=== PATIENT | female | born 1965 | race Caucasian/White ===

== ENCOUNTER 2023-12-08 08:45 | Emergency (ER) | payer OTHER, SELFPAY ==
--- NOTE | ~2023-12-08 | CT_ITS ---
EXAMINATION: CT ABDOMEN AND PELVIS WITHOUT CONTRAST. CT THORACIC SPINE WITHOUT CONTRAST. CLINICAL INFORMATION: Fall with thoracic and pelvic pain COMPARISON: None. TECHNIQUE: A noncontrast CT of the abdomen and pelvis and a noncontrast CT of the thoracic spine is performed with sagittal and coronal reformats. This CT examination was performed using dose optimization techniques as appropriate, variously including the following: *Automated exposure control *Adjustment of mA and/or kV according to patient size (this includes techniques or standardized protocols for targeted exams where dose is matched to indication/reason for exam; i.e. extremities or head) *Use of iterative reconstruction technique Dose Length Product: 588 and 742 mGycm. FINDINGS: Visualized lung bases are clear. The unenhanced liver, spleen, pancreas, kidneys, and adrenal glands appear normal. Incidental 2.1 cm right adrenal adenoma. Several layering gallstones. No intrahepatic or extrahepatic biliary duct dilatation. Scattered colonic diverticulosis. Small and large bowel loops are otherwise unremarkable. Normal appendix. Urinary bladder appears normal. No adenopathy. Scattered atherosclerotic calcifications. Evidence of ventral hernia repair. No pelvic or hip fracture. Transitional lumbosacral junction with fusion of L5-S1. Advanced facet arthrosis at L4-L5 with minimal anterolisthesis. No thoracic spine fracture or malalignment. Moderate multilevel degenerative disc disease with disc space narrowing and anterior endplate osteophytes. Normal thoracic kyphosis. CT/CT thoracic spine wo IV con IMPRESSION: 1. No acute traumatic findings within the abdomen or pelvis. 2. No thoracic spine fracture or traumatic malalignment. 3. Incidental 2.1 cm right adrenal adenoma. 4. Cholelithiasis. Electronically signed by: Jonathan Galvez MD 12/08/2023 11:30 AM EDT
--- NOTE | ~2023-12-08 | CT_ITS ---
EXAMINATION: CT ABDOMEN AND PELVIS WITHOUT CONTRAST. CT THORACIC SPINE WITHOUT CONTRAST. CLINICAL INFORMATION: Fall with thoracic and pelvic pain COMPARISON: None. TECHNIQUE: A noncontrast CT of the abdomen and pelvis and a noncontrast CT of the thoracic spine is performed with sagittal and coronal reformats. This CT examination was performed using dose optimization techniques as appropriate, variously including the following: *Automated exposure control *Adjustment of mA and/or kV according to patient size (this includes techniques or standardized protocols for targeted exams where dose is matched to indication/reason for exam; i.e. extremities or head) *Use of iterative reconstruction technique Dose Length Product: 588 and 742 mGycm. FINDINGS: Visualized lung bases are clear. The unenhanced liver, spleen, pancreas, kidneys, and adrenal glands appear normal. Incidental 2.1 cm right adrenal adenoma. Several layering gallstones. No intrahepatic or extrahepatic biliary duct dilatation. Scattered colonic diverticulosis. Small and large bowel loops are otherwise unremarkable. Normal appendix. Urinary bladder appears normal. No adenopathy. Scattered atherosclerotic calcifications. Evidence of ventral hernia repair. No pelvic or hip fracture. Transitional lumbosacral junction with fusion of L5-S1. Advanced facet arthrosis at L4-L5 with minimal anterolisthesis. No thoracic spine fracture or malalignment. Moderate multilevel degenerative disc disease with disc space narrowing and anterior endplate osteophytes. Normal thoracic kyphosis. CT/CT abdomen pelvis wo IV con IMPRESSION: 1. No acute traumatic findings within the abdomen or pelvis. 2. No thoracic spine fracture or traumatic malalignment. 3. Incidental 2.1 cm right adrenal adenoma. 4. Cholelithiasis. Electronically signed by: Jonathan Galvez MD 12/08/2023 11:30 AM EDT
--- NOTE | ~2023-12-08 | US_ITS ---
EXAMINATION: BILATERAL LOWER EXTREMITY DEEP VENOUS ULTRASOUND CLINICAL INFORMATION: Edema COMPARISON: No similar prior examinations are available for comparison. TECHNIQUE: Duplex Doppler imaging with compression maneuvers were performed of the bilateral lower extremity deep venous systems. FINDINGS: The bilateral visualized common femoral, femoral and popliteal veins demonstrate normal compressibility and color flow without evidence of venous thrombosis. Visualized portions of the bilateral calf veins demonstrate normal color fill-in suggesting patency. There is no evidence of a Thompson's cyst. A few mildly prominent lymph nodes are noted within the right groin which are nonspecific but likely reactive. US/US venous duplex LE BI IMPRESSION: No evidence of deep venous thrombosis involving the bilateral lower extremities. Electronically signed by: Marco Garcia MD 12/08/2023 01:34 PM EDT
--- NOTE | ~2023-12-08 | MR_ITS ---
EXAMINATION: MR LUMBAR SPINE WITHOUT CONTRAST CLINICAL INFORMATION: Severe low back pain. COMPARISON: CT abdomen and pelvis 12/08/2023. TECHNIQUE: MRI of the lumbar spine was obtained using routine sequences without contrast. 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 There is grade 1 anterolisthesis of L4 on L5 that appears to be related to advanced facet degenerative changes at this level. Alignment is otherwise normal. Vertebral body heights are preserved. No acute bone marrow signal changes. Slight loss of intervertebral Director Cpg and T2 signal intensity at L4-L5 related to disc degeneration. There is abutment with associated edema and sclerotic changes of the adjoining spinous processes at L4-L5 indicate the possibility of underlying Baastrup disease. The tip of the conus medullaris is located at L1. No mass effect on the conus. Visualized distal cord signal intensity is normal. At L1-L2 the annular contour is normal. No canal or neuroforaminal compromise. At L2-L3 there is a slightly bulging disc. Bilateral facet degenerative change. No canal stenosis. No mass effect on the traversing or foraminal nerve roots. At L3-L4 there is a slightly bulging disc. Bilateral facet degenerative change. No canal stenosis. No mass effect on the traversing or foraminal nerve roots. At L4-L5 there is a pseudodisc bulge. Moderate to severe canal stenosis. Subarticular zone narrowing causes compression of both traversing L5 nerve roots. There is also moderate compression of both L4 foraminal nerve roots. At L5-S1 there is no canal or neuroforaminal compromise. Limited visualization of the retroperitoneal anatomy reveals a few layering calculi within the gallbladder neck. Psoas and paraspinal muscle groups are symmetric. 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 There is adjacent segment spondylosis above the fusion at the level of L4-L5 where there is grade 1 anterolisthesis and moderate to severe canal stenosis. Subarticular zone narrowing at this level causes compression of both traversing L5 nerve roots. There is also moderate compression of both L4 foraminal nerve roots related to degenerative changes at L4-L5. There is abutment with associated edema and sclerotic changes of the adjoining spinous processes at L4-L5 indicating the possibility of underlying Baastrup disease. There are a few layering calculi visualized within the gallbladder neck. Electronically signed by: Bridger Perez MD 12/08/2023 06:40 PM EDT RP
[2023-12-08 08:49] VITALS: BP 148/81; PULSE 77; RESP 20; TEMP 36.6; O2SAT 99; BMI 42.2
--- NOTE | 2023-12-08 09:21 | ED_ITS ---
HPI - Back Pain/Injury General Chief Complaint: Back Pain/Injury Stated Complaint: back inj, swollen legs Time Seen by Provider: 12/08/23 09:21 Source: patient and family (sister ) Mode of arrival: ambulatory Limitations: no limitations History of Present Illness ED Provider: [place] HOPE HPI Narrative: 58-year-old female history of hypertension, obesity, current daily smoker presents to the emergency department with debilitating lower back pain ongoing for the past 2 months. Patient reports pain is diffuse through her lower back she feels like it starts in the center and radiates out into bilateral lower extremities no associated numbness or tingling or changes in urinary or bowel habits however patient has not been able to ambulate over the past 2 months she has been sleeping in a recliner, pain is worse with movement better at rest. She reports this pain did start after a fall approximately 2 months ago. She has taken Toradol after a hospital visit for pain with little to no improvement. She has also seen [facility] who ordered an MRI of lower back and venous duplex due to new onset lower extremity swelling she reports her legs are normally not swollen however she has not been able to elevate her legs much secondary to severe pain with leg raise. She has shortness of breath at baseline however no new shortness of breath. She denies chest pain. Denies fevers, chills, nausea, vomiting, numbness, tingling, urinary or bladder incontinence/retention, saddle anesthesias. Related Data Previous Rx's ?Medication ?Instructions ?Recorded ketorolac 10 mg tablet 10 mg PO TID PRN pain 5 days #15 12/08/23 tabs lidocaine 5 % topical patch 1 patch topical DAILY PRN pain #15 12/08/23 ea morphine 15 mg immediate release 15 mg PO Q6H PRN pain 5 days #10 12/08/23 tablet tabs prednisone 20 mg tablet 40 mg (2 x 20 mg) PO DAILY 5 days 12/08/23 #10 tabs Allergies Allergy/AdvReac Type Severity Reaction Status Date / Time Penicillins [PENICILLINS] Allergy Unknown HIVES Verified 12/08/23 08:52 Review of Systems 2 Review of Systems: Yes all other systems are reviewed and are negative PMFSH Past Medical History Attestation statement: The following information was validated with the patient. Source: old records reviewed and nursing notes reviewed Social History Social History Smoked in Last 30 Days: Yes Advance Directives: No Advance Directives Information Provided: No Do you have a plan to hurt others: No Plan Physical Exam 2 Vital Signs: Vital Signs: Last Vital Signs Temp 97.9 F 12/08/23 08:49 Pulse 67 12/08/23 20:46 Resp 18 12/08/23 20:46 BP 102/42 L 12/08/23 16:28 Pulse Ox 98 12/08/23 16:28 O2 Del Method Room Air 12/08/23 16:28 BMI result Body Mass Index 42.2 vss Appearance: Alert.? Oriented X3.? No acute distress.? Head: Normocephalic, atraumatic, no step-offs or deformities Eyes: Pupils equal, round and reactive to light.? Neck: Normal inspection.? Neck supple.? CVS: Normal heart rate and rhythm.? Pulses normal.? Respiratory: No respiratory distress.? Breath sounds normal.? Abdomen: Soft and nontender.? Skin: Skin warm and dry.? Normal skin color.? Normal skin turgor.? Extremities: 2+ lower extremity edema from the knee down bilaterally? No calf ttp. 5/5 strength to bilateral upper extremities and 3/5 strength to bilateral lower extremities strength assessment is interrupted by severe pain. Back: No midline tenderness, no C-spine tenderness, full range of motion however extremely painful particularly with rotation, flexion and extension, no CVA tenderness bilaterally Neuro: Oriented X 3.? No motor deficit.? No sensory deficit. CN 2-12 intact Course Reevaluation(s) Reevaluation #1: CBC unremarkable. Chemistry unremarkable. Coags normal. UA normal. DVT study negative. Ct t spine, no acute findings no fx or traumatic malalignment. 2.1 cm adrenal adenoma Time: 14:29 Reevaluation #2: Still in a lot of pain and feels like she can not walk. Discussed w/ my attending Dr. Hilliard, will order MR of lumbar spine at this time. Time: 14:50 Reevaluation #3: I Nora Gilmore PA-C have accepted care Of the patient had signed out pending MRI lumbar spine I have independently reviewed the following tests: MRI lumbar spine:: MR LUMBAR SPINE WITHOUT CONTRAST CLINICAL INFORMATION: Severe low back pain. COMPARISON: CT abdomen and pelvis 12/08/2023. TECHNIQUE: MRI of the lumbar spine was obtained using routine sequences without contrast. 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 There is grade 1 anterolisthesis of L4 on L5 that appears to be related to advanced facet degenerative changes at this level. Alignment is otherwise normal. Vertebral body heights are preserved. No acute bone marrow signal changes. Slight loss of intervertebral Fitness Supervisor and T2 signal intensity at L4-L5 related to disc degeneration. There is abutment with associated edema and sclerotic changes of the adjoining spinous processes at L4-L5 indicate the possibility of underlying Baastrup disease. The tip of the conus medullaris is located at L1. No mass effect on the conus. Visualized distal cord signal intensity is normal. At L1-L2 the annular contour is normal. No canal or neuroforaminal compromise. At L2-L3 there is a slightly bulging disc. Bilateral facet degenerative change. No canal stenosis. No mass effect on the traversing or foraminal nerve roots. At L3-L4 there is a slightly bulging disc. Bilateral facet degenerative change. No canal stenosis. No mass effect on the traversing or foraminal nerve roots. At L4-L5 there is a pseudodisc bulge. Moderate to severe canal stenosis. Subarticular zone narrowing causes compression of both traversing L5 nerve roots. There is also moderate compression of both L4 foraminal nerve roots. At L5-S1 there is no canal or neuroforaminal compromise. Limited visualization of the retroperitoneal anatomy reveals a few layering calculi within the gallbladder neck. Psoas and paraspinal muscle groups are symmetric. 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 There is adjacent segment spondylosis above the fusion at the level of L4-L5 where there is grade 1 anterolisthesis and moderate to severe canal stenosis. Subarticular zone narrowing at this level causes compression of both traversing L5 nerve roots. There is also moderate compression of both L4 foraminal nerve roots related to degenerative changes at L4-L5. There is abutment with associated edema and sclerotic changes of the adjoining spinous processes at L4-L5 indicating the possibility of underlying Baastrup disease. There are a few layering calculi visualized within the gallbladder neck. Electronically signed by: Bridger Perez MD 12/08/2023 06:40 PM EDT RP After discussion with the patient, it is clear that she requires case management and physical therapy assessment. Ordering a Nicoderm patch, and additional pain medication. In addition, the patient has COPD, she is due for an updraft, we will order a DuoNeb. Medications Administered Discontinued Medications Generic Name Dose Route Start Last Admin Trade Name Lyndsay PRN Reason Stop Dose Admin Albuterol/Ipratropium 3 ml 12/08/23 20:21 12/08/23 20:44 Albuterol/Iprat 2.5/0.5mg 3 Ml Ampul.Neb INHALE 12/08/23 20:22 3 ml ONCE ONE Administration Diazepam 2 mg 12/08/23 09:40 12/08/23 10:16 Diazepam 2 Mg Tablet PO 12/08/23 09:41 2 mg ONCE ONE Administration Hydromorphone HCl 1 mg 12/08/23 13:08 12/08/23 13:35 Hydromorphone Hcl 1 Mg/Ml Syringe IVPUSH 12/08/23 13:09 1 mg ONCE ONE Administration Protocol Hydromorphone HCl 1 mg 12/08/23 14:51 12/08/23 15:16 Hydromorphone Hcl 1 Mg/Ml Syringe IVPUSH 12/08/23 14:52 1 mg ONCE ONE Administration Protocol Hydromorphone HCl 1 mg 12/08/23 15:52 12/08/23 16:43 Hydromorphone Hcl 1 Mg/Ml Syringe IVPUSH 12/08/23 15:53 1 mg ONCE ONE Administration Protocol Ketorolac Tromethamine 30 mg 12/08/23 09:40 12/08/23 10:16 Ketorolac Tromethamine 15 Mg/Ml Vial IVPUSH 12/08/23 09:41 30 mg ONCE ONE Administration Lidocaine 1 patch 12/08/23 09:40 12/08/23 10:16 Lidocaine 4 % Patch Adh..Patch TRANSDERMA 12/08/23 09:41 1 patch ONCE ONE Administration Protocol Morphine Sulfate 4 mg 12/08/23 09:40 12/08/23 10:16 Morphine Sulfate 4 Mg/Ml Cartridge IVPUSH 12/08/23 09:41 4 mg ONCE ONE Administration Protocol Medical Decision Making Medical Decision Making [facility] Narrative: 58-year-old female presents with 2 months of acute on chronic back pain. Worsening over the past few days the point where she can not ambulate. Does report trauma about 2 months ago. Physical exam 2+ lower extremity edema from the knee down bilaterally? No calf ttp. 5/5 strength to bilateral upper extremities and 3/5 strength to bilateral lower extremities strength assessment is interrupted by severe pain. Back: No midline tenderness, no C-spine tenderness, full range of motion however extremely painful particularly with rotation, flexion and extension, no CVA tenderness bilaterally History and physical exam concerning for possible compression fracture versus lumbar radiculopathy versus herniated disc. Unlikely cauda equina, epidural abscess, cord compression. Lower extremity edema likely secondary to gravity/positional I do not suspect acute arterial or venous occlusion. Will rule out metabolic derangements in urinary infection although unlikely. Plan labs, imaging, urine Differential Diagnosis Differential Diagnoses: The differential diagnosis associated with the presentation includes (History and physical exam concerning for possible compression fracture versus lumbar radiculopathy versus herniated disc. Unlikely cauda equina, epidural abscess, cord compression. Lower extremity edema likely secondary to gravity/positional I do not suspect acute arterial or venous occlusion. Wi) Admission/Observation Consideration of admission/observation: Escalation of care including admission/observation considered (possible ) Lab Data [facility] Lab Attestation statement: I reviewed the patient's lab results. 12/08/23 09:47 12/08/23 09:47 Labs: Lab Results 12/08/23 12/08/23 Range/Units 09:47 10:45 WBC 7.7 (4.8-10.8) X10*3/uL RBC 3.69 L (4.20-5.50) X10*6/uL Hgb 12.4 (12.0-16.0) g/dl Hct 37.9 (37.0-47.0) % MCV 102.7 H (80.0-98.0) fL MCH 33.6 H (27.0-33.0) pg MCHC 32.7 (31.0-35.0) g/dl RDW 13.4 (11.0-16.0) % Plt Count 213 (160-400) X10*3/uL MPV 9.3 L (9.4-12.3) fL Immature Gran % (Auto) 0.4 (0.0-0.4) % Neut % (Auto) 70.7 (45-73) % Lymph % (Auto) 18.4 L (20-40) % Gentry % (Auto) 7.3 (2-11) % Eos % (Auto) 2.5 (0-4) % Baso % (Auto) 0.7 (0-2) % Lymph # (Auto) 1.4 (1.2-4.9) X10*3/uL Gentry # (Auto) 0.6 (0.1-1.2) X10*3/uL Eos # (Auto) 0.2 (0.0-0.4) X10*3/uL Baso # (Auto) 0.1 (0.0-0.2) X10*3/uL Abs Immat Gran (auto) 0.03 (0.00-0.03) X10*3/uL Absolute Neuts (auto) 5.4 (2.0-8.3) x10*3/uL Absolute Nucleated RBC 0.000 (0.0-0.012) X10*3/uL Nucleated RBC % (auto) 0.0 (0.0-0.2) /100WBC ESR 17 (0-20) MM/HR PT 10.9 (10.9-12.4) SEC INR 0.9 (0.9-1.1) Sodium 143 (135-145) mmol/L Potassium 4.4 (3.3-5.1) mmol/L Chloride 108 (96-108) mmol/L Carbon Dioxide 27 (22-29) mmol/L Anion Gap 12 (12-20) BUN 12 (9-16) mg/dL Creatinine 0.84 (0.5-1.4) mg/dL Estim Creat Clear Calc 80.8 Estimated GFR > 60 Random Glucose 96 (60-115) mg/dL Calcium 9.6 (8.4-10.2) mg/dL Total Bilirubin 0.6 (0.0-1.0) mg/dL AST 17 (5-31) U/L ALT 12 (0-31) U/L Alkaline Phosphatase 88 (39-117) U/L Troponin I High Sens 4.4 (<3.5-17.0) ng/L C-Reactive Protein 0.96 H (< or = 0.50) mg/dL B-Natriuretic Peptide 96 (<100) pg/mL Total Protein 7.2 (6.5-8.0) g/dL Albumin 4.1 (3.5-5.0) g/dL Urine Color Yellow Urine Appearance Clear Urine pH 6.5 (5.0-9.0) Ur Specific Rake 1.010 (1.005-1.025) Urine Protein Negative (Neg-Trace) mg/dL Urine Glucose (UA) Negative (Negative) mg/dL Urine Ketones Trace (Negative) mg/dL Urine Blood Negative (Negative) Urine Nitrite Negative (Negative) Ur Leukocyte Esterase Negative (Negative) Independent Interpretation I performed an independent interpretation of an: Ultrasound (US/US venous duplex LE BI IMPRESSION: No evidence of deep venous thrombosis involving the bilateral lower extremities. ) and CT Scan (CT/CT abdomen pelvis wo IV con IMPRESSION: 1. No acute traumatic findings within the abdomen or pelvis. 2. No thoracic spine fracture or traumatic malalignment. 3. Incidental 2.1 cm right adrenal adenoma. 4. Cholelithiasis. ) Radiology Impression Discussion of test interpretation with radiology: I have reviewed the radiologist's reading. Independent Historian Clinical information obtained from an independent historian. History obtained from or confirmed by: Other (sister ) Critical Care Time Critical Care Time Critical Care Time: Yes Total Critical Care Time: 35 Attestation: I attest to this time spent taking care of the patient, obtaining history, physical, reviewing labs, imaging, treatment of patients condition +/- specialist/hospitalist consult Discharge Plan Discharge Clinical Impression: Acute lumbar back pain, Lumbar radiculopathy, Leg edema Patient Disposition: Still a Patient Instructions: Acute Low Back Pain (ED), Back Pain (ED) Additional Instructions: Take your medications as prescribed. If you were prescribed antibiotics today, it is important that you take your medication to their entirety, do not skip any doses, do not finish them early. Follow-up with your primary care provider this week. Return to the emergency department with new or worsening symptoms. Such as fevers, chills, chest pain, shortness of breath, nausea, vomiting, dizziness, headache, vision changes, lethargy In case of emergency call 911 Elevate your legs, minimize salt intake Follow-up with PCP and [facility] A narcotic has been sent to your pharmacy please take this as prescribed. Do not take more than the prescribed dose. Narcotic medications can cause addiction. Please do not mix them with alcohol. Do not take them while driving or operating machinery. Do not take them with any other narcotics. Do not share them with friends or family. They can cause constipation. Take them only for severe pain. Toradol has been sent to your pharmacy, you tolerated this well in the department. Please take this as prescribed do not take this with ibuprofen, or other NSAIDs, do not mix this with alcohol. Side effects of this medication including increased risk for bleeding and possible kidney injury. US/US venous duplex LE BI IMPRESSION: No evidence of deep venous thrombosis involving the bilateral lower extremities. CT/CT abdomen pelvis wo IV con IMPRESSION: 1. No acute traumatic findings within the abdomen or pelvis. 2. No thoracic spine fracture or traumatic malalignment. 3. Incidental 2.1 cm right adrenal adenoma. 4. Cholelithiasis. Prescriptions: New ketorolac 10 mg tablet 10 mg PO TID PRN (Reason: pain) 5 Days Qty: 15 0RF Rx Instructions: Tolerated IM or IV in department lidocaine 5 % adhesive patch,medicated 1 patch topical DAILY PRN (Reason: pain) Qty: 15 0RF Rx Instructions: leave on most painful area for up to 12 hrs morphine 15 mg tablet 15 mg PO Q6H PRN (Reason: pain) 5 Days Qty: 10 0RF Rx Instructions: Partial Fill upon patient request. prednisone 20 mg tablet 40 mg PO DAILY 5 Days Qty: 10 0RF Referrals: [facility] [Provider Group] - 2 days Juanis Garza FNP-JARVIS [Primary Care Provider] - 2 days Stand Alone Forms: Work/School Release Print Language: Belarusian
[2023-12-08 09:58] LABS: MANUAL DIFF FLAG NO
[2023-12-08 10:00] LABS: Basophils Absolute Auto 0.1 X10*3/uL (0.0-0.2); Basophils Percent Auto 0.7 % (0-2); Eosinophils Absolute Auto 0.2 X10*3/uL (0.0-0.4); Eosinophils Percent Auto 2.5 % (0-4); Hematocrit 37.9 % (37.0-47.0); Hemoglobin 12.4 g/dl (12.0-16.0); Imm Gran Abs Auto 0.03 X10*3/uL (0.00-0.03); Imm Gran Pct Auto 0.4 % (0.0-0.4); Lymphocytes Absolute Auto 1.4 X10*3/uL (1.2-4.9); Lymphocytes Percent Auto 18.4 % (20-40); Mean Corpuscular HGB Conc 32.7 g/dl (31.0-35.0); Mean Corpuscular Hemoglobin 33.6 pg (27.0-33.0); Mean Corpuscular Volume 102.7 fL (80.0-98.0); Mean Platelet Volume 9.3 fL (9.4-12.3); Monocytes Absolute Auto 0.6 X10*3/uL (0.1-1.2); Monocytes Percent Auto 7.3 % (2-11); Neutrophils Absolute Auto 5.4 x10*3/uL (2.0-8.3); Neutrophils Percent Auto 70.7 % (45-73); Platelet Count 213 X10*3/uL (160-400); Red Blood Count 3.69 X10*6/uL (4.20-5.50); Red Cell Distribution Width 13.4 % (11.0-16.0); White Blood Count 7.7 X10*3/uL (4.8-10.8)
[2023-12-08 10:16] VITALS: RESP 16
[2023-12-08] MEDS: Ketorolac Tromethamine 15 MG/ML VIAL 30 MG IVPUSH (10:16)
[2023-12-08] MEDS: Morphine Sulfate 4 MG/ML CARTRIDGE IVPUSH (10:16)
[2023-12-08] MEDS: Lidocaine 4 % Patch ADH..PATCH 1 PATCH TRANSDERMA (10:16)
[2023-12-08] MEDS: diazePAM 2 MG TABLET PO (10:16)
[2023-12-08 10:22] LABS: INTERNATIONAL NORM RATIO 0.9 (0.9-1.1); Prothrombin Time 10.9 SEC (10.9-12.4)
[2023-12-08 10:23] LABS: B Type Natriuretic Peptide 96 pg/mL (<100)
[2023-12-08 10:24] LABS: Alanine Aminotransferase 12 U/L (0-31); Albumin Level 4.1 g/dL (3.5-5.0); Alkaline Phosphatase 88 U/L (39-117); Anion Gap 12 (12-20); Aspartate Amino Transferase 17 U/L (5-31); Bilirubin Total 0.6 mg/dL (0.0-1.0); Blood Urea Nitrogen 12 mg/dL (9-16); C Reactive Protein 0.96 mg/dL (< or = 0.50); Calcium 9.6 mg/dL (8.4-10.2); Carbon Dioxide 27 mmol/L (22-29); Chloride 108 mmol/L (96-108); Creatinine Clr Calc Pharmacy 80.8; Estimated Glomerular Filt Rate > 60; Glucose Random 96 mg/dL (60-115); Potassium 4.4 mmol/L (3.3-5.1); Sodium 143 mmol/L (135-145); Total Protein 7.2 g/dL (6.5-8.0)
[2023-12-08 10:25] LABS: Troponin-I High Sensitivity 4.4 ng/L (<3.5-17.0)
[2023-12-08 10:47] LABS: Erythrocyte Sedimentation Rate 17 MM/HR (0-20)
[2023-12-08 10:57] LABS: Appearance Urine Clear; Color Urine Yellow; Glucose Urine UA Negative (Negative); Leukocyte Esterase Urine Negative (Negative); Nitrite Urine Negative (Negative); PH 6.5 (5.0-9.0); Urine Blood Negative (Negative); Urine Ketones Trace mg/dL (Negative); Urine Protein Negative (Neg-Trace)
--- NOTE | 2023-12-08 11:44 | PC.NURSE ---
assumed care of pt at 1100, pt a&ox4, resting quietly in bed w lights dimmed pending CT scan results. pt reports improvement in pain to 5/10 from 10/12, but will call for assistance to restroom as pain tends to increase w ambulation.
[2023-12-08 12:36] VITALS: BP 123/63; PULSE 73; RESP 17; O2SAT 97
[2023-12-08] MEDS: HYDROmorphone HCl 1 MG/ML SYRINGE IVPUSH ×3 (13:35→16:43)
[2023-12-08 16:28] VITALS: BP 102/42; PULSE 69; RESP 17; O2SAT 98
--- NOTE | 2023-12-08 17:50 | PC.NURSE ---
patient transport to MRI.
[2023-12-08] MEDS: Albuterol/Iprat 2.5/0.5MG 3 ML AMPUL.NEB INHALE (20:44)
[2023-12-08 20:46] VITALS: PULSE 67; RESP 18; O2SAT 94
[2023-12-08 22:08] VITALS: BP 110/53; PULSE 73; RESP 17; TEMP 36.7; O2SAT 94
[2023-12-08] MEDS: methocarbamoL 750 MG TABLET 1500 MG PO (22:08)
[2023-12-08] MEDS: Nicotine 21 MG PATCH.TD24 TRANSDERMA (22:08)
--- NOTE | 2023-12-08 22:13 | PC.NURSE ---
pt medicated per MAY, nicotine patch applied to L upper outer arm. warm blankets and ice provided.
[2023-12-09 07:02] VITALS: BP 130/63; PULSE 82; RESP 20; TEMP 37.1; O2SAT 97
--- NOTE | 2023-12-09 07:03 | PC.NURSE ---
pt reports she slept well, back pain 10/10 requesting motrin for pain only.
--- NOTE | 2023-12-09 10:52 | MHC.CM.PN ---
CM RECEIVED ED CONSULT. CM MET WITH PT AT BEDSIDE. 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 PT WILLING TO COMPLETE A HCP WITH THIS CM NAMING HER SISTER. NO ACTIVE PCP, PENDING NEW PT APPT BUT NOT UNTIL MAY 2024. PT IS WILLING TO WAIT TO BE SEEN BY P.T. FOR RECOMMENDATIONS. CM WILL CONTINUE TO FOLLOW. IF PT CHOOSES TO RETURN HOME, SHE HAS A RIDE.
[2023-12-09] MEDS: traMADoL HCL 50 MG TABLET PO (11:39)
--- NOTE | 2023-12-09 11:43 | PC.NURSE ---
Pt medicated with PRN tramadol for c/o back pain. RT called for PRN updraft per Pt request.
[2023-12-09] MEDS: Albuterol/Iprat 2.5/0.5MG 3 ML AMPUL.NEB INHALE (11:49)
[2023-12-09 11:50] VITALS: PULSE 80; RESP 14; O2SAT 92
[2023-12-09 14:46] VITALS: BP 142/68; PULSE 80; RESP 14; TEMP 36.6; O2SAT 97
== END 2023-12-09 14:47 | disposition home or self-care (01) ==
PROVIDERS: Physician Assistant; Emergency Provider Internal Medicine; PCP Nurse Practitioner Family
DX: M54.50 Low back pain, unspecified (principal); M54.16 Radiculopathy, lumbar region; R60.0 Localized edema; I10 Essential (primary) hypertension; F17.210 Nicotine dependence, cigarettes, uncomplicated; R06.02 Shortness of breath
CPT/HCPCS: 36415; 72128; 72148; 74176; 80053; 81003; 83880; 84484; 85025; 85610; 85652; 86140; 93970; 94640; 96374; 96375; 99285; J1171; J1885; J2270

== ENCOUNTER 2024-01-23 08:01 | Outpatient (AMB) | payer OTHER, SELFPAY ==
--- NOTE | 2024-01-23 08:20 | AM.OFFWIN_ITS ---
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 Required: No Accompanied by: Sister Is last menstrual period known: No Post menopausal: No Patient : No Allergies Penicillins [PENICILLINS] Allergy (Unknown, Verified 01/23/24 08:23) HIVES Medication List - Last Reconciled 01/23/24 by Juanis Garza [facility]- albuterol sulfate mg inhalation albuterol sulfate 90 mcg/actuation inhalation gabapentin 300 mg PO BEDTIME lidocaine 5% 1 patch topical DAILY PRN Do you need a note to return to daycare/school/sports/work: No HPI HPI Comments History of Present Illness Details History of Present Illness The patient is a 58-year-old female presenting with a need for medication refills, specifically for nebulizer treatment, due to her Chronic Obstructive Pulmonary Disease (COPD) and asthma. She last refilled her nebulizer medication in July and has been stretching her supply by using it every other day. The history reveals that she has been utilizing albuterol in her nebulizer and a rescue inhaler. She reports increased wheezing and difficulty breathing, particularly upon waking, exacerbated by pain and restricted activity due to back pain. The patient was previously connected to [facility] but lost access due to insurance changes. She has a significant history of back pain, highlighted by recent ER visits following her sister's incident in August at her skilled nursing [facility]. Currently, she attends [facility], receiving gabapentin and cortisone injections. She expresses reluctance towards surgical intervention, preferring conservative treatment. She is also dealing with persistent wheezing and reports a recent increase in smoking due to inactivity. Social History - Employment: Previously worked in a [employer] setting and currently employed at [employer] - Lifestyle: Used to walk two miles [place] but reports increased smoking and reduced activity due to current health conditions. Physical Exam Awake alert NAD, accompanied by sister, Skylar RRR LS w/ ins/exp wheeze throughout Plan - Chronic Obstructive Pulmonary Disease COPD) and Asthma: Refilled prescriptions for nebulizer solution and inhaler. Recommended to continue nebulizer up to four times daily as needed. Explore cost-effective inhaled steroids. Tristian sent to pharmacy w/ note to send me cheaper alternatives if hi copay as i am not able to access real time benefits. - Back Pain: Continue receiving gabapent in and scheduled cortisone injections. Recommended conservative management over surgical intervention. Patient was informed and verbally consented to the use of an ambient scribe for clinic note documentation during this visit. Discussion Notes During the visit, we discussed the current management of the patient?s COPD and asthma, emphasizing the importance of inhaled steroids to improve respiratory function. Considering the financial constraints, we will look into more affordable options for these medications. We reviewed the challenges she faces with back pain and the decision to pursue conservative treatments rather than surgery. I advised on the potential benefit of an inhaled steroid despite concerns over cost and provided education on proper post-inhalation mouth rinsing to prevent thrush. Plan to follow up in four weeks, with flexibility for sooner appointment if needed. Patient Instructions - Use the nebulizer solution and inhaler as prescribed. - Rinse the mouth after using inhaled st eroids to prevent thrush. - Monitor symptoms and use albuterol inh aler or nebulizer as needed. - Follow up with [facility] for back pain management and scheduled injections. - Reduce smoking to aid respiratory heal th. - Return in approximately four weeks or sooner if symptoms worsen [facility] Social History Patient Tobacco Use Status: Current everyday Tobacco user Physical Exam Vital Signs: Last Vital Signs Temp 99.3 F 01/23/24 08:25 Pulse 80 01/23/24 08:25 Resp 16 01/23/24 08:25 BP 116/70 01/23/24 08:25 Pulse Ox 99 01/23/24 08:25 Oxygen Delivery Method Room Air 01/23/24 08:25 BMI result Body Mass Index 42.4 Assessment & Plan Assessment & Plan (1) COPD (chronic obstructive pulmonary disease): Code(s): J44.9 - Chronic obstructive pulmonary disease, unspecified Qualifiers: COPD type: chronic bronchitis Chronic bronchitis type: mixed simple and mucopurulent Qualified Code(s): J41.8 - Mixed simple and mucopurulent chronic bronchitis (2) Tobacco dependence: Code(s): F17.200 - Nicotine dependence, unspecified, uncomplicated Plan . Medications: New albuterol sulfate 90 mcg/actuation 2 puffs inhalation Q6H 8.5 grams 12RF albuterol sulfate 2.5 mg (3 mL) inhalation Q6H 180 mL 11RF fluticasone propion-salmeterol 250-50 mcg/dose ([facility]ix[facility] Inhub) 1 inh inhalation BID 60 ea 2RF 30 days Discontinued morphine Partial Fill upon patient request. Discontinued Reason: Patient Completed Course 15 mg PO Q6H 5 days PRN 10 tabs 0RF pain prednisone Discontinued Reason: Patient no longer taking 40 mg (2 x 20 mg) PO DAILY 5 days 10 tabs 0RF ketorolac Tolerated IM or IV in department Discontinued Reason: Patient no longer taking 10 mg PO TID 5 days PRN 15 tabs 0RF pain Coding Level of Care Code Est Pt Level 3 (23701) Diagnoses Mixed simple and mucopurulent chronic bronchitis J41.8 COPD type: chronic bronchitis Chronic bronchitis type: mixed simple and mucopurulent Tobacco dependence F17.200
[2024-01-23 08:25] VITALS: BP 116/70; PULSE 80; RESP 16; TEMP 37.4; O2SAT 99; BMI 42.4
== END 2024-01-23 08:58 | disposition home or self-care (01) ==
LOC: HO.HMCWIW 08:01
PROVIDERS: PCP Nurse Practitioner Family; Visit Provider Nurse Practitioner Family
DX: J41.8 Mixed simple and mucopurulent chronic bronchitis (principal); F17.200 Nicotine dependence, unspecified, uncomplicated

== ENCOUNTER → 2024-01-23 08:01 | Outpatient (BNVA) | payer OTHER, SELFPAY | PROVIDERS: PCP Nurse Practitioner Family; Visit Provider Nurse Practitioner Family ==

== ENCOUNTER 2024-02-05 09:58 | Outpatient (AMB) | payer OTHER, SELFPAY ==
--- NOTE | 2024-02-05 10:00 | MHC.PC.OV ---
Vital Signs 02/05/24 10:12 Height 5 ft 2 in Weight 232 lb BMI 42.4 BP 124/72 Blood Pressure Location Rt brachial Position Sitting Respiration 13 Pulse 78 Pulse Source Pulse Oximeter Pulse Oximetry (%) 98 Oxygen Delivery Method Room Air Intake Visit Reasons: 4 weeks est care 30 min Intake Note: new patient to establish care [place] Required: No Allergies Penicillins [PENICILLINS] Allergy (Unknown, Verified 02/05/24 10:33) HIVES Medication List - Last Reconciled 02/05/24 by Juanis Garza, [facility]- albuterol sulfate 90 mcg/actuation 2 puffs inhalation Q6H albuterol sulfate 2.5 mg (3 mL) inhalation Q6H baclofen 5 mg PO DAILY fluticasone propion-salmeterol 250-50 mcg/dose (Wixela Inhub) 1 inh inhalation BID 30 days gabapentin 300 mg PO BEDTIME lidocaine 5% 1 patch topical DAILY PRN Tobacco use date assessed: 02/05/24 Dental Screening Dental Screen Date: 02/05/24 Did you have a dental visit in the last 12 months?: No Did you have a dental problem in the last 6 months where you did not have access to dental care?: No Was dental information given to patient?: Patient has dentist HPI HPI Comments History of Present Illness Details 58-year-old female with COPD, current smoker, morbid obesity, chronic back pain, chronic leg pain, bilateral lower extremity edema, PVD, allergic rhinitis, MDD Status post total abdominal hysterectomy Social: sister is Skylar Winn; Has 2 children Son and dtr; works at [employer] Family history: Mom with COPD, CHF age 64, father with malignant tumor of kidney disease stage 59, paternal grandmother malignant tumor of the kidney, maternal aunt type 2 diabetes, no breast cancer or colon cancer 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 Records reviewed, for a CPE Reviewed with her health maintenance. She declines lung cancer screening, colonoscopy as she reports that she does not want to now and that she feels fine. She continues to smoke. She denies any hemoptysis or unintentional weight loss. She is not ready to quit. In regards to mammography she has had 1 in her life, abnormal, see results as above. She never did follow up as once again she feels fine and does not want to now. She is mostly affected by her chronic back pain which is worse after taking a mechanical fall and injuring her back. Was recommended that she undergo surgery however she does not want this. She reports that she had a very negative experience once during surgery and she will never have surgery again. She is currently active with [employer] and sports. She did receive 1 injection which provided some relief of her pain and she is going for a 2nd 1 on February 10. Her pain is daily. It affects her mood and her ability to sleep. Her COPD is well managed with Wixela and p.r.n. albuterol. She declined a referral to pulmonology at this time. Exam Awake alert oriented, no acute distress Regular rate and rhythm Lung sounds with faint expiratory wheezes BLL, much improved from last office visit Bilateral lower extremities with varicosities, skin dry, hairless, nonpitting edema, decreased pedal pulses, skin intact Tearful when talking about her health, kind and appropriate Plan Reviewed with her medication for her mood as she is quite tearful. Discuss Cymbalta versus Wellbutrin. [place] decision to start her on Wellbutrin to help with weight loss, her mood as well as smoking cessation. Educated about the side effects and reasons to discontinue use or notify me. In regards to her abnormal mammogram, I have placed an order for a mammogram. Advised for her to get this done when she feels ready to do this. Overall she does not want to know if she has anything cancerous. She also reports not wanting to have surgery due to a history of a bad experience with abdominal surgery. Discuss this in detail with her today. Supported her going through with any surgical procedures and or screening that she needs to ensure that her health is 1st. At this time, continue all medications as directed. Return to the office in 8 weeks to follow up on the Wellbutrin start, sooner as needed This note is constructed using voice recognition software. While every effort has been made to ensure accuracy in hydroelectric powerplant supervisor, still errors may have been included Sometimes, these errors may affect the content or meaning of the given sentence . 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 to a significant other at home: Yes Do you presently have visiting nurse or other home services: No 75 years or older and lives alone: No Alcohol intake: current Alcohol intake frequency: a few times a month Patient Tobacco Use Status: Current everyday Tobacco user Tobacco use type: Cigarette Cigarette Packs Per Day: 1 Cigarettes Per Day: 20 Years Smoked: 42 e-Cigarette/Vaping Use: Never Used Second Hand Smoke Exposure: No service: No Current occupational status: employed 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 1. Little interest or pleasure in doing things: not at all 2. Feeling down, depressed, or hopeless: not at all 3. Trouble falling or staying asleep, or sleeping too much: not at all 4. Feeling tired or having little energy: several days 5. Poor appetite or overeating: not at all 6. Feeling bad about yourself - or that you are a failure or have let yourself or your family down: not at all 7. Trouble concentrating on things, such as reading the newspaper or watching television: not at all 8. Moving or speaking so slowly that other people could have noticed. Or the opposite - being so fidgety or restless that you have been moving around a lot more than usual: not at all 9. Thoughts that you would be better off or of hurting yourself in some way: not at all Total score: 1 Depression Screening Interpretation: Negative Depression Screening Done: Yes 58017 - PHQ-9 Billing: Yes Source: Developed by Drs. Bridger Wen, Maria Elena Castorena, Horacio Ordonez and colleagues, with an educational brisa from [employer]. Thrive Questionnaire Date Thrive assessed: 02/05/24 I am a: Patient What is your living situation today?: I have a steady place to live Within the past 12 months, did the food you bought not last and you didn't have the money to get more?: I choose not to answer this question Within the past 12 months, did you worry whether your food would run out before you got money to buy more?: I choose not to answer this question Do you have trouble paying for medicines?: No Do you have trouble getting transportation to medical appointments?: No Do you have trouble paying your heating and electricity bill?: No Do you have trouble taking care of your child, family member or friend?: No Do you have trouble with day-to-day activities such as bathing, preparing meals, shopping, managing finances, etc.?: No Are you currently unemployed and looking for a job?: No Are you interested in more education?: No Please select the resources that you would like help with: None Currently or been in a relationship where the following occur: No concerns reported and I choose not to answer THRIVE Score: 0 AUDIT C Alcohol Use Questionnaire (AUDIT-C) 1. How often do you have a drink containing alcohol?: Monthly or less 2. How many drinks containing alcohol do you have on a typical day when you are drinking?: 1 or 2 3. How often do you have six or more drinks on one occasion?: Never Total Score: 1 Score Reviewed/Action Taken: Yes ROCÍO-7 AMB Questionnaire ROCÍO-7 Date ROCÍO - 7 assessed: 02/05/24 Feeling nervous, anxious, or on edge: 0 = Not at all Not being able to stop or control worryin = Not at all Worrying too much about different things: 0 = Not at all Trouble relaxin = Not at all Being so restless that it is hard to sit still: 0 = Not at all Becoming easily annoyed or irritable: 0 = Not at all Feeling afraid as if something awful might happen: 0 = Not at all Total ROCÍO-7 score (0-4 normal; 5-9 mild; 10-14 moderate; 15-21 severe): 0 Source: Developed by Drs. Bridger Wen, Maria Elena Castorena, Horacio Ordonez and colleagues, with an educational brisa from [employer]. ROCÍO-7 Assessment Billing ROCÍO-7 Assessment Tool: ROCÍO-7 Assessment 66852 Physical exam (Primary Care) Vital Signs: Last Vital Signs Pulse 78 02/05/24 10:12 Resp 13 02/05/24 10:12 BP 124/72 02/05/24 10:12 Pulse Ox 98 02/05/24 10:12 Oxygen Delivery Method Room Air 02/05/24 10:12 BMI result Body Mass Index 42.4 BMI Assessment/Plan discussion: High BMI High, discussed plan: lifestyle Tobacco/Smoking Status: Tobacco use Status Tobacco use date assessed 02/05/24 02/05/24 10:13 Patient Tobacco Use Status Current everyday Tobacco 02/05/24 10:07 Tobacco use type Cigarette 02/05/24 10:13 e-Cigarette/Vaping Use Never Used 02/05/24 10:13 Are you ready to quit: No Tobacco cessation counseling provided: Yes Items discussed: Nicotine replacement, QuitWorks and Other Relapse Prevention: discussed the importance of a supportive environment, discussed extending NRT, discussed negative mood or depression after quitting, weight gain after smoking is common and discussed dietary, exercise and/or lifestyle changes Number of minutes spent counselin CPT code: 52652 - 4-10 Minutes PHQ-9: PHQ-9 Score PHQ-9: Total score 1 02/05/24 10:41 Depression Screening Interpretation: Negative Thrive Assessment: Date of Thrive Assessment Date Thrive assessed 02/05/24 02/05/24 10:03 Currently or been in a relationship where the following occur: No concerns reported and I choose not to answer Coding Level of Care Code Est Pt Prev Care 40-64y(37371) Diagnoses Encounter for general adult medical examination without abnormal findings Z00.00 Morbid obesity with BMI of 40.0-44.9, adult E66.01; Z68.41 Mixed simple and mucopurulent chronic bronchitis J41.8 COPD type: chronic bronchitis Chronic bronchitis type: mixed simple and mucopurulent Tobacco dependence F17.200 PVD (peripheral vascular disease) I73.9 Moderate episode of recurrent major depressive disorder F33.1 Major depression episode severity: moderate Colon cancer screening declined Z53.20 Lung cancer screening declined by patient Z53.20 Abnormal mammogram of right breast R92.8 Additional Codes ROCÍO-7 Assessment Billing - ROCÍO-7 Assessment Tool: ROCÍO-7 Assessment 26052 ([id number]) PHQ-9 - 11445 - PHQ-9 Billing: Yes ([id number]) Vital Signs *Quality* - CPT code: 49087 - 4-10 Minutes ([id number]) Assessment & Plan Assessment & Plan (1) Encounter for general adult medical examination without abnormal findings: Code(s): Z00.00 - Encounter for general adult medical examination without abnormal findings (2) Morbid obesity with BMI of 40.0-44.9, adult: Code(s): E66.01 - Morbid (severe) obesity due to excess calories; Z68.41 - Body mass index [BMI] 40.0-44.9, adult Category: Medical (3) COPD (chronic obstructive pulmonary disease): Code(s): J44.9 - Chronic obstructive pulmonary disease, unspecified Category: Medical Qualifiers: COPD type: chronic bronchitis Chronic bronchitis type: mixed simple and mucopurulent Qualified Code(s): J41.8 - Mixed simple and mucopurulent chronic bronchitis (4) Tobacco dependence: Code(s): F17.200 - Nicotine dependence, unspecified, uncomplicated Category: Medical Plan: SMOKING CESSATION HOW TO QUIT THERE ARE A LOT OF WAYS TO QUIT SMOKING AND MANY RESOURCES TO HELP YOU. FAMILY MEMBERS, FRIENDS, AND CO-WORKERS MAY BE SUPPORTIVE OR ENCOURAGING, BUT TO BE SUCCESSFUL THE DESIRE AND COMMITMENT TO QUIT MUST BE YOUR OWN. MOST PEOPLE WHO HAVE BEEN ABLE TO SUCCESSFULLY QUIT SMOKING MADE AT LEAST ONE UNSUCCESSFUL ATTEMPT IN THE PAST. TRY NOT TO VIEW PAST ATTEMPTS TO QUIT FAILURES, BUT RATHER LEARNING EXPERIENCES. STOPPING SMOKING OR USING SMOKELESS TOBACCO IS DIFFICULT, BUT ANYONE CAN DO IT. KNOW THE SYMPTOMS TO EXPECT WHEN YOU STOP. COMMON SYMPTOMS INCLUDE: ? AN INTENSE CRAVING FOR NICOTINE ? ANXIETY, TENSION, RESTLESSNESS, FRUSTRATION, OR IMPATIENCE ? DIFFICULTY CONCENTRATING ? DROWSINESS OR TROUBLE SLEEPING, WELL BAD DREAMS AND NIGHTMARES ? DROWSINESS AND TROUBLE SLEEPING ? HEADACHES ? INCREASED APPETITE AND WEIGHT GAIN ? IRRITABILITY OR DEPRESSION HOW SEVERE YOUR SYMPTOMS ARE DEPENDS ON HOW LONG YOU SMOKED AND HOW MANY CIGARETTES YOU SMOKED EACH DAY. FEEL READY TO QUIT? ? FIRST AND FOREMOST, SET A QUIT DATE AND QUIT COMPLETELY ON THAT DAY. BEFORE YOUR QUIT DATE, YOU MAY BEGIN REDUCING YOUR CIGARETTE USE. BUT REMEMBER, THERE IS NO SAFE LEVEL OF CIGARETTE SMOKING. ? LIST THE REASONS WHY YOU WANT TO QUIT. INCLUDE BOTH SHORT- AND LONG-TERM BENEFITS. ? IDENTIFY THE TIMES YOU ARE MOST LIKELY TO SMOKE. FOR EXAMPLE, DO YOU TEND TO SMOKE WHEN FEELING STRESSED OR DOWN? WHEN OUT AT NIGHT WITH FRIENDS? WHILE DRINKING COFFEE OR ALCOHOL? WHEN BORED? WHILE DRIVING? RIGHT AFTER A MEAL OR SEX? DURING A WORK BREAK? WHILE WATCHING TV OR PLAYING CARDS? WHEN YOU ARE WITH OTHER SMOKERS? ? LET ALL OF YOUR FRIENDS, FAMILY, AND CO-WORKERS KNOW OF YOUR PLAN TO STOP SMOKING AND YOUR QUIT DATE. JUST BEING AWARE THAT THEY KNOW WHAT YOU'RE GOING THROUGH CAN BE HELPFUL, ESPECIALLY WHEN YOU ARE GRUMPY. ? GET RID OF ALL YOUR CIGARETTES JUST BEFORE THE QUIT DATE, AND CLEAN OUT ANYTHING THAT SMELLS LIKE SMOKE, SUCH CLOTHES AND FURNITURE. MAKE A PLAN ABOUT WHAT YOU WILL DO INSTEAD OF SMOKING AT THOSE TIMES WHEN YOU ARE MOST LIKELY TO SMOKE. ? BE SPECIFIC POSSIBLE. FOR EXAMPLE, DRINK TEA INSTEAD OF COFFEE -- TEA MAY NOT TRIGGER THE DESIRE FOR A CIGARETTE. OR, TAKE A WALK WHEN YOU FEEL STRESSED. ? REMOVE ASHTRAYS AND CIGARETTES FROM THE CAR. PLACE PRETZELS OR HARD CANDIES THERE INSTEAD. PRETEND-SMOKE WITH A STRAW. ? FIND ACTIVITIES THAT FOCUS YOUR HANDS AND MIND BUT ARE NOT TAXING OR FATTENING. COMPUTER GAMES, SOLITAIRE, KNITTING, SEWING, AND CROSSWORD PUZZLES MAY HELP. ? IF YOU NORMALLY SMOKE AFTER EATING, FIND OTHER WAYS TO END A MEAL. PLAY A TAPE OR CD, EAT A PIECE OF FRUIT, GET UP AND MAKE A PHONE CALL, OR TAKE A WALK (A GOOD DISTRACTION THAT ALSO PINTO CALORIES). MAKE OTHER CHANGES IN YOUR LIFESTYLE. ? CHANGE YOUR DAILY SCHEDULE AND HABITS. EAT AT DIFFERENT TIMES OR EAT SEVERAL SMALL MEALS INSTEAD OF THREE LARGE ONES. SIT IN A DIFFERENT CHAIR OR EVEN A DIFFERENT ROOM. ? SATISFY YOUR ORAL HABITS BY EATING CELERY OR OTHER LOW-CALORIE SNACK, CHEWING SUGARLESS GUM, OR SUCKING ON A CINNAMON STICK. ? GO TO PUBLIC PLACES AND RESTAURANTS WHERE SMOKING IS PROHIBITED OR RESTRICTED. ? EAT REGULAR MEALS AND DON'T EAT TOO MUCH CANDY OR SWEET THINGS. ? GET MORE EXERCISE. TAKE WALKS OR RIDE A BIKE. EXERCISE HELPS RELIEVE THE URGE TO SMOKE. SET SHORT-TERM QUITTING GOALS AND REWARD YOURSELF WHEN YOU MEET THEM. ? EVERY DAY, PUT THE MONEY YOU NORMALLY SPEND ON CIGARETTES IN A JAR. THEN BUY SOMETHING PLEASURABLE AFTER A PERIOD OF TIME. ? TRY NOT TO THINK ABOUT ALL THE DAYS AHEAD YOU WILL NEED TO AVOID SMOKING. TAKE IT ONE DAY AT A TIME. ? EVEN ONE PUFF OR ONE CIGARETTE WILL MAKE YOUR DESIRE FOR MORE CIGARETTES EVEN STRONGER. HOWEVER, IT IS NORMAL TO MAKE MISTAKES. SO EVEN IF YOU HAVE ONE CIGARETTE, YOU DON'T NEED TO TAKE THE NEXT ONE. OTHER TIPS TO HELP YOU QUIT SMOKING AND STICK TO IT: ? ENROLL IN A SMOKING CESSATION PROGRAM (HOSPITALS, HEALTH DEPARTMENTS, COMMUNITY CENTERS, AND WORK SITES OFTEN OFFER PROGRAMS). LEARN ABOUT SELF-HYPNOSIS OR OTHER TECHNIQUES. ? ASK YOUR HEALTH CARE PROVIDER ABOUT PRESCRIPTION MEDICATIONS THAT ARE SAFE AND APPROPRIATE FOR YOU. ? FIND OUT ABOUT NICOTINE PATCHES, GUM, AND SPRAYS. THE [employer]'S WEB SITE -- [email or web address] -- IS AN EXCELLENT RESOURCE FOR SMOKERS WHO ARE TRYING TO QUIT, AND THE [employer] CAN HELP SOME SMOKERS KICK THE HABIT. ABOVE ALL, DON'T GET DISCOURAGED IF YOU AREN'T ABLE TO QUIT SMOKING THE FIRST TIME. NICOTINE ADDICTION IS A HARD HABIT TO BREAK. TRY SOMETHING DIFFERENT NEXT TIME. DEVELOP NEW STRATEGIES, AND TRY AGAIN. MANY PEOPLE TAKE SEVERAL ATTEMPTS TO FINALLY KICK THE HABIT. (5) PVD (peripheral vascular disease): Comment: Based on clinical exam, monitor skin integrity Code(s): I73.9 - Peripheral vascular disease, unspecified Category: Medical (6) MDD (major depressive disorder), recurrent episode: Code(s): F33.9 - Major depressive disorder, recurrent, unspecified Category: Medical Qualifiers: Major depression episode severity: moderate Qualified Code(s): F33.1 - Major depressive disorder, recurrent, moderate (7) Colon cancer screening declined: Code(s): Z53.20 - Procedure and treatment not carried out because of patient's decision for unspecified reasons Category: Medical (8) Lung cancer screening declined by patient: Code(s): Z53.20 - Procedure and treatment not carried out because of patient's decision for unspecified reasons Category: Medical (9) Abnormal mammogram of right breast: Comment: Right breast ultrasound atypical lobular hyperplasia, adenosis and stromal fibrosis high-risk consultation indicated 10/10/2022 Code(s): R92.8 - Other abnormal and inconclusive findings on diagnostic imaging of breast Category: Medical Plan . Orders: Orders MM tomosynthesis screening BI Today Z12.31 - Encounter for screening mammogram for malignant neoplasm of breast Medications: New bupropion HCl SR (Wellbutrin SR) 100 mg PO BID 60 tabs 2RF Patient Instructions: Health screenings for women You should visit your health care provider from time to time, even if you are healthy. The purpose of these visits is to: Screen for medical issues Assess your risk for future medical problems Encourage a healthy lifestyle Update vaccinations and other preventive care services Help you get to know your provider in case of an illness Information Even if you feel fine, you should still see your provider for regular checkups. These visits can help you avoid problems in the future. For example, the only way to find out if you have high blood pressure is to have it checked regularly. High blood sugar and high cholesterol levels also may not have any symptoms in the early stages. A simple blood test can check for these conditions. There are specific times when you should see your provider or receive specific health screenings. The [place] Preventive Services Task Force publishes a list of recommended screenings. Below are screening guidelines for women ages 18 to 39. BLOOD PRESSURE SCREENING Your blood pressure should be checked at least once every 3 to 5 years if: Your blood pressure is in the normal range (top number less than 120 mm Hg and bottom number less than 80 mm Hg) You don't have risk factors for high blood pressure Ask your provider if you need your blood pressure checked more often if: The top number is 120 to 129 mm Hg or the bottom number is 70 to 79 mm Hg You have diabetes, heart disease, kidney problems, are overweight, or have certain other health conditions You have a first-degree relative with high blood pressure You are Black You had high blood pressure during a If the top number is 130 mm Hg or greater or the bottom number is 80 mm Hg or greater, this is considered stage 1 hypertension. Schedule an appointment with your provider to learn how you can reduce your blood pressure. Watch for blood pressure screenings in your area. Ask your provider if you can stop in to have your blood pressure checked. BREAST CANCER SCREENING Experts do not agree about the benefits of breast self-exams in finding breast cancer or saving lives. Talk to your provider about what is best for you. A screening mammogram is not recommended for most women under age 40. Your provider may discuss and recommend mammograms, MRI scans, or ultrasounds if you have an increased risk for breast cancer, such as: A mother or sister who had breast cancer at a young age (most often starting screening earlier than the age the close relative was diagnosed) You carry a high-risk genetic marker CERVICAL CANCER SCREENING Cervical cancer screening should start at age 21 years unless your provider advises otherwise. After the first test: Women ages 21 through 29 should have a Pap test every 3 years. Exoprts do not agree on whether HPV testing is recommended for this age group. Women ages 30 through 65 should be screened with either a Pap test every 3 years or the HPV test every 5 years or both tests every 5 years (called cotesting ). Women who have been treated for precancer (cervical dysplasia) should continue to have Pap tests for 20 years after treatment or until age 65, whichever is longer. If you have had your uterus and cervix removed (total hysterectomy), and you have not been diagnosed with cervical cancer or precancer (high grade cervical neoplasia), you do not need cervical cancer screening. CHOLESTEROL SCREENING Cholesterol screening should begin at: Age 45 for women with no known risk factors for coronary heart disease Age 20 for women with known risk factors for coronary heart disease Repeat cholesterol screening should take place: Every 5 years for women with normal cholesterol levels More often if changes occur in lifestyle (including weight gain and diet) More often if you have diabetes, heart disease, kidney problems, or certain other conditions DIABETES SCREENING You should be screened for diabetes starting at age 35 and then repeated every 3 years if you have no risk factors for diabetes. Screening may need to start earlier and be repeated more often if you have other risk factors for diabetes, such as: You have a first degree relative with diabetes. You are overweight or have obesity. You have high blood pressure, prediabetes, or a history of heart disease. Screening for diabetes should be done if you are planning to become and you are overweight and have other risk factors such as high blood pressure. DENTAL EXAM Go to the dentist once or twice every year for an exam and cleaning. Your dentist will evaluate if you need more frequent visits. EYE EXAM Have an eye exam every 5 to 10 years before age 40. If you have vision problems, have an eye exam every 2 years or more often if recommended by your provider. You should have an eye exam that includes an examination of your retina (back of your eye) at least every year if you have diabetes. IMMUNIZATIONS Commonly needed vaccines include: Flu shot: get one every year. COVID-19 vaccine: ask your provider what is best for you. Tetanus-diphtheria and acellular pertussis (Tdap) vaccine: have one at or after age 19 as one of your tetanus-diphtheria vaccines if you did not receive it as an adolescent. Tetanus-diphtheria: have a booster (or Tdap) every 10 years. Varicella vaccine: receive 2 doses if you never had chickenpox or the varicella vaccine. Hepatitis B vaccine: receive 2, 3, or 4 doses, depending on your exact circumstances. Measles, mumps, and rubella (MMR) vaccine: receive 1 to 2 doses if you are not already immune to MMR. Your provider can tell you if you are immune. Ask your provider about the human papillomavirus (HPV) vaccine if: You have not received the HPV vaccine in the past You have not completed the full vaccine series (you should catch up on this shot) Ask your provider if you should receive other immunizations if you have certain health problems that increase your risk for some diseases such as pneumonia. INFECTIOUS DISEASE SCREENING Women who are sexually active should be screened for chlamydia and gonorrhea up until age 25. Women 25 years and older should be screened for chlamydia and gonorrhea if at high risk. Screening for hepatitis C: All adults ages 18 to 79 should get a one-time test for hepatitis C. people should be screened at every . Screening for human immunodeficiency virus (HIV): All people ages 15 to 65 should get a one-time test for HIV. Depending on your lifestyle and medical history, you may also need to be screened for infections such as syphilis and HIV, as well as other infections. PHYSICAL EXAM All adults should visit their provider from time to time, even if they are healthy. The purpose of these visits is to: Screen for disease Assess your risk of future medical problems Encourage a healthy lifestyle Update your vaccinations and other preventive care services Maintain a relationship with a provider in case of an illness Your height, weight, and BMI should be checked at every exam. During your exam, your provider may ask you about: Depression and anxiety Diet and exercise Alcohol and tobacco use Safety issues, such as using seat belts, smoke detectors, and intimate partner violence Your medicines and risk for interactions SKIN SELF-EXAM Your provider may check your skin for signs of skin cancer, especially if you're at high risk, such as if you: Have had skin cancer before Have close relatives with skin cancer Have a weakened immune system OTHER SCREENING Talk with your provider about colon cancer screening if you have a strong family history of colon cancer or polyps, or if you have had inflammatory bowel disease or polyps yourself. Routine bone density screening of women under 40 is not recommended. Walk-In Care (Urgent Care): We Make it Easy Walk-in for urgent medical issues such as: ? Seasonal Allergies ? Insect Bites ? Cough ? Diarrhea ? Acute Asthma Attacks ? Back, Knee or Joint Pain ? Ear Infection ? Fever without a Rash ? Headaches ? Nausea ? [place], Rash or Skin Irritation ? Sore Throat ? Sports Physicals ? Vomiting Most insurances are accepted. Patients do not need to be part of the [facility] to seek care at the walk-in clinic. Locations [address] [place] [address] , [place] [address] ? [phone] [facility] Walk-In Care in [place] provides services to ages 18 and over. Open Sunday-Sunday: 8 a.m. to 5 p.m. and Sunday: 9 a.m. to 3 p.m.* *Hours may vary due to staffing availability. To confirm Walk-In Care hours in [place], please call [phone]. [address] [place] [id number] ? [phone] [facility] Walk-In Care in [place] provides services to ages 12 and over. Open Sunday-Sunday: 8 a.m. to 5 p.m. Hours may vary due to staffing availability. To confirm Walk-In Care hours in [place], please call [phone]. LABORATORY SERVICES: [facility] Lab ? Primary Location [address] [place] [address] Sunday through Sunday 6:00 AM ? 5:00 PM Sunday 7:00 AM ? 11:00 AM* [phone] The [facility] Lab is centrally located near the front entrance of the Medical Center for easy outpatient access. Convenient parking is provided for outpatients. *Hours may vary due to staffing availability. To confirm Laboratory hours for any location, please call [phone]. Offsite Location For your convenience, we offer offsite laboratory draw stations at the following locations: [address] [place] [address], [place] ? [address] [facility], [address], [place] Sunday through Sunday 7:30 AM ? 1:00 PM* [phone] *Hours may vary due to staffing availability. To confirm Laboratory hours for any location, please call [phone]. [place] ? [address], [place] Sunday through Sunday 6:00 AM ? 3:30 PM* Sunday 6:30 AM ? 3 PM* [phone] *Hours may vary due to staffing availability. To confirm Laboratory hours for any location, please call [phone] [place] [address] Sunday through Sunday 7:30 AM ? 4:00 PM* [phone] *Hours may vary due to staffing availability. To confirm Laboratory hours for any location, please call [phone] [place] [address] Sunday through 9:00 AM ? 4:00 PM* *Hours may vary due to staffing availability. To confirm Laboratory hours for any location, please call [phone]. Appointments are not necessary. Walk-ins are welcome. Like all the departments throughout the [facility], our Lab undergoes frequent reviews to ensure the quality and accuracy of test results, and our staff takes special pride in its status as a nationally accredited facility. Patient Portal: ONE PATIENT. ONE RECORD. BETTER CARE. [facility] has a fully integrated, cutting-edge mobile electronic health information system that has revolutionized the way we care for our patients and manage our organization. This system improves communication and coordination enabling us to provide safe, higher-quality care, and an overall positive experience for staff and patients. Our first priority, as always, is to deliver the highest quality care possible. The system is running in the background supporting that priority. This portal is for all [facility] services and practices. If you are experiencing any technical difficulties with enrolling or logging into the Patient Portal please complete the [facility] Patient Portal Technical Support Form. [facility] now offers a new secure on-line interactive tool for patients to review their health information ? ?Patient Portal. This interactive web portal will enable patients and their families to take an active role in their care by providing easy, secure access to their health information via the internet. The Patient Portal provides patients with instant access to their health information, including laboratory results, medications, allergies, demographic information, visit history, and more. In addition to managing their own care, parents and health care proxies with authorized consent will appreciate the ability to access the records of those individuals for whom they provide care. Please note: if you wish to gain access (Proxy) to another patient?s portal, you will be required to come to the Medical Records Department in person at [facility]. Both the patient giving proxy access and the proxy will need to provide photo identification and complete the appropriate authorization. The Patient Portal also allows track their appointments online. The [facility] Patient Portal also saves patients time by allowing them to submit updates to their demographic and contact information prior to their visits. Portal email notifications will also alert patients to any new activity on their portal, such as test results and new appointments. In order to initially enroll in the [facility] Patient Portal, you will need to enter some required information including the following: your [facility] Medical Record number your personal home email address name date of Please note: In order to enroll in the [facility] Patient Portal, we need to have your email address on file in your electronic medical record. ?The email address needs to be specific for one person (yourself) in order for your Portal enrollment to be successful. ?You can update your email address in person with our Registration staff when you are registering for a hospital visit. ?Otherwise, you will need to come to the Health Information Management (Medical Records) Department at [facility]. ?We are open from Sunday ? Sunday from 7:30 a.m. ? 4:30 p.m. ?You will be required to present a photo id. Once you have successfully enrolled in the Patient Portal, you will receive a one-time user id and password for the Portal, sent to your email address. ?This will allow you to log into the Patient Portal within 99 hrs and reset your own logon id and password, and define personal security questions. ?Once your permanent login and password have been set, you can log into the [facility] Patient Portal at any time via the blue button above or from the Portal Logon button on any page of the [facility] website. [facility] encourage all of our patients to enroll in Patient Portal as it presents a valuable opportunity for patients and their families to actively participate in their care and stay healthy Welcome to [facility]. ?We look forward to working with you.
[2024-02-05 10:12] VITALS: BP 124/72; PULSE 78; RESP 13; O2SAT 98; BMI 42.4
== END 2024-02-05 10:47 | disposition home or self-care (01) ==
PROVIDERS: PCP Nurse Practitioner Family; Visit Provider Nurse Practitioner Family
DX: Z00.00 Encounter for general adult medical examination without abnormal findings (principal); E66.01 Morbid (severe) obesity due to excess calories; Z68.41 Body mass index [BMI] 40.0-44.9, adult; J41.8 Mixed simple and mucopurulent chronic bronchitis; I73.9 Peripheral vascular disease, unspecified; F33.1 Major depressive disorder, recurrent, moderate; F17.200 Nicotine dependence, unspecified, uncomplicated; Z53.20 Procedure and treatment not carried out because of patient's decision for unspecified reasons; R92.8 Other abnormal and inconclusive findings on diagnostic imaging of breast

== ENCOUNTER → 2024-02-05 09:58 | Outpatient (BNVA) | payer OTHER, SELFPAY | PROVIDERS: PCP Nurse Practitioner Family; Visit Provider Nurse Practitioner Family | DX: Z00.00 Encounter for general adult medical examination without abnormal findings (principal); E66.01 Morbid (severe) obesity due to excess calories; Z68.41 Body mass index [BMI] 40.0-44.9, adult; J41.8 Mixed simple and mucopurulent chronic bronchitis; I73.9 Peripheral vascular disease, unspecified; F33.1 Major depressive disorder, recurrent, moderate; R92.8 Other abnormal and inconclusive findings on diagnostic imaging of breast; F17.210 Nicotine dependence, cigarettes, uncomplicated | CPT/HCPCS: 96127 ==

== ENCOUNTER 2024-02-28 08:11 | Outpatient (AMB) | payer OTHER, SELFPAY ==
--- NOTE | 2024-02-28 08:18 | MHC.OFFWIV ---
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 Required: No Is last menstrual period known: No Post menopausal: No Patient : No Allergies Penicillins [PENICILLINS] Allergy (Unknown, Verified 02/28/24 08:37) HIVES Medication List - Last Reconciled 02/28/24 by Rosa Tanner CNP albuterol sulfate 90 mcg/actuation 2 puffs inhalation Q6H albuterol sulfate 2.5 mg (3 mL) inhalation Q6H baclofen 5 mg PO DAILY bupropion HCl SR (Wellbutrin SR) 100 mg PO BID fluticasone propion-salmeterol 250-50 mcg/dose (Wixela Inhub) 1 inh inhalation BID 30 days gabapentin 300 mg PO BEDTIME lidocaine 5% 1 patch topical DAILY PRN Do you need a note to return to daycare/school/sports/work: No HPI HPI Comments History of Present Illness Details 58-year-old female, accompanied by her sister, presents with complaints of chronic low back pain. She was followed by [facility]. She was last seen by ortho early this month but walked out due to unsatisfactory care and does not intend to return. She notes that the pain is constant, pressure, 10/10. She has been taking ibuprofen 800 mg 3-4 times daily with some relief. The pain started in 08/2023 after she fell out of bed. She requests refill of albuterol solution and gabapentin. She request prescription for ibuprofen. [facility] Medical History (Updated 02/28/24 @ 08:53 by Rosa Tanner CNP) Spine pain Surgical History (Updated 02/05/24 @ 10:11 by Elisa Ruiz MA) H/O: hysterectomy Previous section Family History (Updated 02/05/24 @ 10:09 by Elisa Ruiz MA) Father Cancer Brother Cancer Paternal Grandfather Cardiovascular disease Mother COPD (chronic obstructive pulmonary disease) Social History (Updated 02/05/24 @ 10:07 by Elisa Ruiz MA) Household Members: Family Both parents involved: No Caregiver staying overnight: No Housing: House Are you a primary career development coordinator to a significant other at home: Yes Do you presently have visiting nurse or other home services: No 75 years or older and lives alone: No Alcohol intake: current Alcohol intake frequency: a few times a month Patient Tobacco Use Status: Current everyday Tobacco user Tobacco use type: Cigarette Cigarette Packs Per Day: 1 Cigarettes Per Day: 20 Years Smoked: 42 e-Cigarette/Vaping Use: Never Used Second Hand Smoke Exposure: No Patient : No service: No Current occupational status: employed 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 Cognitive needs: No Hearing needs: No Vision needs: No Review of Systems Const Details: Denies chills, Denies fatigue, Denies fever(s), Denies headache(s) and Denies weakness Cardiac Denies chest pain, Denies claudication, Denies leg edema, Denies lightheadedness, Denies palpitations, Denies dyspnea, Denies dyspnea on exertion, Denies orthopnea and Denies other (Loss of consciousness) Resp Denies cough, Denies excessive phlegm production, Denies dyspnea, Denies dyspnea on exertion, Denies snoring and Denies wheezing Musc Reports as per HPI Physical Exam Vital Signs: Last Vital Signs Temp 98.1 F 02/28/24 08:24 Pulse 77 02/28/24 08:24 Resp 16 02/28/24 08:24 BP 152/72 H 02/28/24 08:24 Pulse Ox 98 02/28/24 08:24 Oxygen Delivery Method Room Air 02/28/24 08:24 BMI result Body Mass Index 41.9 Const Other: General: comfortable and no acute distress Orientation/consciousness: patient oriented x3 Chest Chest palpation & inspection: normal inspection of the chest Resp Auscultation: Wheezing to auscultation bilaterally Cardiac Palpation: normal PMI Heart sounds: S1 normal heart sound present, S2 normal heart sound present, no gallops, no murmur, no rubs Musc Tenderness to palpation of the lumbar spine. No overt injury or trauma Assessment & Plan Assessment & Plan (1) Chronic low back pain: Code(s): M54.50 - Low back pain, unspecified; G89.29 - Other chronic pain Plan: Chronic low back pain. Tenderness to palpation of the lumbar spine. No overt injury or trauma. Ibuprofen as prescribed; take with food. Continue to take gabapentin and baclofen as prescribed. Warm/cool compresses encouraged. Referred to physical therapy and pain management. Blood pressure is likely elevated due to severe pain. Follow-up with PCP for blood pressure monitoring Follow-up with worsening or new symptoms. Verbalized understanding and agreed with treatment plan. (2) Asthma: Code(s): J45.909 - Unspecified asthma, uncomplicated Plan: Lung sounds wheezing to auscultation bilaterally. She has multiple refill for albuterol solution; advised to contact the pharmacy for refill. Use albuterol inhaler, nebulizer, and wixela as prescribed. Follow-up with worsening or new symptoms. Verbalized understanding and agreed with treatment plan. Orders: Orders PT Evaluation and Treatment Today G89.29 - Other chronic pain, M54.50 - Low back pain, unspecified Referrals Pain Management Referral G89.29 - Other chronic pain, M54.50 - Low back pain, unspecified Medications: New ibuprofen 600 mg PO Q6H PRN 90 tabs 0RF pain Changed From gabapentin 300 mg PO BEDTIME To gabapentin 300 mg PO BEDTIME 30 days 30 caps 0RF Coding Level of Care Code Est Pt Level 4 (11433) Diagnoses Chronic low back pain M54.50; G89.29 Asthma J45.909
[2024-02-28 08:24] VITALS: BP 152/72; PULSE 77; RESP 16; TEMP 36.7; O2SAT 98; BMI 41.9
== END 2024-02-28 09:11 | disposition home or self-care (01) ==
PROVIDERS: PCP Nurse Practitioner Family; Visit Provider Nurse Practitioner Family
DX: M54.50 Low back pain, unspecified (principal); G89.29 Other chronic pain; J45.909 Unspecified asthma, uncomplicated

== ENCOUNTER → 2024-02-28 08:11 | Outpatient (BNVA) | payer OTHER, SELFPAY | PROVIDERS: PCP Nurse Practitioner Family ==

== ENCOUNTER 2024-03-13 14:54 | Outpatient (AMB) | payer OTHER, SELFPAY ==
--- NOTE | 2024-03-13 14:56 | MHC.OFFVIS ---
Vital Signs 03/13/24 14:57 Height 5 ft 2 in Weight 233 lb BMI 42.6 BP 150/75 H Blood Pressure Location Rt brachial Position Sitting Pulse 85 Pulse Source Pulse Oximeter Pulse Oximetry (%) 97 Oxygen Delivery Method Room Air Intake Visit Reasons: Low Back Pain Accompanied by: Sister Allergies Penicillins [PENICILLINS] Allergy (Unknown, Verified 03/13/24 15:00) HIVES HPI Comments Details: Lauryn is very pleasant 58 years old female who presents in my office with complains on severe pain in lower back with radiation of the pain in bilateral lower extremities. She reports most severe pain when she gets out of bed for 2 hours she reports that this pain started in 08/31/2023 and it is results of the fall. She went to [facility] she received physical therapy there which did not help her pain. She tried 10s unit with minimal relief. They performed L3-L4 epidural steroid injection which resulted in pain improvement lasting for 6 weeks. The patient now reports that her pain is severe and relentless. She tried gabapentin 300 mg t.i.d. and it gave her minimal relief. 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 She reports that she can not sleep normally because of her pain but sitting does not aggravate her pain. She is able to take care of herself. She can not function normally. Movements aggravate her pain and oral medications gabapentin makes her pain better. In terms of tissue damage he describes her pain as stabbing, lancinating, sharp, cutting, lacerating, tugging, pulling, wrenching, tingling, stinging, tiring, exhausting, fearful, fried 4, terrifying, punishing, killing, spreading, radiating, piercing sensation. She reports that when she is working for a long period of time where she feels pain radiating all the way down to her feet. Can not make a conclusion whether it is radiating to her toes. She had an MRI of the lumbar spine results of which dictated as below. She has L4-5 spinal canal stenosis and she has L5-S1 i bridging bodies fusion. She also has posterior fusion at L4-5 indicative or possible Baastrup disease. Her past medical history significant for asthma and shortness of breath. She is also obese. Her past surgical history significant for ovarian cyst removal and hysterectomy in 2016 and bowel obstruction in 2018. Social history she is working full-time, she smokes 1 pack per day of the cigarettes, she admits drinking alcohol once a month she drinks 4 cups of coffee a day she denies recreational drugs. She reports that while visiting emergency room she was given morphine and Dilaudid and she had side effects including itching she does not like opioid medications [facility] Medical History Spine pain Surgical History H/O: hysterectomy Previous section Family History Father Cancer Brother Cancer Paternal Grandfather Cardiovascular disease Mother COPD (chronic obstructive pulmonary disease) Social History Household Members: Family Both parents involved: No Caregiver staying overnight: No Housing: House Are you a primary family member caretaker to a significant other at home: Yes Do you presently have visiting nurse or other home services: No 75 years or older and lives alone: No Alcohol intake: current Alcohol intake frequency: a few times a month Patient Tobacco Use Status: Current everyday Tobacco user Tobacco use type: Cigarette Cigarette Packs Per Day: 1 Cigarettes Per Day: 20 Years Smoked: 42 e-Cigarette/Vaping Use: Never Used Second Hand Smoke Exposure: No service: No Current occupational status: employed 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 Cognitive needs: No Hearing needs: No Vision needs: No Review of Systems Const Reports no additional complaints Card Reports no additional complaints Resp Reports no additional complaints GI Reports no additional complaints Reports no additional complaints Musc Reports as per HPI Neuro Reports no additional complaints Psych Reports no additional complaints Physical Exam Vital Signs: Last Vital Signs Pulse 85 03/13/24 14:57 BP 150/75 H 03/13/24 14:57 Pulse Ox 97 03/13/24 14:57 Oxygen Delivery Method Room Air 03/13/24 14:57 BMI result Body Mass Index 42.6 Back/Spine/Pelvis Other: She is able to stand from the sitting position without significant difficulty. There is tenderness on palpation in paraspinal spinal region of the entire lumbar spine. SLR is positive bilaterally. Valsalva maneuver aggravates the pain. Marco test is positive more on the right and less on the left. There is tenderness on palpation in the projection of bilateral sacroiliac joints. Results Reviewed Results Reviewed: MR LUMBAR SPINE WITHOUT CONTRAST CLINICAL INFORMATION: Severe low back pain. COMPARISON: CT abdomen and pelvis 12/08/2023. TECHNIQUE: MRI of the lumbar spine was obtained using routine sequences without contrast. 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 There is grade 1 anterolisthesis of L4 on L5 that appears to be related to advanced facet degenerative changes at this level. Alignment is otherwise normal. Vertebral body heights are preserved. No acute bone marrow signal changes. Slight loss of intervertebral [employer] and T2 signal intensity at L4-L5 related to disc degeneration. There is abutment with associated edema and sclerotic changes of the adjoining spinous processes at L4-L5 indicate the possibility of underlying Baastrup disease. The tip of the conus medullaris is located at L1. No mass effect on the conus. Visualized distal cord signal intensity is normal. At L1-L2 the annular contour is normal. No canal or neuroforaminal compromise. At L2-L3 there is a slightly bulging disc. Bilateral facet degenerative change. No canal stenosis. No mass effect on the traversing or foraminal nerve roots. At L3-L4 there is a slightly bulging disc. Bilateral facet degenerative change. No canal stenosis. No mass effect on the traversing or foraminal nerve roots. At L4-L5 there is a pseudodisc bulge. Moderate to severe canal stenosis. Subarticular zone narrowing causes compression of both traversing L5 nerve roots. There is also moderate compression of both L4 foraminal nerve roots. At L5-S1 there is no canal or neuroforaminal compromise. Limited visualization of the retroperitoneal anatomy reveals a few layering calculi within the gallbladder neck. Psoas and paraspinal muscle groups are symmetric. 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 There is adjacent segment spondylosis above the fusion at the level of L4-L5 where there is grade 1 anterolisthesis and moderate to severe canal stenosis. Subarticular zone narrowing at this level causes compression of both traversing L5 nerve roots. There is also moderate compression of both L4 foraminal nerve roots related to degenerative changes at L4-L5. There is abutment with associated edema and sclerotic changes of the adjoining spinous processes at L4-L5 indicating the possibility of underlying Baastrup disease. There are a few layering calculi visualized within the gallbladder neck. Assessment & Plan Assessment & Plan (1) Spinal stenosis at L4-L5 level: Code(s): M48.061 - Spinal stenosis, lumbar region without neurogenic claudication Category: Medical (2) Baastrup disease of lumbar spine: Code(s): M48.26 - Kissing spine, lumbar region Category: Medical (3) Spondylolisthesis, lumbar region: Code(s): M43.16 - Spondylolisthesis, lumbar region Category: Medical (4) Chronic pain syndrome: Code(s): G89.4 - Chronic pain syndrome Category: Medical Plan Moderate to severe spinal stenosis is demonstrated on recently obtained MRI. The patient reported good results at L3-L4 epidural steroid injection. It was done at L3-L4 by [facility] most likely because patient had Baastrup fusion on the posterior elements at L4-5. Instead I offered the patient caudal epidural steroid injection with catheter to reach the epidural space at L4-5. We agreed that I will perform this procedure under moderate sedation. I will schedule her for the follow-up visit after the procedure. If this will not help her pain I would consider treating her condition with spinal cord stimulator , she stated today that she would not go for any spinal surgery under no circumstances. I told her that possibility of neurosurgical consult could be considered in the future if the injection I will perform will not result in good help for her pain. I also will increase her gabapentin to 400 mg t.i.d.. Medications: New gabapentin 400 mg PO TID 90 caps 8RF 30 days Coding Level of Care Code New Pt Level 3 (08517) Diagnoses Spinal stenosis at L4-L5 level M48.061 Baastrup disease of lumbar spine M48.26 Spondylolisthesis, lumbar region M43.16 Chronic pain syndrome G89.4
[2024-03-13 14:57] VITALS: BP 150/75; PULSE 85; O2SAT 97; BMI 42.6
== END 2024-03-13 15:27 | disposition home or self-care (01) ==
PROVIDERS: PCP Nurse Practitioner Family; Referring Provider Nurse Practitioner Family; Visit Provider Anesthesiology
DX: M48.061 Spinal stenosis, lumbar region without neurogenic claudication (principal); M48.26 Kissing spine, lumbar region; M43.16 Spondylolisthesis, lumbar region; G89.4 Chronic pain syndrome
CPT/HCPCS: 99203

== ENCOUNTER → 2024-03-13 14:54 | Outpatient (BNVA) | payer OTHER, SELFPAY | PROVIDERS: PCP Nurse Practitioner Family; Referring Provider Nurse Practitioner Family; Visit Provider Anesthesiology ==

== ENCOUNTER 2024-04-01 10:22 | Outpatient (AMB) | payer OTHER, SELFPAY ==
--- NOTE | 2024-04-01 10:24 | A.OFFPC_ITS ---
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 Allergies Penicillins [PENICILLINS] Allergy (Unknown, Verified 04/01/24 10:25) HIVES Medication List - Last Reconciled 04/01/24 by Juanis Garza, [facility]- albuterol sulfate 90 mcg/actuation 2 puffs inhalation Q6H albuterol sulfate 2.5 mg (3 mL) inhalation Q6H bupropion HCl SR (Wellbutrin SR) 100 mg PO BID fluticasone propion-salmeterol 250-50 mcg/dose (Wixela Inhub) 1 inh inhalation BID gabapentin 400 mg PO TID 30 days ibuprofen 600 mg PO Q6H PRN lidocaine 5% 1 patch topical DAILY PRN Tobacco use date assessed: 04/01/24 Dental Screening Dental Screen Date: 02/05/24 HPI HPI Comments History of Present Illness Details 58-year-old female with COPD, current sm oker, morbid obesity, chronic back pain, chronic leg pain, bilateral lower extremity edema, PVD, allergic rhin itis, MDD Status post total abdominal hysterectomy Social: sister is Skylar Winn; Has 2 children Son and dtr; works at [employer] Family history: Mom with COPD, CHF age 64, father with malignant tumor of kidney disease stage 59, paternal grandmother malignant tumor of the kidney, maternal aunt type 2 diabetes, no breast cancer or colon cancer 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 plan for injection No longer ff'd Health Maintenance: Tdap 2019 @ [facility] Flu 01/2024 DEXA declined, has never had one PAP n/a RENUKA Colon declined Right breast ultrasound atypical lobular hyperplasia, adenosis and stromal fibrosis high-risk consultation indicated 10/10/2022 CEHNTE testing 02/13/2022 normal, right CHENTE 1.29, left CHENTE 1.30 Here today for an 8 week follow up. At the last office visit she was prescribed Wellbutrin SR 100 mg p.o. b.i.d. to help with her mood as well as to keeper helper in weight loss. She stopped taking since last office visit as she reports that she did not think it was doing anything for her. In regards to her breathing she continues to use the Wixela 1 puff p.o. b.i.d. and use the albuterol. She continues to smoke. Continues to have some wheezing and shortness of breath. The biggest issue remains her chronic back pain for which she is going to undergo injections at [facility] pain management clinic. Exam Awake alert oriented, no acute distress Regular rate and rhythm Lung sounds with faint expiratory wheezes throughout Bilateral lower extremities with varicosities, skin dry, hairless, nonpitting edema, decreased pedal pulses, skin intact Tearful when talking about her health, kind and appropriate Plan Educated her that Wellbutrin take some time. That it will help with her mood as well as weight loss. She has agreed to take it as directed. I will increase her Wixela to 2 inhalations twice per day to see if we can better control her breathing. If this is effective I can send the prescription in for the Wixela 500 inhaler and have her take 1 puff twice per day but she has 3 of these inhalers at home therefore she has a enough to trial to see if this increased dose even helps. Follow up with pain management as scheduled. I would like to see you back in about 8 weeks to follow up on the Wellbutrin start as well as her breathing. Total time spent caring for the patient today was 30 minutes. This includes time spent before the visit reviewing the chart, time spent during the visit, and time spent after the visit on documentation, reviewing laboratory results, diagnostic imaging, medications, performing a medically necessary evaluation, counseling on diagnoses, care coordination, ordering appropriate tests, ordering appropriate medications, review of tests performed by other providers, reporting test results with the patient, communication with other healthcare providers. 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 Do you presently have visiting nurse or other home services: No 75 years or older and lives alone: No Alcohol intake: current Alcohol intake frequency: a few times a month Patient Tobacco Use Status: Current everyday Tobacco user Tobacco use type: Cigarette Cigarette Packs Per Day: 1 Cigarettes Per Day: 20 Years Smoked: 42 e-Cigarette/Vaping Use: Never Used Second Hand Smoke Exposure: No service: No Current occupational status: employed 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 1. Little interest or pleasure in doing things: several days 2. Feeling down, depressed, or hopeless: several days 3. Trouble falling or staying asleep, or sleeping too much: several days 4. Feeling tired or having little energy: several days 5. Poor appetite or overeating: several days 6. Feeling bad about yourself - or that you are a failure or have let yourself or your family down: several days 7. Trouble concentrating on things, such as reading the newspaper or watching television: several days 8. Moving or speaking so slowly that other people could have noticed. Or the opposite - being so fidgety or restless that you have been moving around a lot more than usual: not at all 9. Thoughts that you would be better off or of hurting yourself in some way: not at all Total score: 7 Depression Screening Interpretation: Positive Depression Screening Follow-up: Existing condition and New Medication prescribed Depression Screening Done: Yes 04366 - PHQ-9 Billing: Yes Source: Developed by Drs. Bridger Wen, Maria Elena Castorena, Horacio Ordonez and colleagues, with an educational brisa from [employer]. Thrive Questionnaire Date Thrive assessed: 04/01/24 I am a: Patient What is your living situation today?: I have a steady place to live Within the past 12 months, did the food you bought not last and you didn't have the money to get more?: Never true Within the past 12 months, did you worry whether your food would run out before you got money to buy more?: Never true Do you have trouble paying for medicines?: No Do you have trouble getting transportation to medical appointments?: No Do you have trouble paying your heating and electricity bill?: No Do you have trouble taking care of your child, family member or friend?: No Do you have trouble with day-to-day activities such as bathing, preparing meals, shopping, managing finances, etc.?: I choose not to answer this question Are you currently unemployed and looking for a job?: No Are you interested in more education?: No Please select the resources that you would like help with: None Currently or been in a relationship where the following occur: I choose not to answer THRIVE Score: 0 AUDIT C Alcohol Use Questionnaire (AUDIT-C) 1. How often do you have a drink containing alcohol?: Monthly or less 2. How many drinks containing alcohol do you have on a typical day when you are drinking?: 3 or 4 3. How often do you have six or more drinks on one occasion?: Never Total Score: 2 Score Reviewed/Action Taken: Yes ROCÍO-7 AMB Questionnaire ROCÍO-7 Date ROCÍO - 7 assessed: 04/01/24 Feeling nervous, anxious, or on edge: 1 = Several days Not being able to stop or control worryin = Several days Worrying too much about different things: 1 = Several days Trouble relaxin = Several days Being so restless that it is hard to sit still: 1 = Several days Becoming easily annoyed or irritable: 1 = Several days Feeling afraid as if something awful might happen: 1 = Several days Total ROCÍO-7 score (0-4 normal; 5-9 mild; 10-14 moderate; 15-21 severe): 7 Source: Developed by Drs. Bridger Wen, Maria Elena Castorena, Horacio Ordonez and colleagues, with an educational brisa from [employer] ROCÍO-7 Assessment Billing ROCÍO-7 Assessment Tool: ROCÍO-7 Assessment 49509 Physical exam (Primary Care) Vital Signs: Last Vital Signs Temp 96.7 F L 04/01/24 10:28 Pulse 65 04/01/24 10:28 Resp 12 04/01/24 10:28 BP 118/70 04/01/24 10:28 Pulse Ox 95 04/01/24 10:28 Oxygen Delivery Method Room Air 04/01/24 10:28 BMI result Body Mass Index 43.7 BMI Assessment/Plan discussion: High BMI High, discussed plan: lifestyle Tobacco/Smoking Status: Tobacco use Status Tobacco use date assessed 04/01/24 04/01/24 10:30 Patient Tobacco Use Status Current everyday Tobacco 04/01/24 10:25 Tobacco use type Cigarette 04/01/24 10:25 e-Cigarette/Vaping Use Never Used 04/01/24 10:25 Are you ready to quit: No Tobacco cessation counseling provided: Yes Relapse Prevention: discussed the importance of a supportive environment, discussed extending NRT, discussed negative mood or depression after quitting, weight gain after smoking is common and discussed dietary, exercise and/or lifestyle changes Number of minutes spent counselin CPT code: 79194 - 4-10 Minutes PHQ-9: PHQ-9 Score PHQ-9: Total score 7 04/01/24 11:18 Depression Screening Interpretation: Positive Depression Screening Follow-up: Existing condition and New Medication prescribed Thrive Assessment: Date of Thrive Assessment Date Thrive assessed 04/01/24 04/01/24 10:25 Currently or been in a relationship where the following occur: I choose not to answer Coding Level of Care Code Est Pt Level 4 (36556) Complex EM visit Add On G2211 Diagnoses Moderate episode of recurrent major depressive disorder F33.1 Major depression episode severity: moderate Morbid obesity with BMI of 40.0-44.9, adult E66.01; Z68.41 Chronic pain syndrome G89.4 Mixed simple and mucopurulent chronic bronchitis J41.8 COPD type: chronic bronchitis Chronic bronchitis type: mixed simple and mucopurulent Tobacco dependence F17.200 Additional Codes ROCÍO-7 Assessment Billing - ROCÍO-7 Assessment Tool: ROCÍO-7 Assessment 48181 ([id number]) PHQ-9 - 08551 - PHQ-9 Billing: Yes ([id number]) Vital Signs *Quality* - CPT code: 47258 - 4-10 Minutes ([id number]) Assessment & Plan Assessment & Plan (1) MDD (major depressive disorder), recurrent episode: Code(s): F33.9 - Major depressive disorder, recurrent, unspecified Category: Medical Qualifiers: Major depression episode severity: moderate Qualified Code(s): F33.1 - Major depressive disorder, recurrent, moderate (2) Morbid obesity with BMI of 40.0-44.9, adult: Code(s): E66.01 - Morbid (severe) obesity due to excess calories; Z68.41 - Body mass index [BMI] 40.0-44.9, adult Category: Medical (3) Chronic pain syndrome: Code(s): G89.4 - Chronic pain syndrome Category: Medical (4) COPD (chronic obstructive pulmonary disease): Code(s): J44.9 - Chronic obstructive pulmonary disease, unspecified Category: Medical Qualifiers: COPD type: chronic bronchitis Chronic bronchitis type: mixed simple and mucopurulent Qualified Code(s): J41.8 - Mixed simple and mucopurulent chronic bronchitis (5) Tobacco dependence: Code(s): F17.200 - Nicotine dependence, unspecified, uncomplicated Category: Medical Plan: Smoking Cessation How to Quit There are a lot of ways to quit smoking and many resources to help you. Family members, friends, and co-workers may be supportive or encouraging, but to be successful the desire and commitment to quit must be your own. Most people who have been able to successfully quit smoking made at least one unsuccessful attempt in the past. Try not to view past attempts to quit as failures, but rather as learning experiences. Stopping smoking or using smokeless tobacco is difficult, but anyone can do it. Know the symptoms to expect when you stop. Common symptoms include: ? An intense craving for nicotine ? Anxiety, tension, restlessness, frustration, or impatience ? Difficulty concentrating ? Drowsiness or trouble sleeping, as well as bad dreams and nightmares ? Drowsiness and trouble sleeping ? Headaches ? Increased appetite and weight gain ? Irritability or depression How severe your symptoms are depends on how long you smoked and how many cigarettes you smoked each day. Feel ready to quit? ? First and foremost, set a quit date and quit completely on that day. Before your quit date, you may begin reducing your cigarette use. But remember, there is no safe level of cigarette smoking. ? List the reasons why you want to quit. Include both short- and long-term benefits. ? Identify the times you are most likely to smoke. For example, do you tend to smoke when feeling stressed or down? When out at night with friends? While drinking coffee or alcohol? When bored? While driving? Right after a meal or sex? During a work break? While watching TV or playing cards? When you are with other smokers? ? Let all of your friends, family, and co-workers know of your plan to stop smoking and your quit date. Just being aware that they know what you're going through can be helpful, especially when you are grumpy. ? Get rid of all your cigarettes just before the quit date, and clean out anything that smells like smoke, such as clothes and furniture. Make a plan about what you will do instead of smoking at those times when you are most likely to smoke. ? Be as specific as possible. For example, drink tea instead of coffee -- tea may not trigger the desire for a cigarette. Or, take a walk when you feel stressed. ? Remove ashtrays and cigarettes from the car. Place pretzels or hard candies there instead. Pretend-smoke with a straw. ? Find activities that focus your hands and mind but are not taxing or fattening. Computer games, solitaire, knitting, sewing, and crossword puzzles may help. ? If you normally smoke after eating, find other ways to end a meal. Play a tape or CD, eat a piece of fruit, get up and make a phone call, or take a walk (a good distraction that also ivy calories). Make other changes in your lifestyle. ? Change your daily schedule and habits. Eat at different times or eat several small meals instead of three large ones. Sit in a different chair or even a different room. ? Satisfy your oral habits by eating celery or other low-calorie snack, chewing sugarless gum, or sucking on a cinnamon stick. ? Go to public places and restaurants where smoking is prohibited or restricted. ? Eat regular meals and don't eat too much candy or sweet things. ? Get more exercise. Take walks or ride a bike. Exercise helps relieve the urge to smoke. Set short-term quitting goals and reward yourself when you meet them. ? Every day, put the money you normally spend on cigarettes in a jar. Then buy something pleasurable after a period of time. ? Try not to think about all the days ahead you will need to avoid smoking. Take it one day at a time. ? Even one puff or one cigarette will make your desire for more cigarettes even stronger. However, it is normal to make mistakes. So even if you have one cigarette, you don't need to take the next one. Other tips to help you quit smoking and stick to it: ? Enroll in a smoking cessation program (hospitals, health departments, community centers, and work sites often offer programs). Learn about self-hypnosis or other techniques. ? Ask your health care provider about prescription medications that are safe and appropriate for you. ? Find out about nicotine patches, gum, and sprays. The [employer]'s web site -- www.cancer.org -- is an excellent resource for smokers who are trying to quit, and the [employer] [place] [employer] can help some smokers kick the habit. Above all, don't get discouraged if you aren't able to quit smoking the first time. Nicotine addiction is a hard habit to break. Try something different next time. Develop new strategies, and try again. Many people take several attempts to finally kick the habit. Plan . Medications: Changed From fluticasone propion-salmeterol 250-50 mcg/dose (Wixela Inhub) 1 inh i nhalation BID 180 ea 4RF To fluticasone propion-salmeterol 250-50 mcg/dose (Wixela Inhub) 2 inhalations inhalation BID 180 ea 4RF Refilled bupropion HCl SR (Wellbutrin SR) 100 mg PO BID 60 tabs 2RF Discontinued gabapentin Discontinued Reason: Doctor's Order 300 mg PO BEDTIME 30 days 30 caps 0RF
[2024-04-01 10:28] VITALS: BP 118/70; PULSE 65; RESP 12; TEMP 35.9; O2SAT 95; BMI 43.7
--- OUTSIDE RECORDS SUMMARY | 2024-04-01 11:15 | XMS_ITS | Data Portability ---
Author Organization [facility], [address] Address [address] [place] [address] Assessment No assessment recorded. Plan of Treatment Reminders Order Date Submit Date Provider Last Modified By Organization Details Last Modified Time Details Appointments None recorded. Lab None recorded. Referral None recorded. Procedures None recorded. Surgeries None recorded. Imaging XR, chest, 2 view 2022 023 JOSE R [facility], [address] [place] [address], [id number], 4 05:01:33 Medication Orders albuterol sulfate HFA 90 mcg/actuati on aerosol inhaler 2022 023 [email or web address] [facility]/Pharmacy #[id number], [address] [place], [address], 3 14:51:50 Zithromax Z-Tristin 250 mg tablet 2022 023 [facility]/Pharmacy #[id number], [address] [place], [address], 3 14:43:30 prednisone 50 mg tablet 2022 023 [facility]/Pharmacy #[id number], [address] [place], [address], 3 14:47:26 albuterol sulfate 2.5 mg/3 mL (0.083 %) solution for nebulizatio n 2022 023 Not available 3 15:06:42 ipratropium bromide 0.02 % solution for inhalation 2022 023 Not available 15:06:42 benzonatate 200 mg capsule 2022 023 [facility]/Pharmacy #[id number], [address] [place], [address], 15:08:57 Patient TargetsNo targets recorded. Patient Instructions Encounter Date Encounter Id Patient Instructions Last Modified By Organization Details Last Modified Time 02/22/2023 [id number] cough: care instructions [email or web address] Not available 02/22/2023 14:43:28 chronic obstruct rolan pulmonary disease (COPD) flare-ups: care instructions Not available 02/22/2023 14:43:28 Acute bronchitis is a common clinical condition characterized by an acute onset but persistent cough, with or without sputum production. It is typically self-limited, resolving within one to three weeks. Symptoms result from inflammation of the lower respiratory tract and are most frequently due to viral infection. Treatment is focused on patient education and supportive care. Antibiotics are not needed for the great majority of patients with acute bronchitis but are greatly overused for this condition. Reducing antibiotic use for acute bronchitis is a national and international health care priority. In most patients, the cough persists for 1 to 3 weeks, with a average duration of 18 days. The cough may be associated with either purulent or nonpurulent sputum production The presence of purulent sputum is a nonspecific finding and does not appear to be predictive of bacterial infection or that antibiotics are needed. For the great majority of patients, use of antibiotics does not hasten recovery or prevent complications but puts patients at increased risk of adverse effects including potentially severe complications such as Clostridioides difficile infection and anaphylaxis. Non-Pharmacological treatment for coughin. Throat lozenges 2. Hot tea 3. Honey 4. Smoking cessation 5. Avoidance of secondhand smoke. Pharmacological Treatment: 1. Robatussin or Guafenasin 2. Antihistamines 3. Dextromethoraphen I would plan on being seen again if any of the following symptoms develop: 1. Fever (100.5) 2. Shortness of breath 3. Wheezing 4. Worsening Cough. I would go to the ER if you develop: 1. Severe Shortness of breath 2. Chest Pain 3. Wheezing 4. Coughing up Blood [email or web address] Not available 02/22/2023 14:43:26 Reason for Referral None Reported. Problems Name Problem SNOMED Code Status Onset Date Resolution Date Notes Provider Name and Address Organization Details Recorded Time Acute bronchitis 37185796 Active 023 NATHAN CRAIN [facility] [place], [address] , [place] - [facility] 14:42:48 Problem Notes None recorded. Medical Equipment None Reported. Allergies No known drug allergies Medications Name Sig Start Date Stop Date Status Note LastModified by Organization Details LastModified Time albuterol sulfate 2.5 mg/3 mL (0.083 %) solution for nebulizat ion Inhale 3 mL by nebuliza tion route. 2022 active Billable unit is always one. Units are not the dose. Not Available Not Available Not Available benzonata te 200 mg capsule Take 1 capsule 3 times a day by oral route as needed for 10 days. 2022 active Not Available Not Available Not Avai lable prednison e 20 mg tablet TAKE 3 TABLETS BY MOUTH EVERY DAY FOR 5 DAYS 02/22 completed Not Available Not Available Not Available Zithromax Z-Tristin 250 mg tablet TAKE 2 TABLETS (500 MG) BY ORAL ROUTE ONCE DAILY FOR 1 DAY THEN 1 TABLET (250 MG) BY ORAL ROUTE ONCE DAILY FOR 4 DAYS 2022 active Not Available Not Available Not Avai lable prednison e 50 mg tablet Take 1 tablet every day by oral route for 5 days. 2022 active Not Available Not Available Not Avai lable albuterol sulfate HFA 90 mcg/actua tion aerosol inhaler Inhale 2 puffs every 4 hours by inhalati on route for 30 days. 2022 active Not Available Not Available Not Avai lable ipratropi um bromide 0.02 % solution for inhalatio n Inhale 3 mL by inhalati on route. 2022 active Billable unit is always one. Units are not the dose. Not Available Not Available Not Available Symbicort 160 mcg-4.5 mcg/actua tion HFA aerosol inhaler TAKE 2 PUFFS BY MOUTH TWICE A DAY 02/22 completed Not Available Not Available Not Available Paxlovid 300 mg (150 mg x 2)-100 mg tablets in a dose pack TAKE 3 TABS BY MOUTH TWICE DAILY FOR 5 DAYS 02/22 completed Not Available Not Available Not Available Vitals Date Recorded Body height Provider Name an d Address Organization Details Last Updated DateTime 02/22/2023 167.64 cm Kamini Goffe [place] - [facility] 14:31:48 Date Recorded Body mass index (BMI) Body weight Provider Name and Address Organization Details Last Updated DateTime 02/22/2023 35.5 kg/m2 27824.32 g Kamini Xavier PA - [facility] 02/22/2023 14:31:53 Date Recorded Oxygen saturation Oxygen saturation in Arterial blood by Pulse oximetry Provider Name and Address Organization Details Last Updated DateTime 02/22/2023 98 % 98 % Kamini Xavier PA - [facility] 02/22/2023 14:32:03 Date Recorded Pain severity - 0-10 verbal numeric rating [Score] - Reported Provider Name and Address Organization Details Last Updated DateTime 02/22/2023 3 Kamini Xavier PA - [facility] 14:32:05 Date Recorded Heart rate Provider Name an d Address Organization Details Last Updated DateTime 02/22/2023 87 /min Kamini Xavier PA - [facility] 14:32:08 Date Recorded Respiratory rate Provider Name a nd Address Organization Details Last Updated DateTime 02/22/2023 18 /min Kamnii Xavier PA - [facility] 14:32:09 Date Recorded Body temperature Provider Name a nd Address Organization Details Last Updated DateTime 02/22/2023 98.6 [degF] Kamini Xavier PA - [facility] 1 04/25/2022 14:32:14 Date Recorded Systolic blood pressure Diastolic blood pressure Provider Name and Address Organization Details Last Updated DateTime 02/22/2023 144 mm[Hg] 82 mm[Hg] Kamini Goffe PA - [facility] 02/22/2023 14:32:01 Social History Question Answer Notes LastModified by Organizat ion Details LastModified Time Tobacco Smoking Status Current Every Day Smoker NATHAN Haynes - [facility] 02/22/2023 14:33:31 What Is Your Level Of Alcohol Consumption? None Information not available 02/22/2023 Are You Currently Employed? No Information not available 02/22/2023 Have You Had A Flu Shot This Season? Yes Information not available 02/22/2023 What Is Your Relationship Status? Single Information not available 02/22/2023 Do You Use Any Illicit Or Recreational Drugs? No Information not available 02/22/2023 Have You Recently Traveled Abroad? No Information not available 02/22/2023 Are You Currently In School? No Information not available 02/22/2023 Do You Or Have You Ever Used Any Other Forms Of Tobacco Or Nicotine? No Information not available 02/22/2023 Sex: Unknown Functional Status None recorded. Mental Status None recorded. Family History Relationship Description Onset Age of this Age Resolved Age Notes LastModified by Organization Details LastModified Time Father No current problems or disability Not available 02/22 14:33:17 Mother No current problems or disability Not available 02/22 14:33:17 Medical History No medical history recorded. Gynecological HistoryNo gynecological history recorded. Obstetrics History GPAL:G 0 P 0 0 0 0 Past Encounters Encounter ID Performer Location Encounter Start Date Encounter Closed Date Diagnosis/Indication Diagnosis SNOMED-CT Code Diagnosis ICD10 Code Diagnosis Note [id number] [facility] [address] [place] [address] 02/22/2023 14:14:13 02/22/2023 15:12:24 Acute bronchitis 66944119 J20.9 Wheezing 08273306 R06.2 Health Concerns Section Related Observation LastModified by Organization Detai ls LastModified Time None Recorded Concern Status LastModified by Organization Details LastModified Time None Recorded Advance Directives Directive None Recorded Payers Encounter Date Sequence Insurance Name Policy Number Policy Ramos Covered Member ID Ramos Member ID Guarantor Name 02/22/2023 1 [employer] (E[employer]) [id number] Lauryn Vierstra [id number] Lauryn Saini Notes Date Note Type Note Provider Name and Address Organization Details Recorded Time 02/22/2023 text/html CoughReported bypatient.Notes:57 y.o female pt with h/o COPD 2/2 smoking present with cough and wheezing for the past 2-3 days. NATHAN CRAIN [address] [place], [address], [place] - [facility] 02/22/2023 17:24:22 OBGyn Episode No OBEpisode recorded.
--- OUTSIDE RECORDS SUMMARY | 2024-04-01 11:16 | XMS_ITS | Data Portability ---
Author Organization [facility], [facility] Address [address] [place] [address] Care Team Providers Care Final Inspector And Tester Name Role Phone GENEVA VENEGAS Primary Care Provider [facility] YENY BARILLAS Phys. Med. 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 Patient understands this is a scheduled visit and the usual procedures with regard to billing and confidentiality apply. Patient was notified that the [place] [facility] During the visit the patient? s medical history and medical record were reviewed. The patient was notified to call our office for worsening or urgent symptoms. Not available 05/22/2022 15:58:32 Plan of Treatment Reminders Order Date Submit Date Provider Last Modified By Organization Details Last Modified Time Details Appointments None recorded. Lab HbA1c (hemoglobin A1c), blood 2021 022 [facility], [address] [place] [address], [id number], 11:35:38 lipid panel, serum 2021 022 [facility], [address] [place] [address], [id number], 11:31:05 CBC 2021 [facility], [address] [place] [address], [address], 10:34:29 ferritin, serum or plasma 2021 [facility], [address] [place] [address], [address], 14:13:31 TSH, serum or plasma 2021 [facility], [address] [place] [address], [address], 14:13:30 iron + total iron-bindin g capacity (TIBC), serum 2021 [facility], [address] [place] [address], 096[address], 11:31:07 CK (creatine kinase), total, serum 2021 [facility], [address] [place] [address], 706[address], 11:31:09 erythrocyte sedimentati on rate by westergren method 2021 [facility], [address] [place] [address], [address], 13:05:10 C-reactive protein, quantitativ e, serum or plasma 2021 [facility], [address] [place] [address], 818[address], 15:44:41 CMP, serum or plasma 2021 [facility], [address] [place] [address], 28[address], 11:31:04 tick-borne disease panel 2021 022 [facility], [address] [place] [address], 890[address], 22:43:25 magnesium, blood 2021 022 [facility], [address] [place] [address], [address], 2 11:31:08 rapid flu (A+B) [email or web address] [facility], [address] [place] [address], [address], 3 17:34:17 SARS CoV 2 RNA (COVID-19), QL, 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 Procedures None recorded. Surgeries None recorded. Imaging MAMMO, screening, tomosynthes is, bilateral 2021 022 [facility] (Imaging), [address], [place], [address], 3 15:35:53 LDCT, chest, for lung cancer screening 2021 022 [email or web address] [facility], [address] [place], [address], 2 11:44:15 Medication Orders Symbicort 160 mcg-4.5 mcg/actuati on HFA aerosol inhaler 2021 022 [email or web address] [id number], [address] [place], [address], 2 12:30:50 prednisone 20 mg tablet 2021 022 [email or web address] [id number], [address] [place], [address], 3 15:59:18 albuterol sulfate 2.5 mg/3 mL (0.083 %) solution for nebulizatio n 2021 022 [id number], [address] [place] [address], [address], 2 11:17:57 Ventolin HFA 90 mcg/actuati on aerosol inhaler 2021 022 [id number], [address] [place] [address], [address], 2 11:17:58 nystatin 100,000 unit/gram topical cream 2021 [id number], [address] [place] [address], [address], 2 11:17:57 albuterol sulfate 2.5 mg/3 mL (0.083 %) solution for nebulizatio n 2021 022 [id number], [address] [place] [address], [address], 2 08:32:27 Symbicort 160 mcg-4.5 mcg/actuati on HFA aerosol inhaler 2021 022 [id number], [address] [place] [address], [address], 2 09:09:16 Wellbutrin SR 150 mg tablet, 12 hr sustained-r elease 2021 023 DBA_PATCH [id number] [facility], [address] [place] [address], [address], 3 09:07:30 prednisone 20 mg tablet 2021 022 [email or web address] [id number], [address] [place] [address], [address], 3 15:59:18 prednisone 20 mg tablet 2022 023 [id number] [address] [place] [address], [address], 3 15:59:21 azithromyci n 250 mg tablet 2022 023 [facility] [address] [place] [address], [address], 3 16:21:01 Symbicort 160 mcg-4.5 mcg/actuati on HFA aerosol inhaler 2022 023 [facility] [address] [place] [address], [address], 3 16:01:09 Ventolin HFA 90 mcg/actuati on aerosol inhaler 2022 023 [facility] [address] [place] [address], [address], 3 16:01:10 albuterol sulfate 2.5 mg/3 mL (0.083 %) solution for nebulizatio n 2022 023 [facility] [address] [place] [address], [address], 3 16:01:09 Paxlovid 300 mg (150 mg x 2)-100 mg tablets in a dose pack 2022 023 [id number] [address] [place] [address], [address], 3 16:01:08 Patient TargetsNo targets recorded. Patient Instructions Encounter Date Encounter Id Patient Instructions Last Modified By Organization Details Last Modified Time 01/04/2022 [id number] pulmonary function test* - 56yo F with hx of asthma and potential COPD. smoker/No ABGs talterman Not available 01/04/2022 14:08:36 deciding about using medicines to quit smoking hwzorek Not available 01/04/2022 11:17:53 Quitting Tobacco : Care Instructions [email or web address] Not available 01/04/2022 11:17:53 You have receive d a new prescription today. We have discussed indications for new prescription, risks and benefits of medication, common side effects and how to manage, and reasons to notify prescriber of adverse effects or discontinuation. hwzorek Not available 01/04/2022 13:34:43 Counseling done {{Patient not ready to quit Contemplatin g quitting* Taperin g Cigarettes signed up for support prescript ion for stop smoking medication given}} {{Patient not ready to quit* Contemplati ng quitting Tapering Cigarettes signed up for support prescript ion for stop smoking medication given}} connected with VOYAA hwzorek Not available 01/04/2022 13:34:01 02/02/2022 [id number] deciding about using medicines to quit smoking hwzorek Not available 02/02/2022 08:32:24 Quitting Tobacco : Care Instructions [email or web address] Not available 02/02/2022 08:32:24 (CHENTE) ankle brachial index* - bilateral lower leg pain JOSE R Not available 02/13/2022 09:53:57 well visit, cassi n 50 to 65: care instructions [email or web address] Not available 02/02/2022 08:32:25 After a discussion of treatment options, which included consideration of best practices, patient preferences, and the patient? s individual lifestyle and treatment goals, as well as consideration and attempted mitigation of any barriers to meeting the patient? s goals, the following treatment plan and objectives were adopted: - exercise 30 minutes, 5 days a week - balanced diet with lean protein, whole grains, veggies, fruit - 7-8 hours of sleep a night - 7-8 glasses of water a day - sunscreen in the sun, regular skin/tick checks - brush teeth at least twice a day - regular dental and eye exams - fasting labs - 3 week follow up - MM in 6 months - wellness visit in 1 year hwzorek Not available 02/02/2022 09:12:30 Counseling done {{Patient not ready to quit Contemplatin g quitting* Taperin g Cigarettes signed up for support prescript ion for stop smoking medication given}} {{Patient not ready to quit* Contemplati ng quitting Tapering Cigarettes signed up for support prescript ion for stop smoking medication given}} Goal for follow up visit {{adding exercise* regular meals stress management improv ing sleep therapist [facility]}} {{adding exercise regular meals stress management* impro ving sleep therapist [facility] sponsor}} hwzorek Not available 02/02/2022 09:12:45 02/09/2022 [id number] deciding about using medicines to quit smoking hwzorek Not available 02/09/2022 09:05:57 Quitting Tobacco : Care Instructions hwzorek Not available 02/09/2022 09:05:57 asthma attack: care instructions hwzorek Not available 02/09/2022 09:05:57 You have receive d a new prescription today. We have discussed indications for new prescription, risks and benefits of medication, common side effects and how to manage, and reasons to notify prescriber of adverse effects or discontinuation. hwzorek Not available 02/09/2022 09:48:58 Counseling done {{Patient not ready to quit Contemplatin g quitting* Taperin g Cigarettes signed up for support prescript ion for stop smoking medication given}} {{Patient not ready to quit Contemplatin g quitting Tapering Cigarettes signed up for support prescript ion for stop smoking medication given*}} Goal for follow up visit {{adding exercise regular meals stress management* impro ving sleep therapist [facility]}} {{adding exercise regular meals* stress management improv ing sleep therapist [facility]}} {{adding exercise regular meals stress management improv ing sleep* therapist identifying sponsor}} My Health To Do List {{go to [employer] [email or web address] or call si gn up for domenica text 2 quit or other stop smoking domenica contact [email or web address]}} [email or web address] Not available 02/09/2022 09:49:40 03/30/2022 [id number] -We discussed that your breathing sounds a little fast right now but you told me you don't want to go to the hospital -I'm going to send a dose of antibiotic (azithromycin) and prednisone right now -I want you to take them right away -I also want you to use your nebulizer as soon as you get home -I want you to use the nebulizer 3-4 times a day while you are sick -Keep using the symbicort twice daily -If your breathing gets any faster/worse, we talked about you going to the hospital so you can get IV medicines [email or web address] Not available 03/30/2022 16:30:39 05/22/2022 [id number] A discussion regarding the use of Paxlovid treatment in the setting of COVID-19 infection was had with the patient. The patient qualifies for Paxlovid treatment. They are 12 years old or older and weight at least 40kg (88lbs). They have a positive COVID test (either PCR or antigen). Symptom onset was within 5 days. They do not have severe renal impairment (GFR >30). If the GFR is 30-60, the dose of the medication is reduced. eGFR >60: 300mg nirmatrelvir (two 150mg tablets) with 100mg ritonavir (one tablet). All 3 tablets taken together twice daily for 5 days, with or without food. ? eGFR 30-60: 150mg nirmatrelvir with 100mg ritonavir. Both tablets taken together twice daily for 5 days, with or without food. This medication is authorized by the FDA for emergency use only. Data from clinical trials have shown that these treatments reduce the risk of ER visits, hospitalization, and in patients with mild to moderate symptoms, and those at high risk of complications. Side effects were discussed: 1. Allergic reactions are possible, notify the nurse with any concerning symptoms 2. Liver problems ? notify your provider if you experience loss of appetite, yellowing of the skin or eyes, dark colored urine, or pale colored stools. 3. Altered sense of taste 4. Nausea 5. High blood pressure 6. Muscle aches 7. This is medication is still being investigated so not all side effects are known at this time. 8. Risks for or women are currently unknown. 9. This medication may interact with oral control options. Please use condoms or a barrier method while on this medication. How do I take PAXLOVID? PAXLOVID consists of 2 medicines: nirmatrelvir and ritonavir. ? Take 2 pink tablets of nirmatrelvir with 1 white tablet of ritonavir by mouth 2 times each day (in the morning and in the evening) for 5 days. For each dose, take all 3 tablets at the same time. ? If you have kidney disease, talk to your healthcare provider. You may need a different dose. ? Swallow the tablets whole. Do not chew, break, or crush the tablets. ? Take PAXLOVID with or without food. ? Do not stop taking PAXLOVID without talking to your healthcare provider, even if you feel better. ? If you miss a dose of PAXLOVID within 8 hours of the time it is usually taken, take it as soon as you remember. If you miss a dose by more than 8 hours, skip the missed dose and take the next dose at your regular time. Do not take 2 doses of PAXLOVID at the same time. Not available 05/22/2022 16:04:35 Reason for Referral None Reported. Results Created Date Observation Date Name Description Value Unit Range Abnormal Flag Note LastModifiedBy Organization Detail LastModifiedTime 02/14/20 22 02/13/2022 CBC WBC 8.87 K/? ? ?L 3.98-1 0.04 Not Available [address], [address], 02/13/2022 10:34:29 02/14/20 22 02/13/2022 CBC RBC 3.95 M/? ? ?L 3.93-5 .22 Not Available [address], [address], 02/13/2022 10:34:29 02/14/20 22 02/13/2022 CBC HGB 12.8 g/dL 11.2-1 5.7 Not Available [address], [address], 02/13/2022 10:34:29 02/14/20 22 02/13/2022 CBC HCT 40.0 % 34.1-4 4.9 Not Available [address], [address], 02/13/2022 10:34:29 02/14/20 22 02/13/2022 CBC MCV 101.3 fL 79.4-9 4.8 high Not Available [address], [address], 02/13/2022 10:34:29 02/14/20 22 02/13/2022 CBC MCH 32.4 pg 25.6-3 2.2 high Not Available [address], [address], 02/13/2022 10:34:29 02/14/20 22 02/13/2022 CBC MCHC 32.0 g/dL 32.2-3 5.5 low Not Available [address], [address], 02/13/2022 10:34:29 02/14/20 22 02/13/2022 CBC plt 233 K/? ? ?L 182-36 9 Not Available [address], [address], 02/13/2022 10:34:29 02/14/20 22 02/13/2022 CBC MPV 9.8 fL 9.4-12 .3 Not Available [address], [address]269, 02/13/2022 10:34:29 02/14/20 22 02/13/2022 CBC neut% 86.0 % 34.0-7 1.1 high Not Available [address], [address], 02/13/2022 10:34:29 02/14/20 22 02/13/2022 CBC neut# 7.63 1.56-6 .13 high Not Available [address], [address], 02/13/2022 10:34:29 02/14/20 22 02/13/2022 CBC lymph % 11.3 % 19.3-5 1.7 low Not Available [address], [address], 02/13/2022 10:34:29 02/14/20 22 02/13/2022 CBC lymph # 1.00 K/? ? ?L 1.18-3 .74 low Not Available [address], [address], 02/13/2022 10:34:29 02/14/20 22 02/13/2022 CBC mono% 1.9 % 4.7-12 .5 low Not Available [address], [address]681, 02/13/2022 10:34:29 02/14/20 22 02/13/2022 CBC mono# 0.17 0.24-0 .56 low Not Available [address], [address], 02/13/2022 10:34:29 02/14/20 22 02/13/2022 CBC eo% 0.0 % 0.7-5. 8 low Not Available [address], [address]31, 02/13/2022 10:34:29 02/14/20 22 02/13/2022 CBC eo# 0.00 0.04-0 .36 low Not Available [address], 8[address], 02/13/2022 10:34:29 02/14/20 22 02/13/2022 CBC baso% 0.3 % 0.1-1. 2 Not Available [address], [address], 02/13/2022 10:34:29 02/14/20 22 02/13/2022 CBC baso# 0.03 0.00-0 .08 Not Available [address], [address], 02/13/2022 10:34:29 02/14/20 22 02/13/2022 CBC RDW-CV 13.1 % 11.7-1 4.4 Not Available [address], [address], 02/13/2022 10:34:29 02/14/20 22 02/13/2022 CBC Ig% 0.500 % 0.000- 1.500 Ig % >0.5 Indic ates possi ble Left Shift Not Available [address], [address], 02/13/2022 10:34:29 02/14/20 22 02/13/2022 CBC Ig# 0.040 0.000- 0.093 Not Available [address], [address], 02/13/2022 10:34:29 02/14/20 22 02/13/2022 CBC NRBC% 0.0 % 0.0-0. 2 Not Available [address], 8[address]64, 02/13/2022 10:34:29 02/14/20 22 02/13/2022 CBC NRBC# 0.000 0.000- 0.012 Not Available [address], [address], 02/13/2022 10:34:29 02/14/20 22 02/13/2022 HGB A1C hemoglobin A1C 5.8 % 4.8-6. 0 Goal: <7% in Patie nts with Diabe yola An A1c betwe en 5.7-6 .4% is ident ified as pre-d iabet es and sugge sts risk for progr essio n to diabe yola Two a1c value s of 6.5% or highe r is consi stent with a diagn osis of diabe yola but may need furth er confi rmati on Not Available [address], [address], 02/13/2022 11:35:38 02/14/20 22 02/13/2022 HGB A1C estimated average glucose 119.8 mg/dL Not Available [address], [address], 02/13/2022 11:35:38 02/14/20 22 02/13/2022 ESR sed rate 9.0 0.0-15 .0 Not Available [address], [address], 02/13/2022 13:05:09 02/14/20 22 02/13/2022 TSH TSH 0.89 uIU/m L 0.50-6 .00 The Ameri can Colle ge of Endoc rinol ogy and Ameri can Thyro id Assoc iatio n recom mend goal TSH value s betwe en 0.4-4 .0 mIU/m L. Not Available [address], [address], 02/13/2022 14:13:30 02/14/20 22 02/13/2022 GUIDO TIN ferritin 37 NG/mL 15-200 Not Available [address], [address], 02/13/2022 14:13:30 02/14/20 22 02/14/2022 COMP. METAB OLIC PANEL glucose 106 mg/dL 70-100 high Not Available [address], [address], 02/14/2022 11:31:04 02/14/20 22 02/14/2022 COMP. METAB OLIC PANEL BUN 12 mg/dL 7-18 Not Available [address], [address], 02/14/2022 11:31:04 02/14/20 22 02/14/2022 COMP. METAB OLIC PANEL creatinine 0.8 mg/dL 0.8-1. 3 Not Available [address], [address], 02/14/2022 11:31:04 02/14/20 22 02/14/2022 COMP. METAB OLIC PANEL B/C 15.0 ratio Not Available [address], [address], 02/14/2022 11:31:04 02/14/20 22 02/14/2022 COMP. METAB OLIC PANEL GFR >=60ML /MIN mL/mi n normal >=60m L/min - Ruthy l or midly reduc ed <60mL /min- Decre ased kidne y funct ion <15mL /min - Kidne y failu re [facility] calcu lates estim ated Glome rular Filtr ation Rate (eGFR ) using the Chron ic Kidne y Disea se Epide miolo gy Colla borat ion (CKD- EPI) Equat ion (Esperanza r et. al 2020) as recom elan d by the Natio nal Kidne y Found ation . eGFR is based on age, serum creat inine , and sex. CKD-E PI does not calcu late eGFR by race, does not apply to child evaristo (age <18 years ), and shoul d not be used in pregn bernie. Not Available [address], [address], 02/14/2022 11:31:04 02/14/20 22 02/14/2022 COMP. METAB OLIC PANEL sodium 144 mmol/ L 136-14 5 Not Available [address], [address], 02/14/2022 11:31:04 02/14/20 22 02/14/2022 COMP. METAB OLIC PANEL potassium 4.0 mmol/ L 3.5-5. 1 Not Available [address], [address], 02/14/2022 11:31:04 02/14/20 22 02/14/2022 COMP. METAB OLIC PANEL chloride 105 mmol/ L 96-107 Not Available [address], [address], 02/14/2022 11:31:04 02/14/20 22 02/14/2022 COMP. METAB OLIC PANEL anion gap 8.5 5.0-15 .0 Not Available [address], [address], 02/14/2022 11:31:04 02/14/20 22 02/14/2022 COMP. METAB OLIC PANEL CO2 31 mmol/ L 21-32 Not Available [address], [address], 02/14/2022 11:31:04 02/14/20 22 02/14/2022 COMP. METAB OLIC PANEL calcium 9.4 mg/dL 8.5-10 .3 Not Available [address], [address], 02/14/2022 11:31:04 02/14/20 22 02/14/2022 COMP. METAB OLIC PANEL total protein 6.5 g/dL 6.4-8. 2 Not Available [address], [address], 02/14/2022 11:31:04 02/14/20 22 02/14/2022 COMP. METAB OLIC PANEL albumin 3.7 g/dL 3.4-5. 0 Not Available [address], [address], 02/14/2022 11:31:04 02/14/20 22 02/14/2022 COMP. METAB OLIC PANEL globulin 2.8 g/dL Not Available [address], [address], 02/14/2022 11:31:04 02/14/20 22 02/14/2022 COMP. METAB OLIC PANEL A/G 1.3 ratio 0.8-2. 0 Not Available [address], [address], 02/14/2022 11:31:04 02/14/20 22 02/14/2022 COMP. METAB OLIC PANEL total bilirubin 0.40 mg/dL 0.00-1 .00 Not Available [address], [address], 02/14/2022 11:31:04 02/14/20 22 02/14/2022 COMP. METAB OLIC PANEL AST 10 U/L 0-37 Not Available [address], [address], 02/14/2022 11:31:04 02/14/20 22 02/14/2022 COMP. METAB OLIC PANEL ALT 14 U/L 6-63 Not Available [address], [address], 02/14/2022 11:31:04 02/14/20 22 02/14/2022 COMP. METAB OLIC PANEL alk. phos. 95 U/L 50-136 Not Available [address], [address], 02/14/2022 11:31:04 02/14/20 22 02/14/2022 LIPID PANEL cholesterol 209 mg/dL <200 mg/dl Gretel able 200-2 39 mg/dl Borde rline High >240 mg/dl High Not Available [address], [address], 02/14/2022 11:31:05 02/14/20 22 02/14/2022 LIPID PANEL triglyceride s 111 mg/dL <150 mg/dL Ruthy l 150-1 99 mg/dL Borde rline High 200-4 99 mg/dL High >500 mg/dL Very High Not Available [address], [address], 02/14/2022 11:31:05 02/14/20 22 02/14/2022 LIPID PANEL direct HDL 49 mg/dL <40 mg/dl - Major Risk for CHD >60 mg/dl - Negat rolan Risk for CHD Not Available [address], [address], 02/14/2022 11:31:05 02/14/20 22 02/14/2022 DIREC T LDL direct LDL 133 mg/dL RISK CATEG ORY LDL GOAL _ CHD or CHD Risk Equiv alent s <100 mg/dl (10-y ear risk >20%) 2+ Risk Facto rs <130 mg/dl (10-y ear risk <= 20%) 0-1 Risk Facto r? <160 mg/dl ? Almos t all peopl e with 0-1 risk facto r have a 10 year risk <10%, thus 10 year risk asses ment in peopl e with 0-1 risk facto r is not sanjana sanders. Not Available [address], [address], 02/14/2022 11:31:06 02/14/20 22 02/14/2022 IRON PANEL iron 104 ug/dL 35-150 Not Available [address], [address], 02/14/2022 11:31:07 02/14/20 22 02/14/2022 IRON PANEL T.I.B.C. 255 ug/dL 250-45 0 Not Available [address], [address], 02/14/2022 11:31:07 02/14/20 22 02/14/2022 IRON PANEL % saturation 40.8 % Not Available [address], [address], 02/14/2022 11:31:07 02/14/20 22 02/14/2022 MAGNE SIUM magnesium 1.7 mg/dL 1.8-2. 4 low Not Available [address], [address], 02/14/2022 11:31:08 02/14/20 22 02/14/2022 CPK CPK 41.0 U/L 21.0-2 15.0 Not Available [address], [address], 02/14/2022 11:31:09 02/14/20 22 02/14/2022 LDL - CALCU LATED LDL - calculated 137.8 RISK CATEG ORY LDL GOAL _ CHD or CHD Risk Equiv alent s <100 mg/dl (10-y ear risk >20%) 2+ Risk Facto rs <130 mg/dl (10-y ear risk <= 20%) 0-1 Risk Facto r? <160 mg/dl ? Almos t all peopl e with 0-1 risk facto r have a 10 year risk <10%, thus 10 year risk asses ment in peopl e with 0-1 risk facto r is not neces tommy. Not Available [address], [address], 02/14/2022 11:31:10 02/14/20 22 02/14/2022 C-MIK CTIVE PROTE IN-QU ANTIT ATIVE C-reactive protein -quant <2.0 mg/L 0.0-9. 0 < Not Available [address], [address], 02/14/2022 15:44:40 02/14/20 22 02/14/2022 TICK BORNE DISEA SE, ACUTE MOLEC ULAR PANEL anaplasma phagocytophi lum DNA, ql real time PCR NOT DETECT ED not detect ed normal This test was devel oped and its ivania tical perfo rmanc e misti cteri stics have been deter mined by [facility]. It has not been clear ed or appro alexandre by the FDA. This assay has been valid ated pursu ant to the CLIA regul ation s and is used for clini susana purpo ses. Not Available [facility] [address], [address], 02/14/2022 22:43:25 02/14/20 22 02/14/2022 TICK BORNE DISEA SE, ACUTE MOLEC ULAR PANEL babesia microti DNA, real time PCR NOT DETECT ED not detect ed normal This test was devel oped and its ivania tical perfo rmanc e misti cteri stics have been deter mined by [facility]. It has not been clear ed or appro alexandre by the FDA. This assay has been valid ated pursu ant to the CLIA regul ation s and is used for clini susana purpo ses. Not Available [facility] [address], [address], 02/14/2022 22:43:25 02/14/20 22 02/14/2022 TICK BORNE DISEA SE, ACUTE MOLEC ULAR PANEL borrelia miyamotoi DNA, ql real time PCR NOT DETECT ED not detect ed normal This test detec ts but does not disti nguis h betwe en B. miyam otoi and B. herms ii. This test was devel oped and its ivania tical perfo rmanc e misti cteri stics have been deter mined by [facility] [employer] [facility]. It has not been clear ed or appro alexandre by the FDA. This assay has been valid ated pursu ant to the CLIA regul ation s and is used for clini susana purpo ses. Not Available [facility] [place] [facility] [address], [address], 02/14/2022 22:43:25 02/14/20 22 02/14/2022 TICK BORNE DISEA SE, ACUTE MOLEC ULAR PANEL ehrlichia chaffeensis DNA real time PCR NOT DETECT ED not detect ed normal This test was devel oped and its ivania tical perfo rmanc e misti cteri stics have been deter mined by [employer] [facility]. It has not been clear ed or appro alexandre by the FDA. This assay has been valid ated pursu ant to the CLIA regul ation s and is used for clini susana purpo ses. Not Available [facility] [place] [facility] [address] [place], [place], [address], 02/14/2022 22:43:25 02/14/20 22 02/14/2022 TICK BORNE DISEA SE, ACUTE MOLEC ULAR PANEL borrelia species DNA, ql real time PCR NOT DETECT ED not detect ed normal This test was devel oped and its ivania tical perfo rmanc e misti cteri stics have been deter mined by [facility]. It has not been clear ed or appro alexandre by the FDA. This assay has been valid ated pursu ant to the CLIA regul ation s and is used for clini susana purpo ses. For addit ional infor miah chung e refer to https ://ed ucati on.qu [employer]/f aq/fa q224 (This link is being provi ded for infor fidel nal/ educa brianna l purpo ses only. ) Not Available [facility] [place] [facility] [address], [place], [address], 02/14/2022 22:43:25 02/14/20 22 02/14/2022 TICK BORNE DISEA SE, ACUTE MOLEC ULAR PANEL comment A negat rolan resul t does not exclu de Borre ronnie infec tion as the jose m ntrat ion of the organ ism in blood may be low or non-e xiste nt in patie nts with Lyme disea se, and may depen d on timin g of speci men colle ction from onset of sympt oms. Clini susana corre latio n is recom elan d and addit ional studi es such as serol ogic testi ng may be indic ated. Not Available [facility] [place] [facility] [address], [place], [address], 02/14/2022 22:43:25 02/14/20 22 02/16/2022 FOLAT E folate 6 NG/mL 3-16 Not Available [address], [address], 02/16/2022 12:08:40 02/14/20 22 02/16/2022 VITAM IN B12 vitamin B12 286 pg/mL 230-10 50 Not Available [address], [address], 02/16/2022 12:10:40 03/30/19 23 03/30/2022 POC FLU flu A POC NEGATI VE Not Available [facility] [address] [place] [address], [address], 03/30/2022 16:21:31 03/30/19 23 03/30/2022 POC FLU flu B POC NEGATI VE Not Available [facility] [address] [place] [address], [address], 03/30/2022 16:21:31 03/30/19 23 03/31/2022 SARS- COV-2 RNA (COVI D-19) , QUALI TATIV E NAAT sarscov2 NEGATI VE negati ve normal This test has been autho rized by the FDA under an Emerg ency Use Autho rizat ion(E UA) for you by autho rized labs. Not Available [address], [address], 03/31/2022 14:50:22 02/14/20 22 (CHENTE) ankle brach ial index * No observ ation record ed. [facility] [address], [place], [address], 02/28/2022 07:49:10 06/27/19 23 06/26/2022 MAMMO , scree fletcher, tomos ynthe sis, bilat eral CLINIC AL HISTOR Y: Screen ing. TECHNI QUE: 3D mammog es (tomos ynthes is) and 2D mammog es (C-vie w) images are genera mallory. Images review ed with a CAD system . COMPAR STEPHEN: None. Baseli ne. FINDIN GS: The breast parenc hyma is compos ed of scatte red areas of fibrog landul ar densit y. Right breast : There is a 2 cm asymme try in the upper outer right breast , 9 cm from the nipple . There is additi onal adjace nt dense tissue . This should be evalua mallory with right mediol ateral , compre ssion MLO, and compre ssion CC views. Target ed ultras ound should be consid ered based on those images . There are no suspic ious microc alcifi cation s. The breast tera ecture is unrema rkable . Left breast : There are no domina nt masses . There are no suspic ious microc alcifi cation s. The breast tera ecture is unrema rkable . IMPRES LEOLA: Incomp lete imagin g workup . The radiol ogy depart ment will contac t the patien t to arrang e for additi onal imagin g. Breast densit y: B. There are scatte red areas of fibrog landul ar densit y. BIRADS : 0, INCOMP LETE: NEED ADDITI ONAL IMAGIN G EVALUA TION. Readin g Physic jamar: Maribeth Albrecht ms [facility] (Imaging) [address], [place], [address], 06/26/2022 22:10:47 09/21/19 23 09/20/2022 MAMMO , diagn ostic , tomos ynthe sis, unila teral MAMMO, DIAG, NAOMI, UNI, RIGHT, US, BREAST , RIGHT: 023 BI-RAD S: 4 CLINIC AL: 57-yea r old Female for Right Diagno stic Mammog frank and Right Diagno stic Breast U/S. The patien t presen ts for additi onal evalua tion of an inconc lusive screen ing mammog frank - asymme try. PRIOR EXAMS: Review ed previo us images from 2022. MAMMOG ES TECHNI QUE: 3 images of the right breast were obtain ed includ ing 90 degree latera l, spot compre ssion CC and MLO views includ ing tomosy nthesi s with synthe sized views. ULTRAS OUND TECHNI QUE: Real-t olivia ultras ound exam was perfor med focuse d to area of clinic al and/or imagin g concer n. DENSIT Y Right: b. There are scatte red areas of fibrog landul ar densit y. MAMMOG ES FINDIN GS Right (findi ng-1): Upper Outer Quadra nt, 9 cm from nipple , Middle depth: There is a mass presen t. ULTRAS OUND FINDIN GS Right (findi ng-1): Upper Outer at 10:00, 7 cm from nipple , measur ing 1.1 x 0.7 x 1.2 cm: Correl ating with findin gs on mammog frank there is a mass presen t. The mass is hetero geneou s, hypoec hoic and lobula r with a few areas of digital media intern al echoge nicity . CONCLU LEOLA Right * Suspic ious findin gs with likeli phelps of malign bernie. RECOMM ENDATI ONS Right: Upper Outer at 10:00, 7 cm from nipple * Ultras ound-g uided biopsy for furthe r evalua tion. COMMEN TS: Result s and recomm endati ons discus sed with the patien t at the time of the exam. OVERAL L ASSESS MENT CATEGO RY BI-RAD S-4: Suspic ious Findin gs. ELECTR ONICAL LY SIGNED : Maribeth Albrecht ms, M.D. on 2022 at 03:30: 13 PM Readin g Physic jamar: Maribeth Albrecht ms [facility] (Imaging) [address], [place], [address], 09/20/2022 15:40:26 09/21/19 23 09/20/2022 US, breas t MAMMO, DIAG, NAOMI, UNI, RIGHT, US, BREAST , RIGHT: 023 BI-RAD S: 4 CLINIC AL: 57-yea r old Female for Right Diagno stic Mammog frank and Right Diagno stic Breast U/S. The patien t presen ts for additi onal evalua tion of an inconc lusive screen ing mammog frank - asymme try. PRIOR EXAMS: Review ed previo us images from 2022. MAMMOG ES TECHNI QUE: 3 images of the right breast were obtain ed includ ing 90 degree latera l, spot compre ssion CC and MLO views includ ing tomosy nthesi s with synthe sized views. ULTRAS OUND TECHNI QUE: Real-t olivia ultras ound exam was perfor med focuse d to area of clinic al and/or imagin g concer n. DENSIT Y Right: b. There are scatte red areas of fibrog landul ar densit y. MAMMOG ES FINDIN GS Right (findi ng-1): Upper Outer Quadra nt, 9 cm from nipple , Middle depth: There is a mass presen t. ULTRAS OUND FINDIN GS Right (findi ng-1): Upper Outer at 10:00, 7 cm from nipple , measur ing 1.1 x 0.7 x 1.2 cm: Correl ating with findin gs on mammog frank there is a mass presen t. The mass is hetero geneou s, hypoec hoic and lobula r with a few areas of digital media intern al echoge nicity . CONCLU LEOLA Right * Suspic ious findin gs with likeli phelps of malign bernie. RECOMM ENDATI ONS Right: Upper Outer at 10:00, 7 cm from nipple * Ultras ound-g uided biopsy for furthe r evalua tion. COMMEN TS: Result s and recomm endati ons discus sed with the patien t at the time of the exam. OVERAL L ASSESS MENT CATEGO RY BI-RAD S-4: Suspic ious Findin gs. ELECTR ONICAL LY SIGNED : Maribeth Albrecht ms, M.D. on 2022 at 03:30: 13 PM Tanya haynes Physic jamar: Maribeth Albrecht ms [facility] (Imaging) [address], [place], [address], 09/20/2022 15:40:26 10/06/19 23 10/05/2022 MAMMO , diagn ostic , tomos ynthe sis, unila teral No observ ation record ed. [facility] [address] [place], [address], 10/05/2022 12:52:24 10/06/19 23 10/05/2022 US, connie nce No observ ation record ed. [email or web address] [facility] [address] [facility], [place], [address], 10/05/2022 12:45:59 10/12/19 23 10/10/2022 biops y, breas t, w/ ultra sound connie nce (PROC ) No observ ation record ed. [facility] Orders [address], [place], [address], 10/27/2022 13:39:21 Result Notes None recorded. Problems Name Problem SNOMED Code Status Onset Date Resolution Date Notes Provider Name and Address Organization Details Recorded Time Tobacco user 662231361 Active 2018 Geneva Venegas NP [address] [place], [address] , [facility] 9 11:01:40 Asthma 129378559 Active 2021 likely COPD, needs PFT Geneva Venegas NP [address] [place] [address], [address] , [facility] 2 13:41:26 Morbid obesity 435450547 Active 2021 BMI > 40 Kelsea Angeles LPN null, [facility] 2 13:07:01 Contact dermatiti s due to plants, except food Completed 200601/22/2013 Not Available [facility] 3 02:02:49 Finding by method 784944114 Completed 200401/22/2013 Not Available [facility] 3 02:01:55 Abdominal pain 13419276 Completed 200401/22/2013 Not Available [facility] 3 02:01:21 Cough 64655134 Completed 200401/22/2013 Not Available [facility] 3 02:01:08 Common cold 69741365 Completed 200201/22/2013 Not Available [facility] 3 02:00:27 Joint pain 26624315 Active 2004 Not Available [facility] 3 03:04:37 Fever 071952391 Completed 200401/22/2013 Not Available [facility] 3 02:02:41 Low back pain 712479758 Active 2005 Not Available [facility] 3 03:04:37 Allergic rhinitis 41557627 Active 2006 Not Available [facility] 3 03:04:37 Acute bronchiti s 54943336 Completed 200601/22/2013 Not Available [facility] 3 02:01:36 Malaise and fatigue 538050593 Completed 200401/22/2013 Not Available [facility] 3 02:00:17 Acute suppurati ve otitis media without spontaneo us rupture of ear drum 73050257 Completed 200501/22/2013 Not Available [facility] 3 02:02:40 Problem Notes None recorded. Procedures Surgical History Date Name Laterality Status Provider Name and Address Organization Details Recorded Time 2 Smoking cessation counseling completed Geneva Venegas NP [address] [place] [address], [address], [facility] 09/13/2021 15:08:33 2 Smoking cessation counseling cancelled Velma Suazo [facility] 05/11/2021 10:18:22 1 Smoking cessation counseling cancelled Velma Suazo [facility] 11/17/2020 10:26:41 1 Smoking cessation counseling completed Geneva Venegas NP [address] [place], [address], [facility] 10/21/2020 10:42:35 1 Smoking cessation counseling cancelled Velma Suazo [facility] 10/08/2020 07:37:51 1 Smoking cessation counseling completed Geneva Venegas NP [address] [place] [address], [address], [facility] 10/05/2020 15:19:24 0 Smoking cessation counseling completed Suzy Tobar MD [address] [place] [address], [address], [facility] 08/06/2019 10:13:40 0 Carbon Monoxide Testing completed Cindy AVILA Corado [facility] 08/06/2019 09:47:42 9 [address]: Therapeutic Exercise completed Yeny Barillas, PT [address] [place], [address], [facility] 12/30/2018 15:52:59 9 [address]: Mechanical Traction completed Yeny Barillas, PT [address] [place], [address], [facility] 12/30/2018 15:53:19 9 [address]871: Therapeutic Exercise completed Yeny Barillas, PT [address] [place], [address], [facility] 12/20/2018 13:51:43 9 [address]: Mechanical Traction completed Yeny Barillas, PT [address] [place], [address], [facility] 12/20/2018 13:52:39 9 [address]: Therapeutic Exercise completed Yeny Barillas, PT [address] [place], [address], [facility] 12/19/2018 16:26:34 9 [address]140: Mechanical Traction completed Yeny Barillas, PT [address] [place], [address], [facility] 12/19/2018 16:26:51 9 46568: Therapeutic Exercise completed Yeny Barillas, PT [address] [place], [address], [facility] 12/03/2018 17:34:16 9 [address]: Mechanical Traction completed Yeny Barillas, PT [address] [place], [address], [facility] 12/03/2018 17:34:08 9 14335: Therapeutic Exercise completed Yeny Barillas, PT [address] [place], [address], [facility] 11/21/2018 15:47:09 9 51848: Therapeutic Exercise completed Yeny Barillas, PT [address] [place], [address], [facility] 11/18/2018 15:47:54 9 645[address]: Manual Therapy completed Yeny Barillas, PT [address] [place], [address], [facility] 11/18/2018 15:47:58 9 09351: Therapeutic Exercise completed Yeny Barillas, PT [address] [place], [address], [facility] 11/14/2018 15:34:18 9 [address]18[address]: Manual Therapy completed Yeny Barillas, PT [address] [place], [address], [facility] 11/14/2018 15:34:21 9 20335: Therapeutic Exercise completed Yeny Barillas, PT [address] [place], [address], [facility] 11/12/2018 08:31:37 9 56706: Manual Therapy completed Yeny Barillas, PT [address] [place], [address], [facility] 11/12/2018 08:31:26 9 Physical Activity Counselling completed Yeny Barillas, PT [address] [place], [address], [facility] 11/06/2018 17:38:22 9 [address]: PT Eval Low Complexity completed Yeny Barillas, PT [address] [place], [address], [facility] 11/06/2018 17:38:25 9 18360: Manual Therapy completed Yeny Barillas, PT [address] [place], [address], [facility] 10/22/2018 08:03:09 9 Smoking cessation counseling completed Velma Suazo [facility] 10/18/2018 10:42:42 9 Carbon Monoxide Testing completed Velma Suazo [facility] 10/18/2018 10:42:42 9 Smoking Cessation Counselling completed Yeny Barillas, PT [address] [place], [address], [facility] 10/18/2018 08:11:50 9 Physical Activity Counselling completed Yeny Barillas, PT [address] [place], [address], [facility] 10/18/2018 08:11:41 9 [address]: PT Eval Low Complexity completed Yeny Barillas, PT [address] [place], [address], [facility] 10/18/2018 08:11:43 9 Smoking cessation counseling completed Luis Enrique Barrios [facility] 10/11/2018 14:21:42 9 Nebulizer Tx completed Michelle Gordon PA-C [address] [place], [address], [facility] 10/12/2018 09:23:24 8 Smoking cessation counseling completed Esha carlin [facility] 12/06/2017 16:40:46 8 Nebulizer Tx completed Esha carlin [facility] 12/06/2017 18:03:39 8 Smoking cessation counseling completed Esha carlin [facility] 05/24/2017 07:40:38 8 Carbon Monoxide Testing completed Esha carlin [facility] 05/24/2017 07:40:38 7 Smoking cessation counseling completed Irena Hawkins [facility] 10/31/2016 08:48:37 7 Nebulizer Tx completed Irena Ross [facility] 10/31/2016 08:52:37 Imaging Results Imaging Date Name Status LastModified by Organiz ation Details LastModified Time 02/13/2022 (CHENTE) ankle brachial index* completed [facility] [address], [place], [address], 02/28/2022 07:49:10 06/26/2022 MAMMO, screening, tomosynthesis, bilateral completed [facility] (Imaging) [address], [place], [address], 06/26/2022 22:10:47 09/20/2022 MAMMO, diagnostic, tomosynthesis, unilateral completed [facility] ([facility]) [address], [place], [address], 09/20/2022 15:40:26 09/20/2022 US, breast completed [facility] [address], [place], [address], 09/20/2022 15:40:26 10/05/2022 MAMMO, diagnostic, tomosynthesis, unilateral completed [facility] [address] [place], [address], 10/05/2022 12:52:24 10/05/2022 US, guidance completed [facility] [address] [place], [address], 10/05/2022 12:45:59 10/10/2022 biopsy, breast, w/ ultrasound guidance (PROC) completed [facility] Orders [address], [place], [address], 10/27/2022 13:39:21 Procedure Notes None recorded. Medical Equipment None Reported. Allergies Allergen ID Allergen Name Allergen Category Reaction Reaction Severity Criticality Documentation Date Start Date Code Code System Note Provider Name and Address Organization Details Recorded Time 32412 Product containin g penicilli n and antibioti c (product) medicatio n rash Not available Not available 01/25/2011 08682 05 SNOMED Carlene Suarez MA [facility] 1 11:37:32 Medications Name Sig Start Date Stop Date Status Note LastModified by Organization Details LastModified Time cyclobenz aprine 10 mg tablet Take 1 tablet every day by oral route at bedtime for 14 days. 08/05 completed Not Available Not Available Not Available bupropion HCl SR 150 mg tablet,12 hr sustained -release TAKE 1 TABLET BY MOUTH EVERY DAY IN THE MORNING FOR 3 DAYS THEN TAKE 1 TABLET TWICE A DAY active Not Available Not Available No t Available prednison e 10 mg tablet take 4 tabs by mouth daily for 4 days, then 3 tabs daily for 3 days, then 2 tabs daily for 2 days, then 1 tab for 1 day 05/10 completed Not Available Not Available Not Available albuterol sulfate 2.5 mg/3 mL (0.083 %) solution for nebulizat ion INHALE 3 ML VIA NEBULIZA TION ROUTE THREE TIMES A DAY NEEDED active Not Available Not Available No t Available azithromy jonathan 250 mg tablet TAKE 2 TABLETS (500 MG) BY ORAL ROUTE ONCE DAILY FOR 1 DAY THEN 1 TABLET (250 MG) BY ORAL ROUTE ONCE DAILY FOR 4 DAYS 2022 active Not Available Not Available Not Avai lable ranitidin e 300 mg tablet Take 1 tablet every day by oral route at bedtime for 30 days. 10/07 completed Not Available Not Available Not Available prednison e 20 mg tablet Take 3 tablets every day by oral route for 5 days. 05/22 completed Not Available Not Available Not Available meclizine 25 mg tablet 1-2tabs po twice a day prn 2010 active Not Available Not Available Not Avai lable Bleph-10 10 % eye drops Instill 1 drop every 4 hours by ophthalm ic route while awake for 7 days. 04/24 completed Not Available Not Available Not Available nystatin 100,000 unit/gram topical cream APPLY TO THE AFFECTED AREA(S) BY TOPICAL ROUTE 2 TIMES PER DAY for 2 weeks 2021 active Not Available Not Available Not Avai lable lansopraz ole 30 mg capsule,d elayed release Take 1 capsule every day by oral route. 2010 active Not Available Not Available Not Avai lable albuterol sulfate HFA 90 mcg/actua tion aerosol inhaler INHALE 2 PUFFS INTO THE LUNGS EVERY 4 HOURS NEEDED active Not Available Not Available No t Available ondansetr on 4 mg disintegr ating tablet 1-2tabs po q8h prn nausea 2010 active Not Available Not Available Not Avai lable naproxen 500 mg tablet Take 1 tablet twice a day by oral route with meals for 14 days. 08/05 completed Not Available Not Available Not Available magnesium 250 mg (as magnesium oxide) tablet TAKE 1 TABLET BY MOUTH EVERY DAY 2021 active Not taking 03/30/22- ad Not Available Not Available Not Available nicotine (polacril ex) 2 mg buccal lozenge Take 1 tablet every 2 hours by oral route as needed. 05/10 completed Pt no longer using 10/05/20 NMT, Using the cartridg e 10/21/20 NMT Not Available Not Available Not Available Flovent HFA 110 mcg/actua tion aerosol inhaler Inhale 1 puff twice a day by inhalati on route 01/04 completed Not Available Not Available Not Available Pulmicort Flexhaler 180 mcg/actua tion breath activated Inhale 1 puff twice a day by inhalati on route for 30 days. 10/07 completed unable to fill-too expensiv e 12/06/17 KRB Not Available Not Available Not Available Symbicort 160 mcg-4.5 mcg/actua tion HFA aerosol inhaler Inhale 2 puff(s) twice a day by inhalati on route. 2022 active Not Available Not Available Not Avai lable Chantix Starting Month Box 0.5 mg (11)-1 mg (42) tablets in dose pack Take 1 tablet twice a day by oral route. 10/07 completed Not Available Not Available Not Available Paxlovid 300 mg (150 mg x 2)-100 mg tablets in a dose pack Nirmatre lvir 300 mg with ritonavi r 100 mg, administ ered together , twice daily for 5 days 2022 active Not Available Not Available Not Avai lable Vitals Date Recorded Body height Provider Name an d Address Organization Details Last Updated DateTime 01/04/2022 158.75 cm Natasha Vargas MA [facility] 01/04/2022 10:43:06 Date Recorded Body mass index (BMI) Body weight Provider Name and Address Organization Details Last Updated DateTime 01/04/2022 48.1 kg/m2 537623.16 g Natasha Vargas MA [facility] 01/04/2022 10:49:11 Date Recorded Heart rate Provider Name an d Address Organization Details Last Updated DateTime 01/04/2022 88 /min Natasha Vargas MA [facility] 01/04/2022 10:54:58 Date Recorded Oxygen saturation Oxygen saturation in Arterial blood by Pulse oximetry Provider Name and Address Organization Details Last Updated DateTime 01/04/2022 98 % 98 % Natasha Vargas MA [facility] 01/04/2022 10:55:08 Date Recorded Body height Provider Name an d Address Organization Details Last Updated DateTime 02/02/2022 158.75 cm Sravanthi Beckett MA [facility] 02/02/2022 07:52:25 Date Recorded Body mass index (BMI) Body weight Provider Name and Address Organization Details Last Updated DateTime 02/02/2022 47.7 kg/m2 996218.[address] [facility] 02/02/2022 07:52:30 Date Recorded Heart rate Provider Name an d Address Organization Details Last Updated DateTime 02/02/2022 78 /min Sravanthi Beckett [facility] 02/02/2022 07:54:04 Date Recorded Body height Provider Name an d Address Organization Details Last Updated DateTime 02/09/2022 158.75 cm Sravanthi Beckett MA [facility] 02/09/2022 08:35:55 Date Recorded Heart rate Provider Name an d Address Organization Details Last Updated DateTime 02/09/2022 74 /min Sravanthi Beckett [place] [facility] 02/09/2022 08:39:40 Date Recorded Body mass index (BMI) Body weight Provider Name and Address Organization Details Last Updated DateTime 02/09/2022 47.3 kg/m2 448708.79 g Sravanthi Beckett MA [facility] 02/09/2022 08:39:53 Date Recorded Body height Provider Name an d Address Organization Details Last Updated DateTime 03/30/2022 158.75 cm Teetee Lezama MA [facility] 03/30/2022 15:57:32 Date Recorded Heart rate Provider Name an d Address Organization Details Last Updated DateTime 03/30/2022 80 /min Teetee Lezama MA [facility] 03/30/2022 16:01:12 Date Recorded Body temperature Provider Name a nd Address Organization Details Last Updated DateTime 03/30/2022 98 [degF] Teetee Lezama MA [facility] 03/30/2022 16:01:16 Date Recorded Oxygen saturation Oxygen saturation in Arterial blood by Pulse oximetry Provider Name and Address Organization Details Last Updated DateTime 03/30/2022 92 % 92 % Teetee Lezama MA [facility] 03/30/2022 16:01:20 Date Recorded Respiratory rate Provider Name a nd Address Organization Details Last Updated DateTime 03/30/2022 29 /min Lesly Lui [address], [address], [facility] 03/30/2022 16:18:51 Date Recorded Body height Provider Name an d Address Organization Details Last Updated DateTime 05/22/2022 158.75 cm Cyndie Mariscal MA [facility] 05/22/2022 15:49:27 Date Recorded Systolic blood pressure Diastolic blood pressure Provider Name and Address Organization Details Last Updated DateTime 01/04/2022 154 mm[Hg] 89 mm[Hg] Natasha Vargas MA [facility] 01/04/2022 10:54:51 Date Recorded Systolic blood pressure Diastolic blood pressure Provider Name and Address Organization Details Last Updated DateTime 02/02/2022 130 mm[Hg] 71 mm[Hg] Sravanthi Beckett MA [facility] 02/02/2022 07:53:57 Date Recorded Systolic blood pressure Diastolic blood pressure Provider Name and Address Organization Details Last Updated DateTime 02/09/2022 118 mm[Hg] 65 mm[Hg] Sravanthi Beckett MA [facility] 02/09/2022 08:39:03 Date Recorded Systolic blood pressure Diastolic blood pressure Provider Name and Address Organization Details Last Updated DateTime 03/30/2022 136 mm[Hg] 78 mm[Hg] Teetee Lezama MA [facility] 03/30/2022 16:01:08 Social History Question Answer Notes LastModified by Organizat ion Details LastModified Time Tobacco Smoking Status Current Every Day Smoker Smoking 10cigs daily 10/21/[address] [facility] 10/21/2020 10:15:50 What Is Your Level Of Alcohol Consumption? Occasional 1 [place] Once A Month Information not available 02/02/2022 Are You Currently Employed? Yes Information not available 02/02/2022 Which Illicit Or Recreational Drugs Have You Used? No Information not available 08/06/2019 Do You Or Have You Ever Used E-cigarettes Or Vape? 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 No Information not available 02/02/2022 Do You Use Insect Repellent Routinely? No Information not available 02/02/2022 Does The Patient Have Difficulty Speaking Australian? No [email or web address] Information not available 09/23/2014 Patient Has Health Care Proxy Signed And In Chart Yes [email or web address] Information not available 02/03/2022 What Was The Date Of Your Most Recent Tobacco Screening? 02/02/2022 Information not available 02/02/2022 How Many Children Do You Have? 2 Sabi - Grad In [employer] - Works In [employer] [email or web address] Information not available 12/06/2017 What Is Your Current Pack Years? 30ormorepacky ears Stopped When [email or web address] Information not available 10/05/2020 Do You Use Your Seat Belt Or Car Seat Routinely? Yes Information not available 02/02/2022 Do You Have Smoke And Carbon Monoxide Detectors In Your Home? Yes Information not available 02/02/2022 At What Age Did You Start Smoking Tobacco? 16 [email or web address] Information not available 10/05/2020 Are You Passively Exposed To Smoke? Yes Information not available 02/02/2022 Do You Or Have You Ever Used Smokeless Tobacco? Never Used Smokeless Tobacco Information not available 08/06/2019 How Much Tobacco Do You Smoke? 1 PPD [email or web address] Information not available 10/05/2020 Do You Use Any Illicit Or Recreational Drugs? Yes Information not available 02/02/2022 Do You Use Sunscreen Routinely? Yes Information not available 02/02/2022 How Many Years Have You Smoked Tobacco? 39 [email or web address] Information not available 10/05/2020 Do You Or Have You Ever Used Any Other Forms Of Tobacco Or Nicotine? No Information not available 10/05/2020 How Many Days In The Past Year Have You Consumed 4 Or More Drinks? 0 Information not available 02/02/2022 Sex: Unknown Functional Status None recorded. Mental Status None recorded. Family History Relationship Description Onset Age of this Age Resolved Age Notes LastModified by Organization Details LastModified Time Mother Chronic obstructive pulmonary disease [email or web address] Not available 2021 08:13:52 Mother Congestive heart failure 64 [email or web address] Not available 2021 08:14:03 Father Malignant tumor of kidney 59 [email or web address] Not available 2021 08:14:19 Paternal Grandmother Malignant tumor of kidney [email or web address] Not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 counseling:Discussed the importance of daily physical activity; Discussed the importance of weight bearing exercise Safety:Counseled about protecting skin from the sun and lowering the risk of skin cancer; Counseled about avoiding excessive and unsafe alcohol intake; Counseled about safer sexual practice; Counseled about use of helmets for high velocity activiities; Counseled about home safety including use of smoke detectors, CO detectors, keeping home water temperature less than 120; Counseled about use of seat belts 56yo F presents for [place] - HCP: completed today- [place]: discussed, declines. will do ifobt- Mamm: discussed, will schedule- Pap: total hysterectomy, no cervix per pt- Hepatitis C screening negative 2018 SMOKING- 1ppd, sometimes a little less- feels unable to quit- she has connected with [employer]- both parents were heavy smokers Asthma- Symbicort BID, a little improvement- 1 tube of albuterol in her nebulizer a day. Uses it TID- wears N95 masks at work all the time which does make her breathing harder- covid booster 1.5 months ago and flu shot- waiting on scheduling PFTs Pain- legs, arms- trouble with neck for years- pain can cause headache- intermittent swelling on the right side of her neck- leg pain over the summer. mid calf down. bilateral- deep pain/ach- no recent lower leg swelling- Sleeping a lot to avoid pain- no worse when walking- no joint swelling- motrin: 800mg twice a day. before work and before bed lump in her mouth. last saw dental 2 years ago. goes up and down. will check in with dental again BS at work 176. 2 hours after eating Loves plants and ceramics Geneva Venegas, KAT [address] [facility], [place], [phone], [facility] 02/02/2022 09:13:56 02/09/2022 text/html 56yo F presents for follow up on a number of concerns ASTHMA- Symbicort increased at last visit to 2 puffs twice a day- 1/2 tube of albuterol a day. waking up in the morning and if she has to do something strenuous- she notes improvement but still not great sleep/fatigue- 3pm-8:30pm: 5 1/2 hours of sleep- anxiety/mood impacts sleep- Never feels rested- upcoming labs- not interested in therapy upcoming labs- she would like me to call her sister if ifobt is positive. or other serious lab results Rash: under breasts, resolved with antifungal SMoking 1ppd- did not like nicotrol- lozenges did not help- interested in Wellbutrin- Has not talked to Sherif King LAST OV56yo F presents to discuss asthma ASHTMA- poorly controlled- out of nebulized albuterol for a few weeks- was using this when she wakes up at night to go to work for 5 min and again for 5min after work. 1 tube a day. helps for a couple hours- albuterol inhaler twice a day. nebulizer helps more- Flovent once or twice a week. did not seem to help when using it regularly in the past- liekly COPD component SMOKING- I am doomed . feels unable to change- interested in talking to Sherif King. call after 4:00 Rash under breasts for 1.5 weeks- itchy and irritated vaginal itching x1.5 weeks- monistat 1 did not help- itchy with slimy discharge. no odor Geneva Venegas NP [address] [place] [address], [phone], [facility] 02/09/2022 09:50:25 03/30/2022 text/html VMG URI Flu like SymptomsReported bypatient.Duration:sta rted 10 days ago Associated Symptoms:No fever/chills; Good oral intake; No sweats; No purulent nasal discharge; No sinus pressure; No wheezing; No shortness of breath; No ear pressure or fullness; No earache; No difficulty swallowing; No swollen glands; No chest pain with deep breath; No vomiting; No rash;Fatigue and malaise;Headache;Signi ficant muscle aches;congestion;Cough productive of yellow-green, thick sputum;Sore throat;Abdominal pain;Diarrhea Context:Smokera/vmg-sm oking [id number] bypatient.Physiologica l Dependence/Health RiskCurrently smoking (2-3 cig/day trying to cut down) Pt wakes up and works 11PM-7AM. Pt has been coughing at work and coughing 'everywhere.' Pt's residents had flu and were treated, then a week alter she got sick. Lesly Leija [address] [place], [address], [facility] 03/30/2022 17:12:32 05/22/2022 text/html VMG URI Flu like SymptomsReported bypatient.Duration:dur ation: less than 1 week Severity:moderate Associated Symptoms:Fatigue and malaise;Headache;Signi ficant muscle aches;purulent nasal discharge;Cough productive of yellow-green, thick sputum;Shortness of breathNotes:positive for covid this morning, 3 times last week negativesymptoms started last night with NAVA, worse this morning, nose running constantlyhx asthma and likely COPD/pending PFTsout of all inhalers - needs refills, feels like her breathing is okay right now overall, does not feel SOBhas neb at home - unsure if she has the meds for itsmoking - 1 cig this morning, usually 1ppd 05/22/22covid treatment discussion Time for intake: {{1 2 3 4* 5 6 7 8 9 1 0 11 12 13 14 15 16 17 18 19 20 21 22 23 24 25}} minutes. NATHAN Martinez [address] [place], [address], [facility] 05/22/2022 16:05:16 OBGyn Episode No OBEpisode recorded.
== END 2024-04-01 11:34 | disposition home or self-care (01) ==
PROVIDERS: PCP Nurse Practitioner Family; Visit Provider Nurse Practitioner Family
DX: F33.1 Major depressive disorder, recurrent, moderate (principal); E66.01 Morbid (severe) obesity due to excess calories; Z68.41 Body mass index [BMI] 40.0-44.9, adult; G89.4 Chronic pain syndrome; J41.8 Mixed simple and mucopurulent chronic bronchitis; F17.200 Nicotine dependence, unspecified, uncomplicated

== ENCOUNTER → 2024-04-01 10:22 | Outpatient (BNVA) | payer OTHER, SELFPAY | PROVIDERS: PCP Nurse Practitioner Family; Visit Provider Nurse Practitioner Family | DX: F33.1 Major depressive disorder, recurrent, moderate (principal); E66.01 Morbid (severe) obesity due to excess calories; Z68.41 Body mass index [BMI] 40.0-44.9, adult; G89.4 Chronic pain syndrome; J41.8 Mixed simple and mucopurulent chronic bronchitis; F17.200 Nicotine dependence, unspecified, uncomplicated | CPT/HCPCS: 96127 ==

== ENCOUNTER → 2024-04-04 10:43 | Outpatient (BNV) | payer OTHER, SELFPAY | PROVIDERS: PCP Nurse Practitioner Family; Visit Provider Anesthesiology | DX: M48.062 Spinal stenosis, lumbar region with neurogenic claudication (principal) | CPT/HCPCS: 62323 ==

== ENCOUNTER 2024-05-08 13:55 | Outpatient (AMB) | payer OTHER, SELFPAY ==
--- NOTE | 2024-05-08 13:57 | MHC.OFFVIS ---
Intake Visit Reasons: S/p Caudal SHAWANDA w/ Catheter 04/04/24 Intake Note: Pain today 10/12 Occupational Health Physiotherapist Required: No Accompanied by: Sister Allergies Penicillins [PENICILLINS] Allergy (Unknown, Verified 05/08/24 14:01) HIVES HPI Comments Details: Lauryn is Back in my office after caudal epidural steroid injection with catheter. She reports significant pain relief after the procedure. She reports 50% pain improvement. She reports better mobility, better activities of daily living, ability to walk, ability to perform daily chores. She was explained today that we can repeat this procedure once her pain will come back. She is recommended to schedule appointment with me once she has her pain to pre-injection level. Prior: complains on severe pain in lower back with radiation of the pain in bilateral lower extremities. She reports most severe pain when she gets out of bed for 2 hours she reports that this pain started in 08/31/2023 and it is results of the fall. She went to [facility] she received physical therapy there which did not help her pain. She tried 10s unit with minimal relief. she can not sleep normally because of her pain but sitting does not aggravate her pain. She is able to take care of herself. She reports that when she is working for a long period of time where she feels pain radiating all the way down to her feet. Can not make a conclusion whether it is radiating to her toes. She had an MRI of the lumbar spine results of which dictated as below. She has L4-5 spinal canal stenosis and she has L5-S1 bridging bodies fusion. She also has posterior fusion at L4-5 indicative or possible Baastrup disease. Her past medical history significant for asthma and shortness of breath. She is also obese. while visiting emergency room she was given morphine and Dilaudid and she had side effects including itching she does not like opioid medications [facility] Medical History Asthma PVD (peripheral vascular disease) COPD (chronic obstructive pulmonary disease) Spine pain Surgical History H/O: hysterectomy Previous section Family History Father Cancer Brother Cancer Paternal Grandfather Cardiovascular disease Mother COPD (chronic obstructive pulmonary disease) Social History Household Members: Family Household Members Other:: cousin Both parents involved: No Caregiver staying overnight: No Housing: House Are you a primary lawn caretaker to a significant other at home: No Do you presently have visiting nurse or other home services: No 75 years or older and lives alone: No Alcohol intake: current Alcohol intake frequency: a few times a month Patient Tobacco Use Status: Current everyday Tobacco user Tobacco use type: Cigarette Cigarette Packs Per Day: 1 Cigarettes Per Day: 20 Years Smoked: 42 e-Cigarette/Vaping Use: Never Used Second Hand Smoke Exposure: No service: No Current occupational status: employed 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 There is tenderness on palpation in paraspinal spinal region of the entire lumbar spine. SLR is positive bilaterally. Valsalva maneuver aggravates the pain. Marco test is positive more on the right and less on the left. There is tenderness on palpation in the projection of bilateral sacroiliac joints. Results Reviewed Results Reviewed: MR LUMBAR SPINE WITHOUT CONTRAST CLINICAL INFORMATION: Severe low back pain. COMPARISON: CT abdomen and pelvis 12/08/2023. TECHNIQUE: MRI of the lumbar spine was obtained using routine sequences without contrast. 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 There is grade 1 anterolisthesis of L4 on L5 that appears to be related to advanced facet degenerative changes at this level. Alignment is otherwise normal. Vertebral body heights are preserved. No acute bone marrow signal changes. Slight loss of intervertebral Scientific Programmer Analyst and T2 signal intensity at L4-L5 related to disc degeneration. There is abutment with associated edema and sclerotic changes of the adjoining spinous processes at L4-L5 indicate the possibility of underlying Baastrup disease. The tip of the conus medullaris is located at L1. No mass effect on the conus. Visualized distal cord signal intensity is normal. At L1-L2 the annular contour is normal. No canal or neuroforaminal compromise. At L2-L3 there is a slightly bulging disc. Bilateral facet degenerative change. No canal stenosis. No mass effect on the traversing or foraminal nerve roots. At L3-L4 there is a slightly bulging disc. Bilateral facet degenerative change. No canal stenosis. No mass effect on the traversing or foraminal nerve roots. At L4-L5 there is a pseudodisc bulge. Moderate to severe canal stenosis. Subarticular zone narrowing causes compression of both traversing L5 nerve roots. There is also moderate compression of both L4 foraminal nerve roots. At L5-S1 there is no canal or neuroforaminal compromise. Limited visualization of the retroperitoneal anatomy reveals a few layering calculi within the gallbladder neck. Psoas and paraspinal muscle groups are symmetric. 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 There is adjacent segment spondylosis above the fusion at the level of L4-L5 where there is grade 1 anterolisthesis and moderate to severe canal stenosis. Subarticular zone narrowing at this level causes compression of both traversing L5 nerve roots. There is also moderate compression of both L4 foraminal nerve roots related to degenerative changes at L4-L5. There is abutment with associated edema and sclerotic changes of the adjoining spinous processes at L4-L5 indicating the possibility of underlying Baastrup disease. There are a few layering calculi visualized within the gallbladder neck. Assessment & Plan Assessment & Plan (1) Spinal stenosis at L4-L5 level: Code(s): M48.061 - Spinal stenosis, lumbar region without neurogenic claudication Category: Medical (2) Baastrup disease of lumbar spine: Code(s): M48.26 - Kissing spine, lumbar region Category: Medical (3) Spondylolisthesis, lumbar region: Code(s): M43.16 - Spondylolisthesis, lumbar region Category: Medical (4) Chronic pain syndrome: Code(s): G89.4 - Chronic pain syndrome Category: Medical Plan Moderate to severe spinal stenosis is demonstrated on recently obtained MRI. The patient reported good results at L3-L4 epidural steroid injection. It was done at L3-L4 by [facility] most likely because patient had Baastrup fusion on the posterior elements at L4-5. Instead I offered the patient And I performed caudal epidural steroid injection with catheter to reach the epidural space at L4-5. We agreed that I will perform this procedure under moderate sedation. I explained to her if the pain relief lasts more than 3 months we can repeat the procedure. The patient expressed understanding. If her pain will returned to pre-injection level she will schedule appointment with me and I will schedule her for the injection again. I will continue gabapentin to 400 mg t.i.d.. Medications: Refilled gabapentin 400 mg PO TID 30 days 90 caps 8RF Coding Level of Care Code Est Pt Level 3 (84839) Diagnoses Spinal stenosis at L4-L5 level M48.061 Baastrup disease of lumbar spine M48.26 Spondylolisthesis, lumbar region M43.16 Chronic pain syndrome G89.4
--- OUTSIDE RECORDS SUMMARY | 2024-05-08 17:00 | XMS_ITS | Data Portability ---
Author Organization NATHAN [facility], [address] Address [address] [place] [address] Assessment No assessment recorded. Plan of Treatment Reminders Order Date Submit Date Provider Last Modified By Organization Details Last Modified Time Details Appointments None recorded. Lab None recorded. Referral None recorded. Procedures None recorded. Surgeries None recorded. Imaging XR, chest, 2 view 2022 023 JOSE [facility], [address] [place] [address], [address], 4 05:01:33 Medication Orders albuterol sulfate HFA 90 mcg/actuati on aerosol inhaler 2022 023 [email or web address] [facility]/Pharmacy #[id number], [address] [place], [address], 3 14:51:50 Zithromax Z-Tristin 250 mg tablet 2022 023 [facility]/Pharmacy #[id number], [address] [place], [address], 3 14:43:30 prednisone 50 mg tablet 2022 023 [facility]/Pharmacy #[id number], [address] [place], [address], 3 14:47:26 albuterol sulfate 2.5 mg/3 mL (0.083 %) solution for nebulizatio n 2022 023 Not available 3 15:06:42 ipratropium bromide 0.02 % solution for inhalation 2022 023 Not available 15:06:42 benzonatate 200 mg capsule 2022 023 [facility]/Pharmacy #[id number], [address] [place], [address], 15:08:57 Patient TargetsNo targets recorded. Patient Instructions Encounter Date Encounter Id Patient Instructions Last Modified By Organization Details Last Modified Time 02/22/2023 [id number] cough: care instructions [email or web address] Not available 02/22/2023 14:43:28 chronic obstruct rolan [...] Pain 3. Wheezing 4. Coughing up Blood [email or web address] Not available 02/22/2023 14:43:26 Reason for Referral None Reported. Problems Name Problem SNOMED Code Status Onset Date Resolution Date Notes Provider Name and Address Organization Details Recorded Time Acute bronchitis 72804333 Active 023 NATHAN CRAIN [facility] [place], [address] , [place] - [facility] 14:42:48 Problem [...] Not Available Vitals Date Recorded Body height Body mass index (BMI) Body weight Oxygen saturation Oxygen saturation in Arterial blood by Pulse oximetry Pain severity - 0-10 verbal numeric rating [Score] - Reported Heart rate Respiratory rate Body temperature Systolic blood pressure Diastolic blood pressure Provider Name and Address Organization Details Last Updated DateTime 167.64 cm 35.5 kg/m2 45780.3 2 g 98 % 98 % 3 87 /min 18 /min 98.6 [degF] 144 mm[Hg] 82 mm[Hg] Kamini EVANS - [employer] 14:32:01 Social History Question Answer Notes LastModified by [employer] Details LastModified Time Tobacco Smoking Status Current Every Day Smoker Kamini mcknight PA [facility] 02/22/2023 14:33:31 What Is Your [...] SNOMED-CT Code Diagnosis ICD10 Code Diagnosis Note [id number] NATHAN CRAIN [address] [place] [address] 02/22/2023 14:14:13 02/22/2023 15:12:24 Acute bronchitis 09557093 J20.9 Wheezing 76105092 R06.2 Health Concerns Section Related Observation LastModified by Organization Detai ls LastModified Time None Recorded Concern Status LastModified by Organization Details LastModified Time None Recorded Advance Directives Directive None Recorded Payers Encounter Date Sequence Insurance Name Policy Number Policy Ramos Covered Member ID Ramos Member ID Guarantor Name 02/22/2023 1 [employer] (EPO) [id number] Lauryn Yeny [id number] Lauryn Saini Notes Date Note Type Note Provider Name and Address Organization Details Recorded Time 02/22/2023 text/html CoughReported bypatient.Notes:57 y.o female pt with h/o COPD 2/2 smoking present with cough and wheezing for the past 2-3 days. NATHAN CRAIN [address] [place], [address], [place] - [facility] 02/22/2023 17:24:22 OBGyn Episode No OBEpisode recorded.
--- OUTSIDE RECORDS SUMMARY | 2024-05-08 17:01 | XMS_ITS | Data Portability ---
Author Organization [facility], [facility]LY [facility] Address [address] [place] [address] Care Team Providers Care Occupational Therapy Department Chair Name Role Phone GENEVA VENEGAS Primary Care Provider [facility] YENY BARILLAS Phys. Med. & Rehab MIGNON KUO OTHER [facility] [employer] Unavailable Assessment Encounter Date Assessment Date Assessment LastModified by Organization Details LastModified Time 05/22/2022 05/22/2022 Patient agreed t o this visit via a secure telehealth platform due to the COVID -19 pandemic. Patient understands this is a scheduled visit and the usual procedures with regard to billing and confidentiality apply. Patient was notified that the provider location is [facility] Patient location: home During the visit the patient? s medical history and medical record were reviewed. The patient was notified to call our office for worsening or urgent symptoms. Not available 05/22/2022 15:58:32 Plan of Treatment Reminders Order Date Submit Date Provider Last Modified By Organization Details Last Modified Time Details Appointments None recorded. Lab rapid flu (A+B) [address] [place] [address] Poc, [address] [facility], [place], [address], 17:34:17 SARS CoV 2 RNA (COVID-19), , workplace rehabilitation officer-PCR, respiratory specimen [address] [facility] [place], [address] [place] [address], [address], 14:50:22 HbA1c (hemoglobin A1c), blood [address] [facility] [place], [address] [place] [address], [address], 11:35:38 lipid panel, serum [address] [facility] [place], [address] [place] [address], [address], 11:31:[address] [facility] [place], [address] [place] [address], [address], 10:34:29 ferritin, serum or plasma [address] [facility] [place], [address] [place] [address], [address], 14:13:31 TSH, serum or plasma [address] [facility] [place], [address] [place] [address], [address], 14:13:30 iron + total iron-bindin g capacity (TIBC), serum [address] [facility] [place], [address] [place] [address], [address], 11:31:07 CK (creatine kinase), total, serum [address] [facility] [place], [address] [place] [address], [address], 11:31:09 erythrocyte sedimentati on rate by westergren method [address] [facility] [place], [address] [place] [address], [address], 13:05:10 C-reactive protein, quantitativ e, serum or plasma [address] [facility] [place], [address] [place] [address], [address], 15:44:41 CMP, serum or plasma 2021 [facility] [place], [address] [place] [address], [address], 11:31:04 tick-borne disease panel 2021 [facility] [place], [address] [place] [address], [address], 22:43:25 magnesium, blood 2021 [facility] [place], [address] [place] [address], [address], 11:31:08 Referral None recorded. Procedures None recorded. Surgeries None recorded. Imaging LDCT, chest, for lung cancer screening 2021 022 [email or web address] [facility], [address] [place], [address], 11:44:15 MAMMO, screening, tomosynthes is, bilateral [address] [facility] [place] (Imaging), [address], [place], [address], 3 15:35:53 Medication Orders Symbicort 160 mcg-4.5 mcg/actuati on HFA aerosol inhaler [address] [facility], [address] [place] [address], [address], 3 16:01:09 Ventolin HFA 90 mcg/actuati on aerosol inhaler [address] [facility], [address] [place] [address], [address], 3 16:01:10 albuterol sulfate 2.5 mg/3 mL (0.083 %) solution for nebulizatio n 2022 023 [facility] [address] [place] [address], [address], 3 16:01:09 Paxlovid 300 mg (150 mg x 2)-100 mg tablets in a dose pack 2022 023 [facility] [address] [place] [address], [address], 3 16:01:08 prednisone 20 mg tablet 2022 023 [facility] [address] [place] [address], [address], 3 15:59:21 azithromyci n 250 mg tablet 2022 023 [facility] [address] [place] [address], [address], 3 16:21:01 Wellbutrin SR 150 mg tablet, 12 hr sustained-r elease 2021 023 [facility], [address] [place] [address], [address], 3 09:07:30 prednisone 20 mg tablet 2021 022 [email or web address] [facility] [address] [place] [address], [address], 3 15:59:18 albuterol sulfate 2.5 mg/3 mL (0.083 %) solution for nebulizatio n 2021 022 [facility] [address] [place] [address], [address], 2 08:32:27 Symbicort 160 mcg-4.5 mcg/actuati on HFA aerosol inhaler 2021 [facility], [address] [place] [address], [address], 09:09:16 Symbicort 160 mcg-4.5 mcg/actuati on HFA aerosol inhaler 2021 [email or web address] [facility], [address] [place] [address], [address], 12:30:50 prednisone 20 mg tablet 2021 [email or web address] [facility], [address] [place] [address], [address], 3 15:59:18 albuterol sulfate 2.5 mg/3 mL (0.083 %) solution for nebulizatio n 2021 [facility], [address] [place] [address], [address], 2 11:17:57 Ventolin HFA 90 mcg/actuati on aerosol inhaler 2021 [facility], [address] [place] [address], [address], 2 11:17:58 nystatin 100,000 unit/gram topical cream 2021 [facility], [address] [place] [address], [address], 11:17:57 Patient TargetsNo targets recorded. Patient Instructions Encounter Date Encounter Id Patient Instructions Last Modified By Organization Details Last Modified Time 01/04/2022 [id number] pulmonary function test* - 56yo F with [...] for stop smoking medication given}} connected with Performance Indicator [email or web address] Not available 01/04/2022 13:34:01 02/02/2022 [id number] deciding about using medicines to quit smoking [...] stress management improv [facility] sleep [facility]}} {{adding exercise regular meals stress management* impro ving sleep therapist [facility]}} [email or web address] Not available 02/02/2022 09:12:45 02/09/2022 [id number] deciding about using medicines to quit smoking [...] stress management* impro ving sleep therapist [facility]}} {{adding exercise regular meals* stress management improv ing sleep therapist [facility]}} {{adding exercise regular meals stress management improv ing sleep* therapist identifying sponsor}} My Health To Do List {{go to [employer] [email or web address] or call si gn up for domenica text 2 quit or other stop smoking domenica contact [email or web address]}} [email or web address] Not available 02/09/2022 09:49:40 03/30/2022 [id number] -We discussed that your breathing sounds a [...] medicines [email or web address] Not available 03/30/2022 16:30:39 05/22/2022 [id number] A discussion regarding the use of Paxlovid [...] K/? ? ?L 3.98-1 0.04 Not Available [address], [address], 02/13/2022 10:34:29 02/14/20 22 02/13/2022 CBC RBC 3.95 M/? ? ?L 3.93-5 .22 Not Available [address], [address], 02/13/2022 10:34:29 02/14/20 22 02/13/2022 CBC HGB 12.8 g/dL 11.2-1 5.7 Not Available [address], [address], 02/13/2022 10:34:29 02/14/20 22 02/13/2022 CBC HCT 40.0 % 34.1-4 4.9 Not Available [address], [address], 02/13/2022 10:34:29 02/14/20 22 02/13/2022 CBC MCV 101.3 fL 79.4-9 4.8 high Not Available [address], [address], 02/13/2022 10:34:29 02/14/20 22 02/13/2022 CBC MCH 32.4 pg 25.6-3 2.2 high Not Available [address], [address], 02/13/2022 10:34:29 02/14/20 22 02/13/2022 CBC MCHC 32.0 g/dL 32.2-3 5.5 low Not Available [address], [address], 02/13/2022 10:34:29 02/14/20 22 02/13/2022 CBC plt 233 K/? ? ?L 182-36 9 Not Available [address], [address], 02/13/2022 10:34:29 02/14/20 22 02/13/2022 CBC MPV 9.8 fL 9.4-12 .3 Not Available [address], [address], 02/13/2022 10:34:29 02/14/20 22 02/13/2022 CBC neut% 86.0 % 34.0-7 1.1 high Not Available [address], [address], 02/13/2022 10:34:29 02/14/20 22 02/13/2022 CBC neut# 7.63 1.56-6 .13 high Not Available [address], [address], 02/13/2022 10:34:29 02/14/20 22 02/13/2022 CBC lymph % 11.3 % 19.3-5 1.7 low Not Available [address], [address], 02/13/2022 10:34:29 02/14/20 22 02/13/2022 CBC lymph # 1.00 K/? ? ?L 1.18-3 .74 low Not Available [address], [address], 02/13/2022 10:34:29 02/14/20 22 02/13/2022 CBC mono% 1.9 % 4.7-12 .5 low Not Available [address], [address], 02/13/2022 10:34:29 02/14/20 22 02/13/2022 CBC mono# 0.17 0.24-0 .56 low Not Available [address], [address], 02/13/2022 10:34:29 02/14/20 22 02/13/2022 CBC eo% 0.0 % 0.7-5. 8 low Not Available [address], [address], 02/13/2022 10:34:29 02/14/20 22 02/13/2022 CBC eo# 0.00 0.04-0 .36 low Not Available [address], [address], 02/13/2022 10:34:29 02/14/20 22 02/13/2022 CBC baso% 0.3 % 0.1-1. 2 Not Available [address], [address], 02/13/2022 10:34:29 02/14/20 22 02/13/2022 CBC baso# 0.03 0.00-0 .08 Not Available [address], [address], 02/13/2022 10:34:29 02/14/20 22 02/13/2022 CBC RDW-CV 13.1 % 11.7-1 4.4 Not Available [address], [address], 02/13/2022 10:34:29 02/14/20 22 02/13/2022 CBC Ig% 0.500 % 0.000- 1.500 Ig % >0.5 Indic ates possi ble Left Shift Not Available [address], [address], 02/13/2022 10:34:29 02/14/20 22 02/13/2022 CBC Ig# 0.040 0.000- 0.093 Not Available [address], [address], 02/13/2022 10:34:29 02/14/20 22 02/13/2022 CBC NRBC% 0.0 % 0.0-0. 2 Not Available [address], [address], 02/13/2022 10:34:29 02/14/20 22 02/13/2022 CBC NRBC# 0.000 0.000- 0.012 Not Available [address], [address], 02/13/2022 10:34:29 02/14/20 22 02/13/2022 HGB A1C [...] furth er confi rmati on Not Available [address], [address], 02/13/2022 11:35:38 02/14/20 22 02/13/2022 HGB A1C estimated average glucose 119.8 mg/dL Not Available [address], [address], 02/13/2022 11:35:38 02/14/20 22 02/13/2022 ESR sed rate 9.0 0.0-15 .0 Not Available [address], [address], 02/13/2022 13:05:09 02/14/20 22 02/13/2022 TSH TSH 0.89 uIU/m L 0.50-6 .00 The Ameri can Colle ge of Endoc rinol ogy and Ameri can Thyro id Assoc iatio n recom mend goal TSH value s betwe en 0.4-4 .0 mIU/m L. Not Available [address], [address], 02/13/2022 14:13:30 02/14/20 22 02/13/2022 GUIDO TIN ferritin 37 NG/mL 15-200 Not Available [address], [address], 02/13/2022 14:13:30 02/14/20 22 02/14/2022 COMP. METAB OLIC PANEL glucose 106 mg/dL 70-100 high Not Available [address], [address], 02/14/2022 11:31:04 02/14/20 22 02/14/2022 COMP. METAB OLIC PANEL BUN 12 mg/dL 7-18 Not Available [address], [address], 02/14/2022 11:31:04 02/14/20 22 02/14/2022 COMP. METAB OLIC PANEL creatinine 0.8 mg/dL 0.8-1. 3 Not Available [address], [address], 02/14/2022 11:31:04 02/14/20 22 02/14/2022 COMP. METAB OLIC PANEL B/C 15.0 ratio Not Available [address], [address], 02/14/2022 11:31:04 02/14/20 22 02/14/2022 COMP. METAB [...] be used in pregn bernie. Not Available [address], [address], 02/14/2022 11:31:04 02/14/20 22 02/14/2022 COMP. METAB OLIC PANEL sodium 144 mmol/ L 136-14 5 Not Available [address], [address], 02/14/2022 11:31:04 02/14/20 22 02/14/2022 COMP. METAB OLIC PANEL potassium 4.0 mmol/ L 3.5-5. 1 Not Available [address], [address], 02/14/2022 11:31:04 02/14/20 22 02/14/2022 COMP. METAB OLIC PANEL chloride 105 mmol/ L 96-107 Not Available [address], [address], 02/14/2022 11:31:04 02/14/20 22 02/14/2022 COMP. METAB OLIC PANEL anion gap 8.5 5.0-15 .0 Not Available [address], [address], 02/14/2022 11:31:04 02/14/20 22 02/14/2022 COMP. METAB OLIC PANEL CO2 31 mmol/ L 21-32 Not Available [address], [address], 02/14/2022 11:31:04 02/14/20 22 02/14/2022 COMP. METAB OLIC PANEL calcium 9.4 mg/dL 8.5-10 .3 Not Available [address], [address], 02/14/2022 11:31:04 02/14/20 22 02/14/2022 COMP. METAB OLIC PANEL total protein 6.5 g/dL 6.4-8. 2 Not Available [address], [address], 02/14/2022 11:31:04 02/14/20 22 02/14/2022 COMP. METAB OLIC PANEL albumin 3.7 g/dL 3.4-5. 0 Not Available [address], [address], 02/14/2022 11:31:04 02/14/20 22 02/14/2022 COMP. METAB OLIC PANEL globulin 2.8 g/dL Not Available [address], [address], 02/14/2022 11:31:04 02/14/20 22 02/14/2022 COMP. METAB OLIC PANEL A/G 1.3 ratio 0.8-2. 0 Not Available [address], [address], 02/14/2022 11:31:04 02/14/20 22 02/14/2022 COMP. METAB OLIC PANEL total bilirubin 0.40 mg/dL 0.00-1 .00 Not Available [address], [address], 02/14/2022 11:31:04 02/14/20 22 02/14/2022 COMP. METAB OLIC PANEL AST 10 U/L 0-37 Not Available [address], [address], 02/14/2022 11:31:04 02/14/20 22 02/14/2022 COMP. METAB OLIC PANEL ALT 14 U/L 6-63 Not Available [address], [address], 02/14/2022 11:31:04 02/14/20 22 02/14/2022 COMP. METAB OLIC PANEL alk. phos. 95 U/L 50-136 Not Available [address], [address], 02/14/2022 11:31:04 02/14/20 22 02/14/2022 LIPID PANEL cholesterol 209 mg/dL <200 mg/dl Gretel able 200-2 39 mg/dl Borde rline High >240 mg/dl High Not Available [address], [address], 02/14/2022 11:31:05 02/14/20 22 02/14/2022 LIPID PANEL triglyceride s 111 mg/dL <150 mg/dL Ruthy l 150-1 99 mg/dL Bor[place] rline High 200-4 99 mg/dL High >500 mg/dL Very High Not Available [address], [address], 02/14/2022 11:31:05 02/14/20 22 02/14/2022 LIPID PANEL direct HDL 49 mg/dL <40 mg/dl - Major Risk for CHD >60 mg/dl - Negat rolan Risk for CHD Not Available [address], [address], 02/14/2022 11:31:05 02/14/20 22 02/14/2022 DIREC T [...] r is not sanjana sanders. Not Available [address], [address], 02/14/2022 11:31:06 02/14/20 22 02/14/2022 IRON PANEL iron 104 ug/dL 35-150 Not Available [address], [address], 02/14/2022 11:31:07 02/14/20 22 02/14/2022 IRON PANEL T.I.B.C. 255 ug/dL 250-45 0 Not Available [address], [address], 02/14/2022 11:31:07 02/14/20 22 02/14/2022 IRON PANEL % saturation 40.8 % Not Available [address], [address], 02/14/2022 11:31:07 02/14/20 22 02/14/2022 MAGNE SIUM magnesium 1.7 mg/dL 1.8-2. 4 low Not Available [address], [address], 02/14/2022 11:31:08 02/14/20 22 02/14/2022 CPK CPK 41.0 U/L 21.0-2 15.0 Not Available [address], [address], 02/14/2022 11:31:09 02/14/20 22 02/14/2022 LDL - [...] r is not neces tommy. Not Available [address], [address], 02/14/2022 11:31:10 02/14/20 22 02/14/2022 C-MIK CTIVE PROTE IN-QU ANTIT ATIVE C-reactive protein -quant <2.0 mg/L 0.0-9. 0 < Not Available [address], [address], 02/14/2022 15:44:40 02/14/20 22 02/14/2022 TICK BORNE [...] susana purpo ses. Not Available [facility] [place] [facility] [address], [address], 02/14/2022 22:43:25 02/14/20 22 02/14/2022 TICK BORNE DISEA SE, ACUTE MOLEC ULAR PANEL babesia microti DNA, real time PCR NOT DETECT ED not detect ed normal This test was devel oped and its ivania tical perfo rmanc e misti cteri stics have been deter mined by [employer]. It has not been clear ed or appro alexandre by the FDA. This assay has been valid ated pursu ant to the CLIA regul ation s and is used for clini susana purpo ses. Not Available [facility] [place] [facility] [address], [address], 02/14/2022 22:43:25 02/14/20 22 02/14/2022 TICK BORNE [...] cteri stics have been deter mined by [employer]. It has not been clear ed or appro alexandre by the FDA. This assay has been valid ated pursu ant to the CLIA regul ation s and is used for clini susana purpo ses. Not Available [facility] [place] [facility] [address], [address], 02/14/2022 22:43:25 02/14/20 22 02/14/2022 TICK BORNE DISEA SE, ACUTE MOLEC ULAR PANEL ehrlichia chaffeensis DNA real time PCR NOT DETECT ED not detect ed normal This test was devel oped and its ivania tical perfo rmanc e misti cteri stics have been deter mined by [employer]. It has not been clear ed or appro alexandre by the FDA. This assay has been valid ated pursu ant to the CLIA regul ation s and is used for clini susana purpo ses. Not Available [facility] [place] [facility] [address] [place], [place], [address], 02/14/2022 22:43:25 02/14/20 22 02/14/2022 TICK BORNE DISEA SE, ACUTE MOLEC ULAR PANEL borrelia species DNA, ql real time PCR NOT DETECT ED not detect ed normal This test was devel oped and its ivania tical perfo rmanc e misti cteri stics have been deter mined by [employer] [facility]. It has not been clear ed or appro alexandre by the FDA. This assay has been valid ated pursu ant to the CLIA regul ation s and is used for clini susana purpo ses. For addit ional infor miah chung e refer to https ://ed ucati on.qu Boticca/f aq/fa q224 (This link is being provi ded for infor fidel nal/ educa brianna l purpo ses only. ) Not Available [facility] [place] [facility] [address], [place], [address], 02/14/2022 22:43:25 02/14/20 22 02/14/2022 TICK BORNE [...] be indic ated. Not Available [facility] [place] [facility] [address], [place], [address], 02/14/2022 22:43:25 02/14/20 22 02/16/2022 FOLAT E folate 6 NG/mL 3-16 Not Available [address], [address], 02/16/2022 12:08:40 02/14/20 22 02/16/2022 VITAM IN B12 vitamin B12 286 pg/mL 230-10 50 Not Available [address], [address], 02/16/2022 12:10:40 03/30/19 23 03/30/2022 POC FLU flu A POC NEGATI VE Not Available [facility] [address] [place] [address], [address], 03/30/2022 16:21:31 03/30/19 23 03/30/2022 POC FLU flu B POC NEGATI VE Not Available [facility] [address] [place] [address], [address], 03/30/2022 16:21:31 03/30/19 23 03/31/2022 SARS- COV-2 RNA (COVI D-19) , QUALI TATIV E NAAT sarscov2 NEGATI VE negati ve normal This test has been autho rized by the FDA under an Emerg ency Use Autho rizat ion(E UA) for you by autho rized labs. Not Available [address], [address], 03/31/2022 14:50:22 02/14/20 22 (CHENTE) ankle brach ial index * No observ ation record ed. [email or web address] [address], [place], [address], 02/28/2022 07:49:10 06/27/19 23 06/26/2022 MAMMO , [...] Readin g Physic jamar: Maribeth Albrecht ms [facility] (Imaging) [address], [place], [address], 06/26/2022 22:10:47 09/21/19 23 09/20/2022 MAMMO , [...] lobula r with a few areas of sports marketing internship al echoge nicity . CONCLU LEOLA Right [...] Readin g Physic jamar: Maribeth Albrecht ms [facility] (Imaging) [address], [place], [address], 09/20/2022 15:40:26 09/21/19 23 09/20/2022 US, breas [...] lobula r with a few areas of sports marketing internship al echoge nicity . CONCLU LEOLA Right [...] Tanya haynes Physic jamar: Maribeth Albrecht ms [facility] (Imaging) [address], [place], [address], 09/20/2022 15:40:26 10/06/19 23 10/05/2022 MAMMO , diagn ostic , tomos ynthe sis, unila teral No observ ation record ed. [facility] [address] [place], [address], 10/05/2022 12:52:24 10/06/19 23 10/05/2022 US, connie nce No observ ation record ed. [email or web address] [facility] [address] [facility], [place], [address], 10/05/2022 12:45:59 10/12/19 23 10/10/2022 biops y, breas t, w/ ultra sound connie nce (PROC ) No observ ation record ed. [facility] Orders [address], [place], [address], 10/27/2022 13:39:21 Result Notes None recorded. Problems Name Problem SNOMED Code Status Onset Date Resolution Date Notes Provider Name and Address Organization Details Recorded Time Tobacco user 745652943 Active 2018 Geneva Venegas NP [address] [place], [address] , [facility] 9 11:01:40 Asthma 009522237 Active 2021 likely COPD, needs PFT Geneva Venegas NP [address] [place] [address], [address] , [facility] 2 13:41:26 Morbid obesity 683254613 Active 2021 BMI > 40 Kelsea Angeles LPN null, [facility] 2 13:07:01 Contact dermatiti s due to plants, except food Completed 200601/22/2013 Not Available [facility] 3 02:02:49 Finding by method 573269948 Completed 200401/22/2013 Not Available [facility] 3 02:01:55 Abdominal pain 25165624 Completed 200401/22/2013 Not Available [facility] 3 02:01:21 Cough 69550684 Completed 200401/22/2013 Not Available [facility] 3 02:01:08 Common cold 77352474 Completed 200201/22/2013 Not Available [facility] 3 02:00:27 Joint pain 05949100 Active 2004 Not Available [facility] 3 03:04:37 Fever 617396410 Completed 200401/22/2013 Not Available [facility] 3 02:02:41 Low back pain 576021162 Active 2005 Not Available [facility] 3 03:04:37 Allergic rhinitis 73525444 Active 2006 Not Available [facility] 3 03:04:37 Acute bronchiti s 73207996 Completed 200601/22/2013 Not Available [facility] 3 02:01:36 Malaise and fatigue 593885146 Completed 200401/22/2013 Not Available [facility] 3 02:00:17 Acute suppurati ve otitis media without spontaneo us rupture of ear drum 78959656 Completed 200501/22/2013 Not Available [facility] 3 02:02:40 Problem Notes None recorded. Procedures Surgical History Date Name Laterality Status Provider Name and Address Organization Details Recorded Time 2 Smoking cessation counseling completed Geneva Venegas NP [address] [place] [address], [address], [facility] 09/13/2021 15:08:33 2 Smoking cessation counseling cancelled Velma Suazo [facility] 05/11/2021 10:18:22 1 Smoking cessation counseling cancelled Velma Suazo [facility] 11/17/2020 10:26:41 1 Smoking cessation counseling completed Geneva Venegas NP [address] [place], [address], [facility] 10/21/2020 10:42:35 1 Smoking cessation counseling cancelled Velma Suazo [facility] 10/08/2020 07:37:51 1 Smoking cessation counseling completed Geneva Venegas NP [address] [place] [address], [address], [facility] 10/05/2020 15:19:24 0 Smoking cessation counseling completed Suzy Tobar MD [address] [place] [address], [address], [facility] 08/06/2019 10:13:40 0 Carbon Monoxide Testing completed Cindy AVILA Corado [facility] 08/06/2019 09:47:42 9 11425: Therapeutic Exercise completed Yeny Barillas, PT [address] [place], [address], [facility] 12/30/2018 15:52:59 9 13817: Mechanical Traction completed Yeny Barillas, PT [address] [place], [address], [facility] 12/30/2018 15:53:19 9 63598: Therapeutic Exercise completed Yeny Barillas, PT [address] [place], [address], [facility] 12/20/2018 13:51:43 9 61067: Mechanical Traction completed Yeny Barillas, PT [address] [place], [address], [facility] 12/20/2018 13:52:39 9 29749: Therapeutic Exercise completed Yeny Barillas, PT [address] [place], [address], [facility] 12/19/2018 16:26:34 9 90462: Mechanical Traction completed Yeny Barillas, PT [address] [place], [address], [facility] 12/19/2018 16:26:51 9 10725: Therapeutic Exercise completed Yeny Barillas, PT [address] [place], [address], [facility] 12/03/2018 17:34:16 9 47861: Mechanical Traction completed Yeny Barillas, PT [address] [place], [address], [facility] 12/03/2018 17:34:08 9 76973: Therapeutic Exercise completed Yeny Barillas, PT [address] [place], [address], [facility] 11/21/2018 15:47:09 9 79933: Therapeutic Exercise completed Yeny Barillas, PT [address] [place], [address], [facility] 11/18/2018 15:47:54 9 76901: Manual Therapy completed Yeny Barillas, PT [address] [place], [address], [facility] 11/18/2018 15:47:58 9 53509: Therapeutic Exercise completed Yeny Barillas, PT [address] [place], [address], [facility] 11/14/2018 15:34:18 9 42417: Manual Therapy completed Yeny Barillas, PT [address] [place], [address], [facility] 11/14/2018 15:34:21 9 16027: Therapeutic Exercise completed Yeny Barillas, PT [address] [place], [address], [facility] 11/12/2018 08:31:37 9 50175: Manual Therapy completed Yeny Barillas, PT [address] [place], [address], [facility] 11/12/2018 08:31:26 9 Physical Activity Counselling completed Yeny Barillas, PT [address] [place], [address], [facility] 11/06/2018 17:38:22 9 72359: PT Eval Low Complexity completed Yeny Barillas, PT [address] [place], [address], [facility] 11/06/2018 17:38:25 9 41174: Manual Therapy completed Yeny Barillas, PT [address] [place], [address], [facility] 10/22/2018 08:03:09 9 Smoking cessation counseling completed Velma Suazo [facility] 10/18/2018 10:42:42 9 Carbon Monoxide Testing completed Velma Suazo [facility] 10/18/2018 10:42:42 9 Smoking Cessation Counselling completed Yeny Barillas, PT [address] [place], [address], [facility] 10/18/2018 08:11:50 9 Physical Activity Counselling completed Yeny Barillas, PT [address] [place], [address], [facility] 10/18/2018 08:11:41 9 61220: PT Eval Low Complexity completed Yeny Barillas, PT [address] [place], [address], [facility] 10/18/2018 08:11:43 9 Smoking cessation counseling completed Luis Enrique Barrios [facility] 10/11/2018 14:21:42 9 Nebulizer Tx completed Michelle Gordon PA-C [address] [place], [address], [facility] 10/12/2018 09:23:24 8 Smoking cessation counseling completed Esha carlin [facility] 12/06/2017 16:40:46 8 Nebulizer Tx completed Esha carlin [facility] 12/06/2017 18:03:39 8 Smoking cessation counseling completed Esha carlin [facility] 05/24/2017 07:40:38 8 Carbon Monoxide Testing completed Esha carlin [facility] 05/24/2017 07:40:38 7 Smoking cessation counseling completed Irena Hawkins [facility] 10/31/2016 08:48:37 7 Nebulizer Tx completed Irena Hawkins [facility] 10/31/2016 08:52:37 Imaging Results Imaging Date Name Status LastModified by Organiz ation Details LastModified Time 02/13/2022 (CHENTE) ankle brachial index* completed [facility] [address], [place], [address], 02/28/2022 07:49:10 06/26/2022 MAMMO, screening, tomosynthesis, bilateral completed [facility] (Imaging) [address],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 [address], [facility] 02/02/2022 09:13:56 02/09/2022 text/html 56yo F presents [...] slimy discharge. no odor Geneva Venegas NP [address] [place], [address], [facility] 02/09/2022 09:50:25 03/30/2022 text/html VMG URI Flu [...] yellow-green, thick sputum;Sore throat;Abdominal pain;Diarrhea Context:Smokera/vmg-sm oking [id number] bypatient.Physiologica l Dependence/Health RiskCurrently smoking (2-3 cig/day trying to cut down) Pt wakes up and works 11PM-7AM. Pt has been coughing at work and coughing 'everywhere.' Pt's residents had flu and were treated, then a week alter she got sick. Lesly Leija [address] [place], [address], [facility] 03/30/2022 17:12:32 05/22/2022 text/html VMG URI Flu [...] 22 23 24 25}} minutes. NATHAN Martinez [address] [place] [address], [place], [address], [facility] 05/22/2022 16:05:16 OBGyn Episode No OBEpisode recorded.
== END 2024-05-08 14:14 | disposition home or self-care (01) ==
PROVIDERS: PCP Nurse Practitioner Family; Visit Provider Anesthesiology
DX: M48.061 Spinal stenosis, lumbar region without neurogenic claudication (principal); M48.26 Kissing spine, lumbar region; M43.16 Spondylolisthesis, lumbar region; G89.4 Chronic pain syndrome
CPT/HCPCS: 99213

== ENCOUNTER → 2024-05-08 13:55 | Outpatient (BNVA) | payer OTHER, SELFPAY | PROVIDERS: PCP Nurse Practitioner Family; Visit Provider Anesthesiology ==

== ENCOUNTER 2024-05-26 12:49 | Outpatient (AMB) | payer OTHER, SELFPAY ==
--- NOTE | 2024-05-26 12:50 | A.OFFPC_ITS ---
Vital Signs 05/26/24 12:57 Height 5 ft 2 in Weight 234 lb 4 oz BMI 42.8 BP 98/66 Blood Pressure Location Lt brachial Position Sitting Respiration 12 Pulse 91 Pulse Source Pulse Oximeter Temp 98.2 F Temp Source Oral Pulse Oximetry (%) 93 Oxygen Delivery Method Room Air Intake Visit Reasons: fu wellbutrin start for mood wt loss incr wixela Intake Note: Follow up on med review Nurse Practitioner Per Diem Required: No Allergies Penicillins [PENICILLINS] Allergy (Unknown, Verified 05/26/24 13:19) HIVES Medication List - Last Reconciled 05/26/24 by Juanis Garza, [facility]- albuterol sulfate 90 mcg/actuation 2 puffs inhalation Q6H albuterol sulfate 2.5 mg (3 mL) inhalation Q6H bupropion HCl SR (Wellbutrin SR) 100 mg PO BID fluticasone propion-salmeterol 250-50 mcg/dose (Wixela Inhub) 2 inhalations inhalation BID gabapentin 400 mg PO TID 30 days ibuprofen 600 mg PO Q6H PRN lidocaine 5% 1 patch topical DAILY PRN Tobacco use date assessed: 05/26/24 Dental Screening Dental Screen Date: 05/26/24 Did you have a dental visit in the last 12 months?: Yes Did you have a dental problem in the last 6 months where you did not have access to dental care?: No Was dental information given to patient?: Patient has dentist HPI HPI Comments History of Present Illness Details 58-year-old female with COPD, current sm oker, morbid obesity, chronic back pain, chronic leg pain, bilateral lower extremity edema, PVD, allergic rhinitis, MDD Status post total abdominal hysterectomy Social: sister is Skylar Winn; Has 2 children Son and dtr; works at [employer] Family history: Mom with COPD, CHF age 64, father with malignant tumor of kidney disease stage 59, paternal grandmother malignant tumor of the kidney, maternal aunt type 2 diabetes, no breast cancer or colon cancer 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 plan for injection No longer ff'd Health Maintenance: Tdap 2019 @ [facility] Flu 01/2024 DEXA declined, has never had one PAP n/a RENUKA Colon declined Right breast ultrasound atypical lobular hyperplasia, adenosis and stromal fibrosis high-risk consultation indicated 10/10/2022 CHENTE testing 02/13/2022 normal, right CHENTE 1.29, left CHENTE 1.30 Here today for an 8 week follow up. At the last office visit she was prescribed Wellbutrin SR 100 mg p.o. b.i.d. 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 She did not start taking yet. Has on hand and will start. COPD exac - came down with severe URI sx after being exposed to sick contact. Tx self w mucinex. Using inhalers. had blood from L ear. Has congested cough. Increased use of NOE. Cont to smoke chronic back pain s/p injections at [facility]'s pain management clinic with + improvement in pain Exam Awake alert oriented, no acute distress Regular rate and rhythm Lung sounds coarse and congested throughout Bilateral lower extremities with varicosities, skin dry, hairless, nonpitting edema, decreased pedal pulses, skin intact Tearful when talking about her health, kind and appropriate Plan Start wellbutrin to help with her mood as well as weight loss. Start Trelegy 1 puff QD.If insurance issues, will have to have her cont Wixela and add a Muscarinic agent. Advised to notify me if this is the case. Cont noe Start Prednisone x 5 days + ZPak Smoking cessation Cont to fu with pain mgmt FU in 6-8 weeks Mood/Breathing sooner PRN Total time spent caring for the patient today was 30 minutes. This includes time spent before the visit reviewing the chart, time spent during the visit, and time spent after the visit on documentation, reviewing laboratory results, diagnostic imaging, medications, performing a medically necessary evaluation, counseling on diagnoses, care coordination, ordering appropriate tests, ordering appropriate medications, review of tests performed by other providers, reporting test results with the patient, communication with other healthcare providers. [facility] Medical History (Updated 05/26/24 @ 14:49 by Juanis Garza, JOHANA-JARVIS) Asthma COPD (chronic obstructive pulmonary disease) PVD (peripheral vascular disease) Spine pain Surgical History (Updated 05/26/24 @ 07:50 by JOHANA Delcid-JARVIS) Colon cancer screening declined (~2024) H/O: hysterectomy Previous section Family History Father Cancer Brother Cancer Paternal Grandfather Cardiovascular disease Mother COPD (chronic obstructive pulmonary disease) Social History Household Members: Family Household Members Other:: cousin Both parents involved: No Caregiver staying overnight: No Housing: House Are you a primary group care worker to a significant other at home: No Do you presently have visiting nurse or other home services: No 75 years or older and lives alone: No Alcohol intake: current Alcohol intake frequency: a few times a month Patient Tobacco Use Status: Current everyday Tobacco user Tobacco use type: Cigarette Cigarette Packs Per Day: 1 Cigarettes Per Day: 20 Years Smoked: 42 e-Cigarette/Vaping Use: Never Used Second Hand Smoke Exposure: No service: No Current occupational status: employed 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 1. Little interest or pleasure in doing things: not at all 2. Feeling down, depressed, or hopeless: not at all 3. Trouble falling or staying asleep, or sleeping too much: not at all 4. Feeling tired or having little energy: not at all 5. Poor appetite or overeating: not at all 6. Feeling bad about yourself - or that you are a failure or have let yourself or your family down: not at all 7. Trouble concentrating on things, such as reading the newspaper or watching television: not at all 8. Moving or speaking so slowly that other people could have noticed. Or the opposite - being so fidgety or restless that you have been moving around a lot more than usual: not at all 9. Thoughts that you would be better off or of hurting yourself in some way: not at all Total score: 0 Depression Screening Interpretation: Negative Depression Screening Done: Yes 09412 - PHQ-9 Billing: Yes Source: Developed by Drs. Bridger Wen, Maria Elena Castorena, Horacio Ordonez and colleagues, with an educational brisa from [employer]. Thrive Questionnaire Date Thrive assessed: 05/26/24 I am a: Patient What is your living situation today?: I have a steady place to live Within the past 12 months, did the food you bought not last and you didn't have the money to get more?: Never true Within the past 12 months, did you worry whether your food would run out before you got money to buy more?: Never true Do you have trouble paying for medicines?: No Do you have trouble getting transportation to medical appointments?: No Do you have trouble paying your heating and electricity bill?: No Do you have trouble taking care of your child, family member or friend?: No Do you have trouble with day-to-day activities such as bathing, preparing meals, shopping, managing finances, etc.?: I choose not to answer this question Are you currently unemployed and looking for a job?: No Are you interested in more education?: No Please select the resources that you would like help with: None Currently or been in a relationship where the following occur: I choose not to answer THRIVE Score: 0 AUDIT C Alcohol Use Questionnaire (AUDIT-C) 1. How often do you have a drink containing alcohol?: Never Total Score: 0 Score Reviewed/Action Taken: Yes ROCÍO-7 AMB Questionnaire ROCÍO-7 Date ROCÍO - 7 assessed: 05/26/24 Feeling nervous, anxious, or on edge: 0 = Not at all Not being able to stop or control worryin = Not at all Worrying too much about different things: 0 = Not at all Trouble relaxin = Not at all Being so restless that it is hard to sit still: 0 = Not at all Becoming easily annoyed or irritable: 0 = Not at all Feeling afraid as if something awful might happen: 0 = Not at all Total ROCÍO-7 score (0-4 normal; 5-9 mild; 10-14 moderate; 15-21 severe): 0 Source: Developed by Drs. Bridger Wen, Maria Elena Castorena, Horacio Ordonez and colleagues, with an educational brisa from [employer]. ROCÍO-7 Assessment Billing ROCÍO-7 Assessment Tool: ROCÍO-7 Assessment 13758 Physical exam (Primary Care) Vital Signs: Last Vital Signs Temp 98.2 F 05/26/24 12:57 Pulse 91 05/26/24 12:57 Resp 12 05/26/24 12:57 BP 98/66 05/26/24 12:57 Pulse Ox 93 05/26/24 12:57 Oxygen Delivery Method Room Air 05/26/24 12:57 BMI result Body Mass Index 42.8 Tobacco/Smoking Status: Tobacco use Status Tobacco use date assessed 05/26/24 05/26/24 12:52 Patient Tobacco Use Status Current everyday Tobacco 05/26/24 12:50 Tobacco use type Cigarette 05/26/24 12:50 e-Cigarette/Vaping Use Never Used 05/26/24 12:50 PHQ-9: PHQ-9 Score PHQ-9: Total score 0 05/26/24 13:29 Depression Screening Interpretation: Negative Thrive Assessment: Date of Thrive Assessment Date Thrive assessed 05/26/24 05/26/24 12:52 Currently or been in a relationship where the following occur: I choose not to answer Coding Level of Care Code Est Pt Level 4 (43329) Complex EM visit Add On G2211 Diagnoses Mixed simple and mucopurulent chronic bronchitis J41.8 COPD type: chronic bronchitis Chronic bronchitis type: mixed simple and mucopurulent Moderate episode of recurrent major depressive disorder F33.1 Major depression episode severity: moderate Tobacco dependence F17.200 Chronic low back pain M54.50; G89.29 Back pain laterality: unspecified Additional Codes ROCÍO-7 Assessment Billing - ROCÍO-7 Assessment Tool: ROCÍO-7 Assessment 22486 ([id number]) PHQ-9 - 34898 - PHQ-9 Billing: Yes ([id number]) Assessment & Plan Assessment & Plan (1) COPD (chronic obstructive pulmonary disease): Code(s): J44.9 - Chronic obstructive pulmonary disease, unspecified Category: Medical Qualifiers: COPD type: chronic bronchitis Chronic bronchitis type: mixed simple and mucopurulent Qualified Code(s): J41.8 - Mixed simple and mucopurulent chronic bronchitis (2) MDD (major depressive disorder), recurrent episode: Code(s): F33.9 - Major depressive disorder, recurrent, unspecified Category: Medical Qualifiers: Major depression episode severity: moderate Qualified Code(s): F33.1 - Major depressive disorder, recurrent, moderate (3) Tobacco dependence: Code(s): F17.200 - Nicotine dependence, unspecified, uncomplicated Category: Medical (4) Chronic low back pain: Code(s): M54.50 - Low back pain, unspecified; G89.29 - Other chronic pain Category: Medical Qualifiers: Back pain laterality: unspecified Plan . Medications: New azithromycin For 250 mg dose pack: take 500 mg today (day 1), then 250 mg for 4 days (days 2-5) PO 6 tabs 0RF 5 days prednisone 50 mg PO DAILY 5 tabs 0RF 5 days stlwthxvvhz-lxxychakz-tdvccocs 100-62.5-25 mcg (Trelegy Ellipta) 1 inh inhalation DAILY 60 ea 2RF
[2024-05-26 12:57] VITALS: BP 98/66; PULSE 91; RESP 12; TEMP 36.8; O2SAT 93; BMI 42.8
== END 2024-05-26 13:32 | disposition home or self-care (01) ==
PROVIDERS: PCP Nurse Practitioner Family; Visit Provider Nurse Practitioner Family
DX: J41.8 Mixed simple and mucopurulent chronic bronchitis (principal); F33.1 Major depressive disorder, recurrent, moderate; F17.200 Nicotine dependence, unspecified, uncomplicated; M54.50 Low back pain, unspecified; G89.29 Other chronic pain

== ENCOUNTER → 2024-05-26 12:49 | Outpatient (BNVA) | payer OTHER, SELFPAY | PROVIDERS: PCP Nurse Practitioner Family; Visit Provider Nurse Practitioner Family | DX: J41.8 Mixed simple and mucopurulent chronic bronchitis (principal); F33.1 Major depressive disorder, recurrent, moderate; M54.50 Low back pain, unspecified; G89.29 Other chronic pain; F17.210 Nicotine dependence, cigarettes, uncomplicated | CPT/HCPCS: 96127 ==

== ENCOUNTER → 2024-07-25 07:54 | Day surgery (SDC) | payer OTHER, SELFPAY ==
--- OUTSIDE RECORDS SUMMARY | 2024-07-21 14:40 | XMS_ITS | Data Portability ---
Author Organization [facility], [address] Address [address] [place] [address] Assessment No assessment recorded. Plan of Treatment Reminders Order Date Submit Date Provider Last Modified By Organization Details Last Modified Time Details Appointments None recorded. Lab None recorded. Referral None recorded. Procedures None recorded. Surgeries None recorded. Imaging XR, chest, 2 view 2022 023 [facility], [address] [place] [address], [address], 4 05:01:33 Medication Orders albuterol sulfate HFA 90 mcg/actuati on aerosol inhaler 2022 023 [email or web address] [facility]/Pharmacy #[id number], [address] [place], [address], 3 14:51:50 Zithromax Z-Tristin 250 mg tablet 2022 023 [facility]/Pharmacy #[id number], [address] [place], [address], 3 14:43:30 prednisone 50 mg tablet 2022 023 [facility]/Pharmacy #[id number], [address] [place], [address], 3 14:47:26 albuterol sulfate 2.5 mg/3 mL (0.083 %) solution for nebulizatio n 2022 023 Not available 3 15:06:42 ipratropium bromide 0.02 % solution for inhalation 2022 023 Not available 15:06:42 benzonatate 200 mg capsule 2022 023 [facility]/Pharmacy #[id number], [address] [place], [address], 15:08:57 Patient TargetsNo targets recorded. Patient Instructions Encounter Date Encounter Id Patient Instructions Last Modified By Organization Details Last Modified Time 02/22/2023 [id number] cough: care instructions [email or web address] Not available 02/22/2023 14:43:28 chronic obstruct rolan pulmonary disease (COPD) flare-ups: care instructions [email or web address] Not available 02/22/2023 14:43:28 Acute bronchitis is [...] Pain 3. Wheezing 4. Coughing up Blood [email or web address] Not available 02/22/2023 14:43:26 Reason for Referral None Reported. Problems Name Problem SNOMED Code Status Onset Date Resolution Date Notes Provider Name and Address Organization Details Recorded Time Acute bronchitis 97831862 Active 023 NATHAN CRAIN [facility] [place], [address] [place] - [facility] 14:42:48 Problem [...] saturation in Arterial blood by Pulse oximetry Heart rate Respiratory rate Body temperature Systolic blood pressure Diastolic blood pressure Provider Name and Address Organization Details Last Updated DateTime 167.64 cm 35.5 kg/m2 06567.3 2 g 98 % 98 % 87 /min 18 /min 98.6 [degF] 144 mm[Hg] 82 mm[Hg] Kamini EVANS [facility] 14:32:01 Social History Question Answer Notes LastModified by [employer] Details LastModified Time Tobacco Smoking Status Current Every Day Smoker Kamini mcknight [place] - [facility] 02/22/2023 14:33:31 Have You Had A Flu Shot This Season? Yes Information not available 02/22/2023 What Is Your Relationship Status? Single Information not available 02/22/2023 Have You Recently Traveled Abroad? No Information not available 02/22/2023 Are You Currently In School? No Information not available 02/22/2023 Sex: Unknown Functional Status Question Answer Note LastModified by [employer] Details LastModified Time Do you use any illicit or recreational drugs? No Information not available 02/22/2023 Do you or have you ever used any other forms of tobacco or nicotine? No Information not available 02/22/2023 What is your level of alcohol consumption? None Information not available 02/22/2023 Are you currently employed? No Information not available 02/22/2023 Mental Status None recorded. Family History Relationship [...] SNOMED-CT Code Diagnosis ICD10 Code Diagnosis Note [id number] NATHAN CRAIN [address] [place] [address] 02/22/2023 14:14:13 02/22/2023 15:12:24 Acute bronchitis 75511268 J20.9 Wheezing 89638257 R06.2 Health Concerns Section Related Observation LastModified by Organization Detai ls LastModified Time None Recorded Concern Status LastModified by Organization Details LastModified Time None Recorded Advance Directives Directive None Recorded Payers Insurance Date Sequence Insurance Name Policy Number Policy Ramos Covered Member ID Ramos Member ID Guarantor Name 02/22/2023 1 [employer] (EPO) [id number] Lauryn Yeny [id number] Lauryn Saini Notes Date Note Type Note Provider Name and Address Organization Details Recorded Time 02/22/2023 text/html CoughReported bypatient.Notes:57 y.o female pt with h/o COPD 2/2 smoking present with cough and wheezing for the past 2-3 days. NATHAN CRAIN [address] [place], [address], [place] - [facility] 02/22/2023 17:24:22 OBGyn Episode No OBEpisode recorded.
--- OUTSIDE RECORDS SUMMARY | 2024-07-21 14:41 | XMS_ITS | Data Portability ---
Author Organization [facility], [facility] Address [address] [facility] [place] [address] Care Team Providers Care Chin Strap Sewer Name Role Phone GENEVA VENEGAS Primary Care Provider [phone] [facility] gist MIGNON KUO OTHER PAXTON THOMAS Complaint Operator Unavailable Assessment Encounter Date Assessment Date Assessment LastModified by Organization Details LastModified Time 05/22/2022 05/22/2022 Patient agreed t o this visit via a secure telehealth platform due to the COVID -19 pandemic. Patient understands this is a scheduled visit and the usual procedures with regard to billing and confidentiality apply. Patient was notified that the provider location is [facility]: [place] During the visit the patient? s medical history and medical record were reviewed. The patient was notified to call our office for worsening or urgent symptoms. Not available 05/22/2022 15:58:32 Plan of Treatment Reminders Order Date Submit Date Provider Last Modified By Organization Details Last Modified Time Details Appointments None recorded. 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-PCR, respiratory specimen 2022 023 [facility], [address] [place] [address], [address], 3 14:50:22 HbA1c (hemoglobin A1c), blood 2021 022 [facility], [address] [place] [address], [address], 11:35:38 lipid panel, serum 2021 022 [facility], [address] [place] [address], [address], 11:31:05 CBC 2021 022 [facility], [address] [place] [address], [address], 10:34:29 ferritin, serum or plasma 2021 022 [facility], [address] [place] [address], [address], 14:13:31 TSH, serum or plasma 2021 022 [facility], [address] [place] [address], [address], 14:13:30 iron + total iron-bindin g capacity (TIBC), serum 2021 022 [facility], [address] [place] [address], [address], 11:31:07 CK (creatine kinase), total, serum 2021 022 [facility], [address] [place] [address], [address], 11:31:09 erythrocyte sedimentati on rate by westergren method 2021 022 [facility], [address] [place] [address], [address], 13:05:10 C-reactive protein, quantitativ e, serum or plasma 2021 [facility], [address] [place] [address], [address], 15:44:41 CMP, serum or plasma 2021 [facility], [address] [place] [address], [address], 11:31:04 tick-borne disease panel 2021 [facility], [address] [place] [address], [address], 22:43:25 magnesium, blood 2021 [facility], [address] [place] [address], [address], 11:31:08 Referral None recorded. Procedures None recorded. Surgeries None recorded. Imaging LDCT, chest, for lung cancer screening 2021 022 [email or web address] [facility], [address] [place], [address], 11:44:15 MAMMO, screening, tomosynthes is, bilateral 2021 [facility] ([facility]), [address], [place], [address], 3 15:35:53 Medication Orders Symbicort 160 mcg-4.5 mcg/actuati on HFA aerosol inhaler 2022 023 [facility]0447, [address] [place], [address], 3 16:01:09 Ventolin HFA 90 mcg/actuati on aerosol inhaler 2022 023 [facility]044[facility], [address] [place], [address], 3 16:01:10 albuterol sulfate 2.5 mg/3 mL (0.083 %) solution for nebulizatio n 2022 023 [facility] [address] [place] [address], [address], 3 16:01:09 Paxlovid 300 mg (150 mg x 2)-100 mg tablets in a dose pack 2022 023 [facility], [address] [place] [address], [address], 3 16:01:08 prednisone 20 mg tablet 2022 023 [facility] [address] [place] [address], [address], 3 15:59:21 azithromyci n 250 mg tablet 2022 023 [facility] [address] [place] [address], [address], 3 16:21:01 Wellbutrin SR 150 mg tablet, 12 hr sustained-r elease 2021 023 [facility] [address] [place] [address], [address], 3 09:07:30 prednisone 20 mg tablet 2021 022 [email or web address] [facility]0447, [address] [place] [address], [address], 3 15:59:18 albuterol sulfate 2.5 mg/3 mL (0.083 %) solution for nebulizatio n 2021 022 [facility] [address] [place] [address], [address], 2 08:32:27 Symbicort 160 mcg-4.5 mcg/actuati on HFA aerosol inhaler 2021 [facility]044[facility], [address] [place] [address], [address], 09:09:16 Symbicort 160 mcg-4.5 mcg/actuati on HFA aerosol inhaler 2021 [email or web address] [facility]0447, [address] [place] [address], [address], 12:30:50 prednisone 20 mg tablet 2021 [email or web address] [facility] #0447, [address] [place] [address], [address], 15:59:18 albuterol sulfate 2.5 mg/3 mL (0.083 %) solution for nebulizatio n 2021 [facility]044[facility], [address] [place] [address], [address], 11:17:57 Ventolin HFA 90 mcg/actuati on aerosol inhaler 2021 [facility]044[facility], [address] [place] [address], [address], 11:17:58 nystatin 100,000 unit/gram topical cream 2021 [facility]044[facility], [address] [place] [address], [address], 11:17:57 Patient TargetsNo targets recorded. Patient Instructions Encounter Date Encounter Id Patient Instructions Last Modified By Organization Details Last Modified Time 01/04/2022 [id number] pulmonary function test* - 56yo F with [...] for stop smoking medication given}} connected with [email or web address] Not available 01/04/2022 13:34:01 02/02/2022 [id number] deciding about using medicines to quit smoking [email or web address] Not available 02/02/2022 08:32:24 Quitting Tobacco : Care Instructions [email or web address] Not available 02/02/2022 08:32:24 (CHENTE) ankle brachial index* - bilateral lower leg pain JOSE R Not available 02/13/2022 09:53:57 well visit, wome n 50 to 65: care instructions [email or web address] Not available 02/02/2022 08:32:25 After a discussion [...] stress management improv ing sleep therapist [facility]}} {{adding exercise regular meals stress management* impro ving sleep therapist [facility]}} [email or web address] Not available 02/02/2022 09:12:45 02/09/2022 [id number] deciding about using medicines to quit smoking [...] stress management* impro ving sleep therapist [facility]}} {{adding exercise regular meals* stress management improv ing sleep therapist [facility]}} {{adding exercise regular meals stress management improv ing sleep* therapist identifying sponsor}} My Health To Do List {{go to [employer] or call si gn up for domenica text 2 quit or other stop smoking domenica contact [employer]gov}} [email or web address] Not available 02/09/2022 09:49:40 03/30/2022 [id number] -We discussed that your breathing sounds a [...] medicines [email or web address] Not available 03/30/2022 16:30:39 05/22/2022 [id number] A discussion regarding the use of Paxlovid [...] K/? ? ?L 3.98-1 0.04 Not Available [address], [address], 02/13/2022 10:34:29 02/14/20 22 02/13/2022 CBC RBC 3.95 M/? ? ?L 3.93-5 .22 Not Available [address], [address], 02/13/2022 10:34:29 02/14/20 22 02/13/2022 CBC HGB 12.8 g/dL 11.2-1 5.7 Not Available [address], [address], 02/13/2022 10:34:29 02/14/20 22 02/13/2022 CBC HCT 40.0 % 34.1-4 4.9 Not Available [address], [address], 02/13/2022 10:34:29 02/14/20 22 02/13/2022 CBC MCV 101.3 fL 79.4-9 4.8 high Not Available [address], [address], 02/13/2022 10:34:29 02/14/20 22 02/13/2022 CBC MCH 32.4 pg 25.6-3 2.2 high Not Available [address], [address], 02/13/2022 10:34:29 02/14/20 22 02/13/2022 CBC MCHC 32.0 g/dL 32.2-3 5.5 low Not Available [address], [address], 02/13/2022 10:34:29 02/14/20 22 02/13/2022 CBC plt 233 K/? ? ?L 182-36 9 Not Available [address], [address], 02/13/2022 10:34:29 02/14/20 22 02/13/2022 CBC MPV 9.8 fL 9.4-12 .3 Not Available [address], [address], 02/13/2022 10:34:29 02/14/20 22 02/13/2022 CBC neut% 86.0 % 34.0-7 1.1 high Not Available [address], [address], 02/13/2022 10:34:29 02/14/20 22 02/13/2022 CBC neut# 7.63 1.56-6 .13 high Not Available [address], [address], 02/13/2022 10:34:29 02/14/20 22 02/13/2022 CBC lymph % 11.3 % 19.3-5 1.7 low Not Available [address], [address], 02/13/2022 10:34:29 02/14/20 22 02/13/2022 CBC lymph # 1.00 K/? ? ?L 1.18-3 .74 low Not Available [address], [address], 02/13/2022 10:34:29 02/14/20 22 02/13/2022 CBC mono% 1.9 % 4.7-12 .5 low Not Available [address], [address], 02/13/2022 10:34:29 02/14/20 22 02/13/2022 CBC mono# 0.17 0.24-0 .56 low Not Available [address], [address], 02/13/2022 10:34:29 02/14/20 22 02/13/2022 CBC eo% 0.0 % 0.7-5. 8 low Not Available [address], [address], 02/13/2022 10:34:29 02/14/20 22 02/13/2022 CBC eo# 0.00 0.04-0 .36 low Not Available [address], [address], 02/13/2022 10:34:29 02/14/20 22 02/13/2022 CBC baso% 0.3 % 0.1-1. 2 Not Available [address], [address], 02/13/2022 10:34:29 02/14/20 22 02/13/2022 CBC baso# 0.03 0.00-0 .08 Not Available [address], [address], 02/13/2022 10:34:29 02/14/20 22 02/13/2022 CBC RDW-CV 13.1 % 11.7-1 4.4 Not Available [address], [address], 02/13/2022 10:34:29 02/14/20 22 02/13/2022 CBC Ig% 0.500 % 0.000- 1.500 Ig % >0.5 Indic ates possi ble Left Shift Not Available [address], [address], 02/13/2022 10:34:29 02/14/20 22 02/13/2022 CBC Ig# 0.040 0.000- 0.093 Not Available [address], [address], 02/13/2022 10:34:29 02/14/20 22 02/13/2022 CBC NRBC% 0.0 % 0.0-0. 2 Not Available [address], [address], 02/13/2022 10:34:29 02/14/20 22 02/13/2022 CBC NRBC# 0.000 0.000- 0.012 Not Available [address], [address], 02/13/2022 10:34:29 02/14/20 22 02/13/2022 HGB A1C [...] furth er confi rmati on Not Available [address], [address], 02/13/2022 11:35:38 02/14/20 22 02/13/2022 HGB A1C estimated average glucose 119.8 mg/dL Not Available [address], [address], 02/13/2022 11:35:38 02/14/20 22 02/13/2022 ESR sed rate 9.0 0.0-15 .0 Not Available [address], [address], 02/13/2022 13:05:09 02/14/20 22 02/13/2022 TSH TSH 0.89 uIU/m L 0.50-6 .00 The Ameri can Colle ge of Endoc rinol ogy and Ameri can Thyro id Assoc iatio n recom mend goal TSH value s betwe en 0.4-4 .0 mIU/m L. Not Available [address], [address], 02/13/2022 14:13:30 02/14/20 22 02/13/2022 GUIDO TIN ferritin 37 NG/mL 15-200 Not Available [address], [address], 02/13/2022 14:13:30 02/14/20 22 02/14/2022 COMP. METAB OLIC PANEL glucose 106 mg/dL 70-100 high Not Available [address], [address], 02/14/2022 11:31:04 02/14/20 22 02/14/2022 COMP. METAB OLIC PANEL BUN 12 mg/dL 7-18 Not Available [address], [address], 02/14/2022 11:31:04 02/14/20 22 02/14/2022 COMP. METAB OLIC PANEL creatinine 0.8 mg/dL 0.8-1. 3 Not Available [address], [address], 02/14/2022 11:31:04 12/12/02/14/2022 COMP. METAB OLIC PANEL B/C 15.0 ratio Not Available [address], [address], 02/14/2022 11:31:04 02/14/20 22 02/14/2022 COMP. METAB [...] be used in pregn bernie. Not Available [address], [address], 02/14/2022 11:31:04 02/14/20 22 02/14/2022 COMP. METAB OLIC PANEL sodium 144 mmol/ L 136-14 5 Not Available [address], [address], 02/14/2022 11:31:04 02/14/20 22 02/14/2022 COMP. METAB OLIC PANEL potassium 4.0 mmol/ L 3.5-5. 1 Not Available [address], [address], 02/14/2022 11:31:04 02/14/20 22 02/14/2022 COMP. METAB OLIC PANEL chloride 105 mmol/ L 96-107 Not Available [address], [address], 02/14/2022 11:31:04 02/14/20 22 02/14/2022 COMP. METAB OLIC PANEL anion gap 8.5 5.0-15 .0 Not Available [address], [address], 02/14/2022 11:31:04 02/14/20 22 02/14/2022 COMP. METAB OLIC PANEL CO2 31 mmol/ L 21-32 Not Available [address], [address], 02/14/2022 11:31:04 02/14/20 22 02/14/2022 COMP. METAB OLIC PANEL calcium 9.4 mg/dL 8.5-10 .3 Not Available [address], [address], 02/14/2022 11:31:04 02/14/20 22 02/14/2022 COMP. METAB OLIC PANEL total protein 6.5 g/dL 6.4-8. 2 Not Available [address], [address], 02/14/2022 11:31:04 02/14/20 22 02/14/2022 COMP. METAB OLIC PANEL albumin 3.7 g/dL 3.4-5. 0 Not Available [address], [address], 02/14/2022 11:31:04 02/14/20 22 02/14/2022 COMP. METAB OLIC PANEL globulin 2.8 g/dL Not Available [address], [address], 02/14/2022 11:31:04 02/14/20 22 02/14/2022 COMP. METAB OLIC PANEL A/G 1.3 ratio 0.8-2. 0 Not Available [address], [address], 02/14/2022 11:31:04 02/14/20 22 02/14/2022 COMP. METAB OLIC PANEL total bilirubin 0.40 mg/dL 0.00-1 .00 Not Available [address], [address], 02/14/2022 11:31:04 02/14/20 22 02/14/2022 COMP. METAB OLIC PANEL AST 10 U/L 0-37 Not Available [address], [address], 02/14/2022 11:31:04 02/14/20 22 02/14/2022 COMP. METAB OLIC PANEL ALT 14 U/L 6-63 Not Available [address], [address], 02/14/2022 11:31:04 02/14/20 22 02/14/2022 COMP. METAB OLIC PANEL alk. phos. 95 U/L 50-136 Not Available [address], [address], 02/14/2022 11:31:04 02/14/20 22 02/14/2022 LIPID PANEL cholesterol 209 mg/dL <200 mg/dl Gretel able 200-2 39 mg/dl Borde rline High >240 mg/dl High Not Available [address], [address], 02/14/2022 11:31:05 02/14/20 22 02/14/2022 LIPID PANEL triglyceride s 111 mg/dL <150 mg/dL Ruthy l 150-1 99 mg/dL Borde rline High 200-4 99 mg/dL High >500 mg/dL Very High Not Available [address], [address], 02/14/2022 11:31:05 02/14/20 22 02/14/2022 LIPID PANEL direct HDL 49 mg/dL <40 mg/dl - Major Risk for CHD >60 mg/dl - Negat rolan Risk for CHD Not Available [address], [address], 02/14/2022 11:31:05 02/14/20 22 02/14/2022 DIREC T [...] r is not sanjana sanders. Not Available [address], [address], 02/14/2022 11:31:06 02/14/20 22 02/14/2022 IRON PANEL iron 104 ug/dL 35-150 Not Available [address], [address], 02/14/2022 11:31:07 02/14/20 22 02/14/2022 IRON PANEL T.I.B.C. 255 ug/dL 250-45 0 Not Available [address], [address], 02/14/2022 11:31:07 02/14/20 22 02/14/2022 IRON PANEL % saturation 40.8 % Not Available [address], [address], 02/14/2022 11:31:07 02/14/20 22 02/14/2022 MAGNE SIUM magnesium 1.7 mg/dL 1.8-2. 4 low Not Available [address], [address], 02/14/2022 11:31:08 02/14/20 22 02/14/2022 CPK CPK 41.0 U/L 21.0-2 15.0 Not Available [address], [address], 02/14/2022 11:31:09 02/14/20 22 02/14/2022 LDL - [...] r is not neces tommy. Not Available [address], [address], 02/14/2022 11:31:10 02/14/20 22 02/14/2022 C-MIK CTIVE PROTE IN-QU ANTIT ATIVE C-reactive protein -quant <2.0 mg/L 0.0-9. 0 < Not Available [address], [address], 02/14/2022 15:44:40 02/14/20 22 02/14/2022 TICK BORNE [...] for clini susana purpo ses. Not Available [facility] [address] [place] [address], [place], [address], 02/14/2022 22:43:25 02/14/20 22 02/14/2022 TICK BORNE DISEA SE, ACUTE MOLEC ULAR PANEL babesia microti DNA, real time PCR NOT DETECT ED not detect ed normal This test was devel oped and its ivania tical perfo rmanc e misti cteri stics have been deter mined by [employer]. It has not been clear ed or appro alexandre by the FDA. This assay has been valid ated pursu ant to the CLIA regul ation s and is used for clini susana purpo ses. Not Available [facility] [place] [facility] [address], [address], 02/14/2022 22:43:25 02/14/20 22 02/14/2022 TICK BORNE [...] cteri stics have been deter mined by [employer]. It has not been clear ed or appro alexandre by the FDA. This assay has been valid ated pursu ant to the CLIA regul ation s and is used for clini susana purpo ses. Not Available [facility] [place] [facility] [address], [address], 02/14/2022 22:43:25 02/14/20 22 02/14/2022 TICK BORNE DISEA SE, ACUTE MOLEC ULAR PANEL ehrlichia chaffeensis DNA real time PCR NOT DETECT ED not detect ed normal This test was devel oped and its ivania tical perfo rmanc e misti cteri stics have been deter mined by [employer]. It has not been clear ed or appro alexandre by the FDA. This assay has been valid ated pursu ant to the CLIA regul ation s and is used for clini susana purpo ses. Not Available [facility] [place] [facility] [address], [place], [address], 02/14/2022 22:43:25 02/14/20 22 02/14/2022 TICK BORNE [...] e refer to https ://ed ucati on.qu estStudent Loan Advisors Group. [employer]/f aq/fa q224 (This link is being provi ded for infor fidel brooks/ educa brianna l purpo ses only. ) Not Available [facility] [place] [facility] [address], [place], [address], 02/14/2022 22:43:25 02/14/20 22 02/14/2022 TICK BORNE [...] ng may be indic ated. Not Available [facility] [place] [facility] [address], [place], [address], 02/14/2022 22:43:25 02/14/20 22 02/16/2022 FOLAT E folate 6 NG/mL 3-16 Not Available [address], [address], 02/16/2022 12:08:40 02/14/20 22 02/16/2022 VITAM IN B12 vitamin B12 286 pg/mL 230-10 50 Not Available [address], [address], 02/16/2022 12:10:40 03/30/19 23 03/30/2022 POC FLU flu A POC NEGATI VE Not Available [facility] [address] [place] [address], [address], 03/30/2022 16:21:31 03/30/19 23 03/30/2022 POC FLU flu B POC NEGATI VE Not Available [facility] [address] [place] [address], [address], 03/30/2022 16:21:31 03/30/19 23 03/31/2022 SARS- COV-2 RNA (COVI D-19) , QUALI TATIV E NAAT sarscov2 NEGATI VE negati ve normal This test has been autho rized by the FDA under an Emerg ency Use Autho rizat ion(E UA) for you by autho rized labs. Not Available [address], [address], 03/31/2022 14:50:22 02/14/20 22 (CHENTE) ankle brach ial index * No observ ation record ed. [place] [address], [place], [address], 02/28/2022 07:49:10 06/27/19 23 06/26/2022 MAMMO , [...] Readin g Physic jamar: Maribeth Albrecht ms [facility] ([facility]) [address], [place], [place], [address], 06/26/2022 22:10:47 09/21/19 23 09/20/2022 MAMMO , [...] lobula r with a few areas of internal medicine physician al echoge nicity . CONCLU LEOLA Right [...] Readin g Physic jamar: Maribeth Albrecht ms [facility] ([facility]) [address], [place], [address], 09/20/2022 15:40:26 09/21/19 23 09/20/2022 US, breas [...] lobula r with a few areas of internal medicine physician al echoge nicity . CONCLU LEOLA Right [...] Tanya haynes Physic jamar: Maribeth Albrecht ms [facility]) [address], [place], [address], 09/20/2022 15:40:26 10/06/1910/05/2022 MAMMO , diagn ostic , tomos ynthe sis, unila teral No observ ation record ed. [facility] [address] [place], [address], 10/05/2022 12:52:24 10/06/1910/05/2022 US, connie nce No observ ation record ed. hwjuan r [facility] [address] [facility], [place], [address], 10/05/2022 12:45:59 10/12/19 23 10/10/2022 biops y, breas t, w/ ultra sound connie nce (PROC ) No observ ation record ed. [facility] Orders [address], [place], [address], 10/27/2022 13:39:21 Result Notes None recorded. Problems Name Problem SNOMED Code Status Onset Date Resolution Date Notes Provider Name and Address Organization Details Recorded Time Tobacco user 476122597 Active 2018 Geneva Venegas NP [address] [place] [address], [address] , [facility] 9 11:01:40 Asthma 082262965 Active 2021 likely COPD, needs PFT Geneva Venegas NP [address] [place] [address], [address] , [facility] 2 13:41:26 Morbid obesity 685276588 Active 2021 BMI > 40 Kelsea Anglees LPN null, [facility] 2 13:07:01 Contact dermatiti s due to plants, except food Completed 200601/22/2013 Not Available [facility] 3 02:02:49 Finding by method [id number] Completed 200401/22/2013 Not Available [facility] 3 02:01:55 Abdominal pain 99269549 Completed 200401/22/2013 Not Available [facility] 3 02:01:21 Cough 89814073 Completed 200401/22/2013 Not Available [facility] 3 02:01:08 Common cold 91786529 Completed 200201/22/2013 Not Available [facility] 3 02:00:27 Pain of joint 69229961 Active 2004 Not Available [facility] 3 03:04:37 Fever 205706908 Completed 200401/22/2013 Not Available [facility] 3 02:02:41 Low back pain 929604979 Active 2005 Not Available [facility] 3 03:04:37 Allergic rhinitis 92580501 Active 2006 Not Available [facility] 3 03:04:37 Acute bronchiti s 90590896 Completed 200601/22/2013 Not Available [facility] 3 02:01:36 Malaise and fatigue 112514612 Completed 200401/22/2013 Not Available [facility] 3 02:00:17 Acute suppurati ve otitis media without spontaneo us rupture of ear drum 78368923 Completed 200501/22/2013 Not Available [facility] 3 02:02:40 Problem Notes None recorded. Procedures Surgical History Date Name Laterality Status Provider Name and Address Organization Details Recorded Time 2 Smoking cessation counseling completed Geneva Venegas NP [address] [place] [address], [address], [facility] 09/13/2021 15:08:33 2 Smoking cessation counseling cancelled Velma Suazo [facility] 05/11/2021 10:18:22 1 Smoking cessation counseling cancelled Velma Suazo [facility] 11/17/2020 10:26:41 1 Smoking cessation counseling completed Geneva Venegas NP [address] [place] [address], [address], [facility] 10/21/2020 10:42:35 1 Smoking cessation counseling cancelled Velma Suazo [facility] 10/08/2020 07:37:51 1 Smoking cessation counseling completed Geneva Vneegas NP [address] [place] [address], [address], [facility] 10/05/2020 15:19:24 0 Smoking cessation counseling completed Suzy Tobar MD [address] [place], [address], [facility] 08/06/2019 10:13:40 0 Carbon Monoxide Testing completed Cindy AVILA Corado [facility] 08/06/2019 09:47:42 9 [address]339: Therapeutic Exercise completed Yeny Stone, PT [address] [place], [address], [facility] 12/30/2018 15:52:59 9 [address]4836: Mechanical Traction completed Yeny Stone, PT [address] [place], [address], [facility] 12/30/2018 15:53:19 9 60005: Therapeutic Exercise completed Yeny Stone, PT [address] [place], [address], [facility] 12/20/2018 13:51:43 9 90493: Mechanical Traction completed Yeny Stone, PT [address] [place], [address], [facility] 12/20/2018 13:52:39 9 16064: Therapeutic Exercise completed Yeny Stone, PT [address] [place], [address], [facility] 12/19/2018 16:26:34 9 41021: Mechanical Traction completed Yeny Stone, PT [address] [place], [address], [facility] 12/19/2018 16:26:51 9 78353: Therapeutic Exercise completed Yeny Stone, PT [address] [place], [address], [facility] 12/03/2018 17:34:16 9 15471: Mechanical Traction completed Yeny Stone, PT [address] [place], [address], [facility] 12/03/2018 17:34:08 9 70236: Therapeutic Exercise completed Yeny Stone, PT [address] [place], [address], [facility] 11/21/2018 15:47:09 9 25599: Therapeutic Exercise completed Yeny Stone, PT [address] [place], [address], [facility] 11/18/2018 15:47:54 9 61642: Manual Therapy completed Yeny Stone, PT [address] [place], [address], [facility] 11/18/2018 15:47:58 9 64104: Therapeutic Exercise completed Yeny Stone, PT [address] [place], [address], [facility] 11/14/2018 15:34:18 9 47733: Manual Therapy completed Yeny Stone, PT [address] [place] [address], [address], [facility] 11/14/2018 15:34:21 9 50204: Therapeutic Exercise completed Yeny Stone, PT [address] [place], [address], [facility] 11/12/2018 08:31:37 9 [id number]: Manual Therapy completed Yeny Stone, PT [address] [place] [address], [address], [facility] 11/12/2018 08:31:26 9 Physical Activity Counselling completed Yeny Stone, PT [address] [place] [address], [address], [facility] 11/06/2018 17:38:22 9 18112: PT Eval Low Complexity completed Yeny Stone, PT [address] [place], [address], [facility] 11/06/2018 17:38:25 9 03644: Manual Therapy completed Yeny Stone, PT [address] [place] [address], [address], [facility] 10/22/2018 08:03:09 9 Smoking cessation counseling completed Velma Suazo [facility] 10/18/2018 10:42:42 9 Carbon Monoxide Testing completed Velma Suazo [facility] 10/18/2018 10:42:42 9 Smoking Cessation Counselling completed Yeny Stone, PT [address] [place], [address], [facility] 10/18/2018 08:11:50 9 Physical Activity Counselling completed Yeny Stone, PT [address] [place], [address], [facility] 10/18/2018 08:11:41 9 15988: PT Eval Low Complexity completed Yeny Stone, PT [address] [place], [address], [facility] 10/18/2018 08:11:43 9 Smoking cessation counseling completed Luis Enrique Barrios [facility] 10/11/2018 14:21:42 9 Nebulizer Tx completed Michelle Gordon PA-C [address] [place], [address], [facility] 10/12/2018 09:23:24 8 Smoking cessation counseling completed Esha carlin [facility] 12/06/2017 16:40:46 8 Nebulizer Tx completed Esha carlin [facility] 12/06/2017 18:03:39 8 Smoking cessation counseling completed Esha carlin [facility] 05/24/2017 07:40:38 8 Carbon Monoxide Testing completed Esha carlin [facility] 05/24/2017 07:40:38 7 Smoking cessation counseling completed Irena Hawkins [facility] 10/31/2016 08:48:37 7 Nebulizer Tx completed Irena Hawkins [facility] 10/31/2016 08:52:37 Imaging Results Imaging Date Name Status LastModified by Organiz ation Details LastModified Time 02/13/2022 (CHENTE) ankle brachial index* completed [facility] [address], [place], [address], 02/28/2022 07:49:10 06/26/2022 MAMMO, screening, tomosynthesis, bilateral completed [facility] (Imaging) [address], [place], [address], 06/26/2022 22:10:47 09/20/2022 MAMMO, diagnostic, tomosynthesis, unilateral completed [facility] (Imaging) [address], [place], [address], 09/20/2022 15:40:26 09/20/2022 US,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 text/html VMG URI Flu [...] 23 24 25}} minutes. NATHAN Martinez [address] [place], [phone], [facility] 05/22/2022 16:05:16 OBGyn Episode No OBEpisode recorded.
[2024-07-23 14:10] VITALS: BMI 42.8
--- NOTE | 2024-07-24 10:39 | P.CONAN_ITS ---
Documented by User: Parul Harvey NP 07/24/24 10:40 HPI - Anesthesia Eval Consult details Narrative: 59yo F for Caudal Epidural Steroid Injection with catheter s/p same 04/2024 with TIVA PMFSH Active Problems Active Problems: All Active Problems PVD (peripheral vascular disease) (Acute) COPD (chronic obstructive pulmonary disease) (Acute) Chronic pain syndrome (Acute) Spondylolisthesis, lumbar region (Acute) Baastrup disease of lumbar spine (Acute) Spinal stenosis at L4-L5 level (Acute) Chronic low back pain (Acute) Abnormal mammogram of right breast (Acute) Lung cancer screening declined by patient (Acute) MDD (major depressive disorder), recurrent episode (Acute) Morbid obesity with BMI of 40.0-44.9, adult (Acute) Tobacco dependence (Acute) Past Medical History Medical History Asthma PVD (peripheral vascular disease) COPD (chronic obstructive pulmonary disease) Spine pain Family History Family History Father Cancer Brother Cancer Paternal Grandfather Cardiovascular disease Mother COPD (chronic obstructive pulmonary disease) Surgical History Surgical History Colon cancer screening declined (~2024) H/O: hysterectomy Previous section History of Problems with Anesthesia: No Social History Social History Household Members: Family Household Members Other:: cousin Housing: House Are you a primary insurance healthcare consultant to a significant other at home: No Do you presently have visiting nurse or other home services: No Alcohol intake: current Alcohol intake frequency: does not drink Patient Tobacco Use Status: Current everyday Tobacco user Tobacco use type: Cigarette Cigarette Packs Per Day: 1 Cigarettes Per Day: 20 Years Smoked: 42 e-Cigarette/Vaping Use: Never Used Second Hand Smoke Exposure: No Have you been hit, kicked, punched, or otherwise hurt by someone within the past year? 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 Cognitive needs: No Hearing needs: No Vision needs: No Meds Allergies Allergy/AdvReac Type Severity Reaction Status Date / Time Penicillins [PENICILLINS] Allergy Unknown HIVES Verified 05/26/24 13:19 Exam Height,Weight and Vital Signs: Height 5 ft 2 in Weight 106.141 kg Assessment and Plan Assessment Anesthesia Assessment: Chart Reviewed Final Anesthetic Review History of Problems with Anesthesia: No Documented by User: Yesenia Sawyer MD 07/25/24 08:47 PMFSH Past Medical History Medical History Asthma PVD (peripheral vascular disease) COPD (chronic obstructive pulmonary disease) Spine pain Family History Family History Father Cancer Brother Cancer Paternal Grandfather Cardiovascular disease Mother COPD (chronic obstructive pulmonary disease) Family history of problems with anesthesia: No Surgical History Surgical History Colon cancer screening declined (~2024) H/O: hysterectomy Previous section Social History Social History Household Members: Family Household Members Other:: cousin Housing: House Are you a primary insurance healthcare consultant to a significant other at home: No Do you presently have visiting nurse or other home services: No Alcohol intake: current Alcohol intake frequency: does not drink Patient Tobacco Use Status: Current everyday Tobacco user Tobacco use type: Cigarette Cigarette Packs Per Day: 1 Cigarettes Per Day: 20 Years Smoked: 42 e-Cigarette/Vaping Use: Never Used Second Hand Smoke Exposure: No Have you been hit, kicked, punched, or otherwise hurt by someone within the past year? 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 Cognitive needs: No Hearing needs: No Vision needs: No Meds Allergies Allergy/AdvReac Type Severity Reaction Status Date / Time Penicillins [PENICILLINS] Allergy Unknown HIVES Verified 05/26/24 13:19 Exam Airway Mallampati Class: II TM Dist: >3cm Neck ROM: Full Heart: rrr Lungs: wheezing, congested, smoked this AM, min releifwith updraft in pre op Assessment and Plan Assessment Anesthesia Assessment: Anesthesia Plan Discussed Final Anesthetic Review Family History of Problems with Anesthesia: No NPO: Yes ASA Class: III (consented for anxiolysis only) Final Preanesthetic Review: No Changes in Pt Med Stat, Meds/Allgs Chart Reviewed, Consent Obtained/Reviewed and Anes Risks/Benef Reviewed Patient Risk: High Procedure Risk: Low Anesthetic Plan Anesthetic Plan: MAC: (anxiolisis only) Disposition: Standard PACU
--- NOTE | ~2024-07-25 | FL_ITS ---
EXAMINATION: FL GUIDANCE ONLY HISTORY: caudal epidural steroid injection COMPARISON: None available. TECHNIQUE: Fluoroscopy time: 27.9 seconds. Cumulative Dose: 23.727 mGy. DAP: 6.4133 mGym2 Images: 2. FINDINGS: Images demonstrate a needle overlying the sacrum. FL/FL guidance in OR IMPRESSION: Fluoroscopy during procedure. Please see procedure report for additional information. Electronically signed by: Bridger Joy MD 07/25/2024 09:28 AM EDT
[2024-07-25 08:05] VITALS: BP 142/70; PULSE 89; RESP 20; TEMP 36.6; O2SAT 95; BMI 43.2
--- NOTE | 2024-07-25 08:28 | MHC.SHP ---
Pre-Procedural Eval Section A - 24 Hr Update-Section A only Date of Service: 07/25/24 The patient is an INPATIENT: No Changes since office visit: Yes Patient answered all questions The patient has been examined within 24 hours of the surgical procedure. The History & Physical has been completed within 30 days and I have reviewed it.: No Section B - Complete if H&P > 30 days Chief Complaint: Spinal stenosis, lumbar region without neurogenic Details of Present Illness: As above, radiculopathy lumbosacral Relevant Family History (Specify if Yes): No Relevant Social History: Tobacco Use Present Medications: see Short Stay Collaborative assessment Medical History: No relevant PMH History of Previous Operations: Relevant previous surgery/procedure and date(s) Allergies: Allergies Allergy/AdvReac Type Severity Reaction Status Date / Time Penicillins [PENICILLINS] Allergy Unknown HIVES Verified 05/26/24 13:19 Review of Systems Sugical H&P ROS: Negative: Neurological, Psychiatric, Hem-Onc, Allergic/Immunologic, Gastrointestinal, Genitourinary, Integumentary, Endocrine and Eyes/Ears/Nose/Throat and Yes, Specify: Constitution (Morbid obesity), Cardiovascular (PVD), Respiratory (COPD, smoker) and Musculoskeletal ( Baastrup disease) Exam Surgical H&P Exam: Normal: HEENT, Normal: Heart, Normal: Lungs, Normal: Extremities, Normal: Skin and Normal: Neurological and Significant Findings: Abdomen (Enlarged due to fat) Plan Diagnosis/Plan: Unchanged I have reviewed the history and physical and performed a pertinent physical examination on my patient. No changes have occurred unless specified. I am going to perform caudal epidural steroid injection with catheter. Time Spent With Patient Time: Total time managing care of this patient today __ 5 __ minutes.
[2024-07-25] MEDS: Albuterol Sulfate (0.083%) 2.5 MG/3 ML VIAL.NEB INHALE (08:29)
[2024-07-25] MEDS: Lactated Ringers 1,000 ML 100 ML IVCONT (08:30)
[2024-07-25 08:32] VITALS: PULSE 79; RESP 19; O2SAT 98
--- NOTE | 2024-07-25 08:35 | PC.NURSE ---
pt receiving resp tx wheezing throughtout with congested cough dr casey at bedside procedure changed to local pt agreeable resp easy and reg no sob noted
[2024-07-25 09:19] VITALS: BP 144/78; PULSE 80; RESP 12; TEMP 36.6; O2SAT 98
[2024-07-25 09:25] VITALS: BP 110/61; PULSE 80; RESP 16; O2SAT 98
--- NOTE | 2024-07-25 09:32 | P.BOP_ITS ---
Brief Operative Note Date of Service: 07/25/24 Pre-op diagnosis: Baastrup disease, spinal stenosis. Lumbosacral radiculopathy Post-op diagnosis: same Procedure: Caudal epidural steroid injection with catheter. Surgeon: Dave Fagan MD Anesthesia: spinal Was an Business Solutions Director used for this Procedure?: No Estimated blood loss (mL): 0 Condition: stable Disposition: PACU
[2024-07-25 09:40] VITALS: BP 113/68; PULSE 74; RESP 16; TEMP 36.9; O2SAT 98
--- NOTE | 2024-07-25 09:53 | P.OP_ITS ---
Operative Note Operative Note Date of Service: 07/25/24 Narrative: Caudal epidural steroid injection with catheter Informed consent was thoroughly explained to the patient risks and benefits were explained including risk of bleeding infection peripheral nerve damage spinal cord damage and headache. The patient was taken to the operating room and positioned prone on operating table with pillow under her abdomen. ASA monitors were applied and patient was deeply sedated. Time-out was performed delineating name and date of of the patient nature of the procedure, side andsite of the procedure, allergies of the patient need for antibiotics (none). The lower back of the patient and intergluteal crease were prepped with ChloraPrep twice. Self adhesive sterile utility towels were used to delineate the operating field. C-arm was brought over the operating field and picture of the sacral bone was demonstrated on the screen. 2.5 cm below the level of the sacral hiatus injection of the local anesthetic was performed lidocaine 1% forming skin wheal. After that 18 gauge epidural needle was inserted through the skin wheal and advanced to the sacral hiatus on intermittent anterior posterior and lateral views. When tip of the needle entered the hiatus i njection of the contrast was performed Isovue M delineating epidurogram. 22 gauge epidural catheter was inserted through the needle and advanced into the epidural needle until resistance was met better the epidural catheter was injected with the Isovue-M contrast which demonstrated spread of the contrast in the projection of the L5 epidural space. After that 30 cc of normal saline were injected gradually into the catheter, following this injection of the preservative-free lidocaine 1% mixed with Kenalog 40 mg was performed into the catheter. After that needle and catheter were removed EN mass. Patient tolerated the procedure well. The puncture site was treated with bacitracin ointment and covered with 4x4s and Medipore tape. The patient was taken outside of the operating room to recovery room where she recovered uneventfully.
== END | disposition home or self-care (01) ==
PROVIDERS: PCP Nurse Practitioner Family; Visit Provider Anesthesiology
PROC: 3E0R3GC Introduction of Other Therapeutic Substance into Spinal Canal, Percutaneous Approach (ICD-10-PCS; CPT 62322; principal; 2024-07-25 09:50)
DX: M48.062 Spinal stenosis, lumbar region with neurogenic claudication (principal); G89.4 Chronic pain syndrome; M48.26 Kissing spine, lumbar region; M43.16 Spondylolisthesis, lumbar region; M54.50 Low back pain, unspecified; Z91.81 History of falling; I49.3 Ventricular premature depolarization; J44.9 Chronic obstructive pulmonary disease, unspecified; Z79.899 Other long term (current) drug therapy; Z88.0 Allergy status to penicillin; F17.210 Nicotine dependence, cigarettes, uncomplicated
CPT/HCPCS: 62323; J2003; J2250; J2795; J3010; J3301; Q9967

== ENCOUNTER → 2024-07-25 07:54 | Outpatient (BNV) | payer OTHER, SELFPAY | PROVIDERS: PCP Nurse Practitioner Family; Visit Provider Anesthesiology | DX: M54.17 Radiculopathy, lumbosacral region (principal) | CPT/HCPCS: 62323 ==

== ENCOUNTER 2024-08-28 10:53 | Outpatient (AMB) | payer OTHER, SELFPAY ==
[2024-08-28 10:59] VITALS: BP 149/66; PULSE 74; RESP 18; O2SAT 99; BMI 40.2
--- NOTE | 2024-08-28 10:59 | A.OFFVIS_ITS ---
Vital Signs 08/28/24 10:59 Height 5 ft 2 in Weight 220 lb BMI 40.2 BP 149/66 H Blood Pressure Location Lt brachial Position Sitting Respiration 18 Pulse 74 Pulse Source Pulse Oximeter Pulse Oximetry (%) 99 Oxygen Delivery Method Room Air Intake Visit Reasons: S/p Caudal SHAWANDA W/ Catheter 07/25/24 Hospice Aide Required: No Allergies Penicillins (PENICILLINS) Allergy (Unknown, Verified 08/28/24 10:59) HIVES HPI Comments Details: Lauryn is Back in my office after 2nd caudal epidural steroid injection with catheter. This time she reports no pain and actually pain aggravation after the injection. Attention was attracted today to signs of left and potentially right sacroiliitis with this patient. See the physical exam as below. I offered her to perform bilateral therapeutic sacroiliac joint injections. Patient is not diabetic. Schedule her with triamcinolone injections. Prior: complains on severe pain in lower back with radiation of the pain in bilateral lower extremities. She reports most severe pain when she gets out of bed for 2 hours she reports that this pain started in 08/31/2023 and it is results of the fall. She went to [facility] she received physical therapy there which did not help her pain. She tried 10s unit with minimal relief. when she is working for a long period of time where she feels pain radiating all the way down to her feet. Can not make a conclusion whether it is radiating to her toes. She had an MRI of the lumbar spine results of which dictated as below. She has L4-5 spinal canal stenosis and she has L5-S1 bridging bodies fusion. She also has posterior fusion at L4-5 indicative or possible Baastrup disease. Her past medical history significant for asthma and shortness of breath. She is also obese. while visiting emergency room she was given morphine and Dilaudid and she had side effects including itching she does not like opioid medications COUNT INCLUDES THE [facility] Medical History Asthma PVD (peripheral vascular disease) COPD (chronic obstructive pulmonary disease) Spine pain Surgical History Colon cancer screening declined (~2024) H/O: hysterectomy Previous section Family History Father Cancer Brother Cancer Paternal Grandfather Cardiovascular disease Mother COPD (chronic obstructive pulmonary disease) Social History Household Members: Family Household Members Other:: cousin Both parents involved: No Caregiver staying overnight: No Housing: House Are you a primary medicare insurance specialist to a significant other at home: No Do you presently have visiting nurse or other home services: No 75 years or older and lives alone: No Alcohol intake: current Alcohol intake frequency: does not drink Comment: pain level at baseline for pt per pt report Patient Tobacco Use Status: Current everyday Tobacco user Tobacco use type: Cigarette Cigarette Packs Per Day: 1 Cigarettes Per Day: 20 Years Smoked: 42 e-Cigarette/Vaping Use: Never Used Second Hand Smoke Exposure: No service: No Current occupational status: employed 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 Cognitive needs: No Hearing needs: No Vision needs: No Review of Systems Const All systems reviewed & are unremarkable except as noted in HPI and below Physical Exam Vital Signs: Last Vital Signs Pulse 74 08/28/24 10:59 Resp 18 08/28/24 10:59 BP 149/66 H 08/28/24 10:59 Pulse Ox 99 08/28/24 10:59 Oxygen Delivery Method Room Air 08/28/24 10:59 BMI result Body Mass Index 40.2 Const General: cooperative and acute distress mild Nutritional Appearance: obese morbidly obese Orientation/consciousness: patient oriented x3 Limitations: no limitations Neck Neck: Yes normal visual inspection and Yes full ROM Chest Chest palpation & inspection: normal inspection of the chest Resp Effort & Inspection: normal respiratory pattern, no audible wheezes, decreased respiratory effort, grunting and labored Cardio Jugular venous distension: JVD Back/Spine/Pelvis Other: She is able to stand from the sitting position without significant difficulty. There is tenderness on palpation in paraspinal spinal region of the entire lumbar spine. SLR is positive bilaterally. Valsalva maneuver aggravates the pain. Marco test is positive bilaterally pelvic compression test and Gaenslen test is also positive bilaterally. Neuro General: patient oriented x3 Results Reviewed Results Reviewed: MR LUMBAR SPINE WITHOUT CONTRAST CLINICAL INFORMATION: Severe low back pain. COMPARISON: CT abdomen and pelvis 12/08/2023. TECHNIQUE: MRI of the lumbar spine was obtained using routine sequences without contrast. 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 There is grade 1 anterolisthesis of L4 on L5 that appears to be related to advanced facet degenerative changes at this level. Alignment is otherwise normal. Vertebral body heights are preserved. No acute bone marrow signal changes. Slight loss of intervertebral Cosmetologist and T2 signal intensity at L4-L5 related to disc degeneration. There is abutment with associated edema and sclerotic changes of the adjoining spinous processes at L4-L5 indicate the possibility of underlying Baastrup disease. The tip of the conus medullaris is located at L1. No mass effect on the conus. Visualized distal cord signal intensity is normal. At L1-L2 the annular contour is normal. No canal or neuroforaminal compromise. At L2-L3 there is a slightly bulging disc. Bilateral facet degenerative change. No canal stenosis. No mass effect on the traversing or foraminal nerve roots. At L3-L4 there is a slightly bulging disc. Bilateral facet degenerative change. No canal stenosis. No mass effect on the traversing or foraminal nerve roots. At L4-L5 there is a pseudodisc bulge. Moderate to severe canal stenosis. Subarticular zone narrowing causes compression of both traversing L5 nerve roots. There is also moderate compression of both L4 foraminal nerve roots. At L5-S1 there is no canal or neuroforaminal compromise. Limited visualization of the retroperitoneal anatomy reveals a few layering calculi within the gallbladder neck. Psoas and paraspinal muscle groups are symmetric. 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 There is adjacent segment spondylosis above the fusion at the level of L4-L5 where there is grade 1 anterolisthesis and moderate to severe canal stenosis. Subarticular zone narrowing at this level causes compression of both traversing L5 nerve roots. There is also moderate compression of both L4 foraminal nerve roots related to degenerative changes at L4-L5. There is abutment with associated edema and sclerotic changes of the adjoining spinous processes at L4-L5 indicating the possibility of underlying Baastrup disease. There are a few layering calculi visualized within the gallbladder neck. Assessment & Plan Assessment & Plan (1) Spinal stenosis at L4-L5 level: Code(s): M48.061 - Spinal stenosis, lumbar region without neurogenic claudication Category: Medical (2) Baastrup disease of lumbar spine: Code(s): M48.26 - Kissing spine, lumbar region Category: Medical (3) Spondylolisthesis, lumbar region: Code(s): M43.16 - Spondylolisthesis, lumbar region Category: Medical (4) Chronic pain syndrome: Code(s): G89.4 - Chronic pain syndrome Category: Medical Plan: Moderate to severe spinal stenosis is demonstrated on recently obtained MRI. The patient reported good results at L3-L4 epidural steroid injection. It was done at L3-L4 by [facility] most likely because patient had Baastrup fusion on the posterior elements at L4-5. Initial caudal epidural steroid injection also was working well for this patient. However 2nd injection did not help her at all completely. (5) Sacroiliitis: Code(s): M46.1 - Sacroiliitis, not elsewhere classified Category: Medical (6) Pain of both sacroiliac joints: Code(s): M53.3 - Sacrococcygeal disorders, not elsewhere classified Category: Medical Plan The pain of this patient is in the projection of the sacral bone. On physical exam there is signs of sacroiliitis. I will schedule her for bilateral therapeutic sacroiliac joint injection. If this was not help her I will send her for fresh MRI to evaluate her lumbar spine (her last MRI was in December of 2023.) and refer her to Neurosurgery because she has spinal stenosis as well. Coding Level of Care Code Est Pt Level 3 (52229) Diagnoses Spinal stenosis at L4-L5 level M48.061 Baastrup disease of lumbar spine M48.26 Spondylolisthesis, lumbar region M43.16 Chronic pain syndrome G89.4 Sacroiliitis M46.1 Pain of both sacroiliac joints M53.3
--- OUTSIDE RECORDS SUMMARY | 2024-08-28 12:55 | XMS_ITS | Data Portability ---
Author Organization NATHAN Lui s, [address] Address [address] [place] [address] Assessment No assessment recorded. Plan of Treatment Reminders Order Date Submit Date Provider Last Modified By Organization Details Last Modified Time Details Appointments None recorded. Lab None recorded. Referral None recorded. Procedures None recorded. Surgeries None recorded. Imaging XR, chest, 2 view 2022 023 [facility], [address] [place] [address], [address], 4 05:01:33 Medication Orders albuterol sulfate HFA 90 mcg/actuati on aerosol inhaler 2022 023 [email or web address] [facility]/Pharmacy #[id number], [address] [place], [address], 3 14:51:50 Zithromax Z-Tristin 250 mg tablet 2022 023 [facility]/Pharmacy #[id number], [address] [place], [address], 3 14:43:30 prednisone 50 mg tablet 2022 023 [facility]/Pharmacy #[id number], [address] [place], [address], 3 14:47:26 albuterol sulfate 2.5 mg/3 mL (0.083 %) solution for nebulizatio n 2022 023 Not available 3 15:06:42 ipratropium bromide 0.02 % solution for inhalation 2022 023 Not available 3 15:06:42 benzonatate 200 mg capsule 2022 023 [facility]/Pharmacy #[id number], [address] [place], [address], 15:08:57 Patient TargetsNo targets recorded. Patient Instructions Encounter Date Encounter Id Patient Instructions Last Modified By Organization Details Last Modified Time 02/22/2023 [id number] cough: care instructions [email or web address] Not available 02/22/2023 14:43:28 chronic obstruct rolan pulmonary disease (COPD) flare-ups: care instructions [email or web address] Not available 02/22/2023 14:43:28 Acute bronchitis is [...] Pain 3. Wheezing 4. Coughing up Blood [email or web address] Not available 02/22/2023 14:43:26 Reason for Referral None Reported. Problems Name Problem SNOMED Code Status Onset Date Resolution Date Notes Provider Name and Address Organization Details Recorded Time Acute bronchitis 42770399 Active 023 NATHAN CRAIN [facility] [place], [address] [facility] [place] - [facility] 14:42:48 Problem Notes [...] Address Organization Details Last Updated DateTime 3 167.64 cm 35.5 kg/m2 55596.3 2 g 98 % 98 % 87 /min 18 /min 98.6 [degF] 144 mm[Hg] 82 mm[Hg] Kamini [facility] 14:32:01 Social History Question Answer Notes LastModified by [employer] Details LastModified Time Tobacco Smoking Status Current Every Day Smoker Kamini mcknight [place] - [facility] 02/22/2023 14:33:31 Have You Had A Flu Shot This Season? Yes Information not available 02/22/2023 What Is Your Relationship Status? Single Information not available 02/22/2023 Have You Recently Traveled Abroad? No Information not available 02/22/2023 Are You Currently In School? No Information not available 02/22/2023 Sex: Unknown Functional Status Question Answer Note LastModified by [employer] Details LastModified Time Do you use any [...] No current problems or disability Not available 12/21 /2023 14:33:17 Medical History No medical history recorded. Gynecological HistoryNo gynecological history recorded. Obstetrics History GPAL:G 0 P 0 0 0 0 Past Encounters Encounter ID Performer Location Encounter Start Date Encounter Closed Date Diagnosis/Indication Diagnosis SNOMED-CT Code Diagnosis ICD10 Code Diagnosis Note [id number] NATHAN CRAIN [address] [place] [address] 02/22/2023 14:14:13 02/22/2023 15:12:24 Acute bronchitis 99456567 J20.9 Wheezing 52509843 R06.2 Health Concerns Section Related Observation LastModified by Organization Detai ls LastModified Time None Recorded Concern Status LastModified by Organization Details LastModified Time None Recorded Advance Directives Directive None Recorded Payers Insurance Date Sequence Insurance Name Policy Number Policy Ramos Covered Member ID Ramos Member ID Guarantor Name 02/22/2023 1 [employer] (E[employer]) [id number] Lauryn Vidhruv [id number] Lauryn Yeny Notes Date Note Type Note Provider Name and Address Organization Details Recorded Time 02/22/2023 text/html CoughReported bypatient.Notes:57 y.o female pt with h/o COPD 2/2 smoking present with cough and wheezing for the past 2-3 days. NATHAN CRAIN [address] [place], [address], [place] - [facility] 02/22/2023 17:24:22 OBGyn Episode No OBEpisode recorded.
== END 2024-08-28 11:14 | disposition home or self-care (01) ==
LOC: HO.PMC 10:53
PROVIDERS: PCP Nurse Practitioner Family; Visit Provider Anesthesiology
DX: M48.061 Spinal stenosis, lumbar region without neurogenic claudication (principal); M48.26 Kissing spine, lumbar region; M43.16 Spondylolisthesis, lumbar region; G89.4 Chronic pain syndrome; M46.1 Sacroiliitis, not elsewhere classified; M53.3 Sacrococcygeal disorders, not elsewhere classified
CPT/HCPCS: 99213

== ENCOUNTER 2024-09-25 13:12 | Outpatient (AMB) | payer OTHER, SELFPAY ==
[2024-09-25 13:17] VITALS: BP 155/64; PULSE 67; RESP 18; O2SAT 98
--- NOTE | 2024-09-25 13:17 | MHC.OFFVIS ---
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 She was scheduled for this injection before however had to cancel because of her breathing problems. She received 2 caudal epidural steroid injections with catheter. While the 1st injection was very helping for her pain control the 2nd injection aggravated her pain. She also requests me to increase the dose of her gabapentin. I will increase gabapentin to 600 mg t.i.d.. Patient is not diabetic. Schedule her with triamcinolone injections. Prior: complains on severe pain in lower back with radiation of the pain in bilateral lower extremities. She reports most severe pain when she gets out of bed for 2 hours she reports that this pain started in 08/31/2023 and it is results of the fall. She went to [facility] she received physical therapy there which did not help her pain. She tried 10s unit with minimal relief. when she is working for a long period of time where she feels pain radiating all the way down to her feet. Can not make a conclusion whether it is radiating to her toes. She had an MRI of the lumbar spine results of which dictated as below. She has L4-5 spinal canal stenosis and she has L5-S1 bridging bodies fusion. She also has posterior fusion at L4-5 indicative or possible Baastrup disease. Her past medical history significant for asthma and shortness of breath. She is also obese. while visiting emergency room she was given morphine and Dilaudid and she had side effects including itching she does not like opioid medications [facility], [facility] Medical History Asthma PVD (peripheral vascular disease) COPD (chronic obstructive pulmonary disease) Spine pain Surgical History Colon cancer screening declined (~2024) H/O: hysterectomy Previous section Family History Father Cancer Brother Cancer Paternal Grandfather Cardiovascular disease Mother COPD (chronic obstructive pulmonary disease) Social History Household Members: Family Household Members Other:: cousin Both parents involved: No Caregiver staying overnight: No Housing: House Are you a primary customer care voice consultant to a significant other at home: No Do you presently have visiting nurse or other home services: No 75 years or older and lives alone: No Alcohol intake: current Alcohol intake frequency: does not drink Comment: pain level at baseline for pt per pt report Patient Tobacco Use Status: Current everyday Tobacco user Tobacco use type: Cigarette Cigarette Packs Per Day: 1 Cigarettes Per Day: 20 Years Smoked: 42 e-Cigarette/Vaping Use: Never Used Second Hand Smoke Exposure: No service: No Current occupational status: employed 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 Cognitive needs: No Hearing needs: No Vision needs: No Review of Systems Const All systems reviewed & are unremarkable except as noted in HPI and below Physical Exam Vital Signs: Last Vital Signs Pulse 67 09/25/24 13:17 Resp 18 09/25/24 13:17 BP 155/64 H 09/25/24 13:17 Pulse Ox 98 09/25/24 13:17 Oxygen Delivery Method Room Air 09/25/24 13:17 Const General: cooperative and acute distress mild Nutritional Appearance: obese morbidly obese Orientation/consciousness: patient oriented x3 Limitations: no limitations Neck Neck: Yes normal visual inspection and Yes full ROM Chest Chest palpation & inspection: normal inspection of the chest Resp Effort & Inspection: normal respiratory pattern, no audible wheezes, decreased respiratory effort, grunting and labored Cardio Jugular venous distension: JVD Back/Spine/Pelvis Other: She is able to stand from the sitting position without significant difficulty. There is tenderness on palpation in paraspinal spinal region of the entire lumbar spine. SLR is positive bilaterally. Valsalva maneuver aggravates the pain. Marco test is positive bilaterally pelvic compression test and Gaenslen test is also positive bilaterally. Neuro General: patient oriented x3 Results Reviewed Results Reviewed: MR LUMBAR SPINE WITHOUT CONTRAST CLINICAL INFORMATION: Severe low back pain. COMPARISON: CT abdomen and pelvis 12/08/2023. TECHNIQUE: MRI of the lumbar spine was obtained using routine sequences without contrast. 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 There is grade 1 anterolisthesis of L4 on L5 that appears to be related to advanced facet degenerative changes at this level. Alignment is otherwise normal. Vertebral body heights are preserved. No acute bone marrow signal changes. Slight loss of intervertebral Needle Polisher and T2 signal intensity at L4-L5 related to disc degeneration. There is abutment with associated edema and sclerotic changes of the adjoining spinous processes at L4-L5 indicate the possibility of underlying Baastrup disease. The tip of the conus medullaris is located at L1. No mass effect on the conus. Visualized distal cord signal intensity is normal. At L1-L2 the annular contour is normal. No canal or neuroforaminal compromise. At L2-L3 there is a slightly bulging disc. Bilateral facet degenerative change. No canal stenosis. No mass effect on the traversing or foraminal nerve roots. At L3-L4 there is a slightly bulging disc. Bilateral facet degenerative change. No canal stenosis. No mass effect on the traversing or foraminal nerve roots. At L4-L5 there is a pseudodisc bulge. Moderate to severe canal stenosis. Subarticular zone narrowing causes compression of both traversing L5 nerve roots. There is also moderate compression of both L4 foraminal nerve roots. At L5-S1 there is no canal or neuroforaminal compromise. Limited visualization of the retroperitoneal anatomy reveals a few layering calculi within the gallbladder neck. Psoas and paraspinal muscle groups are symmetric. 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 There is adjacent segment spondylosis above the fusion at the level of L4-L5 where there is grade 1 anterolisthesis and moderate to severe canal stenosis. Subarticular zone narrowing at this level causes compression of both traversing L5 nerve roots. There is also moderate compression of both L4 foraminal nerve roots related to degenerative changes at L4-L5. There is abutment with associated edema and sclerotic changes of the adjoining spinous processes at L4-L5 indicating the possibility of underlying Baastrup disease. There are a few layering calculi visualized within the gallbladder neck. Assessment & Plan Assessment & Plan (1) Spinal stenosis at L4-L5 level: Code(s): M48.061 - Spinal stenosis, lumbar region without neurogenic claudication Category: Medical (2) Baastrup disease of lumbar spine: Code(s): M48.26 - Kissing spine, lumbar region Category: Medical (3) Spondylolisthesis, lumbar region: Code(s): M43.16 - Spondylolisthesis, lumbar region Category: Medical (4) Chronic pain syndrome: Code(s): G89.4 - Chronic pain syndrome Category: Medical Plan: Moderate to severe spinal stenosis is demonstrated on recently obtained MRI. The patient reported good results at L3-L4 epidural steroid injection. It was done at L3-L4 by [facility] most likely because patient had Baastrup fusion on the posterior elements at L4-5. Initial caudal epidural steroid injection also was working well for this patient. However 2nd injection did not help her at all completely. Signs and symptoms of sacroiliitis were noted at last physical exam. She was offered therapeutic sacroiliac joint injection bilateral however Ms. The procedure because of her breathing problems. I will schedule her again for bilateral therapeutic sacroiliac joint injection. (5) Sacroiliitis: Code(s): M46.1 - Sacroiliitis, not elsewhere classified Category: Medical (6) Pain of both sacroiliac joints: Code(s): M53.3 - Sacrococcygeal disorders, not elsewhere classified Category: Medical Plan She will be scheduled for this procedure and after that 1 month appointment will be scheduled to evaluate the results of the injection. I also will increase the dose of gabapentin for this patient today see as below. Medications: New gabapentin 600 mg PO TID 90 tabs 8RF 30 days Discontinued gabapentin Discontinued Reason: Doctor's Order 400 mg PO TID 30 days 90 caps 8RF Coding Level of Care Code Est Pt Level 3 (39135) Diagnoses Spinal stenosis at L4-L5 level M48.061 Baastrup disease of lumbar spine M48.26 Spondylolisthesis, lumbar region M43.16 Chronic pain syndrome G89.4 Sacroiliitis M46.1 Pain of both sacroiliac joints M53.3
--- OUTSIDE RECORDS SUMMARY | 2024-09-25 13:25 | XMS_ITS | Data Portability ---
Author Organization [facility], , [facility] Address [address] [place] [address] Care Team Providers Care Singer And Unloader Name Role Phone GENEVA VENEGAS Primary Care Provider 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 Patient understands this is a scheduled visit and the usual procedures with regard to billing and confidentiality apply. Patient was notified that the provider [place] [facility] [place] During the visit the patient s medical history and medical record were reviewed. The patient was notified to call our office for worsening or urgent symptoms. Not available 05/22/2022 15:58:32 Plan of Treatment Reminders Order Date Submit Date Provider Last Modified By Organization Details Last Modified Time Details Appointments None recorded. Lab rapid flu (A+B) [address]22 [address] [place] [address] Poc, [address] [place] [address], [address], 17:34:17 SARS CoV 2 RNA (COVID-19), , general activities therapist-PCR, respiratory specimen 2022 023 [facility], [address] [place] [address], [address], 3 14:50:22 HbA1c (hemoglobin A1c), blood 2021 022 [facility], [address] [place] [address], [address], 11:35:38 lipid panel, serum 2021 [facility], [address] [place] [address], [address], 11:31:05 CBC 2021 [facility], [address] [place] [address], [address], 10:34:29 ferritin, serum or plasma 2021 022 [facility], [address] [place] [address], [address], 14:13:31 TSH, serum or plasma 2021 022 [facility], [address] [place] [address], [address], 14:13:30 iron + total iron-bindin g capacity (TIBC), serum 2021 022 [facility], [address] [place] [address], [address], 11:31:07 CK (creatine kinase), total, serum 2021 [facility], [address] [place] [address], [address], 11:31:09 erythrocyte sedimentati on rate by westergren method 2021 [facility], [address] [place] [address], [address], 13:05:10 C-reactive protein, quantitativ e, serum or plasma 2021 [facility], [address] [place] [address], [address], 15:44:41 CMP, serum or plasma 2021 [facility], [address] [place] [address], [address], 11:31:04 tick-borne disease panel 2021 [facility], [address] [place] [address], [address], 22:43:25 magnesium, blood 2021 [facility], [address] [place] [address], [address], 11:31:08 Referral None recorded. Procedures None recorded. Surgeries None recorded. Imaging LDCT, chest, for lung cancer screening 2021 022 [email or web address] [facility], [address] [place], [address], 11:44:15 MAMMO, screening, tomosynthes is, bilateral 2021 022 [facility] (Im[facility]), [address], [place], [address], 3 15:35:53 Medication Orders Symbicort 160 mcg-4.5 mcg/actuati on HFA aerosol inhaler 2022 023 [facility], [address] [place], [address], 3 16:01:09 Ventolin HFA 90 mcg/actuati on aerosol inhaler 2022 023 [facility], [address] [place], [address], 3 16:01:10 albuterol sulfate 2.5 mg/3 mL (0.083 %) solution for nebulizatio n [address] [facility] [address] [place] [address], [address], 3 16:01:09 Paxlovid 300 mg (150 mg x 2)-100 mg tablets in a dose pack [address] [facility] [address] [place] [address], [address], 3 16:01:08 prednisone 20 mg tablet [address] [facility] [address] [place] [address], [address], 3 15:59:21 azithromyci n 250 mg tablet [address] [facility] [address] [place] [address], [address], 3 16:21:01 Wellbutrin SR 150 mg tablet, 12 hr sustained-r elease 2021 023 [facility] [address] [place] [address], [address], 3 09:07:30 prednisone 20 mg tablet 2021 022 [email or web address] [facility], [address] [place] [address], [address], 3 15:59:18 albuterol sulfate 2.5 mg/3 mL (0.083 %) solution for nebulizatio n [address] [facility] [address] [place] [address], [address], 2 08:32:27 Symbicort 160 mcg-4.5 mcg/actuati on HFA aerosol inhaler 2021 [facility], [address] [place] [address], [address], 09:09:16 Symbicort 160 mcg-4.5 mcg/actuati on HFA aerosol inhaler 2021 [email or web address] [facility], [address] [place] [address], [address], 12:30:50 prednisone 20 mg tablet 2021 [email or web address] [facility], [address] [place] [address], [address], 15:59:18 albuterol sulfate 2.5 mg/3 mL (0.083 %) solution for nebulizatio n 2021 [facility], [address] [place] [address], [address], 11:17:57 Ventolin HFA 90 mcg/actuati on aerosol inhaler 2021 [facility], [address] [place] [address], [address], 11:17:58 nystatin 100,000 unit/gram topical cream 2021 [facility], [address] [place] [address], [address], 11:17:57 Patient TargetsNo targets recorded. Patient Instructions Encounter Date Encounter Id Patient Instructions Last Modified By Organization Details Last Modified Time 01/04/2022 [id number] pulmonary function test* - 56yo F with [...] [email or web address] Not available 01/04/2022 13:34:43 Counseling done Contemplating quitting Patient not ready to quit connected with Glio [email or web address] Not available 01/04/2022 13:34:01 02/02/2022 [id number] deciding about using medicines to quit smoking [email or web address] Not available 02/02/2022 08:32:24 Quitting Tobacco : Care Instructions [email or web address] Not available 02/02/2022 08:32:24 (CHENTE) ankle brachial index* - bilateral lower leg pain JOSE R Not available 02/13/2022 09:53:57 well visit, wo n 50 to 65: care instructions [email or web address] Not available 02/02/2022 08:32:25 After a discussion of treatment options, which included consideration of best practices, patient preferences, and the patient s individual lifestyle and treatment goals, as well as consideration and attempted mitigation of any barriers to meeting the patient s goals, the following treatment plan and [...] [email or web address] Not available 02/02/2022 09:12:30 Counseling done Contemplating quitting Patient not ready to quit Goal for follow up visit adding exercise stress management [email or web address] Not available 02/02/2022 09:12:45 02/09/2022 [id number] deciding about using medicines to quit smoking [...] [email or web address] Not available 02/09/2022 09:48:58 Counseling done Contemplating quitting prescription for stop smoking medication given Goal for follow up visit stress management regular meals improving sleep My Health To Do List [email or web address] Not available 02/09/2022 09:49:40 03/30/2022 [id number] -We discussed that your breathing sounds a [...] medicines [email or web address] Not available 03/30/2022 16:30:39 05/22/2022 [id number] A discussion regarding the use of Paxlovid [...] for 5 days, with or without food. eGFR 30-60: 150mg nirmatrelvir with 100mg ritonavir. [...] with any concerning symptoms 2. Liver problems notify your provider if you experience loss [...] consists of 2 medicines: nirmatrelvir and ritonavir. Take 2 pink tablets of nirmatrelvir with 1 white tablet of ritonavir by mouth 2 times each day (in the morning and in the evening) for 5 days. For each dose, take all 3 tablets at the same time. If you have kidney disease, talk to your healthcare provider. You may need a different dose. Swallow the tablets whole. Do not chew, break, or crush the tablets. Take PAXLOVID with or without food. Do not stop taking PAXLOVID without talking to your healthcare provider, even if you feel better. If you miss a dose of PAXLOVID [...] LastModifiedTime 02/14/20 22 02/13/2022 CBC WBC 8.87 K/ L 3.98-1 0.04 Not Available [address], [place], [address], 02/13/2022 10:34:29 02/14/20 22 02/13/2022 CBC RBC 3.95 M/ L 3.93-5 .22 Not Available [address], [address], 02/13/2022 10:34:29 02/14/20 22 02/13/2022 CBC HGB 12.8 g/dL 11.2-1 5.7 Not Available [address], [address], 02/13/2022 10:34:29 02/14/20 22 02/13/2022 CBC HCT 40.0 % 34.1-4 4.9 Not Available [address], [address], 02/13/2022 10:34:29 02/14/20 22 02/13/2022 CBC MCV 101.3 fL 79.4-9 4.8 high Not Available [address], [address], 02/13/2022 10:34:29 02/14/20 22 02/13/2022 CBC MCH 32.4 pg 25.6-3 2.2 high Not Available [address], [address], 02/13/2022 10:34:29 02/14/20 22 02/13/2022 CBC MCHC 32.0 g/dL 32.2-3 5.5 low Not Available [address], [address], 02/13/2022 10:34:29 02/14/20 22 02/13/2022 CBC plt 233 K/ L 182-36 9 Not Available [address], [address], 02/13/2022 10:34:29 02/14/20 22 02/13/2022 CBC MPV 9.8 fL 9.4-12 .3 Not Available [address], [address], 02/13/2022 10:34:29 02/14/20 22 02/13/2022 CBC neut% 86.0 % 34.0-7 1.1 high Not Available [address], [address], 02/13/2022 10:34:29 02/14/20 22 02/13/2022 CBC neut# 7.63 1.56-6 .13 high Not Available [address], [address], 02/13/2022 10:34:29 02/14/20 22 02/13/2022 CBC lymph % 11.3 % 19.3-5 1.7 low Not Available [address], [address], 02/13/2022 10:34:29 02/14/20 22 02/13/2022 CBC lymph # 1.00 K/ L 1.18-3 .74 low Not Available [address], [address], 02/13/2022 10:34:29 02/14/20 22 02/13/2022 CBC mono% 1.9 % 4.7-12 .5 low Not Available [address], [address], 02/13/2022 10:34:29 02/14/20 22 02/13/2022 CBC mono# 0.17 0.24-0 .56 low Not Available [address], [address], 02/13/2022 10:34:29 02/14/20 22 02/13/2022 CBC eo% 0.0 % 0.7-5. 8 low Not Available [address], [address], 02/13/2022 10:34:29 02/14/20 22 02/13/2022 CBC eo# 0.00 0.04-0 .36 low Not Available [address], 24[address], 02/13/2022 10:34:29 02/14/20 22 02/13/2022 CBC baso% 0.3 % 0.1-1. 2 Not Available [address], [address], 02/13/2022 10:34:29 02/14/20 22 02/13/2022 CBC baso# 0.03 0.00-0 .08 Not Available [address], [address], 02/13/2022 10:34:29 02/14/20 22 02/13/2022 CBC RDW-CV 13.1 % 11.7-1 4.4 Not Available [address], [address], 02/13/2022 10:34:29 02/14/20 22 02/13/2022 CBC Ig% 0.500 % 0.000- 1.500 Ig % >0.5 Indic ates possi ble Left Shift Not Available [address], [address], 02/13/2022 10:34:29 02/14/20 22 02/13/2022 CBC Ig# 0.040 0.000- 0.093 Not Available [address], [address], 02/13/2022 10:34:29 02/14/20 22 02/13/2022 CBC NRBC% 0.0 % 0.0-0. 2 Not Available [address], [address], 02/13/2022 10:34:29 02/14/20 22 02/13/2022 CBC NRBC# 0.000 0.000- 0.012 Not Available [address], [address], 02/13/2022 10:34:29 02/14/20 22 02/13/2022 HGB A1C [...] furth er confi rmati on Not Available [address], [address], 02/13/2022 11:35:38 02/14/20 22 02/13/2022 HGB A1C estimated average glucose 119.8 mg/dL Not Available [address], [address], 02/13/2022 11:35:38 02/14/20 22 02/13/2022 ESR sed rate 9.0 0.0-15 .0 Not Available [address], [address], 02/13/2022 13:05:09 02/14/20 22 02/13/2022 TSH TSH 0.89 uIU/m L 0.50-6 .00 The Ameri can Colle ge of Endoc rinol ogy and Ameri can Thyro id Assoc iatio n recom mend goal TSH value s betwe en 0.4-4 .0 mIU/m L. Not Available [address], [address], 02/13/2022 14:13:30 02/14/20 22 02/13/2022 GUIDO TIN ferritin 37 NG/mL 15-200 Not Available [address], [address], 02/13/2022 14:13:30 02/14/20 22 02/14/2022 COMP. METAB OLIC PANEL glucose 106 mg/dL 70-100 high Not Available [address], [address], 02/14/2022 11:31:04 02/14/20 22 02/14/2022 COMP. METAB OLIC PANEL BUN 12 mg/dL 7-18 Not Available [address], [address], 02/14/2022 11:31:04 02/14/20 22 02/14/2022 COMP. METAB OLIC PANEL creatinine 0.8 mg/dL 0.8-1. 3 Not Available [address], [address], 02/14/2022 11:31:04 02/14/20 22 02/14/2022 COMP. METAB OLIC PANEL B/C 15.0 ratio Not Available [address], [address], 02/14/2022 11:31:04 02/14/20 22 02/14/2022 COMP. METAB [...] be used in pregn bernie. Not Available [address], [address], 02/14/2022 11:31:04 02/14/20 22 02/14/2022 COMP. METAB OLIC PANEL sodium 144 mmol/ L 136-14 5 Not Available [address], [address], 02/14/2022 11:31:04 02/14/20 22 02/14/2022 COMP. METAB OLIC PANEL potassium 4.0 mmol/ L 3.5-5. 1 Not Available [address], [address], 02/14/2022 11:31:04 02/14/20 22 02/14/2022 COMP. METAB OLIC PANEL chloride 105 mmol/ L 96-107 Not Available [address], [address], 02/14/2022 11:31:04 02/14/20 22 02/14/2022 COMP. METAB OLIC PANEL anion gap 8.5 5.0-15 .0 Not Available [address], [address], 02/14/2022 11:31:04 02/14/20 22 02/14/2022 COMP. METAB OLIC PANEL CO2 31 mmol/ L 21-32 Not Available [address], [address], 02/14/2022 11:31:04 02/14/20 22 02/14/2022 COMP. METAB OLIC PANEL calcium 9.4 mg/dL 8.5-10 .3 Not Available [address], [address], 02/14/2022 11:31:04 02/14/20 22 02/14/2022 COMP. METAB OLIC PANEL total protein 6.5 g/dL 6.4-8. 2 Not Available [address], [address], 02/14/2022 11:31:04 02/14/20 22 02/14/2022 COMP. METAB OLIC PANEL albumin 3.7 g/dL 3.4-5. 0 Not Available [address], [address], 02/14/2022 11:31:04 02/14/20 22 02/14/2022 COMP. METAB OLIC PANEL globulin 2.8 g/dL Not Available [address], [address], 02/14/2022 11:31:04 02/14/20 22 02/14/2022 COMP. METAB OLIC PANEL A/G 1.3 ratio 0.8-2. 0 Not Available [address], [address], 02/14/2022 11:31:04 02/14/20 22 02/14/2022 COMP. METAB OLIC PANEL total bilirubin 0.40 mg/dL 0.00-1 .00 Not Available [address], [address], 02/14/2022 11:31:04 02/14/20 22 02/14/2022 COMP. METAB OLIC PANEL AST 10 U/L 0-37 Not Available [address], [address], 02/14/2022 11:31:04 02/14/20 22 02/14/2022 COMP. METAB OLIC PANEL ALT 14 U/L 6-63 Not Available [address], [address], 02/14/2022 11:31:04 02/14/20 22 02/14/2022 COMP. METAB OLIC PANEL alk. phos. 95 U/L 50-136 Not Available [address], [address], 02/14/2022 11:31:04 02/14/20 22 02/14/2022 LIPID PANEL cholesterol 209 mg/dL <200 mg/dl Gretel able 200-2 39 mg/dl Borde rline High >240 mg/dl High Not Available [address], [address], 02/14/2022 11:31:05 02/14/20 22 02/14/2022 LIPID PANEL triglyceride s 111 mg/dL <150 mg/dL Ruthy l 150-1 99 mg/dL Borde rline High 200-4 99 mg/dL High >500 mg/dL Very High Not Available [address], [address], 02/14/2022 11:31:05 02/14/20 22 02/14/2022 LIPID PANEL direct HDL 49 mg/dL <40 mg/dl - Major Risk for CHD >60 mg/dl - Negat rolan Risk for CHD Not Available [address], [address], 02/14/2022 11:31:05 02/14/20 22 02/14/2022 DIREC T LDL direct LDL 133 mg/dL RISK CATEG ORY LDL GOAL _ CHD or CHD Risk Equiv alent s <100 mg/dl (10-y ear risk >20%) 2+ Risk Facto rs <130 mg/dl (10-y ear risk <= 20%) 0-1 Risk Facto r <160 mg/dl Almo st all peopl e with 0-1 risk facto r have a 10 year risk <10%, thus 10 year risk asses ment in peopl e with 0-1 risk facto r is not necana lilia tommy. Not Available [address], [address], 02/14/2022 11:31:06 02/14/20 22 02/14/2022 IRON PANEL iron 104 ug/dL 35-150 Not Available [address], [address], 02/14/2022 11:31:07 02/14/20 22 02/14/2022 IRON PANEL T.I.B.C. 255 ug/dL 250-45 0 Not Available [address], [address], 02/14/2022 11:31:07 02/14/20 22 02/14/2022 IRON PANEL % saturation 40.8 % Not Available [address], [address], 02/14/2022 11:31:07 02/14/20 22 02/14/2022 MAGNE SIUM magnesium 1.7 mg/dL 1.8-2. 4 low Not Available [address], [address], 02/14/2022 11:31:08 02/14/20 22 02/14/2022 CPK CPK 41.0 U/L 21.0-2 15.0 Not Available [address], [address], 02/14/2022 11:31:09 02/14/20 22 02/14/2022 LDL - CALCU LATED LDL - calculated 137.8 RISK CATEG ORY LDL GOAL _ CHD or CHD Risk Equiv alent s <100 mg/dl (10-y ear risk >20%) 2+ Risk Facto rs <130 mg/dl (10-y ear risk <= 20%) 0-1 Risk Facto r <160 mg/dl [facility] all peopl e with 0-1 risk facto r have a 10 year risk <10%, thus 10 year risk asses ment in peopl e with 0-1 risk facto r is not sanjana sanders. Not Available [address], [address], 02/14/2022 11:31:10 02/14/20 22 02/14/2022 C-MIK CTIVE PROTE IN-QU ANTIT ATIVE C-reactive protein -quant <2.0 mg/L 0.0-9. 0 < Not Available [address], [address], 02/14/2022 15:44:40 02/14/20 22 02/14/2022 TICK BORNE DISEA SE, ACUTE MOLEC ULAR PANEL anaplasma phagocytophi lum DNA, ql real time PCR NOT DETECT ED not detect ed normal This test was devel oped and its ivania tical perfo rmanc e misti cteri stics have been deter mined by [facility]. It has not been clear ed or appro alexandre by the FDA. This assay has been valid ated pursu ant to the CLIA regul ation s and is used for clini susana purpo ses. Not Available [facility] [address], [address], 02/14/2022 22:43:25 02/14/20 22 02/14/2022 TICK BORNE DISEA SE, ACUTE MOLEC ULAR PANEL babesia microti DNA, real time PCR NOT DETECT ED not detect ed normal This test was devel oped and its ivania tical perfo rmanc e misti cteri stics have been deter mined by [facility]. It has not been clear ed or appro alexandre by the FDA. This assay has been valid ated pursu ant to the CLIA regul ation s and is used for clini susana purpo ses. Not Available [facility] [address], [address], 02/14/2022 22:43:25 02/14/20 22 02/14/2022 TICK BORNE [...] cteri stics have been deter mined by [facility]. It has not been clear ed or appro alexandre by the FDA. This assay has been valid ated pursu ant to the CLIA regul ation s and is used for clini susana purpo ses. Not Available [facility] [address], [address], 02/14/2022 22:43:25 02/14/20 22 02/14/2022 TICK BORNE DISEA SE, ACUTE MOLEC ULAR PANEL ehrlichia chaffeensis DNA real time PCR NOT DETECT ED not detect ed normal This test was devel oped and its ivania tical perfo rmanc e misti cteri stics have been deter mined by [facility]. It has not been clear ed or appro alexandre by the FDA. This assay has been valid ated pursu ant to the CLIA regul ation s and is used for clini susana purpo ses. Not Available [facility] [address], [address], 02/14/2022 22:43:25 02/14/20 22 02/14/2022 TICK BORNE DISEA SE, ACUTE MOLEC ULAR PANEL borrelia species DNA, ql real time PCR NOT DETECT ED not detect ed normal This test was devel oped and its ivania tical perfo rmanc e misti cteri stics have been deter mined by [facility]. It has not been clear ed or appro alexandre by the FDA. This assay has been valid ated pursu ant to the CLIA regul ation s and is used for clini susana purpo ses. For addit ional infor miah chung e refer to https ://ed ucati on.qu destineedi [employer]. [employer] Cluster/f aq/fa q224 (This link is being provi ded for infor fidel brooks/ educa brianna l purpo ses only. ) Not Available [facility] [address], [place], [address], 02/14/2022 22:43:25 02/14/2002/14/2022 TICK BORNE DISEA SE, ACUTE MOLEC ULAR [...] ng may be indic ated. Not Available [facility] [address], [place], [address], 02/14/2022 22:43:25 02/14/20 22 02/16/2022 FOLAT E folate 6 NG/mL 3-16 Not Available [address], [address], 02/16/2022 12:08:40 02/14/20 22 02/16/2022 VITAM IN B12 vitamin B12 286 pg/mL 230-10 50 Not Available [address], [address], 02/16/2022 12:10:40 03/30/19 23 03/30/2022 POC FLU flu A POC NEGATI VE Not Available [facility] [address] [place] [address], [address], 03/30/2022 16:21:31 03/30/19 23 03/30/2022 POC FLU flu B POC NEGATI VE Not Available [facility] [address] [place] [address], [address], 03/30/2022 16:21:31 03/30/19 23 03/31/2022 SARS- COV-2 RNA (COVI D-19) , QUALI TATIV E NAAT sarscov2 NEGATI VE negati ve normal This test has been autho rized by the FDA under an Emerg ency Use Autho rizat ion(E UA) for you by autho rized labs. Not Available [address], [address], 03/31/2022 14:50:22 02/14/20 22 (CHENTE) ankle brach ial index * No observ ation record ed. [place] [address], [place], [address], 02/28/2022 07:49:10 06/27/19 23 06/26/2022 MAMMO , [...] Readin g Physic jamar: Maribeth Albrecht ms [facility] ([facility]) [address], [place], [address], 06/26/2022 22:10:47 09/21/19 23 09/20/2022 MAMMO , [...] r with a few areas of internal control analyst al echoge nicity . CONCLU LEOLA Right [...] Tanya haynes Physic jamar: Maribeth Albrecht ms [facility] ([facility]) [address], [place], [address], 09/20/2022 15:40:26 09/21/19 23 09/20/2022 US, breas [...] r with a few areas of internal control analyst al echoge nicity . CONCLU LEOLA Right [...] Readin g Physic jamar: Maribeth Albrecht ms [facility] ([facility]) [address], [place], [address], 09/20/2022 15:40:26 10/06/19 23 10/05/2022 MAMMO , diagn ostic , tomos ynthe sis, unila teral No observ ation record ed. [facility] [address] [place], [address], 10/05/2022 12:52:24 10/06/19 23 10/05/2022 US, connie nce No observ ation record ed. [facility] [address] [place], [address], 10/05/2022 12:45:59 10/12/19 23 10/10/2022 biops y, breas t, w/ ultra sound connie nce (PROC ) No observ ation record ed. [facility] Orders [address], [place], [address], 10/27/2022 13:39:21 Result Notes Documentation Provider Name and Address Organization Details Recorded Time Mammo, Screening, Tomosynthesis, Bilateral : CLINICAL HISTORY: Screening. TECHNIQUE: 3D mammography (tomosynthesis) and 2D mammography (C-view) images are generated. Images reviewed with a CAD system. COMPARISON: None. Baseline. FINDINGS: The breast parenchyma is composed of scattered areas of fibroglandular density. Right breast: There is a 2 cm asymmetry in the upper outer right breast, 9 cm from the nipple. There is additional adjacent dense tissue. This should be evaluated with right mediolateral, compression MLO, and compression CC views. Targeted ultrasound should be considered based on those images. There are no suspicious microcalcifications. The breast architecture is unremarkable. Left breast: There are no dominant masses. There are no suspicious microcalcifications. The breast architecture is unremarkable. IMPRESSION: Incomplete imaging workup. The radiology department will contact the patient to arrange for additional imaging. Breast density: B. There are scattered areas of fibroglandular density. BIRADS: 0, INCOMPLETE: NEED ADDITIONAL IMAGING EVALUATION. Reading Physician: Dariusz Venegas, KAT [address] [place] [address], [id number], [facility] 06/26/2022 22:10:47 Mammo, Diagnostic, Tomosynthesis, Unilateral : MAMMO, DIAG, NAOMI, UNI, RIGHT, US, BREAST, RIGHT: 09/20/2022 BI-RADS: 4 CLINICAL: 57-year old Female for Right Diagnostic Mammogram and Right Diagnostic Breast U/S. The patient presents for additional evaluation of an inconclusive screening mammogram - asymmetry. PRIOR EXAMS: Reviewed previous images from 2022. MAMMOGRAPHY TECHNIQUE: 3 images of the right breast were obtained including 90 degree lateral, spot compression CC and MLO views including tomosynthesis with synthesized views. ULTRASOUND TECHNIQUE: Real-time ultrasound exam was performed focused to area of clinical and/or imaging concern. DENSITY Right: b. There are scattered areas of fibroglandular density. MAMMOGRAPHY FINDINGS Right (finding-1): Upper Outer Quadrant, 9 cm from nipple, Middle depth: There is a mass present. ULTRASOUND FINDINGS Right (finding-1): Upper Outer at 10:00, 7 cm from nipple, measuring 1.1 x 0.7 x 1.2 cm: Correlating with findings on mammogram there is a mass present. The mass is heterogeneous, hypoechoic and lobular with a few areas of internal echogenicity. CONCLUSION Right * Suspicious findings with likelihood of malignancy. RECOMMENDATIONS Right: Upper Outer at 10:00, 7 cm from nipple * Ultrasound-guided biopsy for further evaluation. COMMENTS: Results and recommendations discussed with the patient at the time of the exam. OVERALL ASSESSMENT CATEGORY BI-RADS-4: Suspicious Findings. ELECTRONICALLY SIGNED: Dariusz Castorena M.D. on 09/20/2022 at 03:30:13 PM Reading Physician: Dariusz Venegas NP [address] [place] [address], [phone], [facility] 09/20/2022 15:40:26 Problems Name Problem SNOMED Code Status Onset Date Resolution Date Notes Provider Name and Address Organization Details Recorded Time Common cold 45282908 Completed 200201/22/2013 Not Available [facility] 3 02:00:27 Finding by method 172875050 Completed 200401/22/2013 Not Available [facility] 3 02:01:55 Abdominal pain 78549546 Completed 200401/22/2013 Not Available [facility] 3 02:01:21 Cough 44126840 Completed 200401/22/2013 Not Available [facility] 3 02:01:08 Pain of joint 01567467 Active 2004 Not Available [facility] 3 03:04:37 Fever 773232227 Completed 200401/22/2013 Not Available [facility] 3 02:02:41 Malaise and fatigue 763724439 Completed 200401/22/2013 Not Available [facility] 3 02:00:17 Low back pain 956359379 Active 2005 Not Available [facility] 3 03:04:37 Acute suppurati ve otitis media without spontaneo us rupture of ear drum 45514234 Completed 200501/22/2013 Not Available [facility] 3 02:02:40 Acute bronchiti s 32393643 Completed 200601/22/2013 Not Available [facility] 3 02:01:36 Allergic rhinitis 19377722 Active 2006 Not Available [facility] 3 03:04:37 Contact dermatiti s due to plants, except food Completed 200601/22/2013 Not Available [facility] 3 02:02:49 Tobacco user 330432307 Active 2018 Geneva Venegas NP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 not improving in a few days Candidal intertrigo 2661 08236 B37.2 under breasts. will try topical nystatin as prescribed . keep area dry. air out as possible Essential hypertension 97976963 I10 did not get to discuss today. Has improved since her last visit though still high. Will discuss further at her follow up in 3 weeks. Goal BP <130/80 Vaginitis 27448241 N76.0 Sx c/w yeast. pt defers exam today. will try OTC Monistat 7 and follow up if not resolving [id number] Davian Will MD , [facility], [address] [place] [address] 02/09/2022 08:24:26 02/09/2022 09:09:36 Moderate persistent asthma 097060459 J45.40 (symptoms or bronchodil ator use daily) PERSISTENT severeBase d on history, physical assessment , and peak flow, the patient's asthma is not in control. See orders for adjustment in [...] recently ordered. waiting on scheduling Tobacco user 214657912 Z 72.0 1ppdConnec mallory with [employer] though she has not yet engaged. christian haynes- interested in Wellbutrin . Will start and follow up in 1 months. discussed med use Screening mammography 24 994400 Z12.31 scheduled 06/15/22 Screening for malignant neoplasm of colon 583188641 Z12.11 declines, will do stool kit Active or passive immunization 682477340 Z23 TD: remindedsh ingles- remindedfl u-recommen dedcovid booster- recommende d Smoker 64724386 F17.210 discussed LDCT again. She is open to this. Will order and she will schedule Fatigue 59839425 R53.83 likely multifacto rial r/t pain, mood, shift work, etc. Will get labs and follow up in 1 month. May consider sleep study [id number] Davian Will MD , [facility], [address] [place] [address] 02/02/2022 07:38:46 02/02/2022 08:35:37 Adult health examination 262489801 Z00.00 - HCP: completed today- [place]: discussed, declines. will do ifobt- Mamm: discussed, will schedule- Pap: total hysterecto my, no cervix per pt- Hepatitis C screening negative 2019- flu and covid vaccines utd, will get records Counseling 731745656 Z71 .9 including cardiovasc ular risk reduction counseling Depression screening 171 115499 Z13.31 depression screening tool administer ed, entered into emr, scored and discussed, time greater than 7.5 minutes Screening for alcohol abuse 699598950 Z13.39 negative Tobacco user 387361918 Z 72.0 not ready for change at this time. discussed Rx options, declines. Set up with [employer] Screening mammography 24 199675 Z12.31 Screening for malignant neoplasm of colon 923166934 Z12.11 Active or passive immunization 735890461 Z23 TD: Pt will discuss with [facility]: pt states she had, will check MIIScovid booster: Pt states she had, will check MIISShingl es: Pt states she can npt afford this Asthma 123963148 J45.90 9 Not well controlled - increase symbicort to 2 puffs BID- albuterol as needed- discussed cutting down on smoking- likely COPD component. will get PFTs. waiting on scheduling - follow up in 3 weeks. call sooner if your breathing worsens or is not improving in a few days Pain in lower limb 20489 006 M79.606 persistent bilateral lower leg pain. will check ABIs Morbid obesity 069125480 E66.01 she reports recent elevated bs at work. discussed impacts on health and lifestyle changes. will get fasting labs Muscle pain 44127140 M79 .10 persistent muscle pain. will get labs and follow up in 3 weeks Fatigue 11658644 R53.83 likely multifacto rial r/t pain, mood, work, etc. Will get labs and follow up in 3 weeks. May consider sleep study Mass of oral cavity 3008 47173 R22.0 small lump in left lower lip. waxes and wanes. possible salivary gland. She will follow up with her dentist Depressive disorder 8498 9007 F32.0 currently r/t pain, fartigue, stress. Will work on these and follow up. may consider medication in the future [id number] Lesly DAY, [facility], [address] [place] [address] 03/30/2022 15:57:19 04/03/2022 15:57:21 Cough 72221262 R05.9 Tobacco user 982970149 Z 72.0 You are doing a good job cutting down! Keep up the good work. Exacerbati on of intermittent asthma 120360396 J45.21 Concern for pt having worsening asthma and possible component of COPD so would treat with both prednisone as well as azithromyc in. Further discussion as below. [id number] MD BARB Herrera, [facility], [address] [place] [address] 05/22/2022 15:48:50 05/23/2022 10:19:32 Tobacco user 590802282 Z72.0 We discussed your smoking today for more than 3 minutes. Cigarette use is the leading cause of preventabl e disease, disability , and in the [place]. We talked about tools and medication s available to help you in smoking cessation. We discussed utilizing our smoking cessation motor coach bus driver and online resources. Your personal goal: to quit! Asthma 533851506 J45.90 9 likely COPD/pendi ng PFTsrestar t inhalers - has been out, reviewed nebulizer treatments as neededcall if wheezing persists or with worsening SOBto ER with severe SOB/unable to complete sentences COVID-19 282546669 U07.1 symptom onset last night with positive [...] Member ID Ramos Member ID Guarantor Name 08/23/2004 1 [employer] [facility] Heraclio Saini [id number] Lauryn Saini 08/11/2019 1 [facility] Lauryn Saini [id number] Lauryn Saini 08/11/2019 1 [facility] E[facility] (PPO) Lauryn Saini [id number] Lauryn Saini 08/11/2019 [employer] Lauryn Saini 02/21/2023 1 [employer] (EPO) [id number] Lauryn Saini [id number] Lauryn Saini 08/11/2019 1 [employer] (PP[employer]) [id number] Lauryn Saini [id number] Lauryn Saini Notes Date Note Type Note Provider Name and Address Organization Details Recorded Time 2 text/html ROS as noted in the HPI 56yo F presents to discuss asthma ASHTMA- [...] slimy discharge. no odor Geneva Venegas NP [address] [place] [address], [phone], [facility] 01/04/2022 13:34:47 2 text/html Physical Exam/FemaleReported by PatientHPIFor pha, patient reportspatient is here for a wellness visit. she describes her health status as fair. patient's health is worse than last year.. Risk Assessment and Lifestyle Change Counseling 50-64Reported by PatientRisk AssessmenFor coronary artery disease risk assessment, patient reportsfamily history of coronary artery diseasebut reportsno personal history of diabetes,no history of peripheral vascular disease, aaa, or carotid disease, andno personal history of coronary artery disease. For lung cancer risk assessment, patient reportshas used cigarettes. For breast cancer risk assessment, patient reportsno family history of breast cancerandno history of breast cancer or dcis. For colon cancer risk assessment, patient reportsno family history of colon polyps or cancer. For fracture risk assessment, patient reportsno unexplained fracture. For safety risk assessment, patient reportsno evidence of abuse/neglect.Diet CounselingFor diet, patient reportscounseled about appropriate portion size,counseled about eating a diet low in trans and saturated fats and high in fiber, fruits and vegetables,counseled about appropriate calcium intake and good dietary sources of calcium.,counseled about the importance of maintaining a positive calcium balance and taking 1000 iu vitamin d daily.,counseled about decreasing carbohydrates,counseled about decreasing salt in diet, anddiscussed the value of a mediterranean diet , and eating more fruits and vegetables.Physical Activity CounselingForexercise counseling:, patient reportsdiscussed the importance of daily physical activityanddiscussed the importance of weight bearing exercise.Safety Counseling:For safety, patient reportscounseled about protecting skin from the sun and lowering the risk of skin cancer,counseled about avoiding excessive and unsafe alcohol intake,counseled about safer sexual practice,counseled about use of helmets for high velocity activiities,counseled about home safety including use of smoke detectors, co detectors, keeping home water temperature less than 120, andcounseled about use of seat belts. 56yo F presents for [place] - HCP: completed today- [place]: discussed, declines. will do ifobt- Mamm: discussed, will schedule- Pap: total hysterectomy, no cervix per pt- Hepatitis C screening negative 2018 SMOKING- 1ppd, sometimes a little less- feels unable to quit- she has connected with [employer]- both parents were heavy smokers Asthma- Symbicort [...] and ceramics Geneva Venegas, KAT [address] [facility], [place], [address], [facility] 02/02/2022 09:13:56 2 text/html a/vmg-smoking [id number] by Patient VMG AsthmaReported by PatientROS as noted in the HPI 56yo F presents for follow up on [...] slimy discharge. no odor Geneva Venegas NP [address] [place] [address], [phone], [facility] 02/09/2022 09:50:25 3 text/html a/vmg-smoking [id number] by PatientHPIFor physiological dependence/health risk, patient reportscurrently smoking __ (2-3 cig/day trying to cut down). VMG URI Flu like SymptomsReported by PatientUpper Respiratory SymptomsFor associated symptoms, patient reportsfatigue and malaise,headache,significa nt muscle aches,congestion,cough productive of yellow-green, thick sputum,sore throat,abdominal pain, anddiarrheabut reportsno fever/chills,good oral intake,no sweats,no purulent nasal discharge,no sinus pressure,no wheezing,no shortness of breath,no ear pressure or fullness,no earache,no difficulty swallowing,no swollen glands,no chest pain with deep breath,no vomiting, andno rash. For duration, patient reportsstarted 10 days ago. For context, patient reportssmoker. Pt wakes up and works 11PM-7AM. Pt has been coughing at work and coughing 'everywhere.' Pt's residents had flu and were treated, then a week alter she got sick. Lesly Leija [address] [place], [address], [facility] 03/30/2022 17:12:32 3 text/html a/vmg-smoking [id number] by Patient VMG URI Flu like SymptomsReported by PatientUpper Respiratory SymptomsFor associated symptoms, patient reportsfatigue and malaise,headache,significa nt muscle aches,purulent nasal discharge,cough productive of yellow-green, thick sputum, andshortness of breath. For duration, patient reportsduration: less than 1 week. For severity, patient reportsmoderate.positive for covid this morning, 3 times last week negativesymptoms started last night with NAVA, worse this morning, nose running constantlyhx asthma and likely COPD/pending PFTsout of all inhalers - needs refills, feels like her breathing is okay right now overall, does not feel SOBhas neb at home - unsure if she has the meds for itsmoking - 1 cig this morning, usually 1ppdROS as noted in the HPI 05/22/22covid treatment discussion Time for intake: 4 minutes. NATHAN Martinez [address] [place], [address], [facility] 05/22/2022 16:05:16 OBGyn Episode No OBEpisode recorded.
--- OUTSIDE RECORDS SUMMARY | 2024-09-25 13:25 | XMS_ITS | Clinical Summary ---
Author Organization [facility] Address [address] [place] [address] Phone Care Team Providers Care Director Of Loss Prevention Name Role Phone Shayna Shannon NP Primary Care Provider [phone] Allergies Active Allergy Reactions Criticality Noted Date Comments Other 04/15/2017 Bees Penicillins 04/15/2017 Medications nicotine polacrilex (NICORETTE) [address] 1 each (2 mg total) inside cheek every 2 (two) hours as needed for smoking cessation. 04/17/2017 Active naproxen (NAPROSYN) 375 MG tablet Take 1 tablet (375 mg total) by mouth 2 (two) times a day with meals. 20 tablet 09/26/2023 Active Active Problems No known active problems Resolved Problems Problem Noted Date Diagnosed Date Resolved Date Small bowel obstruction 04/15/201704/05 Social History Tobacco Use Types Packs/Day Years Used Date Smoking Tobacco: Every Day Cigarettes 0.3 37 Smokeless Tobacco: Never Tobacco Cessation:Ready to Q uit: No; Counseling Given: Yes Alcohol Use Standard Drinks/Week Comments No 0 (1 standard drink = 0.6 oz pur e alcohol) Education Answer Date Recorded Are you interested in more education? Not on sally e 06/30/2022 Are you concerned about learning? Not on file 06/30/2022 No 06/30/2022 No 06/30/2022 Digital Access Answer Date Recorded No 07/29/2022 No 07/29/2022 No 07/29/2022 Reliable internet access at home? Not on file 07/29/2022 Device with a working camera? Not on file Intimate Partner Violence Answer Date R ecorded Are you denied basic needs s uch as food, clothing, or medical care? No 09/26/2023 In the past 12 months have y ou been in a relationship with a person who hurts, threatens, or tries to control you? No 09/26/2023 Are you denied basic needs s uch as food, clothing, or medical care? No 09/26/2023 In the past 12 months have y ou been in a relationship with a person who hurts, threatens, or tries to control you? No 09/26/2023 Comments No Sex and Gender Information Value Date Recorded Sex Assigned at Female 04/15/2017 1:09 PM EST Legal Sex Female 9:43 PM EDT Gender Identity Female 04/15/2017 1:09 PM EST Sexual Orientation Straight 04/22/2018 4: 52 PM EST Last Filed Vital Signs Vital Sign Reading Time Taken Comments Blood Pressure 128/82 09/26/2023 5:01 AM EDT Pulse 63 09/26/2023 5:01 AM EDT Temperature 36.1 C (97 F) 09/26/2023 5:01 AM EDT Respiratory Rate 15 09/26/2023 5:01 AM EDT Oxygen Saturation 95% 09/26/2023 5:02 AM EDT Inhaled Oxygen Concentration - - Weight 140.2 kg (309 lb) 04/22/2018 4:50 PM EST Height 158.8 cm (5' 2.5 ) 04/22/2018 4:50 PM EST Body Mass Index 55.62 04/22/2018 4:50 PM EST Plan of Treatment Health Maintenance Due Date Last Done Comments LIPID PANEL 1963 DEPRESSION SCREENING 1975 SMOKING Hx and SMOKELESS TOBACCO SCREENING 07/17/1976 HEPATITIS C SCREENING 07/17/1981 HIV ONE-TIME SCREENING (18-6 5 YEARS) 07/17/1981 PAP SMEAR 07/17/1984 MAMMOGRAM 2003 COLOGUARD 07/17/2008 COLONOSCOPY 07/17/2008 COLORECTAL CANCER SCREENING 07/17/2008 FIT TEST 07/17/2008 FOBT 07/17/2008 SIGMOIDOSCOPY 07/17/2008 VIRTUAL COLONOSCOPY 07/17/2008 ZOSTER VACCINES (1 of 2) 07/17/2013 PNEUMOCOCCAL VACCINES (50+ years) (2 of 2 - PCV) 06/01/2016 06/02/2015 Adult Td,Tdap Booster 01/17/2022 01/18/2012 COVID-19 VACCINE (3 - 2023-2 5 season) 2023 04/02/2020, 03/12/2020 RSV VACCINE (1 - 1-dose 75+ series) 07/17/2038 HEPATITIS A VACCINES Aged Out No long er eligible based on patient's age to complete this topic HIB VACCINES Aged Out No longer eligi ble based on patient's age to complete this topic MENINGOCOCCAL VACCINES (ACWY) Aged Out No longer eligible based on patient's age to complete this topic MENINGOCOCCAL VACCINES (B) Aged Out N o longer eligible based on patient's age to complete this topic Medical Devices Not on file Insurance [facility] Address: [place] [address] [facility] [place] [address] [facility] Advance Directives For more information, please contact: [phone] (9AM - 5PM [facility], Sunday-Sunday) Documents on File Type Date Recorded Patient Body Care Manager Expl anation Healthcare Proxy 04/19/2017 2:31 PM PROXY * Full Code (Presumed) (Latest Code Status on File) Date Activated Date Inactivated Comments 04/15/2017 8:02 PM 04/17/2017 7:53 PM Care Teams Director Of Loss Prevention Relationship Specialty Start Date End Date Shayna Shannon NP [address] [place] [id number] PCP - General Nurse Practitioner 04/15/17 Additional Source Comments The information contained in this document represents components of the legal health record. It is not the complete legal health record.[facility]
== END 2024-09-25 13:24 | disposition home or self-care (01) ==
LOC: HO.PMC 13:13
PROVIDERS: PCP Nurse Practitioner Family; Visit Provider Anesthesiology
DX: M48.061 Spinal stenosis, lumbar region without neurogenic claudication (principal); M48.26 Kissing spine, lumbar region; M43.16 Spondylolisthesis, lumbar region; G89.4 Chronic pain syndrome; M46.1 Sacroiliitis, not elsewhere classified; M53.3 Sacrococcygeal disorders, not elsewhere classified
CPT/HCPCS: 99213

== ENCOUNTER 2024-11-10 12:46 | Outpatient (REF) | payer OTHER, SELFPAY ==
--- NOTE | ~2024-11-10 | XR_ITS ---
Exam: 4 view lumbar spine. TECHNIQUE: AP, and lateral: Flexion, neutral, and extension view x-rays of the lumbar spine. INDICATION: Low back pain COMPARISON: CT abdomen and pelvis December 08, 2023 and MRI of the same date FINDINGS: Changes related to a mesh repairing hernia is present in the anterior lower abdomen. There are 5 non-rib bearing lumbar segments. Vertebral body height is preserved. Bridging and nonbridging osteophytes with endplate osteophytes and sclerosis is noted in the lower thoracic spine. L4-L5: There is grade 2 anterolisthesis that measures between 18.6 and 21.3 mm, which is borderline for instability. There is facet sclerosis and osteophytes. There is sclerosis and degenerative cystic change of the spinous processes. L5-S1: There is an incomplete disc at this level. XR/XR lumbar spine 4V min IMPRESSION: L4-5 demonstrates grade 2 anterolisthesis with borderline instability. There is severe facet osteoarthritis. Additionally, there is evidence of chronic abutment of the spinous processes. Electronically signed by: Ralph Bragg MD 11/10/2024 02:06 PM EDT
== END 2024-11-10 12:47 | disposition home or self-care (01) ==
LOC: HO.HOSX 12:46
PROVIDERS: PCP Nurse Practitioner Family; Visit Provider Physician Assistant
DX: M48.00 Spinal stenosis, site unspecified (principal)
CPT/HCPCS: 72110

== ENCOUNTER 2024-11-10 12:46 | Outpatient (AMB) | payer OTHER, SELFPAY ==
[2024-11-10 13:00] VITALS: BMI 42.5
--- NOTE | 2024-11-10 13:00 | A.SPINEOV_ITS ---
Vital Signs 11/10/24 13:00 Height 5 ft 3 in Weight 240 lb BMI 42.5 Intake Visit Reasons: LBP Intake Note: Ms. Saini is here today c/o low back pain that radiate down the back of her legs. Senior Quality Assurance Specialist Required: No Allergies Penicillins (PENICILLINS) Allergy (Unknown, Verified 11/10/24 13:01) HIVES Physical Exam Vital Signs: BMI result Body Mass Index 42.5 Assessment & Plan Assessment & Plan (1) Spinal stenosis: Code(s): M48.00 - Spinal stenosis, site unspecified Category: Medical Plan Lauryn is a pleasant 59-year-old female who comes in today as a self-referral for evaluation of low back pain and shooting pains into her bilateral lower extremities. She reports this has been ongoing since about August of 2023. She states in August of 2023 she sustained a fall, and began experiencing this severe pain she now has. She does report a remote history of fracture in her back when she was around 3 or 4 years old from ice skating. When describing her pain she states it starts in her low back shoots into her bilateral posterior buttocks and travels down the posterior aspect of her bilateral legs terminating near the posterior ankle. She does report some burning/tingling associated with the pain. She denies any significant numbness of her lower extremities. She reports that her pain worsens with activity, and is somewhat better at rest and with flexing forward. Despite this, she reports her pain is a 10/10 all throughout the day. She has largely unable to identify whether her leg pain her back pain is worse, and states that they both occurred simultaneously. She is very concerned because over the course of the last 1 year her pain has begun to severely debilitated her. It takes her about a half hour to get up out of bed each morning, and she significantly struggles attempting to complete basic activities of daily living. 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 She has attempted cortisone injections with our colleagues in pain management, however feels they were not beneficial/helpful for relieving her pain. She was accompanied to this visit today by her chiropractor Mallorie, who states that they have extensively attempted to treat this with range of motion, stretching, exercise, and alignment techniques, all of which have not provided lasting relief of her pain. Her chiropractor endorses the patients likely need for surgical intervention. PMH: Asthma, seasonal allergies, hysterectomy in 2015, partial bowel resection secondary to Ileus in 2019. Social hx: The patient smokes 1/2 pack cigarettes per day. Denies any other substance use. Medications: Gabapentin, ibuprofen, fluticasone, Wellbutrin, albuterol. Allergies: PCN Physical exam: The patient is in obvious pain during our conversation today and during examination The patient has about 4/5 strength with bilateral iliopsoas testing. She also has about 4/5 strength with bilateral hand wedding designer. The rest of her strength is 5/5. She ambulates slightly hunched over and slowly, but does so without an antalgic or spastic gait. She is able to rise from a seated position by bracing herself on the chair in the exam room. She is able to get up onto the examination table slowly but without assistance. (-) bilateral straight leg raise, (-) Gunn's, (-) clonus. Imaging review: MRI of the lumbar spine completed here at [facility] shows disc degeneration at L5-S1 and posterior disc bulging causing severe central canal and bilateral foraminal stenosis at this level. There is a likely spondylolisthesis, however this would be better evaluated via x-ray imaging. 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 There is some reference to possible baastrup disease as well. Impression: Lauryn is a pleasant 59-year-old female who comes in today for evaluation of low back pain and shooting pains into her bilateral lower extremities which began after her fall in August of 2023. Unfortunately her symptoms have significantly progressed over the course of the last year, to the point where she is in nearly constant pain, and has significantly restricted her meaningful activities/activities of daily living as a result of this. Her clinical picture is most consistent with severe spinal stenosis and bilateral foraminal stenosis due to the compression seen at L5-S1. Typically, in the context of severe back pain and bilateral leg pain this is something that we would attempt to address via lumbar fusion. However given the radiologist read stating that she is fused at L5-S1, and the suspicion of Baastrup disease, I would like to have the patient obtain a CT scan of the lumbar spine. I will also be sending her for a set of flexion / extension X-rays to ensure that she does not have a mobile lithesis at L5-S1, which I have overall low suspicion of but s hould be ruled out prior to suggestion alternatives to lumbar fusion such as lumbar decompression. We did fairly extensively discuss what a smaller procedures such as lumbar decompression would in his heel if that ends up being the course that we choose to take after imaging is complete. We utilize the spine models in office to discuss this. Thank you for allowing us to care for your patient. The total time spent with this visit with this patient was 45 minutes reviewing history, physical exam, MRI imaging review, and implementation of treatment plan or further diagnostic testing Carlos Geiger MD,PhD [facility] Orders: Orders XR lumbar spine 4V min Today M54.50 - Low back pain, unspecified Coding Level of Care Code New Pt Level 4 (47014) Diagnoses Spinal stenosis M48.00
--- OUTSIDE RECORDS SUMMARY | 2024-11-10 14:54 | XMS_ITS | Encounter Summary ---
Author Organization [facility] Address [address] [facility] [address] [place] [address] Phone Care Team Providers Care Campaign Fundraiser Name Role Phone Shayna Shannon BELL CLERK Primary Care Provider [phone] Encounter Details Date Type Department Care Team (Late st Contact Info) Description 04/15/2017 Procedure Pass [facility], Ct Scan - [facility] [address] [place] [address] Social History Tobacco Use Types Packs/Day Years Used Date Smoking Tobacco: Every Day Cigarettes 0.3 37 Smokeless Tobacco: Never Alcohol Use Standard Drinks/Week Comments No 0 (1 standard drink = 0.6 oz pur e alcohol) Comments No Sex and Gender Information Value Date Recorded Sex Assigned at Female 04/15/2017 1:09 PM EST Legal Sex Female 9:43 PM EDT Gender Identity Female 04/15/2017 1:09 PM EST Sexual Orientation Straight 04/22/2018 4: 52 PM EST documented as of this encounter Plan of Treatment Not on file documented as of this encounter Visit Diagnoses Not on filedocumented in this encounter Additional Health Concerns Infection Onset Date Last Indicated Resolved Time CoV-Risk 08/06/2019 08/07/2019 08/20/2019 1:23 AM EDT documented as of this encounter Care Teams Campaign Fundraiser Relationship Specialty Start Date End Date Shayna Shannon NP [address] [place] [address] PCP - General Nurse Practitioner 04/15/17 documented as of this encounter Additional Source Comments The information contained in this document represents components of the legal health record. It is not the complete legal health record.[facility]
--- OUTSIDE RECORDS SUMMARY | 2024-11-10 14:54 | XMS_ITS | Encounter Summary ---
Author Organization [facility] Address [address] [facility] [address] [place] [address] Phone Care Team Providers Care Stars Specialist Name Role Phone Shayna Shannon NP Primary Care Provider [phone] Encounter Details Date Type Department Care Team (Late st Contact Info) Description 10/11/2018 Transcribe Orders Virtual Department [address] [place] [address] Michelle Nathan PA [address] [place] [address] [phone] [email or web address] (Primary Dx) Social History Tobacco Use Types Packs/Day Years [...] on file documented as of this encounter Results * XR CHEST PA AND LATERAL 2 VIEWS (10/11/2018 5:40 PM EDT) Anatomical Region Laterality Modality Chest Radiographic Jessie ging 10/11/2018 9:52 PM EDT Impressions 10/11/2018 9:53 PM EDT No acute cardiopulmonary process. POS - [id number] Narrative 10/11/2018 9:53 PM EDT EXAM: XR CHEST PA AND LATERAL 2 VIEWS COMPARISON: April 22, 2018 Indication: - WHEEZING [SIGN/SX] Wheezing FINDINGS: No confluent lung consolidations or lung masses. No pneumothorax or pleural effusion. No pulmonary vascular congestion. Cardiomediastinal silhouette is within normal limits. Osseous structures are grossly intact. Procedure Note Sue Troy MD - 10/11/2018 EXAM: XR CHEST PA AND LATERAL 2 VIEWS COMPARISON: April 22, 2018 Indication: - WHEEZING [SIGN/SX] Wheezing FINDINGS: No confluent lung consolidations or lung masses. No pneumothorax orpleural effusion. No pulmonary vascular congestion. Cardiomediastinalsilhouette is within normal limits. Osseous structures are grosslyintact. IMPRESSION: No acute cardiopulmonary process. POS - [id number] Michelle EVANS IMG XR CHEST F inal Result documented in this encounter Visit Diagnoses Diagnosis Wheezing- Primary Wheezing documented in this encounter Additional Health Concerns Infection Onset Date Last Indicated Resolved Time CoV-Risk 08/06/2019 08/07/2019 08/20/2019 1:23 AM EDT documented as of this encounter Care Teams Stars Specialist Relationship Specialty Start Date End Date Shayna Shannon NP [address] [place] [address] PCP - General Nurse Practitioner 04/15/17 documented as of this encounter Additional Source Comments The information contained in this document represents components of the legal health record. It is not the complete legal health record.[facility]
--- OUTSIDE RECORDS SUMMARY | 2024-11-10 14:54 | XMS_ITS | Encounter Summary ---
Author Organization [facility] [place] [facility] Address [address] [facility] [address] [place] [address] Phone Care Team Providers Care Perfume Compounder Name Role Phone Shayna Shannon PUBLIC ADDRESS TECHNICIAN Primary Care Provider [phone] Encounter Details Date Type Department Care Team (Latest Contact Info) Description 08/06/2019 Transcribe Orders Virtual Department [address] [place] [address] Suzy Rapp MD [address] [place] [address] [email or web address] SOB (shortness of breath) (Primary Dx); Sore throat; Muscle ache; Runny nose Social History Tobacco Use Types Packs/Day Years [...] documented as of this encounter Results * COVID-19 PCR Order (08/07/2019 9:12 AM EDT) Specimen Source NASOPHARYNGEAL SWAB (PUBLIC ADDRESS TECHNICIAN) [facility] COVID Testing Status Sent to [facility] Micro Lab [facility] Other 08/07/2019 9:12 AM EDT 08/07/2019 11:14 AM EDT us Suzy Rapp MD BODY FLUIDS AND STOOLS ORDER KELLEY Final Result [facility] [address] [place] [address] documented in this encounter Visit Diagnoses Diagnosis SOB (shortness of breath)- Primary Shortness of breath Sore throat Acute pharyngitis Muscle ache Unspecified myalgia and myositis Runny nose Other diseases of nasal cavity and sinuses documented in this encounter Additional Health Concerns Infection Onset Date Last Indicated Resolved Time CoV-Risk 08/06/2019 08/07/2019 08/20/2019 1:23 AM EDT documented as of this encounter Care Teams Perfume Compounder Relationship Specialty Start Date End Date Shayna Shannon NP [address] [place] [address] PCP - General Nurse Practitioner 04/15/17 documented as of this encounter Additional Source Comments The information contained in this document represents components of the legal health record. It is not the complete legal health record.[facility] [place] [facility]
--- OUTSIDE RECORDS SUMMARY | 2024-11-10 14:54 | XMS_ITS | Clinical Summary ---
Author Organization [facility] Address [address] [facility] [address] [place] [address] Phone Care Team Providers Care Washing Machine Loader And Puller Name Role Phone Shayna Shannon NP Primary Care Provider [phone] Allergies Active Allergy Reactions Criticality Noted Date [...] 06/01/2016 06/02/2015 Adult Td,Tdap Booster 01/17/2022 01/18/2012 INFLUENZA VACCINE (#1) 2024 11/11/2018 COVID-19 VACCINE (3 - 2024-2 6 season) 2024 04/02/2020, 03/12/2020 RSV VACCINE (1 - 1-dose [...] topic Medical Devices Not on file [place] [address] [place] [address] [facility] [place] [address] [place] [address] [facility] [place] [address] [place] [address] [facility] [employer] [facility] Advance Directives For more information, please contact: [phone] (9AM - 5PM [place]/[facility], Sunday-Sunday) Documents on File Type Date Recorded Patient Museum Informatics Specialist Expl anation Healthcare Proxy 04/19/2017 2:31 PM PROXY * Full Code (Presumed) (Latest Code Status on File) Date Activated Date Inactivated Comments 04/15/2017 8:02 PM 04/17/2017 7:53 PM Care Teams Washing Machine Loader And Puller Relationship Specialty Start Date End Date Shayna Shannon NP [address] [place] [id number] PCP - General Nurse Practitioner 04/15/17 Additional Source Comments The information contained in this document represents components of the legal health record. It is not the complete legal health record.[facility]
== END 2024-11-10 13:43 | disposition home or self-care (01) ==
LOC: HO.HNS 12:47
PROVIDERS: PCP Nurse Practitioner Family; Visit Provider Physician Assistant
DX: M48.00 Spinal stenosis, site unspecified (principal)
CPT/HCPCS: 99204

== ENCOUNTER → 2024-11-10 13:35 | Outpatient (BNV) | payer OTHER, SELFPAY | PROVIDERS: PCP Nurse Practitioner Family; Visit Provider Radiology Diagnostic Radiology | DX: M43.16 Spondylolisthesis, lumbar region (principal); M47.816 Spondylosis without myelopathy or radiculopathy, lumbar region | CPT/HCPCS: 72110 ==

== ENCOUNTER 2024-12-03 12:32 | Inpatient (IN) | payer OTHER, SELFPAY ==
[2024-12-03] VITALS (7 sets, daily range): BP systolic 93–152; BP diastolic 47–97; PULSE 77–103; RESP 12–34; TEMP 36.6–37.1; O2SAT 87–96; BMI 39.9; BMI 41.2
--- NOTE | ~2024-12-03 | CT_ITS ---
EXAMINATION: CT ANGIOGRAM CHEST CLINICAL INFORMATION: Dyspnea. COMPARISON: None available. TECHNIQUE: Multiple axial images were obtained through the chest after the administration of 65 mL of Omnipaque 350 intravenous contrast. Extensive vascular post-processing including two-dimensional and three-dimensional reformatted images were created and reviewed on an independent workstation. This CT examination was performed using dose optimization techniques as appropriate, variously including the following: *Automated exposure control *Adjustment of mA and/or kV according to patient size (this includes techniques or standardized protocols for targeted exams where dose is matched to indication/reason for exam; i.e. extremities or head) *Use of iterative reconstruction technique FINDINGS: VASCULAR: Study is diagnostic quality. There is no evidence of pulmonary embolus. Main pulmonary artery is normal in size. No evidence of right heart strain. No reflux of contrast into the IVC. Aorta is normal in caliber and course without evidence of acute aortic syndrome or aneurysm. Great vessels branch normally. The heart size is normal. There is no pericardial effusion. LUNGS: There are no consolidations. Lungs are well pneumatized. There is diffuse small airway thickening throughout both lungs consistent with bronchitis. There are extremely subtle groundglass patchy opacities in the right lower lobe, likely infectious and/or inflammatory. There is tree in bud nodularity in the left upper lobe consistent with endobronchial spread of infection. There is no pleural effusion or pneumothorax. No suspicious pulmonary nodules. PLEURA: There is no pleural effusion. No pleural mass or thickening. MEDIASTINUM: No abnormal mediastinal lymphadenopathy or mass. Normal esophagus. Central airways are patent. Partially imaged thyroid is normal. AXILLA/CHEST WALL: No mass or abnormal lymph nodes. UPPER ABDOMEN: Imaged upper abdominal contents are normal in appearance. OSSEOUS STRUCTURES: No suspicious lytic or blastic bone lesion. Mild to moderate degenerative spinal changes present. CT/CT angio chest PE protocol IMPRESSION: 1. There is no evidence of pulmonary embolus. There is no evidence of acute aortic syndrome or aneurysm. 2. Diffuse small airway thickening is present, consistent with bronchitis. There is tree in bud nodularity in the left upper lobe consistent with endobronchial spread of infection. 3. There are no effusions. Electronically signed by: Elvis Wang MD 12/03/2024 03:39 PM EDT
--- NOTE | ~2024-12-03 | XR_ITS ---
EXAMINATION: XR CHEST CLINICAL INFORMATION: dyspnea COMPARISON: None available. TECHNIQUE: Frontal view of the chest was obtained. FINDINGS: The cardiac, hilar, and mediastinal contours are normal. The lungs are clear bilaterally. No pneumothorax or effusion. No focal osseous or soft tissue abnormality. XR/XR chest 1V IMPRESSION: No active pulmonary disease. Electronically signed by: Elvis Wang MD 12/03/2024 02:43 PM EDT RP
[2024-12-03] MEDS: Albuterol Sulfate 7.5 MG, Albuterol/Iprat 2.5/0.5MG 3 ML 3 ML INHALE (12:45)
--- NOTE | 2024-12-03 12:54 | ECG_ITS ---
Test Reason : SOB Blood Pressure : */* mmHG Vent. Rate : 105 BPM Atrial Rate : 105 BPM P-R Int : 152 ms QRS Dur : 84 ms QT Int : 338 ms P-R-T Axes : 63 -41 43 degrees QTcB Int : 446 ms Sinus tachycardia with frequent Premature ventricular complexes Biatrial enlargement Left axis deviation Abnormal ECG No previous ECGs available Referred By: Generic ED Physician Electronically Signed By: DARNELL PELAYO
--- NOTE | 2024-12-03 13:13 | ED_ITS ---
HPI - SOB/Dyspnea General Chief Complaint: Dyspnea Stated Complaint: SOB on CPAP Time Seen by Provider: 12/03/24 13:13 Source: patient and EMS Mode of arrival: EMS Limitations: no limitations History of Present Illness ED Provider: HPI Narrative: 59-year-old woman history of COPD, currently smokes a pack of cigarettes a day, inhaled steroids and rescue inhalers at home presenting with a she describes worsening respiratory symptoms since last week and has progressively gotten worse. Went to urgent care today 87% on room air dyspneic, productive cough, and route received CPAP and DuoNebs and was 94% on room air at the time of my evaluation. She does have history of chronic back pains and she states she is getting injections next week. Requested gabapentin her regular dosage. Related Data Previous Rx's ?Medication ?Instructions ?Recorded lidocaine 5 % topical patch 1 patch topical DAILY PRN pain #15 12/08/23 ea albuterol sulfate 90 mcg/actuation 2 puff inhalation Q 6H #8.5 grams 01/23/24 aerosol inhaler bupropion HCl 100 mg tablet,12 hr 100 mg PO BID #60 ta bs 04/01/24 sustained-release (Wellbutrin SR) fluticasone 250 mcg-salmeterol 50 2 inh inhalation BID #180 ea 04/01/24 mcg/dose blistr powdr for inhalation (Wixela Inhub) ibuprofen 600 mg tablet 600 mg PO Q6H PRN pain #30 t abs 04/25/24 albuterol sulfate 2.5 mg/3 mL 2.5 mg (3 mL) inhalation Q6H #180 05/21/24 (0.083 %) solution for nebulization mL gabapentin 600 mg tablet 600 mg PO TID 30 days #90 ta bs 09/25/24 fluticasone fur. 100 mcg-umeclid 1 inh inhalation TATIANNA Y #60 ea 11/13/24 62.5 mcg-vilant 25 mcg inhalat.powder (Trelegy Ellipta) Allergies Allergy/AdvReac Type Severity Reaction Status Date / Time Penicillins (PENICILLINS) Allergy Unknown HIVES Verified 12/03/24 12:52 Review of Systems 2 Constitutional: Constitutional: Reports as per [facility] Past Medical History Medical History Asthma PVD (peripheral vascular disease) COPD (chronic obstructive pulmonary disease) Spine pain Surgical History Colon cancer screening declined (~2024) H/O: hysterectomy Previous section Family History Family History Father Cancer Brother Cancer Paternal Grandfather Cardiovascular disease Mother COPD (chronic obstructive pulmonary disease) Social History Social History Household Members: Family Household Members Other:: cousin Housing: House Are you a primary director of career resources to a significant other at home: No Do you presently have visiting nurse or other home services: No Alcohol intake: current Alcohol intake frequency: does not drink Comment: pain level at baseline for pt per pt report Patient Tobacco Use Status: Current everyday Tobacco user Tobacco use type: Cigarette Cigarette Packs Per Day: 1 Cigarettes Per Day: 20 Years Smoked: 42 e-Cigarette/Vaping Use: Never Used Second Hand Smoke Exposure: No Advance Directives: Yes Advance Directives Information Provided: No Advance Directives on File: No service: No Current occupational status: employed 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 ?PERRLA, EOMI, MMM, ? ?CV: S1-S2 ? ?Resp: ?Dyspneic, rhonchorous breath sounds throughout ? Abd: ?Bowel sounds are present, no tenderness no rebound no rigidity ? ?MSK: FROM, strength 5/5 all extremities, no pitting edema in bilateral lower extremities ? Skin: Warm, dry, intact, ? ?Neuro: ?Alert and oriented x3, moving upper and lower extremities symmetrically, no obvious facial asymmetry noted, cranial nerves 2-12 intact Medications Administered Discontinued Medications Generic Name Dose Route Start Last Admin Trade Name Lyndsay PRN Reason Stop Dose Admin Albuterol Sulfate 7.5 mg/ 0 mg 12/03/24 12:43 12/03/24 12:45 Albuterol/Ipratropium 3 ml INHALE 12/03/24 12:44 1 each ONCE ONE Administration Diazepam 2.5 mg 12/03/24 14:26 12/03/24 14:43 Diazepam 10 Mg/2 Ml Cartridge IVPUSH 12/03/24 14:27 2.5 mg STAT STA Administration Gabapentin 600 mg 12/03/24 13:24 12/03/24 13:35 Gabapentin 600 Mg Tablet PO 12/03/24 13:25 600 mg ONCE ONE Administration Sodium Chloride 1,000 mls @ 999 mls/hr 12/03/24 13:30 12/03/24 13:36 Ns IV 12/03/24 14:30 999 mls/hr .Q1H1M DERIK Administration Methylprednisolone Sodium Succinate 60 mg 12/03/24 13:22 12/03/24 13:35 Methylprednisolone Sod Succ 125 Mg/2 Ml Vial IVPUSH 12/03/24 13:23 60 mg ONCE ONE Administration Medical Decision Making Medical Decision Making MDM Narrative: 1:33 PM 12/03/2024 (Dr. Bryce Peraza): Fairly dyspneic patient we will workup for pneumonia, she received nebulizer treatment slightly tachycardic, has been having some symptoms since last week, we will workup for pneumonia we will obtain blood cultures, lactic acid 2 considered infectious etiology, clinically does not appear to be in CHF buttock consideration we will obtain pro BNP , I have considered PE as well but she is presenting with fairly classic symptoms of someone with chronic obstructive patterns and cyanosis such as purplish lips etc. and body habitus anticipating admission 2:29 PM 12/03/2024 (Dr. Bryce Peraza): Re-evaluated, she is breathing better, she is no longer as tachypneic as before, back pain is coming down she is very anxious about admission, we will provide some Valium we will also help with the back spasms, she is 88% on room air 2:54 PM 12/03/2024 (Dr. Bryce Peraza): Chest x-ray without consolidations. This patient does not have sepsis. Patient has reading at a comfortable rate of approximately 16-18 Differential Diagnosis Differential Diagnoses: The differential diagnosis associated with the presentation includes (CHF, COPD exacerbation, pneumonia, pneumothorax, ACS, PE,) Admission/Observation Consideration of admission/observation: Escalation of care including admission/observation considered Consult Healthcare Provider Management of the patient was discussed with: Hospitalist Lab Data MDM Lab Attestation statement: I reviewed the patient's lab results. 12/03/24 13:50 12/03/24 13:50 Labs: Lab Results 12/03/24 12/03/24 Range/Units 13:50 13:57 WBC 8.7 (4.8-10.8) X10*3/uL RBC 3.99 L (4.20-5.50) X10*6/uL Hgb 12.7 (12.0-16.0) g/dl Hct 39.8 (37.0-47.0) % MCV 99.7 H (80.0-98.0) fL MCH 31.8 (27.0-33.0) pg MCHC 31.9 (31.0-35.0) g/dl RDW 13.8 (11.0-16.0) % Plt Count 186 (160-400) X10*3/uL MPV 9.6 (9.4-12.3) fL Immature Gran % (Auto) 0.5 H (0.0-0.4) % Neut % (Auto) 84.8 H (45-73) % Lymph % (Auto) 9.6 L (20-40) % Lamar % (Auto) 3.9 (2-11) % Eos % (Auto) 0.6 (0-4) % Baso % (Auto) 0.6 (0-2) % Lymph # (Auto) 0.8 L (1.2-4.9) X10*3/uL Lamar # (Auto) 0.3 (0.1-1.2) X10*3/uL Eos # (Auto) 0.1 (0.0-0.4) X10*3/uL Baso # (Auto) 0.1 (0.0-0.2) X10*3/uL Abs Immat Gran (auto) 0.04 H (0.00-0.03) X10*3/uL Absolute Neuts (auto) 7.4 (2.0-8.3) x10*3/uL Absolute Nucleated RBC 0.000 (0.0-0.012) X10*3/uL Nucleated RBC % (auto) 0.0 (0.0-0.2) /100WBC VBG pH 7.47 H (7.32-7.43) VBG pCO2 33 mmHg VBG pO2 49 mmHg VBG HCO3 24 (22-26) mmol/L VBG O2 Saturation 80.0 % VBG Base Excess 1.6 mmol/L Sodium 142 (135-145) mmol/L Potassium 3.7 (3.3-5.1) mmol/L Chloride 107 (96-108) mmol/L Carbon Dioxide 25 (22-29) mmol/L Anion Gap 14 (12-20) BUN 17 H (9-16) mg/dL Creatinine 0.80 (0.5-1.4) mg/dL Estim Creat Clear Calc 84.2 Estimated GFR > 60 Random Glucose 123 H (60-115) mg/dL Lactic Acid 1.3 (0.5-2.0) mmol/L Calcium 9.5 (8.4-10.2) mg/dL Total Bilirubin 0.6 (0.0-1.0) mg/dL AST 17 (5-31) U/L ALT < 6 (0-31) U/L Alkaline Phosphatase 104 (39-117) U/L Troponin I High Sens 3.2 (<3.5-17.0) ng/L NT-Pro-B Natriuret Pep 349.9 H (<300) pg/mL Total Protein 7.0 (6.5-8.0) g/dL Albumin 4.2 (3.5-5.0) g/dL ABG Data Attestation ABG: I personally reviewed and interpreted this ABG as follows: (Unremarkable) Independent Interpretation I performed an independent interpretation of an: EKG and Plain X-Ray (My independent chest xray interpretation: Lungs: Lungs are clear bilaterally without evidence of focal consolidation, pleural effusion, or pneumothorax. Cardiac silhouette is unremarkable, no obvious mediastinal widening, no obvious bony abnormalities such as fractures. Impression: Normal chest X-r) Radiology Impression Discussion of test interpretation with radiology: I have reviewed the radiologist's reading. (No acute pulmonary disease) Critical Care Time Critical Care Time Critical Care Time: Yes Total Critical Care Time: 45 Attestation: Time is exclusive of separately billable procedures. Time includes: direct patient care, patient reassessment, coordination of patient care, interpretation of data (laboratory data, pulse oximetry, arterial blood gases and chest xrays), review of patient's medical records, medical consultation and documentation of patient care. Procedures excluded from critical care time: central intravenous line placement and electrocardiography. Discharge Plan Discharge Clinical Impression: Acute exacerbation of chronic obstructive pulmonary disease Patient Disposition: Admitted As Inpatient Print Language: Bulgarian
[2024-12-03 14:00] LABS: MANUAL DIFF FLAG NO
[2024-12-03 14:06] LABS: Venous Blood Gas Refer to POC result
[2024-12-03 14:07] LABS: VBG HCO3 24 mmol/L (22-26); VBG O2 % Saturation 80.0 %
[2024-12-03 14:10] LABS: Hematocrit 39.8 % (37.0-47.0); Hemoglobin 12.7 g/dl (12.0-16.0); Imm Gran Abs Auto 0.04 X10*3/uL (0.00-0.03); Imm Gran Pct Auto 0.5 % (0.0-0.4); Lymphocytes Absolute Auto 0.8 X10*3/uL (1.2-4.9); Mean Corpuscular HGB Conc 31.9 g/dl (31.0-35.0); Mean Corpuscular Hemoglobin 31.8 pg (27.0-33.0); Mean Corpuscular Volume 99.7 fL (80.0-98.0); NRBC Abs Auto 0.000 X10*3/uL (0.0-0.012); NRBC Pct Auto 0.0 /100WBC (0.0-0.2); Platelet Count 186 X10*3/uL (160-400); Red Blood Count 3.99 X10*6/uL (4.20-5.50); White Blood Count 8.7 X10*3/uL (4.8-10.8)
[2024-12-03 14:21] LABS: NT Pro B Type Natriuretic Pept 349.9 pg/mL (<300); Troponin-I High Sensitivity 3.2 ng/L (<3.5-17.0)
[2024-12-03 14:23] LABS: Alanine Aminotransferase < 6 U/L (0-31); Albumin Level 4.2 g/dL (3.5-5.0); Alkaline Phosphatase 104 U/L (39-117); Anion Gap 14 (12-20); Aspartate Amino Transferase 17 U/L (5-31); Blood Urea Nitrogen 17 mg/dL (9-16); Calcium 9.5 mg/dL (8.4-10.2); Carbon Dioxide 25 mmol/L (22-29); Chloride 107 mmol/L (96-108); Creatinine Clr Calc Pharmacy 84.2; Estimated Glomerular Filt Rate > 60; Potassium 3.7 mmol/L (3.3-5.1); Sodium 142 mmol/L (135-145); Total Protein 7.0 g/dL (6.5-8.0)
--- OUTSIDE RECORDS SUMMARY | 2024-12-03 14:37 | XMS_ITS | Encounter Summary ---
Author Organization [facility] Address [address] [facility] [address] [place] [phone] Phone Care Team Providers Care Shade Cloth Finisher Name Role Phone Shayna Shannon NP Primary Care Provider [phone] Encounter Details Date Type Department Care Team (Late st Contact Info) Description 10/11/2018 Transcribe Orders Virtual Department [address] [place] [address] Michelle Nathan PA [address] [place] [address] [phone] [email or web address] (Primary Dx) Social History Tobacco Use [...] EDT No acute cardiopulmonary process. POS - [id number] Narrative 10/11/2018 9:53 PM EDT EXAM: XR [...] IMPRESSION: No acute cardiopulmonary process. POS - [id number] Michelle EVANS IMG XR CHEST F inal Result documented in this encounter Visit Diagnoses Diagnosis Wheezing- Primary Wheezing documented in this encounter Additional Health Concerns Infection Onset Date Last Indicated Resolved Time CoV-Risk 08/06/2019 08/07/2019 08/20/2019 1:23 AM EDT documented as of this encounter Care Teams Shade Cloth Finisher Relationship Specialty Start Date End Date Shayna Shannon NP [address] [place] [address] PCP - General Nurse Practitioner 04/15/17 documented as of this encounter Additional Source Comments The information contained in this document represents components of the legal health record. It is not the complete legal health record.[facility]
--- OUTSIDE RECORDS SUMMARY | 2024-12-03 14:37 | XMS_ITS | Encounter Summary ---
Author Organization [facility] Address [address] [facility] [address] [place] [address] Phone Care Team Providers Care Chiropractic Care Name Role Phone Shayna Shannon RADAR SCIENTIST Primary Care Provider [phone] Encounter Details Date Type Department Care Team (Latest Contact Info) Description 08/06/2019 Transcribe Orders Virtual Department [address] [place] [address] Suzy Rapp MD [address] [place] [address] [email or web address] SOB (shortness of breath) (Primary Dx); [...] 9:12 AM EDT) Specimen Source NASOPHARYNGEAL SWAB (RADAR SCIENTIST) [facility] COVID Testing Status Sent to [facility] Other 08/07/2019 9:12 AM EDT 08/07/2019 11:14 AM EDT us Suzy Rapp MD BODY FLUIDS AND STOOLS ORDER KELLEY Final Result [facility] [address] [place] [address] documented in this encounter Visit Diagnoses Diagnosis SOB (shortness of breath)- Primary Shortness of breath Sore throat Acute pharyngitis Muscle ache Unspecified myalgia and myositis Runny nose Other diseases of nasal cavity and sinuses documented in this encounter Additional Health Concerns Infection Onset Date Last Indicated Resolved Time CoV-Risk 08/06/2019 08/07/2019 08/20/2019 1:23 AM EDT documented as of this encounter Care Teams Chiropractic Care Relationship Specialty Start Date End Date Shayna Shannon NP [address] [place] [id number] PCP - General Nurse Practitioner 04/15/17 documented as of this encounter Additional Source Comments The information contained in this document represents components of the legal health record. It is not the complete legal health record.[facility]
--- OUTSIDE RECORDS SUMMARY | 2024-12-03 14:37 | XMS_ITS | Clinical Summary ---
Author Organization [facility] Address [address] [facility] [address] [place] [address] Phone Care Team Providers Care Packaging Coordinator Name Role Phone Shayna Shannon NP Primary Care Provider [phone] Allergies Active Allergy Reactions Criticality Noted Date [...] topic Medical Devices Not on file [place] [address] [place] [address] [facility] [address] [place] [address] [facility] [place] [address] [place] [address] [facility] [employer] [facility] Advance Directives For more information, please contact: [phone] (9AM - 5PM [place]/[facility], Sunday-Sunday) Documents on File Type Date Recorded Patient Cabin Crew Expl anation Healthcare Proxy 04/19/2017 2:31 PM PROXY * Full Code (Presumed) (Latest Code Status on File) Date Activated Date Inactivated Comments 04/15/2017 8:02 PM 04/17/2017 7:53 PM Care Teams Packaging Coordinator Relationship Specialty Start Date End Date Shayna Shannon NP [address] [place] [id number] PCP - General Nurse Practitioner 04/15/17 Additional Source Comments The information contained in this document represents components of the legal health record. It is not the complete legal health record.[facility]
--- OUTSIDE RECORDS SUMMARY | 2024-12-03 14:37 | XMS_ITS | Encounter Summary ---
Author Organization [facility] Address [address] [facility] [address] [place] [address] Phone Care Team Providers Care Warping Mill Operator Name Role Phone Shayna Shannon HVAC/R INSTRUCTOR Primary Care Provider [phone] Encounter Details Date Type Department Care Team (Late st Contact Info) Description 04/15/2017 Procedure Pass [facility], Ct Scan - [facility] [address] [place] [address] Social History Tobacco Use Types Packs/Day Years [...] documented as of this encounter Care Teams Warping Mill Operator Relationship Specialty Start Date End Date Shayna Shannon NP [address] [place] [address] PCP - General Nurse Practitioner 04/15/17 documented as of this encounter Additional Source Comments The information contained in this document represents components of the legal health record. It is not the complete legal health record.[facility]
[2024-12-03] MEDS: diazePAM 10 MG/2 ML CARTRIDGE 2.5 MG IVPUSH (14:43)
[2024-12-03] MEDS: iohexoL 350 MG/ML 100 ML INFUS..BTL IV (15:23)
--- NOTE | 2024-12-03 15:33 | P.HPHOSP_ITS ---
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 Cough productive of white sputum. Multiple sick contacts. Fever to 100.9 3 days ago. Went to urgent care and was found to have hypoxia with SaO2 87% and was sent to the ED; en route, was placed on CPAP and given Duonebs. Given steroids and nebs in the ED. No dizziness, hemoptysis, or chest pain. Review of Systems 2 Review of Systems: Yes all other systems are reviewed and are negative [facility] Medical History Asthma PVD (peripheral vascular disease) COPD (chronic obstructive pulmonary disease) Spine pain Family History Father Cancer Brother Cancer Paternal Grandfather Cardiovascular disease Mother COPD (chronic obstructive pulmonary disease) Surgical History Colon cancer screening declined (~2024) H/O: hysterectomy Previous section Social History Household Members: Family Household Members Other:: cousin Housing: House Are you a primary auto care center manager to a significant other at home: No Do you presently have visiting nurse or other home services: No Alcohol intake: current Alcohol intake frequency: does not drink Comment: pain level at baseline for pt per pt report Patient Tobacco Use Status: Current everyday Tobacco user Tobacco use type: Cigarette Cigarette Packs Per Day: 1 Cigarettes Per Day: 20 Years Smoked: 42 e-Cigarette/Vaping Use: Never Used Second Hand Smoke Exposure: No Advance Directives: Yes Advance Directives Information Provided: No Advance Directives on File: No service: No Current occupational status: employed 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 Cognitive needs: No Hearing needs: No Vision needs: No Meds Allergies Allergy/AdvReac Type Severity Reaction Status Date / Time Penicillins (PENICILLINS) Allergy Unknown HIVES Verified 12/03/24 12:52 Active Medications: Current Medications Acetaminophen (Acetaminophen 325 Mg Tablet) 650 mg PO Q6H PRN PRN Reason: Pain, Mild 1-3,fever,headache Albuterol Sulfate (Albuterol Sulfate (0.083%) 2.5 Mg/3 Ml Vial.Neb) 2.5 mg INHALE RQ4H WHILE AWAKE DERIK Albuterol Sulfate (Albuterol Sulfate (0.083%) 2.5 Mg/3 Ml Vial.Neb) 2.5 mg INHALE Q2H PRN PRN Reason: Shortness of Breath/Wheezing Calcium Carbonate (Calcium Carbonate 750 Mg Tab.Chew) 750 mg PO Q4H PRN PRN Reason: Heartburn Enoxaparin Sodium (Enoxaparin Sodium 40 Mg/0.4 Ml Syringe) 40 mg SUBCUT Q24H DERIK Magnesium Hydroxide (Milk Of Magnesia 30 Ml Oral.Susp) 30 ml PO DAILY PRN PRN Reason: Constipation Melatonin (Melatonin 3 Mg Tablet) 6 mg PO BEDTIME PRN PRN Reason: Insomnia Methylprednisolone Sodium Succinate (Methylprednisolone Sod Succ 40 Mg/Ml Vial) 40 mg IVPUSH Q12H DERIK Ondansetron HCl (Ondansetron Hcl 4 Mg/2 Ml Vial) 4 mg IVPUSH Q8H PRN PRN Reason: Nausea and Vomiting Sodium Chloride (0.9 % Sodium Chloride Flush 3 Ml Syringe) 3 ml IVFLUSH QSHIFT DERIK Sodium Chloride (0.9 % Sodium Chloride Flush 3 Ml Syringe) 3 ml IVFLUSH QSHIFT EDRIK Home Medications ?Medication ?Instructions ?Recorded ?Confirmed ?Last Taken ?Type fluticasone fur. 100 mcg-umeclid 1 ea inhalation DAILY 12/03/24 12/03/24 Unknown History 62.5 mcg-vilant 25 mcg inhalat.powder (Trelegy Ellipta) gabapentin 400 mg capsule 400 mg PO TID 12/03/24 Unkn own History Physical Exam 2 Vital Signs and Narrative: Vital Signs: Last Vital Signs Temp 98.7 F 12/03/24 12:56 Pulse 103 H 12/03/24 12:56 Resp 25 H 12/03/24 12:56 BP 129/64 12/03/24 12:56 Pulse Ox 93 12/03/24 12:56 O2 Del Method Room Air 12/03/24 12:56 BMI result Body Mass Index 39.9 Gen: in respiratory distress HEENT: sclera anicteric, moist mucus membranes Neck: supple Lungs: tachypneic, bilateral expiratory wheeezing Heart: regular but tachycardic, no murmurs Abd: soft, non-tender, non-distended Ext: no edema Skin: warm/well-perfused Neuro: alert and oriented x3, no focal findings Psych: appropriate affect Results Labs 12/03/24 13:50 12/03/24 13:50 Labs: Laboratory Results - last 24 hr 12/03/24 12/03/24 13:50 13:57 MCV 99.7 H MCH 31.8 MCHC 31.9 RDW 13.8 Plt Count 186 MPV 9.6 Immature Gran % (Auto) 0.5 H Neut % (Auto) 84.8 H Lymph % (Auto) 9.6 L Kaufman % (Auto) 3.9 Eos % (Auto) 0.6 Baso % (Auto) 0.6 Lymph # (Auto) 0.8 L Kaufman # (Auto) 0.3 Eos # (Auto) 0.1 Baso # (Auto) 0.1 Abs Immat Gran (auto) 0.04 H Absolute Neuts (auto) 7.4 Absolute Nucleated RBC 0.000 Nucleated RBC % (auto) 0.0 VBG pH 7.47 H VBG pCO2 33 VBG pO2 49 VBG HCO3 24 VBG O2 Saturation 80.0 VBG Base Excess 1.6 Anion Gap 14 Estim Creat Clear Calc 84.2 Estimated GFR > 60 Random Glucose 123 H Lactic Acid 1.3 Calcium 9.5 Total Bilirubin 0.6 AST 17 ALT < 6 Alkaline Phosphatase 104 Troponin I High Sens 3.2 NT-Pro-B Natriuret Pep 349.9 H Total Protein 7.0 Albumin 4.2 Imaging Radiologist's Impressions: ITS Impressions Chest X-Ray 12/03/24 14:30 IMPRESSION: No active pulmonary disease. Electronically signed by: Elvis Wang MD 12/03/2024 02:43 PM EDT RP Chest CTA 12/03/24 15:10 IMPRESSION: 1. There is no evidence of pulmonary embolus. There is no evidence of acute aortic syndrome or aneurysm. 2. Diffuse small airway thickening is present, consistent with bronchitis. There is tree in bud nodularity in the left upper lobe consistent with endobronchial spread of infection. 3. There are no effusions. Electronically signed by: Elvis Wang MD 12/03/2024 03:39 PM EDT RP Assessment and Plan (1) COPD with asthma: Status: Acute Plan 59yo F with COPD-asthma overlap presenting with 1 wk of worsening dyspnea, found to be hypoxic and tachypneic, in respiratory distress. acute hypoxic respiratory failure due to acute exacerbation of asthma/COPD - admit to M/S, steroids, nebs, doxycycline, smoking cessation - supplemental O2, wean as tolerated tobacco abuse - declines NRT, counseling chronic pain - gabapentin VTE ppx: enoxaparin dispo: TBD code: full I anticipate that the patient will stay at least 2 midnights as an inpatient in the hospital due to the above reasons. It is neither reasonable nor safe to care for them in a less acute setting. Quality Stroke Does the patient have a stroke diagnosis?: No VTE Prior VTE?: No VTE Risk Level:: Medical - moderate - high VTE Device Contraindication: Treatment Not Indicated VTE Drug Contraindication: N/A - Med Ordered
--- NOTE | 2024-12-03 16:17 | PHA.MEDREC ---
Addendum entered by Kavin Good, Ronda 12/03/24 16:27: MED REC CHECKED BY [facility] Original Note: Pharmacy Consult ? Medication Reconciliation Pharmacy has completed the medication reconciliation. Patient was able to confirm all of her medications. Patient states she is no longer taking Bupropion 100 mg, Gabapentin 400 mg (Now taking Gabapentin 600 mg TID) and Lidocain patch. Patient had all her morning medications today.
[2024-12-03] MEDS: 0.9 % Sodium Chloride Flush 3 ML SYRINGE IVFLUSH ×2 (17:21→21:39)
--- NOTE | 2024-12-03 18:19 | PC.NURSE ---
Pt on 2L, room air at baseline. Resting more comfortably now
--- NOTE | 2024-12-03 18:31 | HO.NURTONUR ---
A&Ox4. Pt admitted for dyspnea. She was BIBA from Urgent Care with SOB. Received 60mg Prednisolone en route. Breath was labored and she was moaning upon admission to ER. She is on room air at baseline, using 2L to maintain sats above 90. She attributed the moaning to chronic back pain for which she will be getting injections. She uses a bedside commode at home r/t poor mobility. She reports that she does not walk much. Dtr is caregiver. IV in right AC, started by EMS, flushes well, asymptomatic, slightly red at the site.
--- NOTE | 2024-12-03 18:44 | MHC.EDTECH ---
Patient used bedside commode. Patient states she does not feel like she is able to ambulate far therefore unable to ambulate.
[2024-12-03] MEDS: Albuterol Sulfate (0.083%) 2.5 MG/3 ML VIAL.NEB INHALE (19:54)
[2024-12-04] VITALS (7 sets, daily range): BP systolic 95–134; BP diastolic 52–76; PULSE 60–89; RESP 14–22; TEMP 36–36.8; O2SAT 92–97
[2024-12-04 00:04] LABS: Thyroid Stimulating Hormone 1.50 uIU/mL (0.32-4.0)
[2024-12-04 05:25] LABS: Venous Blood Gas Refer to POC result
[2024-12-04 05:30] LABS: VBG HCO3 28 mmol/L (22-26); VBG O2 % Saturation 83.0 %
[2024-12-04 05:38] LABS: Hematocrit 36.1 % (37.0-47.0); Hemoglobin 11.7 g/dl (12.0-16.0); Mean Corpuscular HGB Conc 32.4 g/dl (31.0-35.0); Mean Corpuscular Hemoglobin 32.1 pg (27.0-33.0); Mean Corpuscular Volume 99.2 fL (80.0-98.0); NRBC Abs Auto 0.000 X10*3/uL (0.0-0.012); NRBC Pct Auto 0.0 /100WBC (0.0-0.2); Platelet Count 198 X10*3/uL (160-400); Red Blood Count 3.64 X10*6/uL (4.20-5.50); White Blood Count 7.3 X10*3/uL (4.8-10.8)
[2024-12-04 05:43] LABS: Anion Gap 13 (12-20); Blood Urea Nitrogen 20 mg/dL (9-16); Calcium 9.1 mg/dL (8.4-10.2); Carbon Dioxide 25 mmol/L (22-29); Chloride 109 mmol/L (96-108); Creatinine Clr Calc Pharmacy 96.6; Estimated Glomerular Filt Rate > 60; Potassium 4.5 mmol/L (3.3-5.1); Sodium 142 mmol/L (135-145)
--- NOTE | 2024-12-04 07:15 | P.PNIM_ITS ---
Subjective Subjective Date of Service: 12/04/24 Interval History: Patient was quite emotional today saying she attributes her COPD exacerbation secondary to back pain Continues to be dyspneic, with audible respiratory wheezes, continues to require O2 Severe deconditioning and needs home O2 eval and likely short-term rehab Patient is aware that she has severe back pain and likely needs outpatient pain management Advised the patient that opioids are not a good management for chronic back pain and we will try to target that with nonnarcotic management as much as possible Patient reports severe anxiety, denies depression, Atarax initiated Review of Systems Review of Systems: Yes all other systems are reviewed and are negative Physical Exam 2 Exam: Exam: General: AOx3, requiring 2 L O2, at baseline she is not hypoxic on room air Resp: Bilateral audible wheezes, rhonchi noted bilaterally CVS: S1, S2, RRR GI: +BS, NT, no distention Neuro: Motor grossly intact bilaterally Psych: Very anxious and tearful about her back pain, denies depression Vital Signs: Vital Signs: Last Vital Signs Temp 96.8 F 12/04/24 03:05 Pulse 64 12/04/24 03:05 Resp 14 12/04/24 03:05 BP 121/56 L 12/04/24 03:05 Pulse Ox 92 12/04/24 03:05 O2 Del Method Nasal Cannula 12/04/24 03:05 O2 Flow Rate 2 12/04/24 03:05 BMI result Body Mass Index 41.2 Objective Data Active Medications Acetaminophen (Acetaminophen 325 Mg Tablet) 650 mg PO Q6H PRN PRN Reason: Pain, Mild 1-3,fever,headache Last Admin: 12/04/24 06:07 Dose: 650 mg Documented By: IVAN Albuterol Sulfate (Albuterol Sulfate (0.083%) 2.5 Mg/3 Ml Vial.Neb) 2.5 mg INHALE RQ4H WHILE AWAKE [facility]ER[facility] Last Admin: 12/03/24 19:54 Dose: 2.5 mg Documented By: J[place] Albuterol Sulfate (Albuterol Sulfate (0.083%) 2.5 Mg/3 Ml Vial.Neb) 2.5 mg INHALE Q2H PRN PRN Reason: Shortness of Breath/Wheezing Calcium Carbonate (Calcium Carbonate 750 Mg Tab.Chew) 750 mg PO Q4H PRN PRN Reason: Heartburn Doxycycline Monohydrate (Doxycycline Monohydrate 100 Mg Capsule) 100 mg PO Q12H [facility] Last Admin: 12/04/24 05:38 Dose: 100 mg Documented By: IVAN Enoxaparin Sodium (Enoxaparin Sodium 40 Mg/0.4 Ml Syringe) 40 mg SUBCUT Q24H [facility] Last Admin: 12/03/24 16:21 Dose: 40 mg Documented By: JOSÉ Fluticasone/Umeclidinium/Vilanterol (Fluticasone/Umeclidinium/Vilanterol 100/62.5 Blst.W.Dev) 1 puff INHALE RDAILY [facility] Gabapentin (Gabapentin 600 Mg Tablet) 600 mg PO TID [facility] Last Admin: 12/04/24 06:07 Dose: 600 mg Documented By: IVAN Comments: pt requested pain medication early Magnesium Hydroxide (Milk Of Magnesia 30 Ml Oral.Susp) 30 ml PO DAILY PRN PRN Reason: Constipation Melatonin (Melatonin 3 Mg Tablet) 6 mg PO BEDTIME PRN PRN Reason: Insomnia Last Admin: 12/03/24 21:54 Dose: 6 mg Documented By: IVAN Methylprednisolone Sodium Succinate (Methylprednisolone Sod Succ 40 Mg/Ml Vial) 40 mg IVPUSH Q12H [facility] Last Admin: 12/04/24 02:16 Dose: 40 mg Documented By: IVAN Ondansetron HCl (Ondansetron Hcl 4 Mg/2 Ml Vial) 4 mg IVPUSH Q8H PRN PRN Reason: Nausea and Vomiting Pantoprazole Sodium (Pantoprazole Sodium 40 Mg/10 Ml Vial) 40 mg IVPUSH DAILY@0630 [facility] Last Admin: 12/04/24 05:38 Dose: 40 mg Documented By: IVAN Sodium Chloride (0.9 % Sodium Chloride Flush 3 Ml Syringe) 3 ml IVFLUSH QSHIFT [facility] Last Admin: 12/03/24 21:39 Dose: 3 ml Documented By: IVAN Labs 12/04/24 05:22 12/04/24 05:22 Labs: Laboratory Results - last 24 hr 12/03/24 12/03/24 12/04/24 13:50 13:57 05:22 MCV 99.7 H 99.2 H MCH 31.8 32.1 MCHC 31.9 32.4 RDW 13.8 14.0 Plt Count 186 198 MPV 9.6 9.5 Immature Gran % (Auto) 0.5 H Neut % (Auto) 84.8 H Lymph % (Auto) 9.6 L [place] % (Auto) 3.9 Eos % (Auto) 0.6 Baso % (Auto) 0.6 Lymph # (Auto) 0.8 L [place] # (Auto) 0.3 Eos # (Auto) 0.1 Baso # (Auto) 0.1 Abs Immat Gran (auto) 0.04 H Absolute Neuts (auto) 7.4 Absolute Nucleated RBC 0.000 0.000 Nucleated RBC % (auto) 0.0 0.0 VBG pH 7.47 H VBG pCO2 33 VBG pO2 49 VBG HCO3 24 VBG O2 Saturation 80.0 VBG Base Excess 1.6 Anion Gap 14 13 Estim Creat Clear Calc 84.2 96.6 Estimated GFR > 60 > 60 Random Glucose 123 H 124 H Lactic Acid 1.3 Calcium 9.5 9.1 Total Bilirubin 0.6 AST 17 ALT < 6 Alkaline Phosphatase 104 Troponin I High Sens 3.2 NT-Pro-B Natriuret Pep 349.9 H Total Protein 7.0 Albumin 4.2 TSH 1.50 12/04/24 05:26 MCV MCH MCHC RDW Plt Count MPV Immature Gran % (Auto) Neut % (Auto) Lymph % (Auto) [place] % (Auto) Eos % (Auto) Baso % (Auto) Lymph # (Auto) [place] # (Auto) Eos # (Auto) Baso # (Auto) Abs Immat Gran (auto) Absolute Neuts (auto) Absolute Nucleated RBC Nucleated RBC % (auto) VBG pH 7.39 VBG pCO2 47 VBG pO2 56 VBG HCO3 28 H VBG O2 Saturation 83.0 VBG Base Excess 3.3 Anion Gap Estim Creat Clear Calc Estimated GFR Random Glucose Lactic Acid Calcium Total Bilirubin AST ALT Alkaline Phosphatase Troponin I High Sens NT-Pro-B Natriuret Pep Total Protein Albumin TSH Assessment and Plan (1) Acute exacerbation of chronic obstructive pulmonary disease: Status: Acute Plan Day 2 of hospitalization Patient is a 59-year-old female with PMH notable for COPD asthma overlap, not on home O2, chronic low back pain, current smoker who presented to the ED with acute hypoxic respiratory failure , being treated with IV steroids and nebulizers. Significant wheezing noted bilaterally, we will continue IV steroids for today Continue IV steroids, doxycycline for anti-inflammatory effect neck, nebulizing treatment Extensive counseling advised about smoking cessation We will need home O2 eval Significant debilitating anxiety Atarax initiated Patient reports significant back pain, continue gabapentin, Robaxin, lidocaine patch, PTOT Extensive counseling being given regarding outpatient pain management, nonnarcotic pain management for her chronic back pain DVT prophylaxis with Lovenox We will likely need at least 1-2 more days of hospitalization for weaning oxygen requirement, and likely we will need SDR placement Quality Stroke Does the patient have a stroke diagnosis?: No VTE Prior VTE?: No VTE Risk Level:: Medical - moderate - high VTE Device Contraindication: Treatment Not Indicated VTE Drug Contraindication: N/A - Med Ordered
[2024-12-04] MEDS: 0.9 % Sodium Chloride Flush 3 ML SYRINGE IVFLUSH ×3 (08:00→20:48)
[2024-12-04] MEDS: guaiFENesin LA 600 MG TAB.ER.12H PO ×2 (08:00→20:47)
[2024-12-04] MEDS: Albuterol Sulfate (0.083%) 2.5 MG/3 ML VIAL.NEB INHALE ×4 (08:07→20:38)
[2024-12-04 10:34] LABS: Chlamydia pneumoniae PCR Not Detected (Not Detect.); Coronavirus 229E PCR Not Detected (Not Detect.); Coronavirus HKU1 PCR Not Detected (Not Detect.); Coronavirus NL63 PCR Not Detected (Not Detect.); Coronavirus OC43 PCR Not Detected (Not Detect.); RSV PCR Not Detected (Not Detect.); Rhino/Enterovirus PCR Detected (Not Detect.)
[2024-12-04 10:43] LABS: Influenza A H1 PCR Not Detected (Not Detect.); Influenza A H1-2009 PCR Not Detected (Not Detect.); Influenza A H3 PCR Not Detected (Not Detect.); SARS-CoV-2 PCR Not Detected (Not Detect.)
[2024-12-04] MEDS: Fluticasone/Umeclidinium/Vilanterol 100/62.5/25 BLST.W.DEV 1 PUFF INHALE (11:32)
--- NOTE | 2024-12-04 11:42 | MHC.CM.PN ---
PT REPORTS SHE LIVES WITH HER COUSIN WHO SHE ASSISTS WITH CARE PRN SHE DENIES HAVING ANY DME OR SERVICES [employer] HER SISTER, EVAN MARI, IS HER HCP AND WILL BRING IN A COPY PCP: HAY DOYLE DCP: HOME VIA FAMILY TRANSPORT
[2024-12-04] MEDS: oxyCODONE HCl Immed Release 5 MG TABLET PO (20:07)
[2024-12-05 04:00] VITALS: BP 125/74; PULSE 59; RESP 20; TEMP 36.4; O2SAT 96
--- NOTE | 2024-12-05 07:14 | HO.PM.IMPN ---
Subjective Subjective Date of Service: 12/05/24 Physical Exam Vital Signs: Vital Signs: Last Vital Signs Temp 97.6 F 12/05/24 04:00 Pulse 59 12/05/24 04:00 Resp 20 12/05/24 04:00 BP 125/74 12/05/24 04:00 Pulse Ox 96 12/05/24 04:00 O2 Del Method Nasal Cannula 12/05/24 04:00 O2 Flow Rate 2 12/05/24 04:00 BMI result Body Mass Index 41.2 Objective Data Active Medications Acetaminophen (Acetaminophen 325 Mg Tablet) 650 mg PO Q6H PRN PRN Reason: Pain, Mild 1-3,fever,headache Last Admin: 12/05/24 03:58 Dose: 650 mg Documented By: BERNADINE Albuterol Sulfate (Albuterol Sulfate (0.083%) 2.5 Mg/3 Ml Vial.Neb) 2.5 mg INHALE RQ4H WHILE AWAKE [facility] Last Admin: 12/04/24 20:38 Dose: 2.5 mg Documented By: ANIBAL Albuterol Sulfate (Albuterol Sulfate (0.083%) 2.5 Mg/3 Ml Vial.Neb) 2.5 mg INHALE Q2H PRN PRN Reason: Shortness of Breath/Wheezing Benzocaine (Throat Lozenge, Medicated Lozenge) 1 lozenge MUCOUS MEM Q2H PRN PRN Reason: Sore Throat Calcium Carbonate (Calcium Carbonate 750 Mg Tab.Chew) 750 mg PO Q4H PRN PRN Reason: Heartburn Doxycycline Monohydrate (Doxycycline Monohydrate 100 Mg Capsule) 100 mg PO Q12H [facility] Last Admin: 12/05/24 05:42 Dose: 100 mg Documented By: BERNADINE Enoxaparin Sodium (Enoxaparin Sodium 40 Mg/0.4 Ml Syringe) 40 mg SUBCUT Q24H [facility] Last Admin: 12/04/24 15:10 Dose: 40 mg Documented By: GRAZIC Fluticasone/Umeclidinium/Vilanterol (Fluticasone/Umeclidinium/Vilanterol 100/.5 Blst.W.Dev) 1 puff INHALE RDAILY [facility] Last Admin: 12/04/24 11:32 Dose: 1 puff Documented By: HO.RONCARR Gabapentin (Gabapentin 600 Mg Tablet) 600 mg PO TID [facility] Last Admin: 12/04/24 20:47 Dose: 600 mg Documented By: BERNADINE Guaifenesin (Guaifenesin La 600 Mg Tab.Er.12h) 600 mg PO BID [facility] Last Admin: 12/04/24 20:47 Dose: 600 mg Documented By: BERNADINE Hydroxyzine HCl (Hydroxyzine Hcl 10 Mg Tablet) 10 mg PO Q8H PRN PRN Reason: Anxiety Last Admin: 12/04/24 13:46 Dose: 10 mg Documented By: GRAZIC Magnesium Hydroxide (Milk Of Magnesia 30 Ml Oral.Susp) 30 ml PO DAILY PRN PRN Reason: Constipation Melatonin (Melatonin 3 Mg Tablet) 6 mg PO BEDTIME PRN PRN Reason: Insomnia Last Admin: 12/03/24 21:54 Dose: 6 mg Documented By: LEFEBVA Methylprednisolone Sodium Succinate (Methylprednisolone Sod Succ 40 Mg/Ml Vial) 40 mg IVPUSH Q12H [facility] Last Admin: 12/05/24 04:14 Dose: 40 mg Documented By: BERNADINE Ondansetron HCl (Ondansetron Hcl 4 Mg/2 Ml Vial) 4 mg IVPUSH Q8H PRN PRN Reason: Nausea and Vomiting Pantoprazole Sodium (Pantoprazole Sodium 40 Mg/10 Ml Vial) 40 mg IVPUSH DAILY@0630 [facility] Last Admin: 12/05/24 05:42 Dose: 40 mg Documented By: BERNADINE Sodium Chloride (0.9 % Sodium Chloride Flush 3 Ml Syringe) 3 ml IVFLUSH QSHIFT [facility] Last Admin: 12/04/24 20:48 Dose: 3 ml Documented By: BERNADINE Labs 12/04/24 05:22 12/04/24 05:22 Labs: Laboratory Results - last 24 hr 12/04/24 02:20 Respiratory Panel [place] See Note Adenovirus (Rapid PCR) Not Detected B.pert (TEM-PCR) Not Detected B.parapertussis DNA PCR Not Detected C. pneumoniae DNA (PCR) Not Detected Coronavirus OC43 (PCR) Not Detected Coronavirus HKU1 (PCR) Not Detected Coronavirus 229E (PCR) Not Detected Coronavirus NL63 (PCR) Not Detected Human Metapneumovir PCR Not Detected Influenza A (RT-PCR) Not Detected Influenza A (H1) PCR Not Detected Influ A (H1/09) PCR Not Detected Influenza A (H3) PCR Not Detected Influenza B (RT-PCR) Not Detected M. pneumoniae (PCR) Not Detected Parainfluenza 1 (PCR) Not Detected Parainfluenza 2 (PCR) Not Detected Parainfluenza 3 (PCR) Not Detected Parainfluenza 4 (PCR) Not Detected RSV (PCR) Not Detected Entero/Rhino (PCR) Detected A SARS-CoV-2 RNA (RT-PCR) Not Detected Microbiology Microbiology Results: Microbiology 12/03/24 13:58 Blood Culture - Preliminary Blood - Venous No growth after 24 hours. 12/03/24 13:50 Blood Culture - Preliminary Blood - Venous No growth after 24 hours. Quality Stroke Does the patient have a stroke diagnosis?: No VTE Prior VTE?: No VTE Risk Level:: Medical - moderate - high VTE Device Contraindication: Treatment Not Indicated VTE Drug Contraindication: N/A - Med Ordered
[2024-12-05] MEDS: Albuterol Sulfate (0.083%) 2.5 MG/3 ML VIAL.NEB INHALE (07:39)
[2024-12-05] MEDS: Fluticasone/Umeclidinium/Vilanterol 100/62.5/25 BLST.W.DEV 1 PUFF INHALE (07:39)
[2024-12-05 07:41] VITALS: PULSE 88; RESP 18; O2SAT 97
[2024-12-05 07:58] VITALS: BP 124/71; PULSE 60; RESP 18; TEMP 37.1; O2SAT 96
[2024-12-05] MEDS: guaiFENesin LA 600 MG TAB.ER.12H PO (08:23)
[2024-12-05] MEDS: 0.9 % Sodium Chloride Flush 3 ML SYRINGE IVFLUSH (08:25)
[2024-12-05 09:57] LABS: MANUAL DIFF FLAG NO
[2024-12-05 09:59] LABS: Hematocrit 40.5 % (37.0-47.0); Hemoglobin 12.9 g/dl (12.0-16.0); Imm Gran Abs Auto 0.11 X10*3/uL (0.00-0.03); Imm Gran Pct Auto 1.1 % (0.0-0.4); Lymphocytes Absolute Auto 0.9 X10*3/uL (1.2-4.9); Mean Corpuscular HGB Conc 31.9 g/dl (31.0-35.0); Mean Corpuscular Hemoglobin 32.2 pg (27.0-33.0); Mean Corpuscular Volume 101.0 fL (80.0-98.0); NRBC Abs Auto 0.000 X10*3/uL (0.0-0.012); NRBC Pct Auto 0.0 /100WBC (0.0-0.2); Platelet Count 246 X10*3/uL (160-400); Red Blood Count 4.01 X10*6/uL (4.20-5.50); White Blood Count 10.2 X10*3/uL (4.8-10.8)
[2024-12-05 10:13] LABS: Alanine Aminotransferase 9 U/L (0-31); Albumin Level 4.6 g/dL (3.5-5.0); Alkaline Phosphatase 132 U/L (39-117); Anion Gap 15 (12-20); Aspartate Amino Transferase 18 U/L (5-31); Blood Urea Nitrogen 22 mg/dL (9-16); Calcium 9.7 mg/dL (8.4-10.2); Carbon Dioxide 26 mmol/L (22-29); Chloride 105 mmol/L (96-108); Creatinine Clr Calc Pharmacy 92.7; Estimated Glomerular Filt Rate > 60; Magnesium 2.0 mg/dL (1.6-2.6); Potassium 3.9 mmol/L (3.3-5.1); Sodium 142 mmol/L (135-145); Total Protein 7.3 g/dL (6.5-8.0)
--- NOTE | 2024-12-05 13:19 | MHC.CM.PN ---
pt wants to go home instead of rehab pt home with [facility]
--- NOTE | 2024-12-05 14:17 | P.DS_ITS ---
DS: Providers Provider Date of Service: 12/05/24 Date of admission: 12/03/24 15:03 Date of discharge: 12/05/24 Primary care physician: MAU Delcid DS: Diagnosis Discharge Diagnosis (1) Acute exacerbation of chronic obstructive pulmonary disease: Status: Acute DS: Summary Hospital Course Hospital Course: Acute on chronic SOB/MAGALLANES secondary to asthma COPD overlap in the setting of current smoker Patient is a 59-year-old female with PMH notable for COPD asthma overlap, not on home O2, chronic low back pain, current smoker who presented to the ED with acute hypoxic respiratory failure secondary to ongoing cigarette smoker, was treated with IV fluids, steroids and nebulizers with good effect. Patient is being sent home on 40 mg of prednisone 5 days , doxycycline for 5 days and to be followed up with PCP within a week. Significant debilitating anxiety Atarax initiated with good effect during this admission Patient reports significant back pain, continue gabapentin, Robaxin, lidocaine patch, PTOT Extensive counseling being given regarding outpatient pain management, nonnarcotic pain management for her chronic back pain -patient reports she has an appointment next week with the pain clinic DVT prophylaxis was maintained with Lovenox Short-term rehab was recommended by PT, however patient adamant that she wants to leave home with VNA services. Patient aware of the risks Time spent discussing smoking cessation with patient: more than 10 minutes Status at Discharge Functional status at discharge: uses cane/walker Overall status at discharge: patient is not back to baseline (Patient although advised short-term rehab she is deferring that and would like to go home with visiting nurses) Time Attestation Discharge Coordination Time (in mins): 35 Quality: Safe Use of Opioids Does Pt have an Active Cancer Diagnosis on the Problem List?: No Quality: Stroke Does the patient have a stroke diagnosis?: No Physical Exam Vital Signs: Vital Signs: Last Vital Signs Temp 98.7 F 12/05/24 07:58 Pulse 60 12/05/24 07:58 Resp 18 12/05/24 07:58 BP 124/71 12/05/24 07:58 Pulse Ox 96 12/05/24 07:58 O2 Del Method Room Air 12/05/24 07:58 O2 Flow Rate 2 12/05/24 04:00 BMI result Body Mass Index 41.2 DS: Data Data Completed and Pending Labs on day of discharge: Laboratory Results - last 24 hr 12/05/24 09:03 WBC 10.2 RBC 4.01 L Hgb 12.9 Hct 40.5 MCV 101.0 H MCH 32.2 MCHC 31.9 RDW 14.1 Plt Count 246 MPV 9.8 Immature Gran % (Auto) 1.1 H Neut % (Auto) 88.9 H Lymph % (Auto) 8.6 L [place] % (Auto) 1.1 L Eos % (Auto) 0.1 Baso % (Auto) 0.2 Lymph # (Auto) 0.9 L [place] # (Auto) 0.1 Eos # (Auto) 0.0 Baso # (Auto) 0.0 Abs Immat Gran (auto) 0.11 H Absolute Neuts (auto) 9.0 H Absolute Nucleated RBC 0.000 Nucleated RBC % (auto) 0.0 Sodium 142 Potassium 3.9 Chloride 105 Carbon Dioxide 26 Anion Gap 15 BUN 22 H Creatinine 0.74 Estim Creat Clear Calc 92.7 Estimated GFR > 60 Random Glucose 138 H Calcium 9.7 D Magnesium 2.0 Total Bilirubin 0.3 AST 18 ALT 9 Alkaline Phosphatase 132 H Total Protein 7.3 Albumin 4.6 Preliminary micro results at discharge 12/03/24 13:58 Blood Culture - Preliminary Blood - Venous No growth after 24 hours. 12/03/24 13:50 Blood Culture - Preliminary Blood - Venous No growth after 24 hours. Discharge Plan Discharge Anticipated Discharge Date/Time: 12/05/24 12:03 Patient Disposition: Home Health Service Discharge Diagnosis: AE COPD in a patient with current cigarette smoking, debilitating anxiety Referrals: [facility] [Other] - 1 Week Juanis Garza FNP-BC [Primary Care Provider, Internal Medicine] - 1 Week Discharge Medications: New hydroxyzine HCl 10 mg Tablet 10 mg PO Q8H PRN (Reason: Anxiety) 30 Days Qty: 60 3RF prednisone 20 mg Tablet 40 mg PO DAILY 5 Days Qty: 10 0RF Continued ibuprofen 600 mg tablet 600 mg PO Q6H PRN (Reason: pain) Qty: 30 0RF Trelegy Ellipta 100-62.5-25 mcg blister with device 1 ea INHALATION DAILY albuterol sulfate 90 mcg/actuation HFA aerosol inhaler 2 puff inhalation Q6H Qty: 8.5 12RF gabapentin 600 mg tablet 600 mg PO TID 30 Days Qty: 90 8RF Discontinued albuterol sulfate 2.5 mg /3 mL (0.083 %) solution for nebulization 2.5 mg inhalation Q6H Qty: 180 11RF Discharge Orders: Discharge Order (Routine); Ordered 12/05/24 Ordered By: Tiki Hernandez Diet: Low salt diet Activity on Discharge: As tolerated Stand Alone Forms: Patient Portal Discharge page Print Language: Telugu Care Plan Goals: Control of back pain Nicotine cessation PTOT Short-term rehab -patient deferred rehab placement adamant that she would like to go home with VNA services only Health Concerns: Chronic back pain-has a pain clinic appointment per patient Plan of Treatment: Prednisone 40 mg 5 days Doxycycline 5 days Atarax for anxiety Advised the patient to seek therapy services for her anxiety Assessment: See above
[2024-12-05 15:14] VITALS: BP 130/78; PULSE 74; RESP 18; TEMP 36.7; O2SAT 94
== END 2024-12-05 15:03 | disposition home health service (06) | DRG 191 ==
LOC: HO.ED 15:13 → HO.EDOVER 15:56 → HO.S3 19:36
PROVIDERS: Family Medicine; Admitting Provider Nurse Practitioner Acute Care; Emergency Provider Emergency Medicine; PCP Nurse Practitioner Family; Visit Provider Student in an Organized Health Care Education/Training Program
DX: J44.1 Chronic obstructive pulmonary disease with (acute) exacerbation (principal); J45.901 Unspecified asthma with (acute) exacerbation; B97.89 Other viral agents as the cause of diseases classified elsewhere; G89.29 Other chronic pain; M54.59 Other low back pain; F41.9 Anxiety disorder, unspecified; F17.210 Nicotine dependence, cigarettes, uncomplicated; Z71.6 Tobacco abuse counseling; Z20.822 Contact with and (suspected) exposure to COVID-19; Z79.51 Long term (current) use of inhaled steroids; Z79.899 Other long term (current) drug therapy
CPT/HCPCS: 36415; 71045; 71275; 80048; 80053; 82803; 83605; 83735; 83880; 84443; 84484; 85025; 85027; 87040; 87633; 93005; 94640; 97162; 99285; J1650; J2470; J2919; J3360; Q9967

== ENCOUNTER → 2024-12-03 12:54 | Outpatient (BNV) | payer OTHER, SELFPAY | PROVIDERS: Admitting Provider Nurse Practitioner Acute Care; Emergency Provider Emergency Medicine; PCP Nurse Practitioner Family; Visit Provider Internal Medicine | DX: R00.0 Tachycardia, unspecified (principal); I49.3 Ventricular premature depolarization; I51.7 Cardiomegaly | CPT/HCPCS: 93010 ==

== ENCOUNTER → 2024-12-03 13:23 | Outpatient (BNV) | payer OTHER, SELFPAY | PROVIDERS: Emergency Provider Emergency Medicine; PCP Nurse Practitioner Family; Visit Provider Family Medicine | DX: J44.1 Chronic obstructive pulmonary disease with (acute) exacerbation (principal) | CPT/HCPCS: 99223; 99232; 99239 ==

== ENCOUNTER → 2024-12-03 14:26 | Outpatient (BNV) | payer OTHER, SELFPAY | PROVIDERS: Emergency Provider Emergency Medicine; PCP Nurse Practitioner Family; Visit Provider Radiology Diagnostic Radiology | DX: J98.8 Other specified respiratory disorders (principal); R06.00 Dyspnea, unspecified | CPT/HCPCS: 71045; 71275 ==

== ENCOUNTER 2024-12-12 05:50 | Day surgery (SDC) | payer OTHER, SELFPAY ==
--- OUTSIDE RECORDS SUMMARY | 2024-11-28 13:37 | XMS_ITS | Encounter Summary ---
Author Organization [facility] Address [address] [facility] [address] [place] [address] Phone Care Team Providers Care Aprn Name Role Phone Shayna Shannon MANAGER ROUTE Primary Care Provider [phone] Encounter Details Date Type Department Care Team (Latest Contact Info) Description 08/06/2019 Transcribe Orders Virtual Department [address] [place] [address] Suzy Rapp MD [address] [place] [address] [email or web address] g SOB (shortness of breath) (Primary Dx); [...] 9:12 AM EDT) Specimen Source NASOPHARYNGEAL SWAB (MANAGER ROUTE) [facility] COVID Testing Status Sent to [facility] Micro Lab [facility] Other 08/07/2019 9:12 AM EDT 08/07/2019 11:14 AM EDT us Suzy Rapp MD BODY FLUIDS AND STOOLS ORDER KELLEY Final Result [facility] [address] [place] [address] documented in this encounter Visit Diagnoses Diagnosis SOB (shortness of breath)- Primary Shortness of breath Sore throat Acute pharyngitis Muscle ache Unspecified myalgia and myositis Runny nose Other diseases of nasal cavity and sinuses documented in this encounter Additional Health Concerns Infection Onset Date Last Indicated Resolved Time CoV-Risk 08/06/2019 08/07/2019 08/20/2019 1:23 AM EDT documented as of this encounter Care Teams Aprn Relationship Specialty Start Date End Date Shayna Shannon NP [address] [place] [address] PCP - General Nurse Practitioner 04/15/17 documented as of this encounter Additional Source Comments The information contained in this document represents components of the legal health record. It is not the complete legal health record.[facility]
--- OUTSIDE RECORDS SUMMARY | 2024-11-28 13:37 | XMS_ITS | Encounter Summary ---
Author Organization [facility] Address [address] [facility] [address] [place] [address] Phone Care Team Providers Care Screen Operator Name Role Phone Shayna Shannon NP Primary Care Provider [phone] Encounter Details Date Type Department Care Team (Late st Contact Info) Description 10/11/2018 Transcribe Orders Virtual Department [address] [place] [address] Michelle Nathan PA [address] [place] [address] [phone] [email or web address] (Primary Dx) Social History Tobacco Use [...] EDT No acute cardiopulmonary process. POS - [id number] Narrative 10/11/2018 9:53 PM EDT EXAM: XR [...] IMPRESSION: No acute cardiopulmonary process. POS - [id number] Michelle EVANS IMG XR CHEST F inal Result documented in this encounter Visit Diagnoses Diagnosis Wheezing- Primary Wheezing documented in this encounter Additional Health Concerns Infection Onset Date Last Indicated Resolved Time CoV-Risk 08/06/2019 08/07/2019 08/20/2019 1:23 AM EDT documented as of this encounter Care Teams Screen Operator Relationship Specialty Start Date End Date Shayna Shannon NP [address] [place] [address] PCP - General Nurse Practitioner 04/15/17 documented as of this encounter Additional Source Comments The information contained in this document represents components of the legal health record. It is not the complete legal health record.[facility]
--- OUTSIDE RECORDS SUMMARY | 2024-11-28 13:37 | XMS_ITS | Encounter Summary ---
Author Organization [facility] Address [address] [facility] [address] [place] [address] Phone Care Team Providers Care Flour Broker Name Role Phone Shayna Shannon FOOD AND NUTRITION PROFESSOR Primary Care Provider [phone] Encounter Details Date Type Department Care Team (Late st Contact Info) Description 04/15/2017 Procedure Pass [facility], Ct Scan - [facility] [address] [place] [address] Social History Tobacco Use Types Packs/Day Years [...] documented as of this encounter Care Teams Flour Broker Relationship Specialty Start Date End Date Shayna Shannon NP [address] [place] [address] PCP - General Nurse Practitioner 04/15/17 documented as of this encounter Additional Source Comments The information contained in this document represents components of the legal health record. It is not the complete legal health record.[facility]
--- OUTSIDE RECORDS SUMMARY | 2024-11-28 13:38 | XMS_ITS | Clinical Summary ---
Author Organization [facility] Address [address] [facility] [address] [place] [address] Phone Care Team Providers Care Hair Boiler Operator Name Role Phone Shayna Shnanon NP Primary Care Provider Allergies Active Allergy Reactions Criticality Noted Date [...] topic Medical Devices Not on file [place] [address] [place] [address] [facility] [place] [place] [address] [facility] [place] [address] [place] [address] [facility] [employer] [facility] Advance Directives For more information, please contact: [phone] (9AM - 5PM [place]/[facility], Sunday-Sunday) Documents on File Type Date Recorded Patient Inhalation Therapy Teacher Expl anation Healthcare Proxy 04/19/2017 2:31 PM PROXY * Full Code (Presumed) (Latest Code Status on File) Date Activated Date Inactivated Comments 04/15/2017 8:02 PM 04/17/2017 7:53 PM Care Teams Hair Boiler Operator Relationship Specialty Start Date End Date Shayna Shannon NP [address] [place] [address] PCP - General Nurse Practitioner 04/15/17 Additional Source Comments The information contained in this document represents components of the legal health record. It is not the complete legal health record.[facility]
[2024-12-10 13:43] VITALS: BMI 43.0
--- NOTE | 2024-12-11 09:12 | P.CONAN_ITS ---
Documented by User: Parul Harvey NP 12/11/24 09:17 HPI - Anesthesia Eval Consult details Narrative: 59yo F for Bilateral Therapeutic Sacroiliac Joint Steroid Injection s/p Caudal Epidural Steroid Injection with catheter 07/2024 with [facility] [place] 12[place]03-12/05: COPD asthma overlap, not on home O2, chronic low back pain, current smoker who presented to the ED with acute hypoxic respiratory failure secondary to ongoing cigarette smoker, was treated with IV fluids, steroids and nebulizers with good effect. Patient is being sent home on 40 mg of prednisone 5 days , doxycycline for 5 days and to be followed up with PCP within a week. Asthma COPD exacerbation due to rhinovirus, hence symptomatic management and steroids and nebulizers Patient is not hypoxic on room air at the time of discharge Unable to reach patient by phone to assess current respiratory status. No PCP f/u since discharge. PMFSH Active Problems Active Problems: All Active Problems COPD with asthma (Acute) Acute exacerbation of chronic obstructive pulmonary disease (Acute) Spinal stenosis (Acute) Lumbago (Acute) Pain of both sacroiliac joints (Acute) Sacroiliitis (Acute) Chronic pain syndrome (Acute) Spondylolisthesis, lumbar region (Acute) Baastrup disease of lumbar spine (Acute) Spinal stenosis at L4-L5 level (Acute) Chronic low back pain (Acute) Abnormal mammogram of right breast (Acute) Lung cancer screening declined by patient (Acute) MDD (major depressive disorder), recurrent episode (Acute) Morbid obesity with BMI of 40.0-44.9, adult (Acute) Tobacco dependence (Acute) PVD (peripheral vascular disease) (Acute) COPD (chronic obstructive pulmonary disease) (Acute) Past Medical History Medical History Asthma PVD (peripheral vascular disease) COPD (chronic obstructive pulmonary disease) Spine pain Family History Family History Father Cancer Brother Cancer Paternal Grandfather Cardiovascular disease Mother COPD (chronic obstructive pulmonary disease) Family history of problems with anesthesia: No Surgical History Surgical History Colon cancer screening declined (~2024) H/O: hysterectomy Previous section History of Problems with Anesthesia: No Social History Social History Household Members: Family Household Members Other:: cousin Housing: House Are you a primary critical care clinical nurse specialist to a significant other at home: No Do you presently have visiting nurse or other home services: No Alcohol intake: former Comment: pain level at baseline for pt per pt report Patient Tobacco Use Status: Current everyday Tobacco user Tobacco use type: Cigarette Cigarette Packs Per Day: 1 Cigarettes Per Day: 10 Years Smoked: 42 e-Cigarette/Vaping Use: Never Used Second Hand Smoke Exposure: No Use of substances other than those prescribed or required for medical reasons: Yes Substance Use Frequency: Weekly Have you been hit, kicked, punched, or otherwise hurt by someone within the past year? 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 100 mcg-umeclid 1 ea inhalation DAILY 12/03/24 12/10/24 12/03/24 History 62.5 mcg-vilant 25 mcg inhalat.powder (Trelegy Ellipta) albuterol sulfate 2.5 mg/3 mL 2.5 mg inhalation Q4H FL N 12/10/24 12/10/24 Unknown History (0.083 %) solution for nebulization Shortness Of Breat h Or Wheezing Exam Height,Weight and Vital Signs: Height 5 ft 2 in Weight 106.594 kg Pertinent Lab Results Pertinent Lab Results: Laboratory Tests 12/05/24 09:03 WBC 10.2 Hgb 12.9 Hct 40.5 Plt Count 246 Sodium 142 Potassium 3.9 Chloride 105 Carbon Dioxide 26 BUN 22 H Creatinine 0.74 Narrative Narrative: EKG 12/2024 Vent. Rate : 105 BPM Atrial Rate : 105 BPM P-R Int : 152 ms QRS Dur : 84 ms QT Int : 338 ms P-R-T Axes : 63 -41 43 degrees QTcB Int : 446 ms Sinus tachycardia with frequent Premature ventricular complexes Biatrial enlargement Left axis deviation Abnormal ECG No previous ECGs available Assessment and Plan Assessment Anesthesia Assessment: Chart Reviewed Final Anesthetic Review Family History of Problems with Anesthesia: No History of Problems with Anesthesia: No Documented by User: Yesenia Sawyer MD 12/12/24 07:49 PMFSH Past Medical History Medical History Asthma PVD (peripheral vascular disease) COPD (chronic obstructive pulmonary disease) Spine pain Family History Family History Father Cancer Brother Cancer Paternal Grandfather Cardiovascular disease Mother COPD (chronic obstructive pulmonary disease) Surgical History Surgical History Colon cancer screening declined (~2024) H/O: hysterectomy Previous section Social History Social History Household Members: Family Household Members Other:: cousin Housing: House Are you a primary critical care clinical nurse specialist to a significant other at home: No Do you presently have visiting nurse or other home services: No Alcohol intake: former Comment: pain level at baseline for pt per pt report Patient Tobacco Use Status: Current everyday Tobacco user Tobacco use type: Cigarette Cigarette Packs Per Day: 1 Cigarettes Per Day: 10 Years Smoked: 42 e-Cigarette/Vaping Use: Never Used Second Hand Smoke Exposure: No Use of substances other than those prescribed or required for medical reasons: Yes Substance Use Frequency: Weekly Have you been hit, kicked, punched, or otherwise hurt by someone within the past year? 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 100 mcg-umeclid 1 ea inhalation DAILY 12/03/24 12/10/24 12/03/24 History 62.5 mcg-vilant 25 mcg inhalat.powder (Trelegy Ellipta) albuterol sulfate 2.5 mg/3 mL 2.5 mg inhalation Q4H FL N 12/10/24 12/10/24 Unknown History (0.083 %) solution for nebulization Shortness Of Breat h Or Wheezing Exam Airway Mallampati Class: II TM Dist: >3cm Neck ROM: Full Loose/Missing/Broken Teeth: Yes Heart: rrr Lungs: cta Assessment and Plan Assessment Anesthesia Assessment: Anesthesia Plan Discussed Final Anesthetic Review NPO: Yes ASA Class: III Final Preanesthetic Review: No Changes in Pt Med Stat, Meds/Allgs Chart Reviewed, Consent Obtained/Reviewed and Anes Risks/Benef Reviewed Patient Risk: Intermediate Procedure Risk: Intermediate Anesthetic Plan Anesthetic Plan: GA Disposition: Standard PACU
--- NOTE | ~2024-12-12 | FL_ITS ---
EXAMINATION: XR FLUOROSCOPY WITH IMAGES CLINICAL INFORMATION: Therapeutic injection COMPARISON: None available. TECHNIQUE: Fluoroscopy provided to: Dr. Fagan Fluoroscopic time: 21.7 seconds DLP:11.3 mGycm2 Images: 2 FINDINGS: Nondiagnostic 2 images provided during the procedure. A radiologist was not present during imaging. Today's dictation is only for administrative purposes to document intraoperative fluoroscopy. 2 images demonstrate needle projected in the region of the SI joints. FL/FL guidance in OR IMPRESSION: Fluoroscopy during procedure. Please see procedure report for additional information.. Electronically signed by: Bjorn Vigil MD 12/12/2024 08:03 AM EDT
[2024-12-12 06:31] VITALS: BP 124/58; PULSE 93; RESP 18; TEMP 37.4; O2SAT 95; BMI 42.7
[2024-12-12] MEDS: Lactated Ringers 1,000 ML 100 ML IVCONT (06:48)
[2024-12-12] MEDS: Albuterol Sulfate (0.083%) 2.5 MG/3 ML VIAL.NEB INHALE (06:57)
[2024-12-12 07:01] VITALS: PULSE 87; RESP 18; O2SAT 96
--- NOTE | 2024-12-12 07:14 | MHC.SHP ---
Pre-Procedural Eval Section A - 24 Hr Update-Section A only Date of Service: 12/12/24 The patient is an INPATIENT: No Changes since office visit: Yes Patient answered all questions The patient has been examined within 24 hours of the surgical procedure. The History & Physical has been completed within 30 days and I have reviewed it.: No Section B - Complete if H&P > 30 days Chief Complaint: Sacrococcygeal disorders,sacroiliitis Details of Present Illness: Above Relevant Family History (Specify if Yes): No Relevant Social History: None Present Medications: see Short Stay Collaborative assessment Medical History: Significant History History of Previous Operations: No relevant previous surgery Allergies: Allergies Allergy/AdvReac Type Severity Reaction Status Date / Time Penicillins (PENICILLINS) Allergy Unknown HIVES Verified 12/12/24 06:24 Review of Systems Sugical H&P ROS: Negative: Cardiovascular, Neurological, Psychiatric, Hem-Onc, Allergic/Immunologic, Gastrointestinal, Genitourinary, Integumentary, Endocrine and Eyes/Ears/Nose/Throat and Yes, Specify: Constitution (Morbid obesity), Respiratory (COPD) and Musculoskeletal (Baastrup disease, sacroiliitis, spondylolisthesis, disc degeneration, spinal stenosis) Exam Surgical H&P Exam: Normal: HEENT, Normal: Heart, Normal: Lungs, Normal: Extremities, Normal: Skin and Normal: Neurological and Significant Findings: Abdomen (Enlarged due to fat) Plan Diagnosis/Plan: Unchanged I have reviewed the history and physical and performed a pertinent physical examination on my patient. No changes have occurred unless specified. I will perform bilateral therapeutic sacroiliac joint injection Time Spent With Patient Time: Total time managing care of this patient today ____ minutes.
[2024-12-12 07:50] VITALS: BP 95/59; PULSE 89; RESP 16; TEMP 36.8; O2SAT 98
--- NOTE | 2024-12-12 07:58 | PM.OP ---
Brief Operative Note Date of Service: 12/12/24 Pre-op diagnosis: Sacroiliitis bilateral SI joint dysfunction Post-op diagnosis: same Procedure: Therapeutic bilateral sacroiliac joint injection Implants: None Surgeon: Dave Fagan MD Anesthesia: MAC Was an Summer Intern used for this Procedure?: No Estimated blood loss (mL): 0 Condition: stable Disposition: PACU
--- NOTE | 2024-12-12 07:59 | P.OP_ITS ---
Operative Note Operative Note Date of Service: 12/12/24 Narrative: Sacroiliac joint injection therapeutic bilateral. Informed consent was explained thoroughly to the patient.? All questions about benefits and risks for the procedure were answered. Patient came to the operating room and was positioned prone on the operating table with the pillow under the abdomen.? ASA monitors were applied and patient was moderately sedated. The lower back and buttocks of the patient were prepped with ChloraPrep prepped and draped with sterile utility towels.? Sterilely draped C-arm was brought over the operating field and sq picture of patient's pelvis was demonstrated on the screen.? For the right joint tilting C-arm contralateral to the site of the joint the most posterior portion of the joints was superimposed with anterior silhouette of the joint.? Skin was injected in the projection of the joint slightly medial to the location of the joint with 25 gauge 1/2 inch needle using local lidocaine 2% mixed with ropivacaine 0.5% one to one. After that 22 gauge 3 and 1/2 inch needle was driven to the right joint in tunn el vision fashion.? When needle entered the joint capsule injection of the contrast was performed demonstrating intra-articular and minimally periarticular spread of the contrast.? After that 4 cc. of ropivacaine 0.5% mixed with Kenalog 40 mg was injected into the joint. Upon completion of the injections the needle was removed and then procedure was repeated on the left SI joint in mirroring fashion. Upon completion of the procedure Band-Aids were applied.? Upon completion of the injection patient was taken outside of the operating room to the recovery room where recovered uneventfully.
[2024-12-12 08:05] VITALS: BP 128/65; PULSE 89; RESP 16; TEMP 37; O2SAT 98
== END 2024-12-12 08:40 | disposition home or self-care (01) ==
PROVIDERS: PCP Nurse Practitioner Family; Visit Provider Anesthesiology
PROC: 3E0U33Z Introduction of Anti-inflammatory into Joints, Percutaneous Approach (ICD-10-PCS; CPT 27096; principal; 2024-12-12 07:30)
DX: M46.1 Sacroiliitis, not elsewhere classified (principal); M53.3 Sacrococcygeal disorders, not elsewhere classified; G89.4 Chronic pain syndrome; M48.061 Spinal stenosis, lumbar region without neurogenic claudication; M43.16 Spondylolisthesis, lumbar region; M54.50 Low back pain, unspecified; M48.26 Kissing spine, lumbar region; Z91.81 History of falling; I73.9 Peripheral vascular disease, unspecified; J44.9 Chronic obstructive pulmonary disease, unspecified; Z79.51 Long term (current) use of inhaled steroids; Z79.899 Other long term (current) drug therapy; Z88.0 Allergy status to penicillin; F17.210 Nicotine dependence, cigarettes, uncomplicated
CPT/HCPCS: 27096; 94640; J2003; J2250; J2704; J2795; J3010; J3301; Q9967

== ENCOUNTER → 2024-12-12 05:50 | Outpatient (BNV) | payer OTHER, SELFPAY | PROVIDERS: PCP Nurse Practitioner Family; Visit Provider Anesthesiology | DX: M46.1 Sacroiliitis, not elsewhere classified (principal) | CPT/HCPCS: 27096 ==

== ENCOUNTER 2024-12-18 11:23 | Outpatient (AMB) | payer OTHER, SELFPAY ==
--- NOTE | 2024-12-18 11:27 | MHC.PC.OV ---
Vital Signs 12/18/24 11:32 Height 5 ft 2 in BMI Reason not done Patient refused/unable BP 124/70 Blood Pressure Location Rt brachial Position Sitting Respiration 12 Pulse 69 Pulse Source Pulse Oximeter Temp 97.2 F Temp Source Oral Pulse Oximetry (%) 99 Oxygen Delivery Method Room Air Intake Visit Reasons: Hos Dis Follow Up - Angy from 12/10 pt forgot domenica Intake Note: Hospital [facility] discharge follow up . Manager Of Selection And Assessment Required: No Allergies Penicillins (PENICILLINS) Allergy (Unknown, Verified 12/18/24 11:50) HIVES Medication List - Last Reconciled 12/18/24 by Juanis Garza, HOME APPLIANCES MECHANIC-BC albuterol sulfate 2.5 mg inhalation Q4H PRN albuterol sulfate 90 mcg/actuation 2 puffs inhalation Q6H fmdjkjqhamg-pnltpynyl-gvhnhhjs 100-62.5-25 mcg (Trelegy Ellipta) 1 ea inhalation DAILY gabapentin 600 mg PO TID 30 days hydroxyzine HCl 10 mg PO Q8H PRN 30 days ibuprofen 600 mg PO Q6H PRN Tobacco use date assessed: 12/18/24 Dental Screening Dental Screen Date: 12/18/24 Did you have a dental visit in the last 12 months?: Yes Did you have a dental problem in the last 6 months where you did not have access to dental care?: No Was dental information given to patient?: Patient has dentist HPI HPI Comments History of Present Illness Details 59-year-old female with COPD, current smoker, morbid obesity, chronic back pain, chronic leg pain, bilateral lower extremity edema, PVD, allergic rhinitis, MDD Status post total abdominal hysterectomy Social: sister is Skylar Winn; Has 2 children Son and dtr; works at [employer] Family history: Mom with COPD, CHF age 64, father with malignant tumor of kidney disease stage 59, paternal grandmother malignant tumor of the kidney, maternal aunt type 2 diabetes, no breast cancer or colon cancer Specialists [facility] Supervisor at [facility]* Psychologist Lala Donahue * [facility]SS[facility]* [facility] pain mgmt visit 03/13/24 Moderate to severe spinal stenosis , increase her gabapentin to 400 mg t.i.d.. plan for injection No longer ff'd Health Maintenance: Tdap 2019 @ [facility] Flu 12/18/24. Advised to complete Pneumococcal series at pharmacy; Shingles vaccine in the future DEXA declined, has never had one PAP n/a RENUKA Colon declined Right breast ultrasound atypical lobular hyperplasia, adenosis and stromal fibrosis high-risk consultation indicated 10/10/2022 CHENTE testing 02/13/2022 normal, right CHENTE 1.29, left CHENTE 1.30 Here today for a Transitional Care Management Visit Discharge summary reviewed. Hospital Course: Acute on chronic SOB/MAGALLANES secondary to asthma COPD overlap in the setting of current smoker Patient is a 59-year-old female with PMH notable for COPD asthma overlap, not on home O2, chronic low back pain, current smoker who presented to the ED with acute hypoxic respiratory failure secondary to ongoing cigarette smoker, was treated with IV fluids, steroids and nebulizers with good effect. Patient is being sent home on 40 mg of prednisone 5 days , doxycycline for 5 days and to be followed up with PCP within a week. Significant debilitating anxiety Atarax initiated with good effect during this admission Patient reports significant back pain, continue gabapentin, Robaxin, lidocaine patch, PTOT Extensive counseling being given regarding outpatient pain management, nonnarcotic pain management for her chronic back pain -patient reports she has an appointment next week with the pain clinic DVT prophylaxis was maintained with Lovenox Short-term rehab was recommended by PT, however patient adamant that she wants to leave home with VNA services. Patient aware of the risks Admission Date: 12/03/24 Discharge Date: 12/05/24 Hospital: [facility] Date of interactive contact with Nurse Navigator: as documented in chart Pending diagnostic tests/treatments: Pending consults: DME: PT/OT/ASSISTANT TEACHER PRIMARY: Home Health Aide/NECK CUTTER: Community Resources: Asst Living: Home Health: Hospice: Support group: Other: Referrals: Medications reconciled & updated. Discharge Medications: New hydroxyzine HCl 10 mg Tablet 10 mg PO Q8H PRN (Reason: Anxiety) 30 Days Qty: 60 3RF prednisone 20 mg Tablet 40 mg PO DAILY 5 Days Qty: 10 0RF Continued ibuprofen 600 mg tablet 600 mg PO Q6H PRN (Reason: pain) Qty: 30 0RF Trelegy Ellipta 100-62.5-25 mcg blister with device 1 ea INHALATION DAILY albuterol sulfate 90 mcg/actuation HFA aerosol inhaler 2 puff inhalation Q6H Qty: 8.5 12RF gabapentin 600 mg tablet 600 mg PO TID 30 Days Qty: 90 8RF Discontinued albuterol sulfate 2.5 mg /3 mL (0.083 %) solution for nebulization 2.5 mg inhalation Q6H Qty: 180 11RF During todays TCM visit, the d/c summary was reviewed, along with the need for or follow-up on pending diagnostic tests and treatments, as necessary interaction with other health health care liaison who will assume or reassume care of the beneficiary?s system-specific problems was done or is being worked on, education was provided to the beneficiary, family, guardian, and/or caregiver, referrals to establish or re-establish and arrange needed community resources we completed, assistance in scheduling required follow-up with community providers and services & finally updated medication list given to patient/caregiver. Asthma-COPD Overlap Syndrome: - Hospitalized for exacerbation. - Completed prednisone course. - Improved symptoms post-treatment. Anxiety: - Associated with respiratory symptoms. - Minimal use of hydroxyzine. Chronic Back Pain: - Persistent post-fall. - Temporary relief from recent spinal injections. - Awaiting further imaging. Obesity: - 50 lb weight gain. - Interest in Ozempic. Tobacco Use Disorder: - Current smoker. - Recognized impact on health. Review of Systems - Respiratory: Reports shortness of breath. - Psychological: Reports anxiety, particularly related to recent health concerns. - Musculoskeletal: Reports chronic back pain, particularly after a fall. - General: Denies need for current prescriptions aside from those discussed. Physical Exam Awake alert oriented, no acute distress Regular rate and rhythm Lung sounds faint ins/exp wheeze throughout, no distress or cough Bilateral lower extremities with varicosities, skin dry, hairless, nonpitting edema, decreased pedal pulses, skin intact Tearful when talking about her health, kind and appropriate. Discussion Notes During the visit, we discussed the patient's current condition following her recent hospital admission due to exacerbated respiratory symptoms from Asthma-COPD Overlap Syndrome. Management options including medication continuation like Trelegy for her respiratory condition were reviewed in detail. Discussions also focused on her anxiety, which seems exacerbated by general life stressors and illness. Back pain management was thoroughly discussed with the patient updated on current imaging status and insurance approvals. Additionally, given the patient's current obesity and interest in weight management medications, we considered the use of Ozempic, discussing potential financial implications associated with its fhb-kx-oenlhr expense. I addressed the potential interactions and complications of her conditions, emphasizing the impact of smoking on her respiratory condition and discussing her interest in quitting. Patient was given time to ask questions. All questions were answered to their satisfaction. Assessment and Plan 1. Asthma-COPD Overlap Syndrome - Continue Trelegy, prednisone for emergencies, reduce smoking. Flu shot given today; immunization couneling Advised to send me portal message ROD if need for prednisone use/start. 2. Anxiety - Continue hydroxyzine PRN, manage via lifestyle changes. 3. Chronic Back Pain - Message sent to Pain mgmt, CT scan scheduled 01/22/25. Pt aware. Per staff after pt left ins. auth remains pending. i asked they contact her and update as approp. 4. Obesity - Discuss Ozempic options, monitor weight impact on health. - Buy out of pocket 5. Tobacco Use Disorder - Encourage cessation, support lifestyle changes. Patient Instructions - Use Trelegy inhaler as prescribed. - Keep prednisone for emergency flare-ups. - Contact for any worsening breathing. - Follow current plans for back pain. - Discuss Ozempic or weight management options with insurance or providers. - Seek out smoking cessation resources to assist in quitting. - RTO Dec CPE, sooner PRN Consent During today's visit, the patient provided consent for a flu vaccination. I thoroughly reviewed with her the expected benefits of the flu vaccine in reducing the risk of influenza. Discussed were potential side effects, such as local soreness, and the necessity of receiving annual influenza vaccines due to varying viral strains. The patient agreed and proceeded with the vaccination. Consent was also implied for follow-ups regarding ongoing treatment plans for her respiratory and pain management, acknowledging the planned CT scan and potential use of emergent prednisone for asthma exacerbation. Patient was informed and verbally consented to the use of an ambient scribe for clinic note documentation during this visit. Total time spent caring for the patient today was 45 minutes. This includes time spent before the visit reviewing the chart, time spent during the visit, and time spent after the visit on documentation, reviewing laboratory results, diagnostic imaging, medications, performing a medically necessary evaluation, counseling on diagnoses, care coordination, ordering appropriate tests, ordering appropriate medications, review of tests performed by other providers, reporting test results with the patient, communication with other healthcare providers. FORMERLY [facility], [facility] Medical History Asthma PVD (peripheral vascular disease) COPD (chronic obstructive pulmonary disease) Spine pain Surgical History Colon cancer screening declined (~2024) H/O: hysterectomy Previous section Family History Father Cancer Brother Cancer Paternal Grandfather Cardiovascular disease Mother COPD (chronic obstructive pulmonary disease) Social History Household Members: Family Household Members Other:: cousin Both parents involved: No Caregiver staying overnight: No Housing: House Are you a primary care transitions manager to a significant other at home: No Do you presently have visiting nurse or other home services: No 75 years or older and lives alone: No Alcohol intake: former Patient Tobacco Use Status: Current everyday Tobacco user Tobacco use type: Cigarette Cigarette Packs Per Day: 1 Cigarettes Per Day: 10 Years Smoked: 42 e-Cigarette/Vaping Use: Never Used Second Hand Smoke Exposure: No Advance Directives Date on File: 12/03/24 service: No Current occupational status: employed 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 Cognitive needs: No Hearing needs: No Vision needs: No Questionnaire Thrive Questionnaire Date Thrive assessed: 12/18/24 I am a: Patient What is your living situation today?: I have a steady place to live Within the past 12 months, did the food you bought not last and you didn't have the money to get more?: Never true Within the past 12 months, did you worry whether your food would run out before you got money to buy more?: Never true Do you have trouble paying for medicines?: No Do you have trouble getting transportation to medical appointments?: No Do you have trouble paying your heating and electricity bill?: No Do you have trouble taking care of your child, family member or friend?: No Do you have trouble with day-to-day activities such as bathing, preparing meals, shopping, managing finances, etc.?: I choose not to answer this question Are you currently unemployed and looking for a job?: No Are you interested in more education?: No Please select the resources that you would like help with: None Currently or been in a relationship where the following occur: I choose not to answer THRIVE Score: 0 ROCÍO-7 AMB Questionnaire ROCÍO-7 Date ROCÍO - 7 assessed: 05/26/24 Source: Developed by Drs. Bridger Wen, Maria Elena Castorena, Horacio Ordonez and colleagues, with an educational brisa from [employer]. Physical exam (Primary Care) Vital Signs: Last Vital Signs Temp 97.2 F 12/18/24 11:32 Pulse 69 12/18/24 11:32 Resp 12 12/18/24 11:32 BP 124/70 12/18/24 11:32 Pulse Ox 99 12/18/24 11:32 Oxygen Delivery Method Room Air 12/18/24 11:32 BMI Assessment/Plan discussion: High BMI High, discussed plan: lifestyle Tobacco/Smoking Status: Tobacco use Status Tobacco use date assessed 12/18/24 12/18/24 11:34 Patient Tobacco Use Status Current everyday Tobacco 12/18/24 11:27 Tobacco use type Cigarette 12/18/24 11:27 e-Cigarette/Vaping Use Never Used 12/18/24 11:27 Are you ready to quit: No Tobacco cessation counseling provided: Yes Items discussed: Nicotine replacement, QuitWorks and Other Number of minutes spent counselin CPT code: 62772 - 4-10 Minutes Thrive Assessment: Date of Thrive Assessment Date Thrive assessed 12/18/24 12/18/24 11:34 Currently or been in a relationship where the following occur: I choose not to answer Office Procedures Flu Questionnaire Does the patient have a severe egg allergy?: No Does the patient have severe life threatening allergies?: No Does the patient have a fever or illness today?: No Has the patient ever had Guillain-Pinehill Syndrome?: No Has the patient ever had any past reaction to a flu shot?: No Immunizations Fluarix 2985-4428 (PF) 45 mcg (15 mcg x 3)/0.5 mL IM syringe Performing Provider: SG Delcid Performing Location: [facility] Administered by: Elisa Gutierrez MA on 12/18/24 12:18 Dose Route Admin Location Dispensed Lot Number Expiration Date [facility] Heel Coverer 0.5 mL IM Right Deltoid 0.5 mL [id number] 09/01/25 [id number] [employer] VIS Given Date VIS Provided VIS Publication Date 12/18/24 Single Vaccine 24 Eligibility Eligibility Date Funding Source Not [facility] Eligible 12/18/24 Private Coding Level of Care Code TCM High MDM <= 14 days Complex EM visit Add On G2211 Diagnoses Hospital discharge follow-up Z09 Morbid obesity with BMI of 40.0-44.9, adult E66.01; Z68.41 COPD with asthma J44.89 Tobacco dependence F17.200 Chronic low back pain M54.50; G89.29 Back pain laterality: unspecified Influenza vaccination administered at current visit Z23 Additional Codes Vital Signs *Quality* - CPT code: 38207 - 4-10 Minutes ([id number]) Assessment & Plan Assessment & Plan (1) Hospital discharge follow-up: Code(s): Z09 - Encounter for follow-up examination after completed treatment for conditions other than malignant neoplasm (2) Morbid obesity with BMI of 40.0-44.9, adult: Code(s): E66.01 - Morbid (severe) obesity due to excess calories; Z68.41 - Body mass index [BMI] 40.0-44.9, adult Category: Medical (3) COPD with asthma: Code(s): J44.89 - Other specified chronic obstructive pulmonary disease Category: Medical (4) Tobacco dependence: Comment: Smoking Cessation How to Quit There are a lot of ways to quit smoking and many resources to help you. Family members, friends, and co-workers may be supportive or encouraging, but to be successful the desire and commitment to quit must be your own. Most people who have been able to successfully quit smoking made at least one unsuccessful attempt in the past. Try not to view past attempts to quit as failures, but rather as learning experiences. Stopping smoking or using smokeless tobacco is difficult, but anyone can do it. Know the symptoms to expect when you stop. Common symptoms include: ? An intense craving for nicotine ? Anxiety, tension, restlessness, frustration, or impatience ? Difficulty concentrating ? Drowsiness or trouble sleeping, as well as bad dreams and nightmares ? Drowsiness and trouble sleeping ? Headaches ? Increased appetite and weight gain ? Irritability or depression How severe your symptoms are depends on how long you smoked and how many cigarettes you smoked each day. Feel ready to quit? ? First and foremost, set a quit date and quit completely on that day. Before your quit date, you may begin reducing your cigarette use. But remember, there is no safe level of cigarette smoking. ? List the reasons why you want to quit. Include both short- and long-term benefits. ? Identify the times you are most likely to smoke. For example, do you tend to smoke when feeling stressed or down? When out at night with friends? While drinking coffee or alcohol? When bored? While driving? Right after a meal or sex? During a work break? While watching TV or playing cards? When you are with other smokers? ? Let all of your friends, family, and co-workers know of your plan to stop smoking and your quit date. Just being aware that they know what you're going through can be helpful, especially when you are grumpy. ? Get rid of all your cigarettes just before the quit date, and clean out anything that smells like smoke, such as clothes and furniture. Make a plan about what you will do instead of smoking at those times when you are most likely to smoke. ? Be as specific as possible. For example, drink tea instead of coffee -- tea may not trigger the desire for a cigarette. Or, take a walk when you feel stressed. ? Remove ashtrays and cigarettes from the car. Place pretzels or hard candies there instead. Pretend-smoke with a straw. ? Find activities that focus your hands and mind but are not taxing or fattening. Computer games, solitaire, knitting, sewing, and crossword puzzles may help. ? If you normally smoke after eating, find other ways to end a meal. Play a tape or CD, eat a piece of fruit, get up and make a phone call, or take a walk (a good distraction that also ivy calories). Make other changes in your lifestyle. ? Change your daily schedule and habits. Eat at different times or eat several small meals instead of three large ones. Sit in a different chair or even a different room. ? Satisfy your oral habits by eating celery or other low-calorie snack, chewing sugarless gum, or sucking on a cinnamon stick. ? Go to public places and restaurants where smoking is prohibited or restricted. ? Eat regular meals and don't eat too much candy or sweet things. ? Get more exercise. Take walks or ride a bike. Exercise helps relieve the urge to smoke. Set short-term quitting goals and reward yourself when you meet them. ? Every day, put the money you normally spend on cigarettes in a jar. Then buy something pleasurable after a period of time. ? Try not to think about all the days ahead you will need to avoid smoking. Take it one day at a time. ? Even one puff or one cigarette will make your desire for more cigarettes even stronger. However, it is normal to make mistakes. So even if you have one cigarette, you don't need to take the next one. Other tips to help you quit smoking and stick to it: ? Enroll in a smoking cessation program (hospitals, health departments, community centers, and work sites often offer programs). Learn about self-hypnosis or other techniques. ? Ask your health care provider about prescription medications that are safe and appropriate for you. ? Find out about nicotine patches, gum, and sprays. The [place] [employer]'s web site -- www.cancer.org -- is an excellent resource for smokers who are trying to quit, and the [employer] [place] [employer] can help some smokers kick the habit. Above all, don't get discouraged if you aren't able to quit smoking the first time. Nicotine addiction is a hard habit to break. Try something different next time. Develop new strategies, and try again. Many people take several attempts to finally kick the habit. Code(s): F17.200 - Nicotine dependence, unspecified, uncomplicated Category: Medical (5) Chronic low back pain: Code(s): M54.50 - Low back pain, unspecified; G89.29 - Other chronic pain Category: Medical Qualifiers: Back pain laterality: unspecified (6) Influenza vaccination administered at current visit: Onset Date: ~12/18/24 Code(s): Z23 - Encounter for immunization Category: Medical Plan . Orders: Orders Influenza [id number] Immunization Today Z23 - Encounter for immunization Medications: New hcgsydhknxt-aecqsvvys-wveroqqf 100-62.5-25 mcg (Trelegy Ellipta) 1 ea inhalation DAILY 60 ea 12RF prednisone 50 mg PO DAILY 14 tabs 0RF Patient Instructions: Get the pneumococcal vaccine series at the pharmacy. You have rec'd the PPSV 23 in 2016 COVID shot to be given at pharmacy if desired Flu shot given today. No need for RSV 01/[address] scan
[2024-12-18 11:32] VITALS: BP 124/70; PULSE 69; RESP 12; TEMP 36.2; O2SAT 99
--- OUTSIDE RECORDS SUMMARY | 2024-12-18 14:39 | XMS_ITS | Clinical Summary ---
Author Organization [facility] Address [address] [place] [id number] Phone Care Team Providers Care Machine Tester Name Role Phone Shayna Shannon NP Primary Care Provider [phone] Allergies Active Allergy Reactions Criticality Noted Date [...] Date Resolved Date Small bowel obstruction 04/15/201704/05 Encounters Date Type Department Care Team Description 12/05/2024 Orders Only [facility] [address] [place] [address] Homehealth, Interface ProviderMD from Last 3 Months Social History Tobacco Use Types Packs/Day Years [...] topic Medical Devices Not on file Insurance [facility] Member Subscriber Plan / Payer (Formerly [facility], 1928–1983tive 03/05/2012-) Name:Lauryn Saini Relation to Subscriber:Self Name:Lauryn Saini Payer ID:[id number] ([facility]) Type:HMO Address: [address] [place] [address] [facility] Member Subscriber Plan / Payer (Formerly [facility], 1928–1983tive 03/05/2012-Present) Name:Nicolle Sainir Relation to Subscriber:Self Name:Lauryn Saini Payer ID:1 ([facility]) Type:HMO Address: [id number] [place] [address] [place] [address] [place] [address] [place] [address] [facility] Adriana [facility] Advance Directives For more information, please contact: [phone] (9AM - 5PM [place] [place], Sunday-Sunday) Documents on File Type Date Recorded 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 It is not the complete legal health record.[facility]
--- OUTSIDE RECORDS SUMMARY | 2024-12-18 14:39 | XMS_ITS | Encounter Summary ---
Author Organization [facility] Address [address] [facility] [address] [place] [address] Phone Care Team Providers Care Production Truck Driver Name Role Phone Shayna Shannon PATIENT PORTAL REPRESENTATIVE Primary Care Provider [phone] Encounter Details Date Type Department Care Team (Latest Contact Info) Description 08/06/2019 Transcribe Orders Virtual Department [address] [place] [address] Suzy Rapp MD [address] [place] [address] [email or web address] SOB (shortness of breath) (Primary Dx); [...] 9:12 AM EDT) Specimen Source NASOPHARYNGEAL SWAB (PATIENT PORTAL REPRESENTATIVE) [facility] COVID Testing Status Sent to [facility] Micro Lab [facility] Other 08/07/2019 9:12 AM EDT 08/07/2019 11:14 AM EDT us Suzy Rapp MD BODY FLUIDS AND STOOLS ORDER KELLEY Final Result [facility] [address] [place] [address] documented in this encounter Visit Diagnoses Diagnosis SOB (shortness of breath)- Primary Shortness of breath Sore throat Acute pharyngitis Muscle ache Unspecified myalgia and myositis Runny nose Other diseases of nasal cavity and sinuses documented in this encounter Additional Health Concerns Infection Onset Date Last Indicated Resolved Time CoV-Risk 08/06/2019 08/07/2019 08/20/2019 1:23 AM EDT documented as of this encounter Care Teams Production Truck Driver Relationship Specialty Start Date End Date Shayna Shannon NP [address] [place] [address] PCP - General Nurse Practitioner 04/15/17 documented as of this encounter Additional Source Comments The information contained in this document represents components of the legal health record. It is not the complete legal health record.[facility]
--- OUTSIDE RECORDS SUMMARY | 2024-12-18 14:40 | XMS_ITS | Encounter Summary ---
Author Organization [facility] Address [address] [facility] [address] [place] [address] Phone Care Team Providers Care Lacrosse Coach Name Role Phone Shayna Shannon NP Primary Care Provider [phone] Encounter Details Date Type Department Care Team (Late st Contact Info) Description 10/11/2018 Transcribe Orders Virtual Department [address] [place] [address] Michelle Nathan PA [address] [place] [address] [phone] [email or web address] (Primary Dx) Social History Tobacco Use [...] EDT No acute cardiopulmonary process. POS - [id number] Narrative 10/11/2018 9:53 PM EDT EXAM: XR [...] IMPRESSION: No acute cardiopulmonary process. POS - [id number] Michelle EVANS IMG XR CHEST F inal Result documented in this encounter Visit Diagnoses Diagnosis Wheezing- Primary Wheezing documented in this encounter Additional Health Concerns Infection Onset Date Last Indicated Resolved Time CoV-Risk 08/06/2019 08/07/2019 08/20/2019 1:23 AM EDT documented as of this encounter Care Teams Lacrosse Coach Relationship Specialty Start Date End Date Shayna Shannon NP [address] [place] [address] PCP - General Nurse Practitioner 04/15/17 documented as of this encounter Additional Source Comments The information contained in this document represents components of the legal health record. It is not the complete legal health record.[facility]
--- OUTSIDE RECORDS SUMMARY | 2024-12-18 14:40 | XMS_ITS | Encounter Summary ---
Author Organization [facility] Address [address] [facility] [address] [place] [address] Phone Care Team Providers Care Child Neurologist Name Role Phone Shayna Shannon STAVE LOG RIPSAW OPERATOR Primary Care Provider [phone] Encounter Details Date Type Department Care Team (Late st Contact Info) Description 04/15/2017 Procedure Pass [facility], Ct Scan - [facility] [address] [place] [address] Social History Tobacco Use Types Packs/Day Years [...] documented as of this encounter Care Teams Child Neurologist Relationship Specialty Start Date End Date Shayna Shannon NP [address] [place] [address] PCP - General Nurse Practitioner 04/15/17 documented as of this encounter Additional Source Comments The information contained in this document represents components of the legal health record. It is not the complete legal health record.[facility]
== END 2024-12-18 12:20 | disposition home or self-care (01) ==
LOC: HO.HMCFM 11:23
PROVIDERS: PCP Nurse Practitioner Family; Visit Provider Nurse Practitioner Family
DX: J44.89 Other specified chronic obstructive pulmonary disease (principal); E66.01 Morbid (severe) obesity due to excess calories; Z68.41 Body mass index [BMI] 40.0-44.9, adult; Z09 Encounter for follow-up examination after completed treatment for conditions other than malignant neoplasm; F17.200 Nicotine dependence, unspecified, uncomplicated; M54.50 Low back pain, unspecified; G89.29 Other chronic pain; Z23 Encounter for immunization

== ENCOUNTER → 2024-12-18 11:23 | Outpatient (BNVA) | payer OTHER, SELFPAY | PROVIDERS: PCP Nurse Practitioner Family; Visit Provider Nurse Practitioner Family | DX: E66.01 Morbid (severe) obesity due to excess calories (principal); J44.89 Other specified chronic obstructive pulmonary disease; F41.9 Anxiety disorder, unspecified; M54.50 Low back pain, unspecified; G89.29 Other chronic pain; F17.210 Nicotine dependence, cigarettes, uncomplicated; Z09 Encounter for follow-up examination after completed treatment for conditions other than malignant neoplasm; Z23 Encounter for immunization; Z68.41 Body mass index [BMI] 40.0-44.9, adult; Z86.718 Personal history of other venous thrombosis and embolism | CPT/HCPCS: 90471; 90656 ==

== ENCOUNTER 2025-01-15 10:52 | Outpatient (AMB) | payer OTHER, SELFPAY ==
--- NOTE | 2025-01-15 11:04 | A.OFFVIS_ITS ---
Vital Signs 01/15/25 11:13 Height 5 ft 2 in Weight 234 lb BMI 42.8 BP 128/68 Blood Pressure Location Rt brachial Position Sitting Respiration 16 Pulse 95 Pulse Source Pulse Oximeter Pulse Oximetry (%) 96 Oxygen Delivery Method Room Air Intake Visit Reasons: S/p B/l Therapeutic SI Inj 12/12/24 Compounder Required: No Accompanied by: Self / Same As Patient Allergies Penicillins (PENICILLINS) Allergy (Unknown, Verified 01/15/25 11:14) HIVES HPI Comments Details: Lauryn is back in my office after therapeutic sacroiliac joint injection. She reports 75 % of pain relief after the injection for the past 1 month. She reports improved mobility however noticed severe stiffness in the lower back in the morning. After she stretches in the morning her mobility improved and she continues through her day. We discussed today possibility of treating her pain with sacroiliac joint fusion. Nevro brochure was given to the patient. To fuse both of her sacroiliac joints the patient needs to stay out of work for 10-12 weeks. She reported that she understands and she is able to avoid work for this time. Continue gabapentin 600 mg t.i.d.. If she decides to go for SI joint fusion Syed she will give us a call and schedule appointment for discussion. She is scheduled for CT scan of the lumbar spine by Neurosurgery. I requested radiology to expand this study and include bony pelvis images into the CT scan performance. This will allow us to prepare her better for a possible SI joint fusion. Prior: complains on severe pain in lower back with radiation of the pain in bilateral lower extremities. She reports most severe pain when she gets out of bed for 2 hours she reports that this pain started in 08/31/2023 and it is results of the fall. She went to [facility] she received physical therapy there which did not help her pain. She tried 10s unit with minimal relief. when she is working for a long period of time where she feels pain radiating all the way down to her feet. Can not make a conclusion whether it is radiating to her toes. She had an MRI of the lumbar spine results of which dictated as below. She has L4-5 spinal canal stenosis and she has L5-S1 bridging bodies fusion. She also has posterior fusion at L4-5 indicative or possible Baastrup disease. Her past medical history significant for asthma and shortness of breath. She is also obese. while visiting emergency room she was given morphine and Dilaudid and she had side effects including itching she does not like opioid medications [facility] Medical History Asthma PVD (peripheral vascular disease) COPD (chronic obstructive pulmonary disease) Spine pain Surgical History Colon cancer screening declined (~2024) H/O: hysterectomy Previous section Family History Father Cancer Brother Cancer Paternal Grandfather Cardiovascular disease Mother COPD (chronic obstructive pulmonary disease) Social History Household Members: Family Household Members Other:: cousin Both parents involved: No Caregiver staying overnight: No Housing: House Are you a primary health care attorney to a significant other at home: No Do you presently have visiting nurse or other home services: No 75 years or older and lives alone: No Alcohol intake: former Patient Tobacco Use Status: Current everyday Tobacco user Tobacco use type: Cigarette Cigarette Packs Per Day: 1 Cigarettes Per Day: 10 Years Smoked: 42 e-Cigarette/Vaping Use: Never Used Second Hand Smoke Exposure: No Advance Directives Date on File: 12/03/24 service: No Current occupational status: employed 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 Cognitive needs: No Hearing needs: No Vision needs: No Review of Systems Const All systems reviewed & are unremarkable except as noted in HPI and below Physical Exam Vital Signs: Last Vital Signs Pulse 95 01/15/25 11:13 Resp 16 01/15/25 11:13 BP 128/68 01/15/25 11:13 Pulse Ox 96 01/15/25 11:13 Oxygen Delivery Method Room Air 01/15/25 11:13 BMI result Body Mass Index 42.8 Const General: cooperative and acute distress mild Nutritional Appearance: obese morbidly obese Orientation/consciousness: patient oriented x3 Limitations: no limitations Neck Neck: Yes normal visual inspection and Yes full ROM Chest Chest palpation & inspection: normal inspection of the chest Resp Effort & Inspection: normal respiratory pattern, no audible wheezes, decreased r espiratory effort, grunting and labored Cardio Jugular venous distension: JVD Back/Spine/Pelvis Other: She is able to stand from the sitting position without significant difficulty. There is tenderness on palpation in paraspinal spinal region of the entire lumbar spine. SLR is positive bilaterally. Valsalva maneuver aggravates the pain. Marco test is positive bilaterally pelvic compression test and Gaenslen test is also positive bilaterally. Neuro General: patient oriented x3 Results Reviewed Results Reviewed: MR LUMBAR SPINE WITHOUT CONTRAST CLINICAL INFORMATION: Severe low back pain. COMPARISON: CT abdomen and pelvis 12/08/2023. TECHNIQUE: MRI of the lumbar spine was obtained using routine sequences without contrast. 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 There is grade 1 anterolisthesis of L4 on L5 that appears to be related to advanced facet degenerative changes at this level. Alignment is otherwise normal. Vertebral body heights are preserved. No acute bone marrow signal changes. Slight loss of intervertebral Supervisor Crack Off and T2 signal intensity at L4-L5 related to disc degeneration. There is abutment with associated edema and sclerotic changes of the adjoining spinous processes at L4-L5 indicate the possibility of underlying Baastrup disease. The tip of the conus medullaris is located at L1. No mass effect on the conus. Visualized distal cord signal intensity is normal. At L1-L2 the annular contour is normal. No canal or neuroforaminal compromise. At L2-L3 there is a slightly bulging disc. Bilateral facet degenerative change. No canal stenosis. No mass effect on the traversing or foraminal nerve roots. At L3-L4 there is a slightly bulging disc. Bilateral facet degenerative change. No canal stenosis. No mass effect on the traversing or foraminal nerve roots. At L4-L5 there is a pseudodisc bulge. Moderate to severe canal stenosis. Subarticular zone narrowing causes compression of both traversing L5 nerve roots. There is also moderate compression of both L4 foraminal nerve roots. At L5-S1 there is no canal or neuroforaminal compromise. Limited visualization of the retroperitoneal anatomy reveals a few layering calculi within the gallbladder neck. Psoas and paraspinal muscle groups are symmetric. 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 There is adjacent segment spondylosis above the fusion at the level of L4-L5 where there is grade 1 anterolisthesis and moderate to severe canal stenosis. Subarticular zone narrowing at this level causes compression of both traversing L5 nerve roots. There is also moderate compression of both L4 foraminal nerve roots related to degenerative changes at L4-L5. There is abutment with associated edema and sclerotic changes of the adjoining spinous processes at L4-L5 indicating the possibility of underlying Baastrup disease. There are a few layering calculi visualized within the gallbladder neck. Assessment & Plan Assessment & Plan (1) Spinal stenosis at L4-L5 level: Code(s): M48.061 - Spinal stenosis, lumbar region without neurogenic claudication Category: Medical (2) Baastrup disease of lumbar spine: Code(s): M48.26 - Kissing spine, lumbar region Category: Medical (3) Spondylolisthesis, lumbar region: Code(s): M43.16 - Spondylolisthesis, lumbar region Category: Medical (4) Chronic pain syndrome: Code(s): G89.4 - Chronic pain syndrome Category: Medical Plan: Moderate to severe spinal stenosis is demonstrated on recently obtained MRI. The patient reported good results at L3-L4 epidural steroid injection. It was done at L3-L4 by [facility] most likely because patient had Baastrup fusion on the posterior elements at L4-5. Initial caudal epidural steroid injection also was working well for this patient. However 2nd injection did not help her at all completely. Signs and symptoms of sacroiliitis were noted at last physical exam. She received therapeutic sacroiliac joint injection with 75% pain improvement. Nevro SI joint fusion bilateral was offered to the patient's see discussion as above. Patient received brochure and she will decide on whether she wants to go for this procedures. There will be 2 procedures right 1st and left 2nd with alex e necessary to heal 10-12 weeks. Patient expressed understanding. She is scheduled by Neurosurgery for CT scan of the lumbar spine. I called today (01/16/2025) to radiology and request them to expand the study to include bony pelvis into the images. This will be helpful to plan and preauthorize the procedure of sacroiliac joint fusion for her. (5) Sacroiliitis: Code(s): M46.1 - Sacroiliitis, not elsewhere classified Category: Medical (6) Pain of both sacroiliac joints: Code(s): M53.3 - Sacrococcygeal disorders, not elsewhere classified Category: Medical Plan No new appointment will be scheduled for the patient she needs to read the brochure and call us for the new appointment. Patient Instructions: I here by testify that I spent 35 minutes in conversation with this patient as well as planning her care, organizing this note, and discussing this case with radiology. Coding Level of Care Code Est Pt Level 4 (71871) Diagnoses Spinal stenosis at L4-L5 level M48.061 Baastrup disease of lumbar spine M48.26 Spondylolisthesis, lumbar region M43.16 Chronic pain syndrome G89.4 Sacroiliitis M46.1 Pain of both sacroiliac joints M53.3
[2025-01-15 11:13] VITALS: BP 128/68; PULSE 95; RESP 16; O2SAT 96; BMI 42.8
--- OUTSIDE RECORDS SUMMARY | 2025-01-15 13:29 | XMS_ITS | Clinical Summary ---
Author Organization [facility] Address [address] [facility] [address] [place] [address] Phone Care Team Providers Care Office Services Coordinator Name Role Phone Shayna Shannon NP Primary Care Provider Allergies Active Allergy [...] Care Team Description 12/05/2024 Orders Only [facility] [address] [place] [address] Homehealth, Interface ProviderMD from Last 3 Months [...] on patient's age to complete this topic IPV VACCINES Aged Out No longer eligi ble based on patient's age to complete this topic MENINGOCOCCAL VACCINES (ACWY) Aged Out No longer eligible based on patient's age to complete this topic MENINGOCOCCAL VACCINES (B) Aged Out N o longer eligible based on patient's age to complete this topic Medical Devices Not on file Insurance [facility] [place] [address] [place] [address] [place] [address] [place] [address] [facility] Advance Directives For more information, please contact: [phone] (9AM - 5PM [facility], Sunday-Sunday) Documents on File Type Date Recorded Patient Auto Transmission Mechanic Expl anation Healthcare Proxy 04/19/2017 2:31 PM PROXY * Full Code (Presumed) (Latest Code Status on File) Date Activated Date Inactivated Comments 04/15/2017 8:02 PM 04/17/2017 7:53 PM Care Teams Office Services Coordinator Relationship Specialty Start Date End Date Shayna Shannon NP [address] [place] [address] PCP - General Nurse Practitioner 04/15/17 Additional Source Comments The information contained in this document represents components of the legal health record. It is not the complete legal health record.[facility]
--- OUTSIDE RECORDS SUMMARY | 2025-01-15 13:29 | XMS_ITS | Encounter Summary ---
Author Organization [facility] Address [address] [facility] [address] [place] [address] Phone Care Team Providers Care Hotel Maintenance Worker Name Role Phone Shayna Shannon GRINDER SET UP OPERATOR GEAR TOOL Primary Care Provider [phone] Encounter Details Date Type Department Care Team (Latest Contact Info) Description 08/06/2019 Transcribe Orders Virtual Department [address] [place] [address] Suzy Rapp MD [address] [place] [address] [email or web address] [...] 9:12 AM EDT) Specimen Source NASOPHARYNGEAL SWAB (GRINDER SET UP OPERATOR GEAR TOOL) [facility] COVID Testing Status Sent to [facility] Micro Lab [facility] Other 08/07/2019 9:12 AM EDT 08/07/2019 11:14 AM EDT us Suzy Rapp MD LAB GENERAL ORDERABLES Final Result [facility] [address] [place] [address] documented in this encounter Visit Diagnoses Diagnosis SOB (shortness of breath)- Primary Shortness of breath Sore throat Acute pharyngitis Muscle ache Unspecified myalgia and myositis Runny nose Other diseases of nasal cavity and sinuses documented in this encounter Additional Health Concerns Infection Onset Date Last Indicated Resolved Time CoV-Risk 08/06/2019 08/07/2019 08/20/2019 1:23 AM EDT documented as of this encounter Care Teams Hotel Maintenance Worker Relationship Specialty Start Date End Date Shayna Shannon NP [address] [place] [address] PCP - General Nurse Practitioner 04/15/17 documented as of this encounter Additional Source Comments The information contained in this document represents components of the legal health record. It is not the complete legal health record.[facility]
--- OUTSIDE RECORDS SUMMARY | 2025-01-15 13:29 | XMS_ITS | Encounter Summary ---
Author Organization [facility] Address [address] [facility] [address] [place] [address] Phone Care Team Providers Care Therapist Rrt Name Role Phone Shayna Shannon COLD STORAGE SUPERVISOR Primary Care Provider [phone] Encounter Details Date Type Department Care Team (Late st Contact Info) Description 04/15/2017 Procedure Pass [facility], Ct Scan - [facility] [address] [place] [address] Social History Tobacco Use Types Packs/Day Years [...] documented as of this encounter Care Teams Therapist Rrt Relationship Specialty Start Date End Date Shayna Shannon NP [address] [place] [address] PCP - General Nurse Practitioner 04/15/17 documented as of this encounter Additional Source Comments The information contained in this document represents components of the legal health record. It is not the complete legal health record.[facility]
--- OUTSIDE RECORDS SUMMARY | 2025-01-15 13:29 | XMS_ITS | Encounter Summary ---
Author Organization [facility] Address [address] [facility] [address] [place] [address] Phone Care Team Providers Care Licensed Nuclear Control Room Operator Name Role Phone Shayna Shannon NP Primary Care Provider [phone] Encounter Details Date Type Department Care Team (Late st Contact Info) Description 10/11/2018 Transcribe Orders Virtual Department [address] [place] [address] Michelle Nathan PA [address] [place] [address] [phone] [email or web address] Wheezing (Primary Dx) Social History Tobacco Use [...] EDT No acute cardiopulmonary process. POS - [id number] Narrative 10/11/2018 9:53 PM EDT EXAM: XR [...] IMPRESSION: No acute cardiopulmonary process. POS - [id number] Michelle EVANS IMG XR CHEST F inal Result documented in this encounter Visit Diagnoses Diagnosis Wheezing- Primary Wheezing documented in this encounter Additional Health Concerns Infection Onset Date Last Indicated Resolved Time CoV-Risk 08/06/2019 08/07/2019 08/20/2019 1:23 AM EDT documented as of this encounter Care Teams Licensed Nuclear Control Room Operator Relationship Specialty Start Date End Date Shayna Shannon NP [address] [place] [address] PCP - General Nurse Practitioner 04/15/17 documented as of this encounter Additional Source Comments The information contained in this document represents components of the legal health record. It is not the complete legal health record.[facility]
== END 2025-01-15 11:26 | disposition home or self-care (01) ==
LOC: HO.PMC 10:53
PROVIDERS: PCP Nurse Practitioner Family; Visit Provider Anesthesiology
DX: M48.061 Spinal stenosis, lumbar region without neurogenic claudication (principal); M48.26 Kissing spine, lumbar region; M43.16 Spondylolisthesis, lumbar region; G89.4 Chronic pain syndrome; M46.1 Sacroiliitis, not elsewhere classified; M53.3 Sacrococcygeal disorders, not elsewhere classified
CPT/HCPCS: 99214

== ENCOUNTER 2025-01-22 07:28 | Outpatient (REF) | payer OTHER, SELFPAY ==
--- NOTE | ~2025-01-22 | CT_ITS ---
EXAMINATION: CT LUMBAR SPINE WITHOUT IV CONTRAST HISTORY: M43.16 - Spondylolisthesis, lumbar region. TECHNIQUE: Unenhanced helical CT of the lumbar spine was performed per standard departmental protocol. Coronal and sagittal reformats were also evaluated. One or more of the following techniques was used for dose reduction: Automated exposure control, adjustment of the mA and/or kV according to patient size, use of iterative reconstruction technique. DLP: 937 mGy-cm COMPARISON: MRI of the lumbar spine December 2023 and lumbar spine x-ray November [address] of the abdomen and pelvis December 2023 FINDINGS: BONES/JOINTS: Stable grade 1 anterior subluxation of L4 with respect to L5. This measures 10 mm. No pars defect is appreciated in this is likely related to facet arthritis at this level. Bone alignment is otherwise normal. No fracture or dislocation. Chronic fusion at L5-S1 unchanged from prior exams. At T12-L1 there is evidence of degenerative disc disease. No disc herniation protrusion or bulge. Spinal canal, lateral recesses and neural foramen are patent. At L1-2 there is mild bilateral disc bulge. No disc herniation or protrusion. There is mild bilateral facet arthritis. Spinal canal, lateral recesses and neural foramen are patent. At L2-3 there is broad-based diffuse disc bulge and bony osteophyte. No disc herniation or protrusion. Spinal canal, lateral recesses and neural foramen are patent. There is bilateral facet arthritis. At L3-4 there is broad-based diffuse disc bulge and right lateral disc bulge. There is narrowing of the right elbow 3 4 lateral recess and proximal neural foramen from disc bulge. There is mild secondary spinal stenosis due to disc bulge short pedicles facet arthritis. At L4-5 there is anterior subluxation of L4 with respect L5 measuring 1 cm. There is diffuse disc bulge. No disc herniation. There is severe bilateral facet arthritis at this level. No pars defect is seen. There is moderate to severe secondary spinal stenosis and bilateral lateral recess narrowing affecting the bilateral L5 and to lesser extent L4 nerve roots. There is bony fusion at L5-S1. No spinal canal, lateral recess or neural foraminal narrowing. Retroperitoneum/Abdomen: Stable 1.8 x 2 cm low-attenuation right adrenal nodule. 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 Small nonobstructing stone in the lower pole of the right kidney. Gallstones. CT/CT lumbar spine wo IV con IMPRESSION: Bony fusion at the L5-S1 disc space level. 1 cm anterior subluxation of L4 with respect to L5 likely secondary to severe bilateral facet arthritis. No pars defect. Moderate to severe secondary spinal stenosis with compromise of the bilateral L5 and to lesser extent L4 nerve roots. This is similar to previous MRI. Diffuse and right lateral disc bulge at L3-4 and mild secondary spinal stenosis. Mild disc bulge L2-3 and L1-2. Electronically signed by: Debora Molina MD 01/22/2025 08:34 AM [facility]
--- OUTSIDE RECORDS SUMMARY | 2025-01-22 07:31 | XMS_ITS | Clinical Summary ---
Author Organization [facility] Address [address] [facility] [address] [place] [address] Phone Care Team Providers Care Car Wash Attendant Name Role Phone Shayna Shannon NP Primary Care Provider [phone] Allergies Active Allergy Reactions Criticality Noted Date [...] Care Team Description 12/05/2024 Orders Only [facility] [address] [place] [address] Homehealth, Interface ProviderMD from Last 3 Months [...] topic Medical Devices Not on file Insurance [facility] [place] [place] [address] [place] [address] [place] [address] [facility] Adriana [facility] Advance Directives For more information, please contact: [phone] (9AM - 5PM [facility], Sunday-Sunday) Documents on File Type Date Recorded Patient Adobe Layer Helper Expl anation Healthcare Proxy 04/19/2017 2:31 PM PROXY * Full Code (Presumed) (Latest Code Status on File) Date Activated Date Inactivated Comments 04/15/2017 8:02 PM 04/17/2017 7:53 PM Care Teams Car Wash Attendant Relationship Specialty Start Date End Date Shayna Shannon NP [address] [place] [address] PCP - General Nurse Practitioner 04/15/17 Additional Source Comments The information contained in this document represents components of the legal health record. It is not the complete legal health record.[facility]
--- OUTSIDE RECORDS SUMMARY | 2025-01-22 07:31 | XMS_ITS | Encounter Summary ---
Author Organization [facility] Address [address] [facility] [address] [place] [address] Phone Care Team Providers Care Environmental Marketing Representative Name Role Phone Shayna Shannon SUPPORT TECHNICIAN Primary Care Provider [phone] Encounter Details Date Type Department Care Team (Late st Contact Info) Description 04/15/2017 Procedure Pass [facility], Ct Scan - [facility] [address] [place] [address] Social History Tobacco Use Types Packs/Day Years [...] documented as of this encounter Care Teams Environmental Marketing Representative Relationship Specialty Start Date End Date Shayna Shannon NP [address] [place] [address] PCP - General Nurse Practitioner 04/15/17 documented as of this encounter Additional Source Comments The information contained in this document represents components of the legal health record. It is not the complete legal health record.[facility]
--- OUTSIDE RECORDS SUMMARY | 2025-01-22 07:31 | XMS_ITS | Encounter Summary ---
Author Organization [facility] Address [address] [facility] [address] [place] [address] Phone Care Team Providers Care Reimbursement Spec Name Role Phone Shayna Shannon NP Primary Care Provider [phone] Encounter Details Date Type Department Care Team (Late st Contact Info) Description 10/11/2018 Transcribe Orders Virtual Department [address] [place] [address] Michelle Nathan PA [address] [place] [address] [phone] [email or web address] (Primary Dx) Social History Tobacco Use [...] EDT No acute cardiopulmonary process. POS - [id number] Narrative 10/11/2018 9:53 PM EDT EXAM: XR [...] IMPRESSION: No acute cardiopulmonary process. POS - [id number] Michelle EVANS IMG XR CHEST F inal Result documented in this encounter Visit Diagnoses Diagnosis Wheezing- Primary Wheezing documented in this encounter Additional Health Concerns Infection Onset Date Last Indicated Resolved Time CoV-Risk 08/06/2019 08/07/2019 08/20/2019 1:23 AM EDT documented as of this encounter Care Teams Reimbursement Spec Relationship Specialty Start Date End Date Shayna Shannon NP [address] [place] [address] PCP - General Nurse Practitioner 04/15/17 documented as of this encounter Additional Source Comments The information contained in this document represents components of the legal health record. It is not the complete legal health record.[facility]
--- OUTSIDE RECORDS SUMMARY | 2025-01-22 07:31 | XMS_ITS | Data Portability ---
Author Organization NATHAN Lui s, [facility] Address [address] [place] [address] Assessment No assessment recorded. Plan of Treatment Reminders Order Date Submit Date Provider Last Modified By Organization Details Last Modified Time Details Appointments None recorded. Lab None recorded. Referral None recorded. Procedures None recorded. Surgeries None recorded. Imaging XR, chest, 2 view 2022 023 [facility], [address] [place] [address], [address], 4 05:01:33 Medication Orders albuterol sulfate HFA 90 mcg/actuati on aerosol inhaler 2022 023 [email or web address] [facility]/Pharmacy #[id number], [address] [place], [address], 3 14:51:50 Zithromax Z-Trsitin 250 mg tablet 2022 023 [facility]/Pharmacy #[id number], [address] [place], [address], 3 14:43:30 prednisone 50 mg tablet 2022 023 [facility]/Pharmacy #[id number], [address] [place], [address], 3 14:47:26 albuterol sulfate 2.5 mg/3 mL (0.083 %) solution for nebulizatio n 2022 023 Not available 3 15:06:42 ipratropium bromide 0.02 % solution for inhalation 2022 023 Not available 3 15:06:42 benzonatate 200 mg capsule 2022 023 [facility]/Pharmacy #[id number], [address] [place], [address], 15:08:57 Patient TargetsNo targets recorded. Patient Instructions Encounter Date Encounter Id Patient Instructions Last Modified By Organization Details Last Modified Time 02/22/2023 [id number] cough: care instructions [email or web address] Not available 02/22/2023 14:43:28 chronic obstruct rolan pulmonary disease (COPD) flare-ups: care instructions [email or web address] Not available 02/22/2023 14:43:28 Acute bronchitis is [...] Pain 3. Wheezing 4. Coughing up Blood [email or web address] Not available 02/22/2023 14:43:26 Reason for Referral None Reported. Problems Name Problem SNOMED Code Status Onset Date Resolution Date Notes Provider Name and Address Organization Details Recorded Time Acute bronchitis [id number] Active 023 NATHAN CRAIN [facility] [place], [address] [facility] [place] - [facility] 14:42:48 Problem Notes [...] mass index (BMI) Body weight Oxygen saturation Pain severity - 0-10 verbal numeric rating [Score] - Reported Heart rate Respiratory rate Body temperature Systolic And Diastolic Provider Name and Address Organization Details Last Updated DateTime 3 167.64 cm 35.5 kg/m2 57816.3 2 g 98 % 3 87 /min 18 /min 98.6 [degF] 144/82 mm[Hg] Kamini EVANS [place] 14:32:01 Social History Question Answer Notes LastModified by Cadent Details LastModified Time Tobacco Smoking Status Current Every Day Smoker Kamini mcknight [place] - [facility] 02/22/2023 14:33:31 Have You Had A Flu Shot This Season? Yes Information not available 02/22/2023 What Is Your Relationship Status? Single Information not available 02/22/2023 Have You Recently Traveled Abroad? No Information not available 02/22/2023 Are You Currently In School? No Information not available 02/22/2023 Sex: Unknown Functional Status Question Answer Note LastModified by Cadent Details LastModified Time Do you use any [...] Diagnosis SNOMED-CT Code Diagnosis ICD10 Code Diagnosis IMO Codes Diagnosis Note [id number] NATHAN CRAIN [address] [place] [address] 02/22/2023 14:14:13 02/22/2023 15:12:24 Acute bronchitis 86294871 J20.9 Wheezing 06064927 R06.2 Health Concerns Section Related Observation LastModified by Organization Detai ls LastModified Time None Recorded Concern Status LastModified by Organization Details LastModified Time None Recorded Advance Directives Directive None Recorded Payers Insurance Date Sequence Insurance Name Policy Number Policy Ramos Covered Member ID Ramos Member ID Guarantor Name 02/22/2023 1 [employer] (EPO) [id number] Lauryn Vierstra [id number] Lauryn Vidhruv Notes Date Note Type Note Provider Name and Address Organization Details Recorded Time 02/22/2023 text/html CoughReported by [email or web address] y.o female pt with h/o COPD 2/2 smoking present with cough and wheezing for the past 2-3 days. NATHAN CRAIN [address] [place], [address], [place] - [facility] 02/22/2023 17:24:22 OBGyn Episode No OBEpisode recorded.
--- OUTSIDE RECORDS SUMMARY | 2025-01-22 07:31 | XMS_ITS | Encounter Summary ---
Author Organization [facility] Address [address] [facility] [address] [place] [address] Phone Care Team Providers Care Molder Inflated Ball Name Role Phone Shayna Shannon GOLF COURSE ASSISTANT Primary Care Provider [phone] Encounter Details Date Type Department Care Team (Latest Contact Info) Description 08/06/2019 Transcribe Orders Virtual Department [address] [place] [address] Suzy Rapp MD [address] [place] [address] [email or web address] SOB (shortness of breath) (Primary Dx); [...] 9:12 AM EDT) Specimen Source NASOPHARYNGEAL SWAB (GOLF COURSE ASSISTANT) [facility] COVID Testing Status Sent to [facility] Micro Lab [facility] Other 08/07/2019 9:12 AM EDT 08/07/2019 11:14 AM EDT us Suzy Rapp MD LAB GENERAL ORDERABLES Final Result [facility] [address] [place] [address] documented in this encounter Visit Diagnoses Diagnosis SOB (shortness of breath)- Primary Shortness of breath Sore throat Acute pharyngitis Muscle ache Unspecified myalgia and myositis Runny nose Other diseases of nasal cavity and sinuses documented in this encounter Additional Health Concerns Infection Onset Date Last Indicated Resolved Time CoV-Risk 08/06/2019 08/07/2019 08/20/2019 1:23 AM EDT documented as of this encounter Care Teams Molder Inflated Ball Relationship Specialty Start Date End Date Shayna Shannon NP [address] [place] [address] PCP - General Nurse Practitioner 04/15/17 documented as of this encounter Additional Source Comments The information contained in this document represents components of the legal health record. It is not the complete legal health record.[facility]
== END 2025-01-22 07:29 | disposition home or self-care (01) ==
LOC: HO.CT 07:28
PROVIDERS: PCP Internal Medicine; Visit Provider Physician Assistant
DX: M43.16 Spondylolisthesis, lumbar region (principal)
CPT/HCPCS: 72131

== ENCOUNTER → 2025-01-22 07:30 | Outpatient (BNV) | payer OTHER, SELFPAY | PROVIDERS: PCP Internal Medicine; Visit Provider Radiology Diagnostic Radiology | DX: M43.16 Spondylolisthesis, lumbar region (principal); M48.061 Spinal stenosis, lumbar region without neurogenic claudication | CPT/HCPCS: 72131 ==

== ENCOUNTER 2025-02-02 08:52 | Outpatient (AMB) | payer OTHER, SELFPAY ==
[2025-02-02 09:01] VITALS: BMI 43.9
--- NOTE | 2025-02-02 09:01 | HO.SPINEOV ---
Vital Signs 02/02/25 09:01 Height 5 ft 2 in Weight 240 lb BMI 43.9 Intake Visit Reasons: discuss surgery Intake Note: Ms. Saini is here to discuss surgery. Maintenance Representative Required: No Allergies Penicillins (PENICILLINS) Allergy (Unknown, Verified 02/02/25 09:02) HIVES Physical Exam Vital Signs: BMI result Body Mass Index 43.9 Assessment & Plan Assessment & Plan (1) Spondylolisthesis at L4-L5 level: Code(s): M43.16 - Spondylolisthesis, lumbar region Category: Medical Plan Lauryn is a pleasant 59 year old female who comes in today to discuss surgery. I reviewed her MRI imaging and CT scan with my attending neurosurgeon Dr. Geiger who is willing to offer her a L4-5 transforaminal lumbar interbody fusion with expandable CTL cage. We discussed her CT scan imaging which shows auto fusion at L5-S1 and redemonstrates the listhesis at L4-5. I extensively reviewed this procedure with the patient today utilizing the spine models in office. I answered all questions related to the procedure that the patient had. She is also accompanied by her sister to this visit who asked several questions which I answered. We discussed the surgery, potential complications, risks/benefits, and potential outcomes. In addition to this we discussed conservative measures and the patient wishes to proceed with surgery. The patient was given risk and benefits of surgery including but not limited to infection, hematoma, nerve injury, durotomy, weakness, bowel/bladder injury, persistent pain, pseudoarthrosis. We also discussed the option to continue with conservative treatment and patient wishes to proceed with surgery. They are aware they should stop NSAIDs 7 days prior to surgery. All questions were answered to the best of our ability. If there is anything about this patients medical history that we have overlooked or concerns you have about us proceeding with surgery we would appreciate any input you can offer. Carlos Geiger MD,PhD [facility] Coding Level of Care Code Est Pt Level 2 (27403) Diagnoses Spondylolisthesis at L4-L5 level M43.16
--- OUTSIDE RECORDS SUMMARY | 2025-02-02 09:58 | XMS_ITS | Encounter Summary ---
Author Organization [facility] Address [address] [facility] [address] [place] [address] Phone Care Team Providers Care Seat Builder Name Role Phone Shayna Shannon NP Primary Care Provider [phone] Encounter Details Date Type Department Care Team (Late st Contact Info) Description 10/11/2018 Transcribe Orders Virtual Department [address] [place] [address] Michelle Nathan PA [address] [place] [address] [phone] [email or web address] Wheezing (Primary Dx) Social History Tobacco Use [...] EDT No acute cardiopulmonary process. POS - [id number] Narrative 10/11/2018 9:53 PM EDT EXAM: XR CHEST PA AND LATERAL 2 VIEWS COMPARISON: April 22, 2018 Indication: - WHEEZING [SIGN/SX] Wheezing FINDINGS: No confluent lung consolidations or lung masses. No pneumothorax or pleural effusion. No pulmonary vascular congestion. Cardiomediastinal silhouette is within normal limits. Osseous structures are grossly intact. Procedure Note Seu Troy MD - 10/11/2018 EXAM: XR CHEST PA AND LATERAL 2 VIEWS COMPARISON: April 22, 2018 Indication: - WHEEZING [SIGN/SX] Wheezing FINDINGS: No confluent lung consolidations or lung masses. No pneumothorax orpleural effusion. No pulmonary vascular congestion. Cardiomediastinalsilhouette is within normal limits. Osseous structures are grosslyintact. IMPRESSION: No acute cardiopulmonary process. POS - [id number] Michelle EVNAS IMG XR CHEST F inal Result documented in this encounter Visit Diagnoses Diagnosis Wheezing- Primary Wheezing documented in this encounter Additional Health Concerns Infection Onset Date Last Indicated Resolved Time CoV-Risk 08/06/2019 08/07/2019 08/20/2019 1:23 AM EDT documented as of this encounter Care Teams Seat Builder Relationship Specialty Start Date End Date Shayna Shannon NP [address] [place] [address] PCP - General Nurse Practitioner 04/15/17 documented as of this encounter Additional Source Comments The information contained in this document represents components of the legal health record. It is not the complete legal health record.[facility]
--- OUTSIDE RECORDS SUMMARY | 2025-02-02 09:58 | XMS_ITS | Encounter Summary ---
Author Organization [facility] Address [address] [facility] [address] [place] [address] Phone Care Team Providers Care Public Health Outreach Worker Name Role Phone Shayna Shannon TECHNICAL SUPPORT AGENT Primary Care Provider [phone] Encounter Details Date Type Department Care Team (Late st Contact Info) Description 04/15/2017 Procedure Pass [facility], Ct Scan - [facility] [address] [place] [address] Social History Tobacco Use Types Packs/Day Years [...] documented as of this encounter Care Teams Public Health Outreach Worker Relationship Specialty Start Date End Date Shayna Shannon NP [address] [place] [address] PCP - General Nurse Practitioner 04/15/17 documented as of this encounter Additional Source Comments The information contained in this document represents components of the legal health record. It is not the complete legal health record.[facility]
--- OUTSIDE RECORDS SUMMARY | 2025-02-02 09:58 | XMS_ITS | Encounter Summary ---
Author Organization [facility] Address [address] [facility] [address] [place] [address] Phone Care Team Providers Care Electrical Designer Name Role Phone Shayna Shannon POWER MANAGER Primary Care Provider [phone] Encounter Details Date Type Department Care Team (Latest Contact Info) Description 08/06/2019 Transcribe Orders Virtual Department [address] [place] [address] Suzy Rapp MD [address] [place] [address] [email or web address] SOB (shortness of breath) (Primary Dx); [...] 9:12 AM EDT) Specimen Source NASOPHARYNGEAL SWAB (POWER MANAGER) [facility] COVID Testing Status Sent to [facility] Micro Lab [facility] Other 08/07/2019 9:12 AM EDT 08/07/2019 11:14 AM EDT us Suzy Rapp MD LAB GENERAL ORDERABLES Final Result [facility] [address] [place] [address] documented in this encounter Visit Diagnoses Diagnosis SOB (shortness of breath)- Primary Shortness of breath Sore throat Acute pharyngitis Muscle ache Unspecified myalgia and myositis Runny nose Other diseases of nasal cavity and sinuses documented in this encounter Additional Health Concerns Infection Onset Date Last Indicated Resolved Time CoV-Risk 08/06/2019 08/07/2019 08/20/2019 1:23 AM EDT documented as of this encounter Care Teams Electrical Designer Relationship Specialty Start Date End Date Shayna Shannon NP [address] [place] [address] PCP - General Nurse Practitioner 04/15/17 documented as of this encounter Additional Source Comments The information contained in this document represents components of the legal health record. It is not the complete legal health record.[facility]
== END 2025-02-02 10:00 | disposition home or self-care (01) ==
LOC: HO.HNS 08:52
PROVIDERS: PCP Internal Medicine; Visit Provider Physician Assistant
DX: M43.16 Spondylolisthesis, lumbar region (principal)
CPT/HCPCS: 99212

== ENCOUNTER 2025-02-12 10:30 | Outpatient (REF) | payer OTHER, SELFPAY ==
[2025-02-12 15:06] LABS: Hematocrit 41.6 % (37.0-47.0); Hemoglobin 13.2 g/dl (12.0-16.0); Mean Corpuscular HGB Conc 31.7 g/dl (31.0-35.0); Mean Corpuscular Hemoglobin 32.8 pg (27.0-33.0); Mean Corpuscular Volume 103.2 fL (80.0-98.0); NRBC Abs Auto 0.000 X10*3/uL (0.0-0.012); NRBC Pct Auto 0.0 /100WBC (0.0-0.2); Platelet Count 258 X10*3/uL (160-400); Red Blood Count 4.03 X10*6/uL (4.20-5.50); White Blood Count 9.0 X10*3/uL (4.8-10.8)
[2025-02-12 15:24] LABS: Microalbum/Creatinine Ratio Ur 7.9 ug/mg cr (<30)
[2025-02-12 15:26] LABS: Alanine Aminotransferase 10 U/L (0-31); Albumin Level 4.3 g/dL (3.5-5.0); Alkaline Phosphatase 90 U/L (39-117); Anion Gap 11 (12-20); Aspartate Amino Transferase 20 U/L (5-31); Blood Urea Nitrogen 16 mg/dL (9-16); Calcium 9.9 mg/dL (8.4-10.2); Carbon Dioxide 29 mmol/L (22-29); Chloride 107 mmol/L (96-108); Cholesterol 197 mg/dL (<200); Estimated Glomerular Filt Rate > 60; HDL Cholesterol 55 mg/dL (>40); Potassium 4.0 mmol/L (3.3-5.1); Sodium 143 mmol/L (135-145); Total Protein 7.0 g/dL (6.5-8.0); Triglycerides 88 mg/dL (<150)
[2025-02-12 15:47] LABS: Folate 10.5 ng/mL (> or = 4.0); Vitamin B12 348 pg/mL (200-900)
--- OUTSIDE RECORDS SUMMARY | 2025-02-12 18:12 | XMS_ITS | Clinical Summary ---
Author Organization [facility] Address [address] [place] [address] Phone Care Team Providers Care Ostomy Rn Name Role Phone Shayna Shannon NP Primary Care Provider [phone] Allergies Active Allergy Reactions Criticality Noted Date [...] Care Team Description 12/05/2024 Orders Only [facility] [address] [place] [address] Homehealth, Interface ProviderMD from Last 3 Months [...] topic Medical Devices Not on file Insurance [facility] [address] [place] [address] [place] [address] [place] [address] [facility] Adriana [facility] Advance Directives For more information, please contact: [phone] (9AM - 5PM [place]/[facility], Sunday-Sunday) Documents on File Type Date Recorded Patient Dump Grounds Checker Expl anation Healthcare Proxy 04/19/2017 2:31 PM PROXY * Full Code (Presumed) (Latest Code Status on File) Date Activated Date Inactivated Comments 04/15/2017 8:02 PM 04/17/2017 7:53 PM Care Teams Ostomy Rn Relationship Specialty Start Date End Date Shayna Shannon NP [address] [place] [id number] PCP - General Nurse Practitioner 04/15/17 Additional Source Comments The information contained in this document represents components of the legal health record. It is not the complete legal health record.[facility]
--- OUTSIDE RECORDS SUMMARY | 2025-02-12 18:12 | XMS_ITS | Encounter Summary ---
Author Organization [facility] Address [address] [facility] [address] [facility] [address] [place] [address] Phone Care Team Providers Care Credit Risk Management Director Name Role Phone Shayna Shannon CUFF MAKER Primary Care Provider [phone] Encounter Details Date Type Department Care Team (Latest Contact Info) Description 08/06/2019 Transcribe Orders Virtual Department [address] [place] [address] Suzy Rapp MD [address] [place] [address] [email or web address] SOB (shortness of breath) (Primary Dx); [...] 9:12 AM EDT) Specimen Source NASOPHARYNGEAL SWAB (CUFF MAKER) [facility] COVID Testing Status Sent to [facility] Other 08/07/2019 9:12 AM EDT 08/07/2019 11:14 AM EDT us Suzy Rapp MD LAB GENERAL ORDERABLES Final Result [facility] [address] [place] [address] documented in this encounter Visit Diagnoses Diagnosis SOB (shortness of breath)- Primary Shortness of breath Sore throat Acute pharyngitis Muscle ache Unspecified myalgia and myositis Runny nose Other diseases of nasal cavity and sinuses documented in this encounter Additional Health Concerns Infection Onset Date Last Indicated Resolved Time CoV-Risk 08/06/2019 08/07/2019 08/20/2019 1:23 AM EDT documented as of this encounter Care Teams Credit Risk Management Director Relationship Specialty Start Date End Date Shayna Shannon NP [address] [place] [id number] PCP - General Nurse Practitioner 04/15/17 documented as of this encounter Additional Source Comments The information contained in this document represents components of the legal health record. It is not the complete legal health record.[facility]
--- OUTSIDE RECORDS SUMMARY | 2025-02-12 18:13 | XMS_ITS | Encounter Summary ---
Author Organization [facility] Address [address] [facility] [address] [place] [phone] Phone Care Team Providers Care Felling Bucking Supervisor Name Role Phone Shayna Shannon NP Primary Care Provider [phone] Encounter Details Date Type Department Care Team (Late st Contact Info) Description 10/11/2018 Transcribe Orders Virtual Department [address] [place] [address] Michelle Nathan PA [address] [place] [address] [phone] [email or web address] Wheezing (Primary Dx) Social History Tobacco Use [...] EDT No acute cardiopulmonary process. POS - [id number] Narrative 10/11/2018 9:53 PM EDT EXAM: XR [...] IMPRESSION: No acute cardiopulmonary process. POS - [id number] Michelle EVANS IMG XR CHEST F inal Result documented in this encounter Visit Diagnoses Diagnosis Wheezing- Primary Wheezing documented in this encounter Additional Health Concerns Infection Onset Date Last Indicated Resolved Time CoV-Risk 08/06/2019 08/07/2019 08/20/2019 1:23 AM EDT documented as of this encounter Care Teams Felling Bucking Supervisor Relationship Specialty Start Date End Date Shayna Shannon NP [address] [place] [address] PCP - General Nurse Practitioner 04/15/17 documented as of this encounter Additional Source Comments The information contained in this document represents components of the legal health record. It is not the complete legal health record.[facility]
--- OUTSIDE RECORDS SUMMARY | 2025-02-12 18:13 | XMS_ITS | Encounter Summary ---
Author Organization [facility] Address [address] [facility] [address] [place] [address] Phone Care Team Providers Care Hospice Care Sales Consultant Name Role Phone Shayna Shannon PERSONAL INJURY LEGAL ASSISTANT Primary Care Provider [phone] Encounter Details Date Type Department Care Team (Late st Contact Info) Description 04/15/2017 Procedure Pass [facility], Ct Scan - [facility] [address] [place] [address] Social History Tobacco Use Types Packs/Day Years [...] documented as of this encounter Care Teams Hospice Care Sales Consultant Relationship Specialty Start Date End Date Shayna Shannon NP [address] [place] [address] PCP - General Nurse Practitioner 04/15/17 documented as of this encounter Additional Source Comments The information contained in this document represents components of the legal health record. It is not the complete legal health record.[facility]
== END 2025-02-12 10:31 | disposition home or self-care (01) ==
LOC: HO.WFDLDS 10:30
PROVIDERS: PCP Nurse Practitioner Family; Visit Provider Nurse Practitioner Family
DX: Z01.818 Encounter for other preprocedural examination (principal); J44.9 Chronic obstructive pulmonary disease, unspecified; E66.9 Obesity, unspecified; Z13.31 Encounter for screening for depression; Z13.39 Encounter for screening examination for other mental health and behavioral disorders; M54.50 Low back pain, unspecified; F17.210 Nicotine dependence, cigarettes, uncomplicated; F41.8 Other specified anxiety disorders; G89.4 Chronic pain syndrome; M43.16 Spondylolisthesis, lumbar region; I73.9 Peripheral vascular disease, unspecified; Z13.1 Encounter for screening for diabetes mellitus
CPT/HCPCS: 36415; 80053; 80061; 82043; 82306; 82570; 82607; 82746; 83036; 84443; 85027; 93005; 96127

== ENCOUNTER 2025-02-12 10:30 | Outpatient (AMB) | payer OTHER, SELFPAY ==
--- NOTE | 2025-02-12 10:32 | A.OFFPC_ITS ---
Vital Signs 02/12/25 10:38 Height 5 ft 2 in Weight 237 lb 2 oz BMI 43.4 BP 136/68 Blood Pressure Location Rt brachial Position Sitting Respiration 15 Pulse 89 Pulse Source Pulse Oximeter Temp 99 F Temp Source Temporal Artery Scan Pulse Oximetry (%) 94 Oxygen Delivery Method Room Air Intake Visit Reasons: dec CPE Intake Note: Lauryn presents in the office today for annual physical. 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 Is last menstrual period known: No Post menopausal: Yes Patient : No Allergies Penicillins (PENICILLINS) Allergy (Unknown, Verified 02/12/25 10:46) HIVES Medication List - Last Reconciled 02/12/25 by Juanis Garza, MAINTENANCE MECHANIC TECHNICIAN- albuterol sulfate 2.5 mg inhalation Q4H PRN albuterol sulfate 90 mcg/actuation 2 puffs inhalation Q6H baclofen 5 mg PO DAILY lposchafnxu-krnaovfrd-kkljivps 100-62.5-25 mcg (Trelegy Ellipta) 1 ea inhalation DAILY gabapentin 600 mg PO TID 30 days ibuprofen 600 mg PO Q6H PRN Tobacco use date assessed: 02/12/25 Dental Screening Dental Screen Date: 02/12/25 Did you have a dental visit in the last 12 months?: No Did you have a dental problem in the last 6 months where you did not have access to dental care?: No Was dental information given to patient?: Patient declined HPI HPI Comments History of Present Illness Details 59-year-old female with COPD, current sm oker, morbid obesity, chronic back pain, chronic leg pain, bilateral lower extremity edema, PVD, allergic rhinitis, MDD Status post total abdominal hysterectomy, colon surgery Social: sister is Skylar Winn; Has 2 children Son and dtr; works at [employer] Family history: Mom with COPD, CHF age 64, father with malignant tumor of kidney disease stage 59, paternal grandmother malignant tumor of the kidney, maternal aunt type 2 diabetes, no breast cancer or colon cancer Specialists Digital Content Manager [facility]* Psychologist Lala Donahue * PSSP* [facility] [place] pain mgmt visit 03/13/24 Moderate to severe spinal stenosis , increase her gabapentin to 400 mg t.i.d.. plan for injection No longer ff'd Health Maintenance: Tdap 2019 @ [facility] 2024 DEXA declined, has never had one PAP n/a RENUKA Colon declined Right breast ultrasound atypical lobular hyperplasia, adenosis and stromal fibrosis high-risk consultation indicated 10/10/2022 CHENTE testing 02/13/2022 normal, right CHENTE 1.29, left CHENTE 1.30 History of Present Illness The patient is a 59 year old female presenting with a complete physical exam and preoperative clearance for upcoming back surgery. Chronic Back Pain: - The patient has chronic back pain and has been active with the spine center. - Her symptoms significantly worsened st January 18. - The pain is severe, and she reports th at Tylenol four times daily and gabapentin three times daily provide no relief. - She reports leg pain when at work and needs to get up three hours before her shift to be able to walk. - The patient feels the cartilage in her body when walking and sitting and can feel the veins or nerves at the base of her spine. - The issue began with a fall, after i she felt a crossing sensation in her back when coughing, which gradually worsened. - She has a history of receiving shots f or the pain, and states the first two shots lasted longer than the most recent one. - She has a scheduled L4-L5 transforamin al lumbar interbody fusion with an expandable CTL cage for April 07, 2025. - She reports that taking baclofen recen tly did not help her pain. PreOp clearance: Any past surgical procedures: Y Any complications from anesthesia or in post-op period: Denies ASA or NSAID Use: No Current smoker: Yes Alcohol use: Denies Drug use: Denies METs:> 4 climb flight of stairs, golf, walk, yardwork Medical history: Asthma Y COPD Y Obesity BMI 43.[address] < 6 weeks, unstable angina, CHF, severe valve disease No Chronic Obstructive Pulmonary Disease: - The patient has a history of COPD and uses albuterol and Trelegy for symptom control. - She reports her breathing has been muc h better since starting the Trelegy inhaler. - She was wheezing during the visit, radhika she attributed to waking up late and feeling anxious due to pain. - Has pred on hand PRN for exacerbations , she has not had to use Obesity: - The patient has a history of obesity w ith a BMI of 43.4. Tobacco Use: - The patient has current tobacco use. Declined lung ca screening Urinary Frequency and Urgency: - The patient reports urinary frequency and urgency, requiring a commode next to her bed to avoid incontinence. - This is reported as a chronic, not a n ew, issue. Family History - No changes in family medical history s radha the last intake. 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 - Employment: The patient is currently w orking nights and is concerned about her ability to continue working for another month due to her pain. - Functional Status: Her back pain signi ficantly impacts her quality of life and ability to walk, requiring her to get up three hours before work. - She has short-term disability coverage through her employer and the state. - Social Support: She has supportive cow orkers who help her at work. Health Maintenance - The patient is up to date on her tetan us and flu shots. - The patient wishes to defer her colono scopy. - The patient wishes to defer her mammog frank. - The patient wishes to defer a bone den sity scan until after her back surgery. - The visit today will also serve as her preoperative clearance, which is within the 90-day window for her surgery. Review of Systems - General: Reports feeling very bad sinc e January 18 due to pain. - Respiratory: Reports wheezing. - Genitourinary: Reports urinary frequen cy and urgency, requiring a commode nearby to prevent incontinence. - Musculoskeletal: Reports severe back p ain and leg pain, especially with activity. - Psychiatric: Reports feeling anxious d ue to pain. Physical Exam General: Well developed, well nourished, in no acute distress. Appears stated age. Head: Normocephalic, atraumatic. Eyes: Pupils are equal, round and reactive to light and accommodation. Conjunctivae are clear. Scleras nonicteric bilat. Vision grossly normal. Ears: TMs clear AU, EACS WNL Nose: Patent, without discharge. Neck: No carotid bruit bilat. Supple, no adenopathy or thyromegaly. Breast: Edu on SBE Lungs: Wheezing noted throughout, but no rales, rhonchi. Good air flow in all otoole. Patient uses albuterol and Trelegy for COPD management. Heart: Regular rate and rhythm. No murmurs, click, rubs or gallops are noted. Abdomen: Bowel sounds present in all quadrants. The abdomen is soft, nontender, with no masses or organomegaly noted. No hernias are noted. : Deferred. Reviewed recommendations for routine PIPELINE OPERATOR Pulses: Bilateral lower extremities with varicosities, skin dry, hairless, nonpitting edema, decreased pedal pulses, skin intact, Peripheral pulses are equal and palpable bilaterally. Extremities: No clubbing, cyanosis nor edema is noted. Neurologic: Gait and station normal. Cranial Nerves 2-12 intact. Motor strength grossly symmetrical and intact. No sensory loss. Balance normal. Gaurded slow position changes d/t pain, cannot sit for prolonged periods; very difficult time laying down for exam d/t back pain Skin: No rashes, ulcers, or lesions noted. Turgor is good. Skin color is good. Hair and nails are without abnormalities. Psych: Normal eye contact, affect and mood appropriate, and normal interactions. Patient is alert and appropriate to context. Reports feeling anxious due to pain and upcoming surgery. Results EKG done today shows NSR with occassional PVC Labs ordered and pending Medical Decision Making The patient, a 59-year-old female, presented for a complete physical and preoperative clearance for an L4-L5 transforaminal lumbar interbody fusion scheduled for April 07, 2025. Her primary complaint is severe chronic back pain, which has acutely worsened since January 18 and is not responding to Tylenol and gabapentin. She reports this pain significantly impairs her quality of life and ability to work. Given the severity of her pain and the need for her to continue working for another month, I am prescribing a short course of Ultram (tramadol) to be taken with Tylenol for better pain control. I have counseled her on the potential for drowsiness and advised caution with driving. Her surgeon had previously declined to prescribe 800mg Motrin due to concerns about intestinal harm. Her COPD is managed with Trelegy, which she reports is effective, and albuterol as needed. Some wheezing was noted on exam. I advised against using her as- needed prednisone to avoid any potential delay in her surgery, but emphasized she should use her albuterol nebulizer more liberally at home, up to three times a day, to improve airflow and prevent acute exacerbations. Smoking cessation also encouraged. As this visit serves as her preoperative clearance, I have ordered labs (including CBC, kidney function, and cholesterol) and an updated EKG was completed today. We reviewed her health maintenance, and she has elected to defer her colonoscopy, mammogram, and a baseline bone density scan until after her surgery and recovery. Plan 1. Chronic Back Pain - The patient's pain from chronic back i ssues has acutely worsened and is not controlled with her current regimen of Tylenol and gabapentin. - A new prescription for Ultram (tramado l) will be sent to her pharmacy, she can use this sparingly until her surgery. - She is instructed to take it with Tyle nol up to twice a day as needed for pain, and was counseled that it may cause tiredness or sedation. - The patient will continue to follow [facility] the spine center for management, leading up to her scheduled L4-L5 fusion on April 07, 2025. - A work note will be provided for charanjit allen days 02/10 & 02/11. 2. Chronic Obstructive Pulmonary Disease - The patient reports good control of he r COPD with Trelegy. - Wheezing was noted on exam. - To improve air movement and prevent ex acerbations pre-surgery, she is advised to use her albuterol nebulizer liberally at home, up to three times a day, instead of her rescue inhaler. - She was advised not to take her emerge ncy prednisone unless absolutely nec essary and to notify the provider if she becomes significantly short of breath, as steroid use could delay her surgery. - Smoking cessation 3. Preoperative Clearance And Wellness - The visit will serve as preoperative c learance for her spine surgery. - Orders were placed for lab work to be done today, including a CBC, kidney function panel, and cholesterol panel. - EKG performed in the office today. - Amendment for clearance will be added after labs are resulted. - The patient has deferred her mammogram , colonoscopy, and bone density screening until after her surgery. Patient Instructions - Smoking cessation. - A new medication for pain, called tram adol (Ultram), has been sent to your pharmacy. - You can take one or two 500 mg Tylenol at the same time as the tramadol for better pain relief. - You can take the tramadol up to twice a day as needed. - Be aware that tramadol can make you fe el tired or sleepy, so be careful, especially with driving, until you know how it affects you. - When you are at home, use your nebuliz er machine with albuterol up to three times a day to help your breathing. - Use your puffer (rescue inhaler) only when you are not at home, such as at work. - Do not take the prednisone pills you h ave unless you absolutely cannot breathe, and if that happens, you must let me know right away, as it could affect your surgery. - The front office coordinator will give you a work no te for the days you missed. - If you need to go out of work before y our surgery, you should first contact your spine surgeon's office to handle the FMLA paperwork. - RTO for Hos dis follow up visit in Apr , sooner as needed. Consent Patient was informed and verbally consented to the use of an ambient scribe for clinic note documentation during this visit. An additional 20 minutes was spent addressing the problem(s) noted at todays visit. This includes time spent before the visit reviewing the chart, time spent during the visit, and time spent after the visit on documentation reviewing laboratory results, diagnostic imaging, medications, performing a medically necessary evaluation, counseling on diagnoses, care coordination, ordering appropriate tests, ordering appropriate medications, review of tests performed by other providers, reporting test results with the patient, communication with other healthcare providers. [facility] Medical History Asthma PVD (peripheral vascular disease) COPD (chronic obstructive pulmonary disease) Spine pain Surgical History Colon cancer screening declined (~2024) H/O: hysterectomy Previous section Family History Father Cancer Brother Cancer Paternal Grandfather Cardiovascular disease Mother COPD (chronic obstructive pulmonary disease) Social History (Updated 02/12/25 @ 10:38 by Ana Martinez CMA) Household Members: Family Household Members Other:: cousin Both parents involved: No Caregiver staying overnight: No Housing: House Are you a primary medicare nurse to a significant other at home: No Do you presently have visiting nurse or other home services: No 75 years or older and lives alone: No Alcohol intake: former Patient Tobacco Use Status: Current everyday Tobacco user Tobacco use type: Cigarette Cigarette Packs Per Day: 1 Cigarettes Per Day: 10 Years Smoked: 42 e-Cigarette/Vaping Use: Never Used Second Hand Smoke Exposure: No Substance Use Type: Marijuana Advance Directives Date on File: 12/03/24 service: No Current occupational status: employed 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 1. Little interest or pleasure in doing things: not at all 2. Feeling down, depressed, or hopeless: not at all 3. Trouble falling or staying asleep, or sleeping too much: not at all 4. Feeling tired or having little energy: not at all 5. Poor appetite or overeating: not at all 6. Feeling bad about yourself - or that you are a failure or have let yourself or your family down: not at all 7. Trouble concentrating on things, such as reading the newspaper or watching television: not at all 8. Moving or speaking so slowly that other people could have noticed. Or the opposite - being so fidgety or restless that you have been moving around a lot more than usual: not at all 9. Thoughts that you would be better off or of hurting yourself in some way: not at all Total score: 0 Depression Screening Interpretation: Negative Depression Screening Done: Yes 48538 - PHQ-9 Billing: Yes Source: Developed by Drs. Bridger Wen, Maria Elena Castorena, Horacio Ordonez and colleagues, with an educational brisa from [employer]. Thrive Questionnaire Date Thrive assessed: 02/12/25 I am a: Patient What is your living situation today?: I have a steady place to live Within the past 12 months, did the food you bought not last and you didn't have the money to get more?: Never true Within the past 12 months, did you worry whether your food would run out before you got money to buy more?: Never true Do you have trouble paying for medicines?: No Do you have trouble getting transportation to medical appointments?: No Do you have trouble paying your heating and electricity bill?: No Do you have trouble taking care of your child, family member or friend?: No Do you have trouble with day-to-day activities such as bathing, preparing meals, shopping, managing finances, etc.?: I choose not to answer this question Are you currently unemployed and looking for a job?: No Are you interested in more education?: No Please select the resources that you would like help with: None Currently or been in a relationship where the following occur: I choose not to answer THRIVE Score: 0 AUDIT C Alcohol Use Questionnaire (AUDIT-C) 1. How often do you have a drink containing alcohol?: Never 3. How often do you have six or more drinks on one occasion?: Never Total Score: 0 Score Reviewed/Action Taken: Yes ROCÍO-7 AMB Questionnaire ROCÍO-7 Date ROCÍO - 7 assessed: 02/12/25 Feeling nervous, anxious, or on edge: 0 = Not at all Not being able to stop or control worryin = Not at all Worrying too much about different things: 0 = Not at all Trouble relaxin = Not at all Being so restless that it is hard to sit still: 0 = Not at all Becoming easily annoyed or irritable: 0 = Not at all Feeling afraid as if something awful might happen: 0 = Not at all Total ROCÍO-7 score (0-4 normal; 5-9 mild; 10-14 moderate; 15-21 severe): 0 Source: Developed by Drs. Bridger Wen, Maria Elena Castorena, Horacio Ordonez and colleagues, with an educational brisa from [employer]. ROCÍO-7 Assessment Billing ROCÍO-7 Assessment Tool: ROCÍO-7 Assessment 93792 Physical exam (Primary Care) Vital Signs: Last Vital Signs Temp 99 F 02/12/25 10:38 Pulse 89 02/12/25 10:38 Resp 15 02/12/25 10:38 BP 136/68 02/12/25 10:38 Pulse Ox 94 02/12/25 10:38 Oxygen Delivery Method Room Air 02/12/25 10:38 BMI result Body Mass Index 43.4 BMI Assessment/Plan discussion: High BMI High, discussed plan: lifestyle Tobacco/Smoking Status: Tobacco use Status Tobacco use date assessed 02/12/25 02/12/25 10:42 Patient Tobacco Use Status Current everyday Tobacco 02/12/25 10:38 Tobacco use type Cigarette 02/12/25 10:38 e-Cigarette/Vaping Use Never Used 02/12/25 10:38 Are you ready to quit: No Tobacco cessation counseling provided: Yes Items discussed: Nicotine replacement, QuitWorks and Other Number of minutes spent counselin CPT code: 53360 - 4-10 Minutes PHQ-9: PHQ-9 Score PHQ-9: Total score 0 02/12/25 11:27 Depression Screening Interpretation: Negative Thrive Assessment: Date of Thrive Assessment Date Thrive assessed 02/12/25 02/12/25 10:42 Currently or been in a relationship where the following occur: I choose not to answer Office Procedures EKG 36907-Mwqrgvyfjdvccviex, Complete Coding Level of Care Code Est Pt Level 3 (17617) Est Pt Prev Care 40-64y(38492) Diagnoses Adult general medical exam Z00.00 Laboratory exam ordered as part of routine general medical examination Z00.00 Lung cancer screening declined by patient Z53.20 Moderate episode of recurrent major depressive disorder F33.1 Major depression episode severity: moderate PVD (peripheral vascular disease) I73.9 Morbid obesity with BMI of 40.0-44.9, adult E66.01; Z68.41 Spondylolisthesis at L4-L5 level M43.16 Chronic pain syndrome G89.4 Mixed simple and mucopurulent chronic bronchitis J41.8 COPD type: chronic bronchitis Chronic bronchitis type: mixed simple and mucopurulent Tobacco dependence F17.200 Pre-op exam Z01.818 CPT Codes EKG - CPT: 99852-Igrywrmmwueojkfbj, Complete ([id number]) Additional Codes ROCÍO-7 Assessment Billing - ROCÍO-7 Assessment Tool: ROCÍO-7 Assessment 61035 ([id number]) PHQ-9 - 44200 - PHQ-9 Billing: Yes ([id number]) Vital Signs *Quality* - CPT code: 60105 - 4-10 Minutes ([id number]) Assessment & Plan Assessment & Plan (1) Adult general medical exam: Onset Date: ~02/12/25 Code(s): Z00.00 - Encounter for general adult medical examination without abnormal findings Category: Medical (2) Laboratory exam ordered as part of routine general medical examination: Code(s): Z00.00 - Encounter for general adult medical examination without abnormal findings Category: Medical (3) Lung cancer screening declined by patient: Onset Date: ~02/12/25 Code(s): Z53.20 - Procedure and treatment not carried out because of patient's decision for unspecified reasons Category: Medical (4) MDD (major depressive disorder), recurrent episode: Code(s): F33.9 - Major depressive disorder, recurrent, unspecified Category: Medical Qualifiers: Major depression episode severity: moderate Qualified Code(s): F33.1 - Major depressive disorder, recurrent, moderate (5) PVD (peripheral vascular disease): Comment: Based on clinical exam, monitor skin integrity Code(s): I73.9 - Peripheral vascular disease, unspecified Category: Medical (6) Morbid obesity with BMI of 40.0-44.9, adult: Code(s): E66.01 - Morbid (severe) obesity due to excess calories; Z68.41 - Body mass index [BMI] 40.0-44.9, adult Category: Medical (7) Spondylolisthesis at L4-L5 level: Code(s): M43.16 - Spondylolisthesis, lumbar region Category: Medical (8) Chronic pain syndrome: Code(s): G89.4 - Chronic pain syndrome Category: Medical (9) COPD (chronic obstructive pulmonary disease): Comment: exacerbation 12/03/24-was in patient [facility] [place] Code(s): J44.9 - Chronic obstructive pulmonary disease, unspecified Category: Medical Qualifiers: COPD type: chronic bronchitis Chronic bronchitis type: mixed simple and mucopurulent Qualified Code(s): J41.8 - Mixed simple and mucopurulent chronic bronchitis (10) Tobacco dependence: Comment: Smoking Cessation How to Quit There are a lot of ways to quit smoking and many resources to help you. Family members, friends, and co-workers may be supportive or encouraging, but to be successful the desire and commitment to quit must be your own. Most people who have been able to successfully quit smoking made at least one unsuccessful attempt in the past. Try not to view past attempts to quit as failures, but rather as learning experiences. Stopping smoking or using smokeless tobacco is difficult, but anyone can do it. Know the symptoms to expect when you stop. Common symptoms include: ? An intense craving for nicotine ? Anxiety, tension, restlessness, frustration, or impatience ? Difficulty concentrating ? Drowsiness or trouble sleeping, as well as bad dreams and nightmares ? Drowsiness and trouble sleeping ? Headaches ? Increased appetite and weight gain ? Irritability or depression How severe your symptoms are depends on how long you smoked and how many cigarettes you smoked each day. Feel ready to quit? ? First and foremost, set a quit date and quit completely on that day. Before your quit date, you may begin reducing your cigarette use. But remember, there is no safe level of cigarette smoking. ? List the reasons why you want to quit. Include both short- and long-term benefits. ? Identify the times you are most likely to smoke. For example, do you tend to smoke when feeling stressed or down? When out at night with friends? While drinking coffee or alcohol? When bored? While driving? Right after a meal or sex? During a work break? While watching TV or playing cards? When you are with other smokers? ? Let all of your friends, family, and co-workers know of your plan to stop smoking and your quit date. Just being aware that they know what you're going through can be helpful, especially when you are grumpy. ? Get rid of all your cigarettes just before the quit date, and clean out anything that smells like smoke, such as clothes and furniture. Make a plan about what you will do instead of smoking at those times when you are most likely to smoke. ? Be as specific as possible. For example, drink tea instead of coffee -- tea may not trigger the desire for a cigarette. Or, take a walk when you feel stressed. ? Remove ashtrays and cigarettes from the car. Place pretzels or hard candies there instead. Pretend-smoke with a straw. ? Find activities that focus your hands and mind but are not taxing or fattening. Computer games, solitaire, knitting, sewing, and crossword puzzles may help. ? If you normally smoke after eating, find other ways to end a meal. Play a tape or CD, eat a piece of fruit, get up and make a phone call, or take a walk (a good distraction that also ivy calories). Make other changes in your lifestyle. ? Change your daily schedule and habits. Eat at different times or eat several small meals instead of three large ones. Sit in a different chair or even a different room. ? Satisfy your oral habits by eating celery or other low-calorie snack, chewing sugarless gum, or sucking on a cinnamon stick. ? Go to public places and restaurants where smoking is prohibited or restricted. ? Eat regular meals and don't eat too much candy or sweet things. ? Get more exercise. Take walks or ride a bike. Exercise helps relieve the urge to smoke. Set short-term quitting goals and reward yourself when you meet them. ? Every day, put the money you normally spend on cigarettes in a jar. Then buy something pleasurable after a period of time. ? Try not to think about all the days ahead you will need to avoid smoking. Take it one day at a time. ? Even one puff or one cigarette will make your desire for more cigarettes even stronger. However, it is normal to make mistakes. So even if you have one cigarette, you don't need to take the next one. Other tips to help you quit smoking and stick to it: ? Enroll in a smoking cessation program (hospitals, health departments, community centers, and work sites often offer programs). Learn about self-hypnosis or other techniques. ? Ask your health care provider about prescription medications that are safe and appropriate for you. ? Find out about nicotine patches, gum, and sprays. The [place] [employer]'s web site -- www.cancer.org -- is an excellent resource for smokers who are trying to quit, and the [employer] [place] [employer] can help some smokers kick the habit. Above all, don't get discouraged if you aren't able to quit smoking the first time. Nicotine addiction is a hard habit to break. Try something different next time. Develop new strategies, and try again. Many people take several attempts to finally kick the habit. Code(s): F17.200 - Nicotine dependence, unspecified, uncomplicated Category: Medical (11) Pre-op exam: Code(s): Z01.818 - Encounter for other preprocedural examination Plan . Orders: Orders Comprehensive Met. Panel Today Z00.00 - Encounter for general adult medical ex amination without abnormal findings Lipid Panel Today Z00.00 - Encounter for general adult medical examination without abnormal findings Complete Blood Count no Diff Today Z00.00 - Encounter for general adult medical examination without abnormal findings Hemoglobin A1c Today Z00.00 - Encounter for general adult medical examination without abnormal findings Microalbumin, Random (w Creat) Today Z00.00 - Encounter for general adult medical examination without abnormal findings TSH reflex Free T4 Today Z00.00 - Encounter for general adult medical examination without abnormal findings Vitamin B12 and Folate Today Z00.00 - Encounter for general adult medical examination without abnormal findings Vitamin D 25-OH Total Today Z00.00 - Encounter for general adult medical examination without abnormal findings Medications: New tramadol 50 mg PO BID PRN 60 tabs 0RF pain Changed From prednisone 50 mg PO DAILY 14 tabs 0RF To prednisone HAS ON HAND TO USE PRN ACUTE COPD EXAC. UNTIL EVALED BY PROVIDER 50 mg PO DAILY PRN 14 tabs 0RF COPD Patient Instructions: Health screenings for women You should visit your health care provider from time to time, even if you are healthy. The purpose of these visits is to: Screen for medical issues Assess your risk for future medical problems Encourage a healthy lifestyle Update vaccinations and other preventive care services Help you get to know your provider in case of an illness Information Even if you feel fine, you should still see your provider for regular checkups. These visits can help you avoid problems in the future. For example, the only way to find out if you have high blood pressure is to have it checked regularly. High blood sugar and high cholesterol levels also may not have any symptoms in the early stages. A simple blood test can check for these conditions. There are specific times when you should see your provider or receive specific health screenings. The [place] Preventive Services Task Force publishes a list of recommended screenings. Below are screening guidelines for women ages 18 to 39. BLOOD PRESSURE SCREENING Your blood pressure should be checked at least once every 3 to 5 years if: Your blood pressure is in the normal range (top number less than 120 mm Hg and bottom number less than 80 mm Hg) You don't have risk factors for high blood pressure Ask your provider if you need your blood pressure checked more often if: The top number is 120 to 129 mm Hg or the bottom number is 70 to 79 mm Hg You have diabetes, heart disease, kidney problems, are overweight, or have certain other health conditions You have a first-degree relative with high blood pressure You are Black You had high blood pressure during a If the top number is 130 mm Hg or greater or the bottom number is 80 mm Hg or greater, this is considered stage 1 hypertension. Schedule an appointment with your provider to learn how you can reduce your blood pressure. Watch for blood pressure screenings in your area. Ask your provider if you can stop in to have your blood pressure checked. BREAST CANCER SCREENING Experts do not agree about the benefits of breast self-exams in finding breast cancer or saving lives. Talk to your provider about what is best for you. A screening mammogram is not recommended for most women under age 40. Your provider may discuss and recommend mammograms, MRI scans, or ultrasounds if you have an increased risk for breast cancer, such as: A mother or sister who had breast cancer at a young age (most often starting screening earlier than the age the close relative was diagnosed) You carry a high-risk genetic marker CERVICAL CANCER SCREENING Cervical cancer screening should start at age 21 years unless your provider advises otherwise. After the first test: Women ages 21 through 29 should have a Pap test every 3 years. Exoprts do not agree on whether HPV testing is recommended for this age group. Women ages 30 through 65 should be screened with either a Pap test every 3 years or the HPV test every 5 years or both tests every 5 years (called cotesting ). Women who have been treated for precancer (cervical dysplasia) should continue to have Pap tests for 20 years after treatment or until age 65, whichever is longer. If you have had your uterus and cervix removed (total hysterectomy), and you have not been diagnosed with cervical cancer or precancer (high grade cervical neoplasia), you do not need cervical cancer screening. CHOLESTEROL SCREENING Cholesterol screening should begin at: Age 45 for women with no known risk factors for coronary heart disease Age 20 for women with known risk factors for coronary heart disease Repeat cholesterol screening should take place: Every 5 years for women with normal cholesterol levels More often if changes occur in lifestyle (including weight gain and diet) More often if you have diabetes, heart disease, kidney problems, or certain other conditions DIABETES SCREENING You should be screened for diabetes starting at age 35 and then repeated every 3 years if you have no risk factors for diabetes. Screening may need to start earlier and be repeated more often if you have other risk factors for diabetes, such as: You have a first degree relative with diabetes. You are overweight or have obesity. You have high blood pressure, prediabetes, or a history of heart disease. Screening for diabetes should be done if you are planning to become and you are overweight and have other risk factors such as high blood pressure. DENTAL EXAM Go to the dentist once or twice every year for an exam and cleaning. Your dentist will evaluate if you need more frequent visits. EYE EXAM Have an eye exam every 5 to 10 years before age 40. If you have vision problems, have an eye exam every 2 years or more often if recommended by your provider. You should have an eye exam that includes an examination of your retina (back of your eye) at least every year if you have diabetes. IMMUNIZATIONS Commonly needed vaccines include: Flu shot: get one every year. COVID-19 vaccine: ask your provider what is best for you. Tetanus-diphtheria and acellular pertussis (Tdap) vaccine: have one at or after age 19 as one of your tetanus-diphtheria vaccines if you did not receive it as an adolescent. Tetanus-diphtheria: have a booster (or Tdap) every 10 years. Varicella vaccine: receive 2 doses if you never had chickenpox or the varicella vaccine. Hepatitis B vaccine: receive 2, 3, or 4 doses, depending on your exact circumstances. Measles, mumps, and rubella (MMR) vaccine: receive 1 to 2 doses if you are not already immune to MMR. Your provider can tell you if you are immune. Ask your provider about the human papillomavirus (HPV) vaccine if: You have not received the HPV vaccine in the past You have not completed the full vaccine series (you should catch up on this shot) Ask your provider if you should receive other immunizations if you have certain health problems that increase your risk for some diseases such as pneumonia. INFECTIOUS DISEASE SCREENING Women who are sexually active should be screened for chlamydia and gonorrhea up until age 25. Women 25 years and older should be screened for chlamydia and gonorrhea if at high risk. Screening for hepatitis C: All adults ages 18 to 79 should get a one-time test for hepatitis C. people should be screened at every . Screening for human immunodeficiency virus (HIV): All people ages 15 to 65 should get a one-time test for HIV. Depending on your lifestyle and medical history, you may also need to be screened for infections such as syphilis and HIV, as well as other infections. PHYSICAL EXAM All adults should visit their provider from time to time, even if they are healthy. The purpose of these visits is to: Screen for disease Assess your risk of future medical problems Encourage a healthy lifestyle Update your vaccinations and other preventive care services Maintain a relationship with a provider in case of an illness Your height, weight, and BMI should be checked at every exam. During your exam, your provider may ask you about: Depression and anxiety Diet and exercise Alcohol and tobacco use Safety issues, such as using seat belts, smoke detectors, and intimate partner violence Your medicines and risk for interactions SKIN SELF-EXAM Your provider may check your skin for signs of skin cancer, especially if you're at high risk, such as if you: Have had skin cancer before Have close relatives with skin cancer Have a weakened immune system OTHER SCREENING Talk with your provider about colon cancer screening if you have a strong family history of colon cancer or polyps, or if you have had inflammatory bowel disease or polyps yourself. Routine bone density screening of women under 40 is not recommended.
[2025-02-12 10:38] VITALS: BP 136/68; PULSE 89; RESP 15; TEMP 37.2; O2SAT 94; BMI 43.4
== END 2025-02-12 11:34 | disposition home or self-care (01) ==
LOC: HO.HMCFM 10:30
PROVIDERS: PCP Nurse Practitioner Family; Visit Provider Nurse Practitioner Family
DX: Z00.00 Encounter for general adult medical examination without abnormal findings (principal); G89.4 Chronic pain syndrome; F33.1 Major depressive disorder, recurrent, moderate; E66.01 Morbid (severe) obesity due to excess calories; Z68.41 Body mass index [BMI] 40.0-44.9, adult; J41.8 Mixed simple and mucopurulent chronic bronchitis; Z53.20 Procedure and treatment not carried out because of patient's decision for unspecified reasons; I73.9 Peripheral vascular disease, unspecified; M43.16 Spondylolisthesis, lumbar region; F17.200 Nicotine dependence, unspecified, uncomplicated; Z01.818 Encounter for other preprocedural examination